=== PATIENT | male | born 1960 | race Caucasian/White ===

== ENCOUNTER 2017-04-26 16:55 | Inpatient (IN) ==
[2017-04-26] MEDS ORDERED: DILAUDID IV ONE ×2 (17:08→17:30)
[2017-04-26] MEDS ORDERED: ZOFRAN IV ONE (17:08)
[2017-04-26] MEDS ORDERED: NS 1,000 ML IV ONE ×2 (17:08→19:26)
[2017-04-26 17:26] LABS: MANUAL DIFF NEEDED? NO
[2017-04-26 17:28] LABS: BASO% 0.5 % (0.0-0.8); EOS# 0.25 X1000 (0.0-0.7); EOS% 2.3 % (0.0-10.0); HEMOGLOBIN 16.3 g/dL (14.0-18.0); IMM GRAN# 0.05 X1000 (0.0-0.04); IMM GRAN% 0.5 % (0.0-0.5); LYMPH# 3.11 X1000 (1.2-3.4); LYMPH% 28.1 % (20.5-51.1); MCH 33.3 PG (27-31); MCV 98.2 FL (81-99); MONO% 13.6 % (1.7-9.3); MPV 10.4 FL (7.4-10.4); PLT 264 X1000 (130-400); RBC 4.89 XMIL (4.7-6.1)
--- NOTE | 2017-04-26 17:49 | EKG Report ---
Test Performed on : 04/26/2017 5:09:26 PM Test Reason : CP ABDOMINAL PAIN Blood Pressure : / mmHG Vent. Rate : 069 BPM Atrial Rate : 069 BPM P-R Int : 124 ms QRS Dur : 100 ms QT Int : 554 ms P-R-T Axes : 024 026 066 degrees QTc Int : 593 ms Normal sinus rhythm. Septal infarct , age undetermined ST \T\ T wave abnormality, consider lateral ischemia Prolonged QT Abnormal ECG No previous ECGs available Unconfirmed Result
--- NOTE | 2017-04-26 17:49 | PROVIDER DOCUMENTATION ---
This chart was entered by Radha Manzanares Scribe, acting as scribe for Di Gorman MD. HPI-Abdominal Pain/GI Problem <Melvin Vazquez - Last Filed: 04/26/17 20:08> - General Source: patient - History of Present Illness-ABD Nature of Presenting Problems: Pt is 56 y/o M presents to the ED with abdominal pain. Pt states pain started [employer]. Pt states N and V. Pt denies D. Pt's states eating prior to pain onset. Abdominal Pain Onset Location: reports: periumbilical Pain Radiation: reports: no radiation Quality of Pain: reports: aching Severity in ED: reports: severe Onset/Duration: reports: 1/2 hour ago Timing: reports: still present Activities at Onset: reports: light activity Exposure to sick contacts?: No Modifying Factors: improves with: nothing Associated Symptoms: reports: diaphoresis, nausea, vomiting. denies: anxiety, arm pain, back/neck pain, chest pain, constipation, cough, diarrhea, dizziness, EENT symptoms, fatigue, fever/chills, genitourinary problems, headaches, heartburn, joint pain, loss of appetite, malaise, muscle aches, sinus congestion /drainage, rash, seizure, shortness of breath, sensory/motor loss, pain with inspiration, swelling/mass in abdomen, syncope, weakness, trouble walking Last BM: unsure Dark Stools Present?: reports: none noticed Rectal Bleeding: reports: none Rectal Pain: reports: none # of Vomiting Episodes: 2 Emesis Description: reports: other Bruising or Bleeding Gums?: No Similar Symptoms Previously?: No Recently seen or treated by another doctor?: No <Di Gorman - Last Filed: 04/27/17 07:38> - General Chief Complaint: Abdominal Pain Stated Complaint: ABD PAIN/N/V Time Seen by Provider: 04/26/17 17:10 Allergies/Adverse Reactions: Patient Allergies Allergy/AdvReac Type Severity Reaction Status Date / Time No Known Allergies Allergy Verified 08/22/15 12:08 Home Medications: Home Medication List Medication Instructions Recorded Confirmed Last Taken Type Topiramate [Topamax] 50 mg PO DAILY 08/22/15 04/26/17 04/25/17 22:00 History 50MG Warfarin Sodium [Coumadin] 6 mg PO DAILY 08/22/15 04/26/17 04/25/17 History Warfarin [Coumadin] 9.5 mg PO DIRECTED 08/22/15 04/26/17 04/23/17 History Amlodipine [Norvasc] 10 mg PO DAILY 04/27/17 04/27/17 04/26/17 History Fenofibrate 160 mg PO DAILY 04/27/17 04/27/17 04/26/17 History Lisinopril/Hydrochlorothiazide 20 mg PO DAILY 04/27/17 04/27/17 04/26/17 History [Lisinopril-Hctz 20-25 mg Tab] Omeprazole 20 mg PO QAM 04/27/17 04/27/17 04/26/17 History PRAVAstatin [Pravachol] 40 mg PO QHS 04/27/17 04/27/17 04/25/17 History Sertraline HCl [Zoloft] 100 mg PO DAILY 04/27/17 04/27/17 04/25/17 History Review of Systems - Adult - REVIEW OF SYSTEMS - ADULT Constitutional: reports: no symptoms reported Eyes: reports: no symptoms reported Ears, Nose, Mouth & Throat: reports: no symptoms reported. denies: ear discharge, ear pain Cardiovascular: reports: no symptoms reported Respiratory: reports: no symptoms reported. denies: chronic cough, cough Gastrointestinal: reports: abdominal pain, nausea, vomiting. denies: diarrhea Genitourinary: reports: no symptoms reported. denies: dysuria, discharge Musculoskeletal: reports: no symptoms reported Integumentary: reports: no symptoms reported Neurological: reports: no symptoms reported Psychiatric: reports: no symptoms reported Endocrine: reports: excessive sweating. denies: change in skin pigment, goiter , increased hunger, increased thirst Hematologic/Lymphatic: reports: no symptoms reported Allergic/Immunologic: reports: no symptoms reported All Other Systems: Reviewed and Negative <Di Gorman - Last Filed: 04/27/17 07:38> Past History - Adult - PAST MEDICAL HISTORY-ADULT Review of Records: reports: Old Records Reviewed, Nursing Assessment Review, Medications Reviewed, Social history reviewed & non-contributory. Major Childhood Illnesses: reports: denies history Cardiovascular: reports: HTN, heart valve problem (mechanical valve), hyperlipidemia Respiratory: reports: sleep apnea Gastrointestinal: reports: GERD Obstetrical/Gynecological: reports: denies history Genitourinary: reports: denies history Musculoskeletal: reports: denies history Neurological: reports: denies history Endocrine/Immune: reports: denies history Other Conditions: reports: denies history - PRIOR SURGERIES/PROCEDURES Surgical/Procedure History: reports: appendectomy, orthopedic (extremity) ( carpal tunnel ) - IMMUNIZATION STATUS Childhood Immunizations: See Nurse Assessment Flu Vaccine: See Nurse Assessment - FAMILY HISTORY Family History: reviewed, not pertinent - SOCIAL HISTORY Smoking: denies Substance Use: alcohol Alcohol Use Frequency: 3-4 times a week Number of drinks per typical drinking period:: 3-4 drinks Living Situation: family <Di Gorman X - Last Filed: 04/27/17 07:38> Physical Exam-General - PHYSICAL EXAM-ADULT Initial Vital Signs Reviewed: Yes - CONSTITUTIONAL General Appearance: alert, severe distress - EYES Eyes: PERRL/EOMI, pink conjunctivae - HEAD, EARS, NOSE, MOUTH & THROAT HENMT: normocephalic/atraumatic, moist mucous membranes, normal ENT inspection - NECK Neck: non-tender, full range of motion, supple, normal inspection - RESPIRATORY Respiratory: chest non-tender, lungs clear, normal breath sounds - CARDIOVASCULAR Cardiovascular: normal peripheral pulses, regular rate, rhythm - GASTROINTESTINAL (ABDOMEN) Abdominal Exam: normal bowel sounds, soft, tenderness (generalized) - LYMPHATIC Lymphatic: no adenopathy - MUSCULOSKELETAL Back Exam: normal inspection, no CVA tenderness, no vertebral tenderness Extremity: normal range of motion, non-tender, normal gait, normal inspection - SKIN Integumentary: normal color, normal turgor, diaphoresis - NEUROLOGIC Neurologic: grossly normal - PSYCHIATRIC Psych/Mental Status: other <Patricia Gormanvaleriano X - Last Filed: 04/27/17 07:38> Progress - PLAN OF CARE/RESULTS Progress/Plan/Lab Results: Vital Signs - 8 hr 04/26/17 16:59 04/26/17 19:08 04/26/17 19:30 Pulse Rate 74 59 L 63 Respiratory Rate 24 16 20 Blood Pressure 139/73 156/71 178/69 O2 Sat by Pulse Oximetry 99 97 96 Laboratory Results - last 24 hr 04/26/17 04/26/17 04/26/17 17:10 17:10 17:10 WBC 11.06 H RBC 4.89 Hgb 16.3 Hct 48.0 MCV 98.2 MCH 33.3 H MCHC 34.0 RDW Std Deviation 13.0 Plt Count 264 MPV 10.4 Immature Gran % (Auto) 0.5 Neut % (Auto) 55.0 Lymph % (Auto) 28.1 [place]isco[place] % (Auto) 13.6 H Eos % (Auto) 2.3 Baso % (Auto) 0.5 Immature Gran # (Auto) 0.05 H Neut # (Auto) 6.10 Lymph # (Auto) 3.11 [place] # (Auto) 1.50 H Eos # (Auto) 0.25 Baso # (Auto) 0.05 PT INR Sodium 141 Potassium 2.3 L* Chloride 97 L Carbon Dioxide 22 L Anion Gap 22 BUN 13 Creatinine 1.0 Estimated GFR/1.73 m2 > 60 BUN/Creatinine Ratio 13 Glucose 158 H Calculated Osmolality 285 Calcium 9.7 Total Bilirubin 0.40 AST 35 H ALT 26 Alkaline Phosphatase 60 Troponin T < 0.010 Total Protein 8.1 Albumin 4.7 Globulin 3.0 Albumin/Globulin Ratio 1.0 Amylase 2482 H Lipase > 3000 H Plasma/Serum Ethyl Alc 04/26/17 04/26/17 17:10 17:10 WBC RBC Hgb Hct MCV MCH MCHC RDW Std Deviation Plt Count MPV Immature Gran % (Auto) Neut % (Auto) Lymph % (Auto) Briscoe % (Auto) Eos % (Auto) Baso % (Auto) Immature Gran # (Auto) Neut # (Auto) Lymph # (Auto) [place] # (Auto) Eos # (Auto) Baso # (Auto) PT 25.7 H INR 2.34 H Sodium Potassium Chloride Carbon Dioxide Anion Gap BUN Creatinine Estimated GFR/1.73 m2 BUN/Creatinine Ratio Glucose Calculated Osmolality Calcium Total Bilirubin AST ALT Alkaline Phosphatase Troponin T Total Protein Albumin Globulin Albumin/Globulin Ratio Amylase Lipase Plasma/Serum Ethyl Alc Orders Category Date Time Status Admit - [facility] Routine AdmDCTranf 04/26/17 19:26 Ordered Activity - Bed Rest with BRP ORDERED Care 04/26/17 19:26 Active Call Admitting on Arrival AT ADMISSION Care 04/26/17 19:27 Active Saline Loc DIRECTED Care 04/26/17 17:10 Active Telemetry Placement ORDERED Care 04/26/17 19:28 Active Vital Signs Order Q 4-HR ASSESS Care 04/26/17 19:26 Active Clear Liquid Diet Diet 04/26/17 19:29 Active NPO Diet 04/26/17 17:[address] ABD/PELVIS W/ IV CONT ONLY [CT] Stat Exams 04/26/17 17:32 Ordered FLAT/UPRIGHT ABD/1 VIEW CHEST [RAD] Stat Exams 04/26/17 17:09 Completed US ABDOMEN-COMPLETE [US] Stat Exams 04/26/17 18:27 Completed AMYLASE [CHEM] Stat Lab 04/26/17 17:10 Completed CBC WITH ELECTRONIC DIFF [HEME] Stat Lab 04/26/17 17:10 Completed COMPREHENSIVE METABOLIC PANEL [CHEM] Stat Lab 04/26/17 17:10 Completed ETOH [ALCOHOL BLOOD] Stat Lab 04/26/17 17:10 Completed LIPASE [CHEM] Stat Lab 04/26/17 17:10 Com[address]IME WITH INR PL [COAG] Stat Lab 04/26/17 17:10 Completed TROPONIN T Stat Lab 04/26/17 17:[address] W/POSS RFLX CULT [URINALYSIS] Stat Lab 04/26/17 17:10 Uncollected 0.9% Sodium Chloride Inj [Ns] 1,000 ml Med 04/26/17 19:26 Active IV 150 mls/hr 0.9% Sodium Chloride Inj [Ns] 1,000 ml Med 04/26/17 17:08 Discontinued IV 999 mls/hr Hydromorphone [Dilaudid] Med 04/26/17 17:08 Discontinued 1 mg IV NOW ONE Hydromorphone [Dilaudid] Med 04/26/17 17:30 Discontinued 1 mg IV NOW ONE Hydromorphone [Dilaudid] Med 04/26/17 18:28 Discontinued 2 mg IM NOW ONE Hydromorphone [Dilaudid] Med 04/26/17 19:26 Active 2 mg IV Q4H PRN PRN LISINOpril [Prinivil] Med 04/26/17 19:33 Discontinued 20 mg PO NOW ONE Metoprolol [Lopressor] Med 04/26/17 19:33 Discontinued 25 mg PO NOW ONE Ondansetron [Zofran] Med 04/26/17 17:08 Discontinued 8 mg IV NOW ONE Potassium Chloride E.r. [Klor-Con] Med 04/26/17 18:07 Discontinued 60 meq PO NOW ONE Oxygen Device Routine Oth 04/26/17 19:28 Active Telemetry [OM.EQ] Routine Oth 04/26/17 19:26 Active EKG [EKG] Stat Ther 04/26/17 17:09 Draft Transfer/Admit Order [TRANSFER] Routine Transfer 04/26/17 19:33 Ordered Result Diagrams: 04/26/17 17:10 04/26/17 17:10 <Melvin Vazquez - Last Filed: 04/26/17 20:08> - PLAN OF CARE/RESULTS Progress/Plan/Lab Results: Vital Signs - 8 hr 04/26/17 16:59 Pulse Rate 74 Respiratory Rate 24 Blood Pressure 139/73 O2 Sat by Pulse Oximetry 99 Orders Category Date Time Status 0.9% Sodium Chloride Inj [Ns] 1,000 ml Med 04/26/17 17:08 Active IV 999 mls/hr Hydromorphone [Dilaudid] Med 04/26/17 17:08 Discontinued 1 mg IV NOW ONE Ondansetron [Zofran] Med 04/26/17 17:08 Discontinued 8 mg IV NOW ONE Result Diagrams: 04/27/17 06:10 04/27/17 06:10 - EKG 1 Time of EKG reading by physician:: 17:09 EKG Read and Signed by:: Di Gorman EKG Interpretation (*Must complete 3 of following elements*): Abnormal (ST & T wave abnormality, consider lateral ischemia; prolonged QT) Rate: 69 Rhythm: normal sinus rhythm Comments: septal infarct, age undetermined; - CHANGE OF SHIFT REPORT (ED Provider) Report Given and Care Transferred to:: Dr. Vazquez Time of Transfer: 17:45 Items Pending: Labs, XRAY Results, CT/MRI Results (CT) <Di Gorman - Last Filed: 04/27/17 07:38> Departure - Departure Date of Disposition Decision: 04/26/17 Time of Disposition Decision: 20:08 Certified Medical Emergency: Emergent - Critical Care Note This patient required my direct & personal management of CC.: No <Melvin Vazquez - Last Filed: 04/26/17 20:08> - Departure Date of Disposition Decision: 04/26/17 Time of Disposition Decision: 20:09 Certified Medical Emergency: Emergent - Critical Care Note This patient required my direct & personal management of CC.: No <Di Gorman - Last Filed: 04/27/17 07:38> - Departure DIAGNOSIS: Acute pancreatitis Qualifiers: Pancreatitis type: unspecified pancreatitis type Acute pancreatitis complication: unspecified Qualified Code(s): K85.90 - Acute pancreatitis without necrosis or infection, unspecified Disposition: ADMITTED INPATIENT 09 Condition: Stable This chart was documented by the indicated scribe, (Radha Manzanares Scribe) and accurately reflects the services I performed and decisions made by , Di Gorman MD, as attested by the provider's signature.
[2017-04-26] MEDS ORDERED: KLOR-CON PO ONE (18:07)
[2017-04-26 18:08] LABS: AGAP 22; ALBUMIN 4.7 g/dL (3.5-5.0); ALKALINE PHOSPHATASE 60 U/L (32-122); BUN 13 mg/dL (8-22); CALCIUM 9.7 mg/dL (8.8-10.2); CHLORIDE 97 mmol/L (98-107); COSMO 285; GOT 35 U/L (10-34); GPT 26 U/L (10-44); POTASSIUM 2.3 mmol/L (3.5-5.1); SODIUM 141 mmol/L (136-145); TCO2 22 mmol/L (25-35); TOTAL PROTEIN 8.1 g/dL (6.3-8.3)
[2017-04-26 18:09] LABS: AMYLASE 2482 U/L (20-200); LIPASE > 3000 U/L (13-60)
--- NOTE | 2017-04-26 18:12 | Diag Imaging Result Doc PS360 ---
EXAM: FLAT/UPRIGHT ABD/1 VIEW CHEST HISTORY: Severe epigastric pain TECHNIQUE: Flat and upright abdomen and AP chest portable COMMENT: there is no evidence of small bowel dilatation or gastric distention. There is stool within the ascending colon. No other definite evidence organomegaly or mass is present. CHEST: There are multiple healing rib fractures on the left. There are sternotomy wires. There are no previous studies. IMPRESSION: Constipation. Otherwise no evidence of acute disease Electronically signed by Ozzie Mittal 04/26/2017 6:10 PM
[2017-04-26] MEDS ORDERED: DILAUDID IM ONE (18:28)
--- NOTE | 2017-04-26 19:27 | Diag Imaging Result Doc PS360 ---
EXAM: US ABDOMEN-COMPLETE HISTORY: PAIN TECHNIQUE: Transabdominal COMMENT: The aorta and inferior vena cava are not well seen. The pancreas is obscured. The liver is hyperechoic suggesting fatty change. There was also fatty change on the previous CT study of 08/22/2015. There are cysts in the liver. The common bile duct is not visible. The gallbladder is clear and nontender. The spleen is not enlarged. The kidneys are without evidence of hydronephrosis or mass. Both are somewhat elongated the right measuring 14.6 cm and the left 13.6 cm. This is probably in proportion to the patient's body habitus however. There is antegrade flow in the portal vein. No abnormal fluid collections are present. IMPRESSION: Hepatic steatosis. Electronically signed by Ozzie Mittal 04/26/2017 7:24 PM
[2017-04-26] MEDS ORDERED: PRINIVIL PO ONE (19:33)
[2017-04-26] MEDS ORDERED: LOPRESSOR PO ONE (19:33)
[2017-04-26 19:38] LABS: INR 2.34 (0.86-1.15); PROTIME 25.7 Seconds (12.1-15.5)
--- NOTE | 2017-04-26 20:07 | ED EKG INTERP ---
This chart was entered by Gisselle Rivera Scribe, acting as scribe for Melvin Vazquez MD. EKG Interpretation - EKG Time of EKG reading by physician:: 18:09 EKG Read and Signed by:: Melvin Vazquez EKG Interpretation (*Must complete 3 of following elements*): Normal Rate: 63 Rhythm: NSR Comments: Abnormal ECG This chart was documented by the indicated scribe, (Gisselle Rivera Scribe) and accurately reflects the services I performed and decisions made by me, Melvin Vazquez MD, as attested by the provider's signature.
[2017-04-26] MEDS ORDERED: SODIUM CHLORIDE 0.9% INJ ONE ×2 (20:16→20:18)
[2017-04-26] MEDS ORDERED: PHENERGAN IV ONE ×2 (20:16→20:18)
--- NOTE | 2017-04-26 20:23 | Diag Imaging Result Doc PS360 ---
EXAM: CT ABD/PELVIS W/ IV CONT ONLY HISTORY: Severe epigastric pain with h/o CABG and HTN TECHNIQUE: CT of the abdomen and pelvis with intravenous contrast COMMENT: There are apparent chronic atelectatic or fibrotic changes in the posterior costophrenic sulci. There is marked hepatic steatosis. There are no gallstones. There is fairly severe phlegmonous change around the pancreas particularly in the left anterior pararenal space. There is fluid in the left subphrenic space. No definite evidence of necrosis or abscess is present. Some phlegmonous changes seen posterior to the body and antrum of the stomach. There is no evidence of biliary dilatation. There are cysts in the liver and kidneys. There is no evidence of hydronephrosis. There is no evidence of bowel obstruction. CT of the pelvis: There is no evidence of free fluid. The urinary bladder is not distended. There is no significant adenopathy. The regional skeleton is stable in appearance. IMPRESSION: 1. Pancreatitis with fairly severe phlegmonous change. 2. Hepatic steatosis. Electronically signed by Ozzie Mittal 04/26/2017 8:21 PM
[2017-04-26] MEDS ORDERED: M.V.I.-12 10 ML, FOLIC ACID 1 MG, MAGNESIUM SULFATE 1 GM, THIAMINE 100 MG in NS 1,000 ML IV ONE (21:30)
[2017-04-26] MEDS ORDERED: M.V.I.-12 ONE (23:36)
[2017-04-26] MEDS: DILAUDID IV PRN (23:36)
[2017-04-26] MEDS ORDERED: MAGNESIUM SULFATE ONE (23:36)
[2017-04-26] MEDS ORDERED: FOLIC ACID ONE (23:36)
[2017-04-26] MEDS ORDERED: THIAMINE ONE (23:36)
[2017-04-26] MEDS ORDERED: NS 1,000 ML ONE (23:37)
[2017-04-27] MEDS: LIBRIUM PO SCH ×4 (03:45→22:20)
[2017-04-27] MEDS: DILAUDID IV PRN ×4 (03:49→17:03)
[2017-04-27 06:38] LABS: HEMATOCRIT 53.6 % (42.0-52.0); HEMOGLOBIN 17.4 g/dL (14.0-18.0); MCH 32.5 PG (27-31); MCHC 32.5 g/dL (33-37); MCV 100.2 FL (81-99); MPV 10.8 FL (7.4-10.4); RBC 5.35 XMIL (4.7-6.1)
[2017-04-27 06:52] LABS: INR 1.99 (0.86-1.15); PROTIME 22.7 Seconds (12.1-15.5)
[2017-04-27] MEDS: ZOSYN 3.375 GM/NS 3.375 GM/50 ML IVPB IV SCH ×3 (07:19→18:41)
[2017-04-27 07:36] LABS: ALBUMIN 4.1 g/dL (3.5-5.0); CALCIUM 8.2 mg/dL (8.8-10.2); POTASSIUM 5.9 mmol/L (3.5-5.1); TOTAL BILIRUBIN 0.6 mg/dL (0.20-1.00); TOTAL PROTEIN 7.7 g/dL (6.3-8.3)
[2017-04-27] MEDS ORDERED: ZOFRAN IV PRN (08:37)
[2017-04-27] MEDS ORDERED: HYDROCHLOROTHIAZIDE PO SCH (09:00)
[2017-04-27] MEDS ORDERED: NON-FORMULARY MED (Lisinopril/Hydrochlorothiazide [Lisinopril-Hctz 20-25 Mg Tab] 20 MG) PO SCH (09:00)
[2017-04-27] MEDS ORDERED: PRINIVIL PO SCH (09:00)
[2017-04-27] MEDS ORDERED: COUMADIN PO SCH (09:00)
[2017-04-27] MEDS ORDERED: ZOLOFT PO SCH (09:00)
[2017-04-27] MEDS ORDERED: NORVASC PO SCH (09:00)
[2017-04-27] MEDS: ATIVAN IV PRN ×2 (09:12→23:30)
--- NOTE | 2017-04-27 10:43 | HISTORY AND PHYSICAL ---
PRIMARY CARE PHYSICIAN: Renee Alexandre MD. CHIEF COMPLAINT: Abdominal pain with nausea, vomiting. HISTORY OF PRESENTING ILLNESS: This is a 56-year-old male, who presented to [facility] ER with complaints of epigastric abdominal pain with nausea, vomiting. Workup in the ER showed a potassium of 2.3, an amylase of 2482 with a lipase greater than 3000. Serum alcohol level showed none detected at this time, but he states that he drinks 7- 15 alcoholic beverages daily. We also obtained an abdomen and pelvic CT that showed an impression of pancreatitis with fairly severe phlegmonous change so he was admitted for further evaluation and treatment. PAST MEDICAL HISTORY: Hypertension, hyperlipidemia, sleep apnea, and GERD. PAST SURGICAL HISTORY: Appendectomy. Carpal tunnel repair and mechanical valve placement. FAMILY HISTORY: Noncontributory. SOCIAL HISTORY: Currently lives with family. Denied any tobacco use. Drinks 7-15 vodka type drinks daily and denied any illicit drug use. ALLERGIES: He has no known drug allergies HOME MEDICATIONS: He takes fenofibrate 160 mg p.o. daily. Omeprazole 20 mg p.o. daily. Pravachol 40 mg p.o. at bedtime, Topamax 50 mg p.o. daily. Topiramate 50 mg p.o. daily. Coumadin 6 mg p.o. daily. Norvasc 10 mg p.o. daily. Lisinopril with hydrochlorothiazide 20/25 p.o. daily, Zoloft 100 mg p.o. daily. LABORATORY DATA: Showed a white blood cell count of 11.06, hemoglobin 16.3, hematocrit 48, platelets 264. PT and INR of 25.7 and 2.34. Sodium of 141, potassium 2.3, chloride 97, CO2 of 22, BUN of 13, creatinine 1, glucose 158. AST of 35 ALT 26, total bilirubin 0.40, alkaline phosphatase 60. Troponin less than 0.010. Amylase 2482. Lipase greater than 3000. Serum alcohol level on arrival showed none detected. An abdomen x-ray showed constipation, otherwise no evidence of acute disease. Abdomen and pelvis CT showed an impression of pancreatitis with fairly severe phlegmonous change and hepatic steatosis. Abdomen ultrasound showed hepatic steatosis. EKG showed normal sinus rhythm at 69. REVIEW OF SYSTEMS: He denied any fever, chills, blurred vision, dizziness, chest pain, coughing, shortness of breath. He was positive for epigastric abdominal pain, nausea, vomiting. Denied any diarrhea or burning or hurting with urination. PHYSICAL EXAMINATION: VITAL SIGNS: On arrival, he had a pulse of 74, respirations 24, blood pressure 139/73, saturating 99% on room air. GENERAL: This is a 56-year-old male, who is lying in the bed, answers questions appropriately. HEENT: Normocephalic and atraumatic. Pupils are equal, round, reactive to light. Extraocular movements are intact. Oropharynx and nares are clear. NECK: Supple. LUNGS: Clear to auscultation bilaterally with equal lung expansion and chest wall movement. HEART: With regular rate and rhythm. No murmurs, rubs, or gallops. ABDOMEN: There is tenderness primarily to the epigastric area, but is generalized. Bowel sounds are present x4 quadrants. EXTREMITIES: No clubbing, cyanosis, or edema. NEUROLOGICAL: The cranial nerves 2-12 are grossly intact. ASSESSMENT: 1. Acute pancreatitis. 2. Epigastric abdominal pain. 3. Hypokalemia. 4. Hypertension. 5. Ethanol abuse. PLAN: He was admitted to the medical unit at [facility]. We initially held him n.p.o., but then we are going to advance him to clear liquids. Recheck labs in a.m. We started him on Librium 50 mg p.o. q.6 hours, Ativan 1-2 mg IV q.3 hours. A banana bag once daily and continue Dilaudid 2 mg IV q.4 hours p.r.n. His potassium was supplemented with 60 mEq p.o. x1 in the emergency room, and will also continue Zofran 4 mg IV q.4 hours p.r.n. Dictated by BENNIE Lieberman for Nicanor Alatorre MD cc: BENNIE Lieberman MD Marlin D. Gill, MD
--- NOTE | 2017-04-27 19:04 | PROGRESS NOTE ---
DATE: 04/27/2017 SUBJECTIVE: Patient notes that he is feeling fine. Denies any chest pain, palpitations. Denies any jitteriness at this point. Denies any chest pain or palpitations. Notes that his abdominal pain is improving. OBJECTIVE: Vital signs: Temperature 97, pulse 103, respiratory 22, BP 171/119, saturation 93% on room air. General: Patient is awake, alert. He is currently in no respiratory distress. Pleasant to talk with. Neck: Supple. CV: Regular rate. Chest: Relatively clear. Abdomen: Soft, nondistended. Extremities: Moves all extremities. Neurologic: No focal changes. Skin: Warm and dry. No rashes. ASSESSMENT: 1. Acute pancreatitis secondary to chronic alcoholism. 2. Chronic alcoholism. 3. Leukocytosis. 4. Hypercoagulopathy, improving as he has stopped his alcohol. 5. Hypokalemia, actually resolved. In fact, his potassium is elevated. 6. Acute renal failure with serum creatinine 1.4. PLAN: Patient's amylase and lipase are actually improving. In fact, it has improved a lot since yesterday. His symptoms have improved. We currently are treating him for alcohol withdrawal, although he has not quite exhibited any symptoms. Discussed with the family the dangers in trying to stay on top. We will start him on Zosyn as his white count went up. Further orders as needed. cc: Nicanor Alatorre MD
[2017-04-27 20:29] LABS: URINE CULTURE PL NEEDED? NO
[2017-04-27 20:51] LABS: BILIRUBIN URINE NEGATIVE (NEGATIVE); BLOOD URINE TRACE (NEGATIVE); CLARITY CLEAR (CLEAR); COLOR YELLOW; GLUCOSE URINE NEGATIVE (NEGATIVE); LEUKOCYTES URINE NEGATIVE (NEGATIVE); NITRITE URINE NEGATIVE (NEGATIVE); PROTEIN URINE 1+(30 mg/dL) mg/dL (NEGATIVE); SP GRAVITY URINE 1.015; UROBILINOGEN URINE NORMAL
[2017-04-27] MEDS: NS 1,000 ML IV SCH (20:57)
[2017-04-27 21:04] LABS: URINE EPITHELIAL CELLS <10 /HPF (<10); URINE RBC <10 /HPF (<10); URINE SOURCE CATH; URINE WBC <10 /HPF (<10)
[2017-04-27] MEDS ORDERED: LABETALOL IV ONE (23:53)
[2017-04-28] MEDS ORDERED: LABETALOL ONE (00:08)
[2017-04-28] MEDS: ATIVAN 20 MG in NS 190 ML IV SCH ×2 (00:27→11:07)
[2017-04-28] MEDS: ZOSYN 3.375 GM/NS 3.375 GM/50 ML IVPB IV SCH ×3 (00:29→12:53)
[2017-04-28] MEDS: NS 1,000 ML IV SCH ×3 (02:01→12:53)
[2017-04-28] MEDS: DILAUDID IV PRN (03:10)
[2017-04-28] MEDS: LIBRIUM PO SCH (05:34)
[2017-04-28 07:51] LABS: INR 1.67 (0.86-1.15); PROTIME 19.9 Seconds (12.1-15.5)
[2017-04-28 07:52] LABS: HEMATOCRIT 49.7 % (42.0-52.0); HEMOGLOBIN 15.4 g/dL (14.0-18.0); MCH 32.9 PG (27-31); MCV 106.2 FL (81-99); MPV 11.8 FL (7.4-10.4); RBC 4.68 XMIL (4.7-6.1)
[2017-04-28 08:42] LABS: ALBUMIN 3.9 g/dL (3.5-5.0); CALCIUM 7.2 mg/dL (8.8-10.2); MAGNESIUM 1.9 mg/dL (1.5-2.7); TOTAL PROTEIN 6.5 g/dL (6.3-8.3)
--- NOTE | 2017-04-28 08:51 | Diag Imaging Result Doc PS360 ---
EXAM: CHEST-PORTABLE HISTORY: dyspnea TECHNIQUE: Erect AP portable at 0830 COMMENT: The inspiration is suboptimal. Considering the degree of inspiration the appearance of the chest has not changed significantly since 04/26/2017. IMPRESSION: Stable chest Electronically signed by Ozzie Mittal 04/28/2017 8:48 AM
[2017-04-28 08:53] LABS: POTASSIUM 6.5 mmol/L (3.5-5.1)
[2017-04-28] MEDS ORDERED: CLINDAMYCIN 900 MG/NS 900 MG/50 ML IVPB IV SCH (09:00)
[2017-04-28] MEDS ORDERED: LOVENOX SUBQ SCH (09:30)
[2017-04-28 09:40] LABS: BILIRUBIN URINE NEGATIVE (NEGATIVE); BLOOD URINE 4+ (NEGATIVE); CLARITY SL. CLOUDY (CLEAR); COLOR YELLOW; GLUCOSE URINE NEGATIVE (NEGATIVE); LEUKOCYTES URINE 1+ (NEGATIVE); NITRITE URINE NEGATIVE (NEGATIVE); PROTEIN URINE 2+(100 mg/dL) mg/dL (NEGATIVE); SP GRAVITY URINE 1.015; UROBILINOGEN URINE NORMAL
[2017-04-28 09:48] LABS: BE -11.6 mmoll (-3.0-3.0); BLOOD TYPE ARTERIAL; METHB 1.6 % (0.0-1.5); O2(CT) 20.5 mL/dL (15.0-23.0); PCO2(98.6) 33 mmHg (35-45); PO2(98.6) 81 mmHg (60-100); SAMPLE BLOOD; SAO2 96.7 % (95.0-100.0); THB 15.6 g/dL (11.5-17.4); pH(98.6) 7.25 (7.35-7.45)
[2017-04-28 09:54] LABS: MODALITY VENTIMASK
[2017-04-28 09:56] LABS: ALLEN TEST YES; DRAW SITE L RADIAL
[2017-04-28 10:08] LABS: URINE EPITHELIAL CELLS >10 /HPF (<10)
[2017-04-28 10:12] LABS: URINE CAST GRANULAR PRESENT /LPF; URINE CRYSTAL NONE SEEN /HPF; URINE SOURCE CATH
[2017-04-28 10:13] LABS: URINE CULTURE PL NEEDED? YES
[2017-04-28] MEDS ORDERED: HUMALOG DOSE (PARKWAY) SUBQ ONE (10:22)
[2017-04-28] MEDS ORDERED: D50W SYRINGE IV ONE ×2 (10:22→16:30)
[2017-04-28] MEDS: ATIVAN IV PRN (12:17)
[2017-04-28 13:26] LABS: ALLEN TEST YES; BLOOD TYPE ARTERIAL; DRAW SITE R RADIAL; SAMPLE BLOOD
[2017-04-28] MEDS ORDERED: NS 1,000 ML IV ONE (13:33)
[2017-04-28 13:34] LABS: PCO2(98.6) 29 mmHg (35-45); PO2(98.6) 76 mmHg (60-100); THB 15.6 g/dL (11.5-17.4)
[2017-04-28 13:35] LABS: MODALITY BI PAP
[2017-04-28 13:41] LABS: I-STAT IONIZED CALCIUM 0.98 mmoll (1.12-1.32); I-STAT K 4.9 mmoll (3.5-4.9); I-STAT SODIUM 147 mmoll (138-146)
[2017-04-28] MEDS ORDERED: TYLENOL PR PRN (13:41)
[2017-04-28 13:42] LABS: I-STAT BE -12 mmoll (-2-3); I-STAT GLUCOSE 167 mg/dL (70-105); I-STAT HCO3 14.4 mmoll (22.0-26.0); I-STAT HEMATOCRIT 46 % (38-51); I-STAT HEMOGLOBIN 15.6 g/dL (11.5-17.5); I-STAT PCO2 29.1 mmHg (35.0-45.0); I-STAT SO2 94 % (95-98); I-STAT TCO2 15 mmoll (23-27)
[2017-04-28 13:43] LABS: I-STAT DEVICE BI PAP; I-STAT SITE R RADIAL
[2017-04-28 13:49] LABS: I-STAT BE -12 mmoll (-2-3); I-STAT GLUCOSE 167 mg/dL (70-105); I-STAT HCO3 14.4 mmoll (22.0-26.0); I-STAT HEMATOCRIT 46 % (38-51); I-STAT HEMOGLOBIN 15.6 g/dL (11.5-17.5); I-STAT IONIZED CALCIUM 0.98 mmoll (1.12-1.32); I-STAT K 4.9 mmoll (3.5-4.9); I-STAT PCO2 29.1 mmHg (35.0-45.0); I-STAT SO2 94 % (95-98); I-STAT SODIUM 147 mmoll (138-146); I-STAT TCO2 15 mmoll (23-27); I-STAT pH 7.304 (7.350-7.450)
[2017-04-28] MEDS: MERREM 500 MG in NS 50 ML IV SCH ×2 (14:00→20:52)
--- NOTE | 2017-04-28 14:03 | EKG Report ---
Test Performed on : 04/28/2017 1:32:09 PM Test Reason : sinus tachycardia Blood Pressure : / mmHG Vent. Rate : 150 BPM Atrial Rate : 150 BPM P-R Int : 096 ms QRS Dur : 088 ms QT Int : 336 ms P-R-T Axes : 000 017 082 degrees QTc Int : 530 ms Sinus tachycardia. with short AL with fusion complexes Septal infarct (cited on or before 26-APR-2017) ST \T\ T wave abnormality, consider lateral ischemia Abnormal ECG When compared with ECG of 26-APR-2017 18:09, (Unconfirmed) fusion complexes are now present AL interval has decreased Vent. rate has increased BY 87 BPM Nonspecific T wave abnormality now evident in Inferior leads Nonspecific T wave abnormality, worse in Lateral leads Confirmed by Pieter MYERS, Rustam Baird ([id number]) on 04/30/2017 12:40:08 PM
[2017-04-28] MEDS ORDERED: ATIVAN IV PRN (14:23)
[2017-04-28] MEDS ORDERED: ZOFRAN IV PRN (14:29)
[2017-04-28] MEDS ORDERED: HEPARIN 25,000 UNITS/D5W 25,000 UNIT/250 ML IV.SOLN IV SCH (14:45)
[2017-04-28 14:57] LABS: UR CREAT RANDOM 195.9 mg/dL (14-26); UR PROT RANDOM 241.9 mg/dL
[2017-04-28] MEDS ORDERED: ATIVAN 20 MG in NS 190 ML IV SCH (15:00)
[2017-04-28] MEDS ORDERED: NS 1,000 ML IV SCH (15:00)
[2017-04-28] MEDS: LR 1,000 ML IV SCH ×3 (15:06→22:08)
--- NOTE | 2017-04-28 15:17 | PROGRESS NOTE ---
DATE: 04/28/2017 SUBJECTIVE: Today Mr. Reddy was transferred from [place] here for higher level of care. I understand he was admitted about 2 days ago because of nausea and vomiting. Initial imaging studies did reveal acute pancreatitis. OBJECTIVE: Vital signs: Blood pressure is 102/53, pulse is 149, respirations 29, temperature is 100.0 degrees. General exam: Mr. Reddy is a 56-year-old male. He is in bed, in mild respiratory distress. HEENT: Mucosa is pink and moist. Anicteric. Acyanotic. Neck: Supple. Chest: Good air entry bilateral. Some diffuse bilateral crepitations. Cardiovascular: Regular rate. There is a metallic click of the A2. Abdomen: Soft, distended. Extremities: No pedal edema. GRIP BOSS: Patient is stuporous, not very responsive, but then he was on Ativan drip. This has just been turned off. LABORATORY DATA: WBC is 26.77, hemoglobin is 15.4, platelet count of 192. Chemistry: Sodium is 144, potassium is 6.5, chloride is 107, bicarbonate is 15. BUN is 50, creatinine is 5.3. AST went up to 2950, ALT is 555. Amylase yesterday was 794 and lipase was 2101. DIAGNOSTIC STUDIES: 1. A CT scan of the abdomen and pelvis on presentation did show pancreatitis with fairly severe phlegmon change. 2. A chest x-ray today shows poor inspiration, but stable chest. 3. INR is 1.67. ASSESSMENT: 1. Severe acute pancreatitis with phlegmon changes. The patient is showing signs of multi organ failure due to severe pancreatitis. Prognosis is extremely poor, and I have discussed this with the family members for now. I will change the fluid to lactate 250 mL/ hour. We will get surgery to put in a central line that can also be used for dialysis purposes if the need be. 2. Acute kidney failure likely due to third-spacing from the severe pancreatitis. 3. Acute hepatitis from alcohol induced. 4. Severe alcohol abuse. 5. Morbid obesity with a body mass index of 38.0. 6. Aortic stenosis status post mechanical valve. The patient was on Coumadin anticoagulation. For this we are going to bridge it with heparin while he is here in the ICU. Will get cardiology also to evaluate the patient. PLAN: In general, I think Mr. Reddy has a severe alcohol-induced pancreatitis with phlegmon He is in multi organ failure with very poor prognosis. I have discussed this with the family. The patient will be seen by GI as well as pulmonary medicine, and will also consult cardiology to see the patient. CRITICAL TIME SPENT: 45 minutes. cc: Dandy Thorpe MD MTDD
--- NOTE | 2017-04-28 15:50 | CONSULTATION ---
DATE OF CONSULTATION: 04/28/2017 REASON FOR CONSULTATION: Patient admitted with acute pancreatitis transferred from [facility]. Cardiology was consulted for patient has mechanical prosthetic aortic valve and is on Coumadin switched to IV heparin. HISTORY OF PRESENT ILLNESS: Mr. Pritesh Reddy is a 56-year-old, gentleman who presented to the hospital with abdominal discomfort, nausea, vomiting . In the ER he was noted to have potassium of 2.3, amylase 2482, lipase 3000. Serum alcohol level nondetected at the time of admission. Patient had a CT scan. It showed pancreatitis with severe phlegmonous change. Patient was transferred to [facility] and admitted. Patient is a chronic alcoholic. History was obtained discussing with the patient's family. He has been drinking at least for the last 10-15 years, drinks about 7 to a 5th of vodka on a daily basis. Denies any tobacco abuse. Has had aortic valve replacement for aortic stenosis, congenital bicuspid aortic valve. This was in [place], is followed by his annual campaign manager Dr. Cedillo in [place] whom he follows up on a yearly basis. Since his surgery which was a mechanical valve no other untoward side effects or ongoing cardiac problems that the family knows of. PAST MEDICAL HISTORY: 1. Mechanical aortic valve replacement for aortic stenosis. 2. Hypertension. 3. Hyperlipidemia. 4. Sleep apnea. 5. Gastroesophageal reflux disease. 6. Appendectomy. 7. Chronic alcohol abuse. HOME MEDICATIONS: Fenofibrate 160, omeprazole 20, Pravachol 40, Topamax 50, Coumadin 6 mg p.o. daily, Norvasc 10, lisinopril/hydrochlorothiazide 20/25 daily, Zoloft 100. REVIEW OF SYSTEMS: Denies chest pain suggestive of angina. There is generalized abdominal discomfort, shortness of breath. Genitourinary. There is no dysuria. There is no focal weakness to suggest CVA, TIA. PHYSICAL EXAM: Vital signs: Blood pressure was 139/73 when he came in, blood pressure is 102/70, heart rate 140, temperature 101.3 degrees. Heart: Jugular venous pressure could not be assessed. First and second heart sounds were heard. Mechanical sounds present . Respiratory: Normal air entry. Abdomen: Tender diffuse. Central nervous system: Patient is sedated and does not respond appropriately but responds to painful stimuli. History was obtained from the chart. ASSESSMENT AND PLAN: Mr. Pritesh Reddy is a 56-year-old gentleman with. 1. History of hypertension, mechanical prosthetic aortic valve replacement in [place]. 2. Hyperlipidemia. 3. Chronic alcohol abuse. Is admitted with acute pancreatitis. From a cardiac standpoint, his Coumadin has been held. He is on IV heparin. He has sinus tachycardia multifactorial from his pancreatitis and elevated temperature which is being treated. Will get an echocardiogram to assess cardiac and valvular function when his heart rate is better. Chest x-ray was unremarkable. His potassium was 2.5 subsequently his laboratory examination revealed acute tubular necrosis and nephrology has been consulted. His sodium 144, potassium 6.5, BUN 50 and creatinine of 5.3. When he was admitted his BUN was 13 and a creatinine of 1.0. He was treated for hyperkalemia. We will get a stat BMP and a set of cardiac enzymes as well. His initial troponin was normal. His AST was abnormal at 2950, ALT 555. Critical care pulmonology has also been consulted. Will follow hospital course. cc: Tai Sweet MD
--- NOTE | 2017-04-28 15:56 | CONSULTATION ---
DATE OF CONSULTATION: 04/28/2017 REASON FOR ADMISSION: Abdominal pain, nausea, vomiting, pancreatitis. REASON FOR CONSULTATION: Acute renal failure, assist with medical management. CONSULTING PHYSICIAN: Dandy Thorpe MD. HISTORY OF PRESENT ILLNESS: This is a 56-year-old gentleman, who originally presented to the [facility] Emergency room with complaints of epigastric pain, nausea and vomiting. There, he was found to have pancreatitis, as noted on his labs, as well as abdomen and pelvic CT with contrast that showed pancreatitis with phlegmonous change. He was admitted for further workup and treatment. Initially, he had some improvement. However, over the last 24 hours , he has declined significantly with his breathing status and mentation. He has required BiPAP now since last night and initially started out on the simple mask, had advanced to a Ventimask and then to BiPAP. This morning, he is still on BiPAP. His labs had worsened significantly overnight with his initial creatinine of 1 on presentation, 1.4 yesterday and 5.3 today. He was also noted to be markedly hyperkalemic with a potassium of 6.5. His AST and ALT mode profoundly. AST from 36 to 2950. ALT 24 to 559. He has a lipase of 2100 and an amylase of 794. He was transferred over to [facility] intensive care for further treatment. Over the last 12-24 hours, his urine output has decreased to the point that he is now essentially anuric. He has remained tachycardic at the rate of 150s. Since he has been here he remains on BiPAP. He had previously been sedated with an Ativan drip secondary to withdrawal protocol. We have been asked to see him for his multiorgan decline and assist with his renal failure and medical management. PAST MEDICAL HISTORY: Hypertension, hyperlipidemia, sleep apnea. Wears a CPAP. GERD. PAST SURGICAL HISTORY: He has had an appendectomy. He has had carpal tunnel repair and mechanical valve placement. ALLERGIES: No known drug allergies. MEDICATIONS: Home medications include fenofibrate, omeprazole, Pravachol, Topamax, Topiramate, Coumadin, Norvasc, lisinopril with hydrochlorothiazide and Zoloft. His current medications include clindamycin, Dilaudid, Ativan, Merrem, Zofran, normal saline and he is to be placed on a heparin drip here shortly. FAMILY HISTORY: Noncontributory. SOCIAL HISTORY: Apparently, he drinks 7-15 drinks of hard liquor daily. No tobacco or illicit drug use noted. He is . He has a and adult child in attendance at the bedside. REVIEW OF SYSTEMS: Unobtainable. PHYSICAL EXAMINATION: Vital Signs: Temperature 100, pulse 150-155, respiratory rate 29-35. Blood pressure 102/71. He is on 50% FiO2 on BiPAP. He is several liters positive on I/O. HEENT: Normocephalic, atraumatic. Pupils are pinpoint, reactive. He has a BiPAP in place. Neck: Thick, supple. Unable to discern JVD. Cardiovascular: He is tachycardic on the monitor with multiple PVCs. Pulmonary : He has significantly decreased breath sounds to the bases. He is tachypneic. He is on a BiPAP. He has equal excursion. Abdomen: Distended. Tight. Hypoactive bowel sounds. : He has a Martinez catheter. There are a few drops of dark urine noted. Extremities: He has 1+ pretibial edema. There is some dependent edema noted to the backs of the thighs. He also has a dependent edema noted to the upper extremities. Integumentary: Skin is pale. He is hot to touch. Neuro: Unobtainable. He is sedated on Ativan. LAB DATA: WBC of 26.7, hemoglobin 15.4, hematocrit 49.7 and platelet count of 192. Sodium 144, potassium 6.5, chloride 107, CO2 of 15, anion gap of 22. BUN 50, creatinine 5.3. Calcium 7.2, magnesium 1.9., total bilirubin of 1, AST 2950, ALT 555, alkaline phosphatase 33 , albumin 3.9. Amylase yesterday 794. Lipase yesterday 2101 and a TSH yesterday of 234. Urinalysis with cloudy urine, 2+ protein, negative ketones, 4+ blood, negative nitrates with granular cast noted. He has a FENA of 0.4. Toxicology screen negative. IMAGING: Chest x-ray this morning with suboptimal inspiration, stable otherwise. He had an abdominal ultrasound on April 26, that indicated hepatic steatosis with large kidneys, measuring right 14 cm, left 13 cm. No fluid collections. He had an abdomen and pelvis CT with contrast that indicated pancreatitis with fairly severe phlegmonous change and hepatic steatosis. ASSESSMENT AND PLAN: 1. Acute kidney injury, multifactorial. The patient has pancreatitis with multiorgan failure. He also underwent a CT with contrast. Creatinine has risen drastically over the last 24 hours. He does not have an absolute indication for dialysis today. However , within the next 24 hours, this may become a necessity. I did discuss with the family the possibility that the patient may require dialysis, both for fluid volume control, as well as for his abnormal lab values. The patient does not have any type of central line at this time. He has 2 small peripheral IVs. We will therefore ask Surgery to place a Vas-Cath with a third port so that we would have central access to obtain a central venous pressure, as well as administer pressor support if this patient requires it, and then have access for dialysis in the anticipation that he will require this over the weekend. We will request that Dr. Cool assist us with the patient. 2. Electrolytes. He is hyperkalemic this morning. I understand he was treated medically for his hyperkalemia. He has not had a follow up lab drawn this afternoon. We will request that a renal panel be added to the labs that were just drawn, after he got here so that we can continue to treat the potassium as needed. 3. Acidosis metabolic. Patient is on a BiPAP. He is tachypneic as well. He has base fluids of normal saline. We can add bicarb to this. 4. Leukocytosis. His white count is elevating on a daily basis. He is on appropriately dosed antibiotics. We will make no changes for that followed by the primary. 5. Pancreatitis. The patient has initial [place] score of 35. He is followed by the primary. It was discussed with the family that the patient is critically ill, that his condition may worsen initially, and that he is at risk to not survive the pancreatitis especially with multiple organ involvement. We did discuss with the family that the patient may require intubation and mechanical ventilation secondary to his rapidly worsening respiratory status. Thank you for allowing us to participate in the care of this gentleman. Dictated by BENNIE Wright for Todd Fernandez MD cc: Todd Fernandez MD [facility]
[2017-04-28 16:18] LABS: ALBUMIN 3.6 g/dL (3.5-5.0); CALCIUM 7.7 mg/dL (8.8-10.2)
[2017-04-28 16:20] LABS: POTASSIUM 6.1 mmol/L (3.5-5.1)
[2017-04-28] MEDS ORDERED: LR 500 ML IV ONE (16:21)
[2017-04-28] MEDS ORDERED: HUMULIN R IV ONE (16:30)
[2017-04-28] MEDS ORDERED: ALBUTEROL 0.5% INH CONC FOR HYPERKALEMIA INH ONE (16:31)
[2017-04-28 16:57] LABS: CK INDEX 0.2 (0.0-2.5); CK-MB 13.78 ng/mL (0.0-5.0)
[2017-04-28] MEDS ORDERED: NS 500 ML ONE (17:48)
--- NOTE | 2017-04-28 17:56 | Diag Imaging Result Doc PS360 ---
EXAM: CHEST/ABD TUBE PLACEMENT HISTORY: ngt placement TECHNIQUE: COMPARISON: None. FINDINGS: A NG tube overlies the esophagus and stomach. Heart remains mildly prominent. There are sternal wires and old left rib fractures. No consolidation. IMPRESSION: NG over the esophagus and stomach. Electronically signed by Chris Mendoza 04/28/2017 5:54 PM
--- NOTE | 2017-04-28 18:18 | PROGRESS NOTE ---
DATE: 04/28/2017 Patient Renee Alexandre. History of abdominal pain, nausea and vomiting. Presented on 04/26/2017 to [facility]. He was complaining of epigastric pain, nausea and vomiting. Workup in the ER showed a potassium 2.3, amylase is 2482, lipase greater than 3000. Serum alcohol level showed none detected at this time. States that he drinks about 7-15 alcoholic beverages a day. Also obtained abdominal and pelvic CT that showed an impression of pancreatitis with fairly severe phlegmonous change. He is admitted for further evaluation. PAST MEDICAL HISTORY: Of hypertension, hyperlipidemia, sleep apnea, and gastroesophageal reflux disease. According to the son he does drink pretty heavy and has done that for a long time. PAST SURGICAL HISTORY: Status post appendectomy. Status post carpal tunnel repair, mechanical valve replacement. Apparently he had aortic stenosis. CT of his abdomen and pelvis on 04/26 showed pancreatitis and fairly severe phlegmonous change, hepatic steatosis. His abdominal ultrasound hepatic steatosis appreciated. 1. He started show sign of multiorgan failure including renal insufficiency, acute kidney injury and hepatic dysfunction as well. So transferred here to the hospital. Dr. Thorpe accepted and he changed him to lactate 250 mL an hour. Plan on getting a Vas-Cath and pursuing dialysis. 2. Acute kidney failure. This is 3rd spacing due to the severe pancreatitis. 3. Acute hepatitis from alcohol induced. 4. Severe alcohol abuse. 5. Morbid obesity with body mass index of 38. 6. Aortic stenosis status post mechanical valve. The patient was on Coumadin anticoagulation. MOST RECENT LAB: White count 95329, hematocrit 49, platelet count 192,000. Potassium 6.1, sodium 149, chloride 108. BUN 56, creatinine 5.2. Phosphorus was 2.1. Calcium 7.7. CPK was 5681. Troponin was 0.222. cc: Aleksandar Cool MD
[2017-04-28] MEDS: CLINDAMYCIN 900 MG/NS 900 MG/50 ML IVPB IV SCH (18:29)
[2017-04-28] MEDS ORDERED: SODIUM BICARBONATE 8.4% IV PUSH ONE (18:56)
--- NOTE | 2017-04-28 19:36 | PROGRESS NOTE ---
DATE: 04/28/2017 SUBJECTIVE: Patient is much less alert this morning. He is struggling more to breathe. He does not wake up, answer or follow commands. He is currently on insulin drip. PHYSICAL EXAMINATION: Vital Signs: Temperature 97 degrees, pulse 130-144, respiratory rate 13- 28, saturating 93% on 2 L with recent change to 93% on a mask. General: Patient is no longer awake or alert. He currently is on an Ativan drip. He is tachycardic. Over the last several hours he has developed respiratory distress which was not present prior. HEENT: Normocephalic, atraumatic. Neck: Supple. Cardiovascular: Tachycardia. No murmurs. Chest: Much more labored, much less air movement, positive rhonchi throughout. Abdomen: Soft, obese. Unable to assess tenderness due to his current sedation. Extremities: Positive edema to lower extremities. DIAGNOSTIC DATA: WBC 26. INR is 1.6. ABG with a pH of 7.30, pCO2 of 29, PO2 of 76. Lactate of 3.3. Sodium 149, potassium 6.1, BUN 56, creatinine 5.2, calcium 7.2, phosphorus 2.1, AST 2950, ALT 555. ASSESSMENT: 1. Acute alcoholic pancreatitis. 2. Leukocytosis. 3. Acute sepsis. 4. Acute renal failure. 5. Acute respiratory failure. 6. Acute liver failure. 7. Chronic alcoholism. 8. Hyperkalemia. 9. Hypernatremia. 10. Hypokalemia. PLAN: At this point we will attempt to transfer Mr. Reddy to [facility] for GI and Pulmonology to evaluate and assist. He will also need renal. He certainly may require dialysis. Unfortunately his is not present at the moment but we will attempt to contact her. Mr. Reddy has had a tremendous sudden change from yesterday's labs and last night's examination. Last night he was awake, alert, oriented. He was in no respiratory distress. I discussed with his that we were going to move him to the ICU for closer observation. Again, I discussed with her the perils of alcohol, alcoholism and alcohol withdrawal although his current medical issue is caused by his acute pancreatitis and end-organ failure. Unfortunately this morning patient made a significant turn for the worse and his overall prognosis has turned to guarded. We will continue him on IV antibiotics. We will transfer to [facility]. TIME SPENT: 45 minutes was spent in total care. cc: Nicanor Alatorre MD
--- NOTE | 2017-04-28 20:05 | OPERATIVE NOTE ---
PROCEDURE DATE: 04/28/2017 PREOPERATIVE DIAGNOSES: 1. Phlebosclerosis. 2. Acute pancreatitis with multiorgan system failure. 3. Acute renal failure. POSTOP DIAGNOSIS: 1. Phlebosclerosis. 2. Acute pancreatitis with multiorgan system failure. 3. Acute renal failure. PROCEDURE: Ultrasound-guided right common femoral Vas-Cath placement. SURGEON: Tutu Machado MD. CASINO CONTROLLER: None. ANESTHESIA: Local administered by the surgeon. BRIEF HISTORY: The patient is a 56-year-old male who initially came from [place]. He had pancreatitis and had multiple organs that were beginning to have failure. He was transferred here for dialysis. The risks, benefits, alternatives for Vas-Cath placement were discussed. All questions answered. DESCRIPTION OF PROCEDURE: After informed consent was obtained, patient brought over to the ICU and remained in his ICU bed. Ultrasound was used to identify the right common femoral vein, was of sufficient size to accommodate Vas-Cath. We prepped and draped the right groin in a sterile fashion. After the formal time-out, I used local anesthetic to anesthetize the skin. With ultrasound guidance was able to cannulate the right common femoral vein, pass a wire easily into the tract, dilated up sequentially in Seldinger technique and placed a Vas-Cath in place. All ports aspirated and flushed easily, secured in place. We placed a sterile dressing. The patient tolerated procedure well and remained in his ICU bed. cc: Tutu Machado MD
[2017-04-28 21:26] LABS: POTASSIUM 4.8 mmol/L (3.5-5.1)
[2017-04-29] MEDS: DILAUDID IV PRN ×2 (00:07→18:30)
[2017-04-29 00:55] LABS: ALLEN TEST YES; BE -7.2 mmoll (-3.0-3.0); BLOOD TYPE ARTERIAL; DRAW SITE R RADIAL; MODALITY BI PAP; O2(CT) 16.9 mL/dL (15.0-23.0); PCO2(98.6) 44 mmHg (35-45); PO2(98.6) 97 mmHg (60-100); SAMPLE BLOOD; SAO2 98.2 % (95.0-100.0); THB 12.4 g/dL (11.5-17.4); pH(98.6) 7.26 (7.35-7.45)
[2017-04-29] MEDS ORDERED: HEPARIN IV ONE (01:28)
[2017-04-29] MEDS: CLINDAMYCIN 900 MG/NS 900 MG/50 ML IVPB IV SCH ×3 (01:33→16:13)
[2017-04-29] MEDS: HEPARIN 25,000 UNITS/D5W 25,000 UNIT/250 ML IV.SOLN IV SCH ×4 (01:49→21:26)
[2017-04-29] MEDS: LR 1,000 ML IV SCH ×3 (01:51→12:35)
[2017-04-29 03:56] LABS: ALLEN TEST YES; BE -8.4 mmoll (-3.0-3.0); BLOOD TYPE ARTERIAL; DRAW SITE R RADIAL; METHB 0.9 % (0.0-1.5); O2(CT) 16.9 mL/dL (15.0-23.0); PCO2(98.6) 47 mmHg (35-45); PO2(98.6) 110 mmHg (60-100); SAMPLE BLOOD; SAO2 99.3 % (95.0-100.0); THB 12.3 g/dL (11.5-17.4); pH(98.6) 7.22 (7.35-7.45)
[2017-04-29 03:57] LABS: MODALITY BI PAP
[2017-04-29 04:25] LABS: HEMATOCRIT 40.2 % (42.0-52.0); HEMOGLOBIN 12.6 g/dL (14.0-18.0); MCH 34.1 PG (27-31); MCHC 31.3 g/dL (33-37); MCV 108.6 FL (81-99); MPV 11.2 FL (7.4-10.4); RBC 3.7 XMIL (4.7-6.1)
[2017-04-29 05:22] LABS: ALBUMIN 2.8 g/dL (3.5-5.0); MAGNESIUM 1.6 mg/dL (1.5-2.7); POTASSIUM 5.1 mmol/L (3.5-5.1); TOTAL BILIRUBIN 0.84 mg/dL (0.20-1.00); TOTAL PROTEIN 5.7 g/dL (6.3-8.3)
[2017-04-29 05:51] LABS: CALCIUM 6.7 mg/dL (8.8-10.2)
[2017-04-29] MEDS ORDERED: CALCIUM GLUCONATE 1 GM in NS 50 ML IV ONE (05:59)
--- NOTE | 2017-04-29 06:09 | Diag Imaging Result Doc PS360 ---
EXAM: CHEST-PORTABLE HISTORY: sob, follow up TECHNIQUE: Portable flat AP COMPARISON: 04/28/2017 FINDINGS: Poor inspiratory effort. Sternal wires are present. A nasogastric tube overlies the esophagus and stomach. Small infiltrate or atelectasis in the left base. Several old rib fractures. IMPRESSION: Stable chest. Electronically signed by Chris Mendoza 04/29/2017 6:07 AM
[2017-04-29] MEDS: MERREM 500 MG in NS 50 ML IV SCH ×3 (06:23→22:12)
--- NOTE | 2017-04-29 08:35 | CONSULTATION ---
DATE OF CONSULTATION: 04/29/2017 REFERRING PHYSICIAN: Dr. Thorpe. CHIEF COMPLAINT: Abdominal pain with vomiting. HISTORY OF PRESENT ILLNESS: This is a 56-year-old, male with past medical history of hypertension, hyperlipidemia, sleep apnea, GERD and alcohol abuse that was admitted to the hospital for evaluation of his abdominal pain, pancreatitis. He denied any fever or chills, dizziness, chest pain, cough or shortness of breath initially. He is currently awake but not answering questions. REVIEW OF SYSTEMS: Unable to obtain PAST MEDICAL HISTORY: As mentioned in HPI, otherwise noncontributory. PAST SURGICAL HISTORY: Appendectomy, carpal tunnel and mechanical valve replacement. FAMILY HISTORY: Noncontributory. SOCIAL HISTORY: The patient lives at home with family. Denies the use of tobacco or illicit drugs, but drinks 7-15 vodka drinks daily. ALLERGIES: No known drug allergies. ACTIVE MEDICATIONS: 1. Clindamycin. 2. Heparin. 3. Dilaudid. 4. Ativan. 5. Merrem. 6. Zofran. PHYSICAL EXAMINATION: Vital Signs: Temperature 97.1, heart rate 105, respiratory rate 15, blood pressure 100/61, oxygen saturation 100%. General: Awake, alert, lying in bed in no acute distress noted. HEENT: Normocephalic and atraumatic. PERRL. Cardiovascular: Regular rate and rhythm. S1, S2 present. Chest: Reduced entry with rhonchi bilaterall. Abdomen: Bowel sounds present in all 4 quadrants. Extremities: 1+ edema. Neurologic: Awake but minimally responsive. LABS AND INVESTIGATIONS: WBC 20, RBCs 3.7, hemoglobin 12.6, hematocrit 40.2, platelet count 159. Sodium 148, potassium 5.1, chloride 110, CO2 18, anion gap 20. BUN 74, creatinine 8.3, glucose 191. Blood gas reveals a pH 7.22, pCO2 of 47, pO2 of 110, HCO3 18.4, base excess -8.4, saturating with oxygen 97. Chest x-ray shows stable chest. ASSESSMENT AND PLAN: This is a 56-year-old, male with a past medical history mentioned in the history of present illness that presented to the hospital with epigastric abdominal pain with vomiting, and was admitted for pancreatitis, hypokalemia, hypertension and alcohol abuse. Respiratory failure is likely is secondary to above and compensating with Bipap. Continue intravenous antibiotics, heparin for deep vein thrombosis prophylaxis, Ativan should help with withdrawal symptoms and Zofran for nausea. Continue BiPAP therapy. Further recommendations pending diagnostic studies. Thank you for the courtesy of this consultation. Dictated by BENNIE Rodríguez for Jory Weinberg MD cc: BENNIE Rodríguez MD [facility]
[2017-04-29 09:34] LABS: INR 1.26; PROTIME 13.4 Seconds (9.2-11.7)
[2017-04-29] MEDS ORDERED: NS 2,000 ML ONE (09:36)
[2017-04-29] MEDS ORDERED: HEPARIN ONE (09:37)
[2017-04-29 10:05] LABS: PTT HEPARIN PROTOCOL 67.2 Seconds
--- NOTE | 2017-04-29 10:47 | PROGRESS NOTE ---
DATE: 04/29/2017 SUBJECTIVE: This patient is still in the ICU. He is on BiPAP and apparently he is breathing better. Family members at the bedside. All their questions were answered. It looks like he is responding a little bit better, mostly to pain stimulation. He is not following commands. I talked to the daughter and apparently this patient has been drinking every single day for the past 14 years. We will keep this patient on Ativan p.r.n. CT revealed severe acute pancreatitis with phlegmon changes and this is likely secondary to alcohol abuse. OBJECTIVE: Vital Signs: Temperature 97.1, pulse 105, respiratory rate on the monitor 19, blood pressure 100/61, oxygen saturation 100% on BiPAP, 60% oxygen flow. HEENT: Head normocephalic. No trauma. PERRLA. Neck: Supple. No JVD. Chest: Clear to auscultation. Bilateral diffuse rales. Cardiovascular: RRR. Tachycardic. There is increased sound of the A2. Abdomen: Soft, distended. Positive decreased bowel sounds. Extremities: No edema. No clubbing. No cyanosis. But at the level of the upper extremities, there is 1 to 2+ edema. Neurological : The patient is lethargic. He is responding just to pain stimulation. LABORATORY: WBC 20, hemoglobin 12.6, hematocrit 40.2, platelets 159. Sodium 148, potassium 5.1, chloride 111, bicarbonate 18, BUN 74, creatinine 8.3, glucose 191, calcium 6.7. AST 1000, ALT 429, alkaline phosphatase 39. Lipase 1032. ASSESSMENT: 1. Severe acute pancreatitis with phlegmon changes, likely secondary to alcohol abuse. This patient is showing signs of multiorgan failure due to severe pancreatitis. I had a conversation with the family and I explained the whole situation and the poor prognosis. We will continue Ringer lactate at a high rate. A Vas-Cath has been placed and this patient is going today for dialysis. 2. Acute kidney injury, likely secondary to decreased blood flow secondary to 3rd spacing and probably contrast induced. 3. Acute hepatitis from alcohol, induced. 4. Severe alcohol abuse. 5. Morbid obesity with body mass index of 38. 6. Aortic stenosis, status post mechanical valve. Cardiology is following this patient. We will continue with the same management. PLAN: Mr. Reddy has a severe alcohol induced pancreatitis with phlegmon, likely secondary to severe alcohol abuse. Currently, he has multiorgan failure, including kidney injury. A Vas-Cath has been placed and he will get dialysis today. I had a conversation with some of the family members, including his sister, daughter and mother, and I explained the whole situation and the poor prognosis. CRITICAL CARE TIME: 40 minutes. cc: Jeremy Edouard MD MTDD
--- NOTE | 2017-04-29 11:15 | PROGRESS NOTE ---
DATE: 04/29/2017 SUBJECTIVE: Patient has been able to maintain his airway status overnight and he remains on BiPAP this morning. He is slightly more alert, becomes agitated with tactile and verbal stimuli, but does not follow commands. OBJECTIVE: Vital Signs: Temperature 99.5 degrees, pulse 113, respiratory rate 19, blood pressure 103/59. Intake 5.4 L. Output 1.8 L. Of this, 1.8 L was NG tube output. He has been anuric. PHYSICAL EXAMINATION: General: This is an acutely ill-appearing middle-aged gentleman resting in bed. He remains on BiPAP. Again, he becomes agitated with verbal and tactile stimuli, but does not follow commands. This is improved from his pretty much complete obtundation yesterday. HEENT: Normocephalic, atraumatic. Has a BiPAP mask in place. FABIANA. Neck: Thick, supple. Unable to discern JVD. Cardiovascular: Tachycardic. He has mechanical bowel sounds noted. Pulmonary: He has significantly decreased breath sounds again to the bases. He remains somewhat tachypneic. Remains on BiPAP. He does have some rhonchi bilaterally. Abdomen : Tight and distended, with hypoactive bowel sounds. Genitourinary: He has a Martinez catheter. There are a few drops of urine noted. He has a Vas-Cath noted to the right femoral area. Extremities: He has 1+ pretibial edema. He has some dependent edema noted to the backs of the thighs. He continues with worsening dependent edema to the upper extremities, but no pitting is noted as of yet. Integumentary: Skin remains warm to hot to touch. He is slightly pale to perhaps slightly jaundiced. Neurologic: Again, as above, agitated with verbal and tactile stimuli. LABORATORY DATA: WBC of 20, hemoglobin 12.6, hematocrit 42.2, and platelet count 159,000. Sodium 148, potassium 5.1, chloride 110, CO2 of 18, BUN 74, creatinine 8.3, calcium 6.7 , phosphorus 4.2, magnesium 1.8. AST 1119, ALT 427, albumin 2.8. Amylase 2574, lipase 1032.. Free T4 of 0.7 and cortisol level 26.1. C. reactive protein is 345. ASSESSMENT AND PLAN: 1. Acute kidney injury, multifactorial. He continues with pancreatitis and multiorgan failure. He continues to have 3rd spacing secondary to his pancreatitis and inflammatory response process. The patient remains on high rate IVF at this time. His central venous pressure was around 16 this morning. The patient does remain quite positive, fluid volume mcqueen. His creatinine has continued to rise dramatically. We had Surgery place a vascular catheter yesterday. We will initiate sustained low efficiency dialysis today with the anticipation that we will not be able to remove fluid volume yet secondary to his blood pressure. We will re-evaluate the patient in the morning to determine further plan of care, whether he will be able to tolerate a 2nd round of dialysis or if we would have to wait until Monday. We appreciate Dr. Jones's assistance with this patient. 2. Electrolytes, acid-base balance. We will adjust dialysate bath accordingly. 3. Leukocytosis. This has continued to elevate. Antibiotic doses are appropriate. 4. Pancreatitis with multiorgan failure, followed by Primary and multiple specialties. Patient's prognosis remains extremely guarded. Dictated by BENNIE Wright for Todd Fernandez MD cc: Todd Fernandez MD [facility]
--- NOTE | 2017-04-29 13:14 | ECHO REPORT ---
ORDER DATE: 04/29/2017 INTERPRETING PHYSICIAN: Dr. Tai Sweet ECHOCARDIOGRAPHIC MEASUREMENTS: Interventricular septum: 1.5 cm. Left ventricular posterior wall: 1.3 cm. Diastolic diameter: 4.3 cm. Left atrium: 4.1 cm. Aortic root: 3.2 cm. SUMMARY OF THE 2-DIMENSIONAL IMAGIN. Technically suboptimal study. Very poor acoustic window. 2. Mechanical valve in the aortic position was stable. There is mitral annular calcification. Mitral valve leaflets were normal. 3. Tricuspid valve is normal. 4. Pulmonic valve not well visualized. 5. Normal left ventricular cavity size. Estimated ejection fraction of 50-55%. Endocardium not well visualized in all views. 6. Mitral annular calcification noted. 7. Peak velocity across the aortic valve was 2.6 m/sec with a mean gradient of 13 mmHg in keeping with mechanical valve in the aortic position. 8. There is trace mitral regurgitation. Mild tricuspid regurgitation. Peak velocity across the tricuspid valve was 2.7 m/sec. 9. There is no pericardial effusion or obvious intracardiac mass or thrombus seen. cc: Tai Sweet MD
[2017-04-29] MEDS ORDERED: NS 500 ML ONE (17:42)
[2017-04-30] MEDS: DILAUDID IV PRN (00:27)
[2017-04-30] MEDS: CLINDAMYCIN 900 MG/NS 900 MG/50 ML IVPB IV SCH ×3 (00:59→17:58)
[2017-04-30 04:37] LABS: ALLEN TEST YES; BE -2.5 mmoll (-3.0-3.0); BLOOD TYPE ARTERIAL; DRAW SITE R RADIAL; O2(CT) 14.9 mL/dL (15.0-23.0); PCO2(98.6) 46 mmHg (35-45); PO2(98.6) 155 mmHg (60-100); SAMPLE BLOOD; SAO2 99.3 % (95.0-100.0); THB 10.7 g/dL (11.5-17.4); pH(98.6) 7.32 (7.35-7.45)
[2017-04-30 04:38] LABS: MODALITY BI PAP
[2017-04-30] MEDS: HEPARIN 25,000 UNITS/D5W 25,000 UNIT/250 ML IV.SOLN IV SCH ×2 (05:01→11:59)
[2017-04-30 05:33] LABS: ALBUMIN 2.8 g/dL (3.5-5.0); MAGNESIUM 1.5 mg/dL (1.5-2.7); POTASSIUM 5.1 mmol/L (3.5-5.1); TOTAL BILIRUBIN 0.59 mg/dL (0.20-1.00); TOTAL PROTEIN 5.7 g/dL (6.3-8.3)
[2017-04-30 05:34] LABS: CALCIUM 6.4 mg/dL (8.8-10.2)
[2017-04-30 06:06] LABS: HEMATOCRIT 33.9 % (42.0-52.0); HEMOGLOBIN 10.5 g/dL (14.0-18.0); MCH 34.1 PG (27-31); MCV 110.1 FL (81-99); MPV 11.2 FL (7.4-10.4); RBC 3.08 XMIL (4.7-6.1)
[2017-04-30] MEDS: MERREM 500 MG in NS 50 ML IV SCH ×2 (06:37→16:10)
--- NOTE | 2017-04-30 07:06 | Diag Imaging Result Doc PS360 ---
EXAM: CHEST-PORTABLE HISTORY: sob, follow up TECHNIQUE: Portable flat COMPARISON: 04/29/2017 FINDINGS: Poor inspiratory effort. Patient is rotated to the right. Sternal wires are present. The heart isn't enlarged. There is basilar atelectasis. No pleural effusions identified. The overall appearance of the chest is similar to the prior exam. IMPRESSION: No significant interval change. Electronically signed by Chris Mendoza 04/30/2017 7:04 AM
[2017-04-30] MEDS ORDERED: CALCIUM GLUCONATE 2 GM in NS 100 ML IV ONE ×2 (07:14→16:29)
--- NOTE | 2017-04-30 08:17 | PROGRESS NOTE ---
DATE: 04/30/2017 SUBJECTIVE: No acute events overnight. This patient looks more alert and he is following commands on and off. He is not answering my questions. There is a coffee-grounds material coming out from the NG tube. Yesterday, this patient had dialysis and he tolerated the dialysis very well. His blood pressure looks more stable today. OBJECTIVE: Vital Signs: Temperature 98.5 degrees, pulse 112, blood pressure 115/60, respiratory rate 11, oxygen saturation 100% on BiPAP. HEENT: Head normocephalic. No trauma. PERRLA. Neck: Supple. No JVD. No masses. Central trachea. Chest: Clear to auscultation. Bilateral diffuse rales, mostly at the bases. Decreased breath sounds at the bases as well. Cardiovascular: RRR. Tachycardic. There is an increase of A2. Abdomen: Soft, distended. Positive but decreased bowel sounds. Extremities: No edema at the level of the lower extremities. There is 2+ edema at the level of the upper extremities. Neurological Examination: The patient is somnolent but arousable. He is responding to pain stimulation and voice stimulation as well. He is following commands on and off. Laboratory: WBC 15.4, hemoglobin 10.5, hematocrit 33.9, platelets 132,000. Sodium 142, potassium 5.1, chloride 105, bicarbonate 23, BUN 48, creatinine 5.9, glucose 176, calcium 6.4. AST 347, ALT 306, alkaline phosphatase 41, albumin 2.8, lipase 188, amylase 420. ASSESSMENT AND PLAN: 1. Severe acute pancreatitis with phlegmon changes, likely secondary to alcohol abuse. This patient is showing signs of multiorgan failure due to severe pancreatitis. No family members at the bedside at this moment. Laboratory work is better. He was admitted with a lipase that was more than 3000 ( today, it is 188) and amylase that was 2482 (today, it is 420). Also, the CRP is trending down slowly. Liver enzymes are trending down as well. 2. Acute kidney injury, likely secondary to blood secondary to 3rd spacing and probably contrast induced. Urinalysis showed granular material so this patient likely has acute atubular necrosis. Nephrology department is following this patient. He had dialysis yesterday. 3. Alcoholic hepatitis. AST and ALT are getting better. We will continue with the same management. 4. Severe alcohol abuse. Aware. We will continue with Ativan as needed in case of withdrawal. 5. Morbid obesity with a body mass index of 38. Aware. 6. Aortic stenosis, status post mechanical valve. Cardiology is following this patient. Continue with the same management. He is on a heparin drip. We will keep an eye on the platelets because they are decreasing since the 1st day. 7. Hypocalcemia. We will replace the calcium. 8. Gastrointestinal bleed. At this point, this patient is too sick to be scoped. Gastroenterology department has been consulted anyway. For the time being, I will place this patient on pantoprazole drip. cc: Jeremy Edouard MD
[2017-04-30] MEDS: PROTONIX 80 MG in NS 80 ML IV SCH ×2 (09:19→18:03)
[2017-04-30 10:32] LABS: INR 1.23; PROTIME 13.1 Seconds (9.2-11.7)
[2017-04-30] MEDS ORDERED: HEPARIN IV ONE ×2 (11:52→19:29)
[2017-04-30] MEDS ORDERED: HEPARIN 25,000 UNITS/D5W 25,000 UNIT/250 ML IV.SOLN IV SCH (11:59)
[2017-04-30] MEDS ORDERED: ATIVAN 20 MG in NS 190 ML IV SCH (13:45)
[2017-04-30] MEDS ORDERED: ATIVAN IV PRN (13:45)
[2017-04-30] MEDS ORDERED: M.V.I.-12 10 ML, MAGNESIUM SULFATE 2 GM, THIAMINE 100 MG, FOLIC ACID 1 MG in D5 NS 1,00... IV ONE (13:45)
[2017-04-30] MEDS ORDERED: ATIVAN IV SCH (13:45)
[2017-04-30] MEDS ORDERED: DIPRIVAN 1% 1,000 MG/100 ML BOTTLE ONE (13:58)
--- NOTE | 2017-04-30 15:12 | Diag Imaging Result Doc PS360 ---
EXAM: CHEST-PORTABLE HISTORY: ET tube placement and Central line placement TECHNIQUE: COMPARISON: Compared to film taken earlier in the day FINDINGS: Interval placement of an endotracheal tube. The tip lies 2 to 3 cm above the paty. A right jugular line has also been placed. No postprocedural pneumothorax. Tip overlies the mid superior vena cava. IMPRESSION: Right jugular line and endotracheal tube in good position Electronically signed by Chris Mendoza 04/30/2017 3:09 PM
[2017-04-30 15:43] LABS: CALCIUM 6.9 mg/dL (8.8-10.2); POTASSIUM 4.3 mmol/L (3.5-5.1)
[2017-04-30] MEDS ORDERED: DIPRIVAN 1% ONE (15:52)
[2017-04-30] MEDS ORDERED: NS 500 ML ONE (16:18)
[2017-04-30] MEDS: DIPRIVAN 1% 1,000 MG/100 ML BOTTLE IV SCH (16:23)
--- NOTE | 2017-04-30 17:39 | OPERATIVE NOTE ---
PROCEDURE DATE: 04/30/2017 PREOPERATIVE DIAGNOSES: 1. Phlebosclerosis. 2. Hypotension. 3. Multiorgan system failure. POSTOPERATIVE DIAGNOSES: 1. Phlebosclerosis. 2. Hypotension. 3. Multiorgan system failure. PROCEDURE PERFORMED: Ultrasound-guided right internal jugular vein central line. SURGEON: Tutu Machado MD RELIEF PHARMACIST: None. ANESTHESIA: Local, administered by the surgeon and sedation on the ventilator. FINDINGS: Ultrasound findings showed a good caliber right internal jugular vein. HISTORY: The patient is a 56-year-old male who came in with pancreatitis. He has had subsequent decline. He needed to be intubated. He had phlebosclerosis and needed to have central access. The risks, benefits, and alternatives were discussed with the family. All questions were answered. DESCRIPTION OF PROCEDURE: After informed consent was obtained, the patient remained in his ICU bed on the ventilator. The right neck was prepped and draped in sterile fashion. We used ultrasound to identify the right internal jugular vein. We used a local anesthetic to anesthetize the skin. I was able to cannulate the right internal jugular vein and pass a wire easily. I sequentially dilated it up on the tip with Seldinger technique to place a central line, which was secured approximately 15 cm at the skin. All ports were aspirated and flushed easily. A chest x- ray, at this time, is pending. The blood was nonpulsatile and dark. cc: Tutu Machado MD
[2017-04-30] MEDS: ATIVAN IV SCH (17:58)
--- NOTE | 2017-04-30 18:36 | PROGRESS NOTE ---
DATE: 04/30/2017 TIME SEEN: 1340 SUBJECTIVE: Mr. Reddy has gone into DTs as witnessed by RN and Dr. Machado. Patient has just recently been intubated. Dr. Machado is at the bedside attempting to put it in a CVA central line. Patient is now sedated with Diprivan and remains ventilator dependent. OBJECTIVE: His most recent vital signs, his last temperature 101.3 degrees, blood pressure 125/83, heart rate 114, respirations are 25. He remains on 100% FiO2. His last recorded saturation is 100%. He has had 2594 in, 155 out. LABS: Sodium 142, potassium 5.1, chloride 105, CO2 23, BUN 48, creatinine 5.9, glucose 176, anion gap is 14, calcium 6.4, phosphorus 3.5, albumin 2.8. He has a cortisol level of 21.6. His ammonia level is 65, magnesium 1.5. White count 15.48, hemoglobin 10.5, hematocrit 33.9, with a platelet count of 132,000. His ABGs pH 7.32, CO2 46, PO2 155, bicarb 23 on 60% BiPAP before being intubated. PHYSICAL EXAMINATION: General: This is a 56-year-old male. He is currently resting in bed. He is now in no acute distress. He remains sedated, ventilator dependent. HEENT: Normocephalic, atraumatic. Neck supple. Trachea midline. He has FABIANA. Sluggish to response. Cardiovascular: Tachycardic with mechanical click noise noted secondary to a mechanical valve. No murmur or gallop appreciated. Lungs: He has decreased breath sounds to the bases otherwise these are clear to auscultation now that he is ventilated, equal excursion, ventilator dependence. Abdomen: Large, round, distended. Positive bowel sounds. NG tube remains to low intermittent suction. These now have dark maroon coffee ground emesis to low intermittent suction. Genitourinary: Patient has a Vas-Cath to the right femoral area. Martinez catheter remains in place. Decreased urine out. Extremities: He has 1+ pretibial edema. He does have dependent edema to the back, thighs and sacral area. Integumentary: The patient is warm to touch. He has slight jaundice as noted. Neurological: Again as mentioned. ASSESSMENT AND PLAN: 1. Acute kidney injury. This is multifactorial. Patient has acute pancreatitis. He has multiorgan failure. He now has respiratory failure. He is 3rd spacing with his acute pancreatitis and inflammatory response. He has received heavy intravenous fluids. He continues to remain in a 7.5 L fluid balance positive. We will plan for dialysis in the a.m. 2. Electrolytes and acid-base balance. These remain stable. 3. Leukocytosis. Patient continues on renal dosed antibiotics. 4. Acute pancreatitis with multiorgan failure. Patient has a guarded prognosis. 5. New onset of coffee ground emesis to the nasogastric tube to low intermittent suction. He is now on IV Protonix. This is being followed by the primary care team. I would like to thank you for allowing us to follow with this patient. Dictated by BENNIE Griffin for Todd Fernandez MD cc: BENNIE Griffin MD
--- NOTE | 2017-04-30 19:58 | PROGRESS NOTE ---
DATE: 04/30/2017 SUBJECTIVE: The patient is quite restless. Appears to be in dylan delirium tremens when I saw him. He is pulling the tube, including pulling out his Martinez catheter. There is a little bit of coffee-ground in the NG tube, but not anything more than what he had yesterday. The patient had dialysis and tolerated dialysis very well. OBJECTIVE: Vital Signs: Temperature 98.5 degrees, pulse 112 to 130, blood pressure 115/60, respiratory rate 16, O2 saturation 100% on Bi-Pap. HEENT: There is conjunctival pallor present. No scleral icterus. He is not cooperative to test anything else. Lungs: Decreased breath sounds on both bases. Heart: Tachycardic. Abdomen: More distended than on admission. Bowel sounds are hyperactive. The patient has edema on both upper and lower extremities secondary to third spacing. LABORATORY DATA: White count 86858, hematocrit dropped to 33.9, platelets also dropped 132,000. Potassium up to 5.1, creatinine 5.9. ALT and AST are up to 300 range. Albumin down to 2.8. Amylase and lipase are trending down. IMPRESSION: 1. Severe acute pancreatitis with phlegmon changes. 2. ETOH abuse. 3. Acute tubular necrosis. Currently on dialysis. 4. Obesity. 5. Hyperlipidemia. 6. Aortic stenosis, status post mechanical valve. Is currently on heparin. 7. Hypocalcemia. 8. Gastrointestinal bleeding, which is not acute and severe. I think drop in the calcium, hematocrit, and third-spacing and worsening renal function are indicative of severe pancreatitis. He did supportive care. The delirium tremens has added an extra facet to the management. I talked to Dr. Weinberg and and the best thing is probably sedate him and intubate him to protect his airways and also protect him from injury and hopefully this would pass. We could attend to the fluid management right now. GI bleeding is not severe enough. The patient is stable enough for endoscopic intervention site. cc: Cassie Costello MD
--- NOTE | 2017-04-30 20:06 | CONSULTATION ---
DATE OF CONSULTATION: 04/30/2017 REASON FOR CONSULTATION: Acute pancreatitis. This is a 56-year-old gentleman presented with upper abdominal pain, nausea, and vomiting. In the emergency room showed potassium of 2.3 and amylase and lipase are high at 2482 and more than 3000. CT scan showed acute pancreatitis with phlegmon. She was admitted for further evaluation. He never had pancreatitis before. He has hyperlipidemia and he does drink heavily 7-15, mostly Vodka. CURRENT PAST MEDICAL HISTORY: 1. Hypertension. 2. Hyperlipidemia. 3. Sleep apnea. 4. Gastroesophageal reflux disease. PAST SURGICAL HISTORY: 1. Appendectomy. 2. Carpal tunnel repair. 3. Mechanical valve replacement. FAMILY HISTORY: Noncontributory. SOCIAL HISTORY: Lives with family. Does not smoke. Drinks 7-15 Vodka's. Denies any illegal drugs. ALLERGIES: None. HOME MEDICATION: 1. Fenofibrate 160 p.o. daily. 2. Omeprazole 20 daily. 3. Pravachol 40 at bedtime. 4. Topamax 50 p.o. daily. 5. Coumadin 6 mg daily. 6. Norvasc 10 mg daily. 7. Lisinopril with hydrochlorothiazide 20/25 daily 8. Zoloft 100 mg daily. REVIEW OF SYSTEMS: Patient was feeling fine. He had no problems before all this happened. It was sudden and acute, but he is having severe abdominal pain with nausea and vomiting. PHYSICAL EXAMINATION: Vital Signs: Patient appears sick. Pulse of 74, respiratory rate 20, blood pressure 139/73, saturation 99% Bi-Pap. General: A 56-year-old gentleman laying in bed, answering questions, but breathing heavily. Slightly restless. HEENT: There is no scleral icterus. Mild conjunctival pallor. Neck: Supple. Trachea midline. Heart: Normal. Lungs: Bibasilar rales. Abdomen: Obese, distended, and slightly tender in the epigastrium. Bowel sounds are present and hyperactive. Extremities: No clubbing, cyanosis, or edema. Neurological Examination: Was intact. No signs of hepatic encephalopathy. No signs of delirium tremens yet. IMPRESSION AND PLAN: 1. Acute pancreatitis, either alcohol-induced or hyperlipidemia, or a combination of both. 2. Upper abdominal pain, nausea, and vomiting. dehydration from that. 3. Hyperkalemia. 4. Hypertension with a history probably not able to take his medicine. 5. Excessive drinking. PLAN: At this point, I recommend complete supportive care. We need to watch for: 1. Withdrawal. 2. Worsening organ failure secondary to severe pancreatitis. The CT scan appears to be aminous with severe phlegmonous changes. 3. We will keep his fluids up; otherwise, he will go into 3rd spacing and renal problems. Potassium needs to be supplemented. Other than this, there is a slight coffee-grounds emesis in the NG tube. I am not concerned as he is on Coumadin. Is not fit for upper GI endoscopy yet. We will follow him with you. cc: Cassie Costello MD
[2017-04-30] MEDS: LEVOPHED 8 MG in D5 1/2 NS 250 ML IV SCH (21:59)
[2017-05-01] MEDS: ATIVAN IV SCH ×7 (01:00→20:57)
[2017-05-01] MEDS: CLINDAMYCIN 900 MG/NS 900 MG/50 ML IVPB IV SCH (02:49)
[2017-05-01 04:44] LABS: ALLEN TEST YES; BE -5.1 mmoll (-3.0-3.0); BLOOD TYPE ARTERIAL; DRAW SITE R RADIAL; METHB 0.9 % (0.0-1.5); O2(CT) 16.1 mL/dL (15.0-23.0); PCO2(98.6) 36 mmHg (35-45); PO2(98.6) 119 mmHg (60-100); SAMPLE BLOOD; SAO2 98.3 % (95.0-100.0); SRATE 12 BPM; THB 11.7 g/dL (11.5-17.4); TVOL 600 mL; pH(98.6) 7.35 (7.35-7.45)
[2017-05-01 04:45] LABS: MODALITY VENTILATOR
[2017-05-01 05:24] LABS: HEMATOCRIT 27.3 % (42.0-52.0); HEMOGLOBIN 8.7 g/dL (14.0-18.0); MCH 34.3 PG (27-31); MCHC 31.9 g/dL (33-37); MCV 107.5 FL (81-99); MPV 11.8 FL (7.4-10.4); RBC 2.54 XMIL (4.7-6.1)
--- NOTE | 2017-05-01 05:34 | EKG Report ---
Test Performed on : 04/30/2017 9:22:50 PM Test Reason : ? RHYTHM Blood Pressure : / mmHG Vent. Rate : 147 BPM Atrial Rate : 315 BPM P-R Int : 000 ms QRS Dur : 096 ms QT Int : 332 ms P-R-T Axes : 046 008 174 degrees QTc Int : 519 ms Atrial flutter. with variable AV block. Septal infarct (cited on or before 26-APR-2017) ST \T\ T wave abnormality, consider inferolateral ischemia Abnormal ECG When compared with ECG of 30-APR-2017 21:22, (Unconfirmed) Serial changes of Septal infarct present Confirmed by Pieter MYERS, Rustam Baird ([id number]) on 05/02/2017 8:34:45 AM
[2017-05-01 05:45] LABS: ALBUMIN 2.4 g/dL (3.5-5.0); MAGNESIUM 1.9 mg/dL (1.5-2.7); POTASSIUM 3.9 mmol/L (3.5-5.1); TOTAL BILIRUBIN 0.43 mg/dL (0.20-1.00); TOTAL PROTEIN 5.2 g/dL (6.3-8.3)
[2017-05-01 05:52] LABS: CALCIUM 6.8 mg/dL (8.8-10.2)
--- NOTE | 2017-05-01 06:03 | EKG Report ---
Test Performed on : 04/28/2017 3:01:16 PM Test Reason : No Order in [place] Blood Pressure : / mmHG Vent. Rate : 152 BPM Atrial Rate : 152 BPM P-R Int : 104 ms QRS Dur : 088 ms QT Int : 326 ms P-R-T Axes : -27 015 119 degrees QTc Int : 518 ms Sinus tachycardia. with short MT Septal infarct (cited on or before 26-APR-2017) ST \T\ T wave abnormality, consider lateral ischemia Abnormal ECG When compared with ECG of 28-APR-2017 13:32, (Unconfirmed) fusion complexes are no longer present Confirmed by Pieter MYERS, Rustam Baird ([id number]) on 05/02/2017 8:25:24 AM
[2017-05-01] MEDS: MERREM 500 MG in NS 50 ML IV SCH ×3 (06:20→17:18)
[2017-05-01] MEDS: PROTONIX 80 MG in NS 80 ML IV SCH ×4 (06:30→16:48)
[2017-05-01] MEDS: HEPARIN 25,000 UNITS/D5W 25,000 UNIT/250 ML IV.SOLN IV SCH ×3 (06:31→16:39)
[2017-05-01] MEDS: CARDIZEM 100 MG/NS 100 MG/100 ML IVPB IV SCH ×2 (06:31→17:19)
--- NOTE | 2017-05-01 07:04 | Diag Imaging Result Doc PS360 ---
EXAM: CHEST-PORTABLE HISTORY: sob, follow up TECHNIQUE: Erect AP portable chest at 0520 COMMENT: There is an endotracheal tube with its tip at thoracic inlet. There is a right internal jugular central venous catheter with its tip in superior vena cava. The inspiration is suboptimal. There is mild bibasilar atelectasis similar in appearance to 04/30/2017. IMPRESSION: Bibasilar atelectasis. Electronically signed by Ozzie Mittal 05/01/2017 7:02 AM
[2017-05-01] MEDS: DIPRIVAN 1% 1,000 MG/100 ML BOTTLE IV SCH ×7 (07:07→23:27)
[2017-05-01] MEDS ORDERED: NS 2,000 ML ONE (08:36)
[2017-05-01] MEDS ORDERED: HEPARIN IV PRN (08:36)
[2017-05-01 08:54] LABS: INR 1.17; PROTIME 12.4 Seconds (9.2-11.7)
[2017-05-01] MEDS ORDERED: THERA M PLUS PO SCH (09:00)
[2017-05-01 09:24] LABS: HEPATITIS PROFILE ACUTE SEE COMMENTS
[2017-05-01] MEDS ORDERED: CALCIUM GLUCONATE 1 GM in NS 50 ML IV ONE (10:00)
--- NOTE | 2017-05-01 10:53 | PROGRESS NOTE ---
DATE: 05/01/2017 SUBJECTIVE: Mr. Reddy is sedated. He is resting quietly on mechanical ventilation. OBJECTIVE: His most recent vital signs temperature 98.4 degrees, blood pressure 114/57, heart rate 74, respirations 15. He remains on 50% FiO2. His recorded saturation is 100%. He has had 2101 in, he has had 460 mL out 200 per NG tube with coffee-ground 260 per Martinez catheter. LABORATORY DATA: This a.m. Sodium 144, potassium 3.9, chloride 105, CO2 21, BUN 75, creatinine 8.3, glucose 221. His anion gap is 18, calcium 6.8, albumin 2.4, phosphorus is 3.4. He has a corrected calcium of 7.76. His ammonia level is 32. White count 17.27. Hemoglobin 8.7, hematocrit 27.3, platelet count 153,000. His ProTime is 12.4, with an INR 1.17 and a PTT of 15.4. Cortisol level this a.m. is 18.2. His lipase is 92 amylase 147. C. reactive protein is elevated at 222.42. His ABGs pH 7.35, CO2 of 36, PO2 119, bicarb 20.9 on 50%. Sputum cultures are negative. PHYSICAL EXAMINATION: General: This is a 56-year-old, male. He is resting in bed. He is in no acute distress. He remains ventilator dependent with sedation. Unable to determine JVD. HEENT: Normocephalic, atraumatic. Conjunctiva is slightly icteric. Mucous membranes are moist. NG tube remains to low intermittent suction with coffee-ground material. Neck: Supple. Trachea midline. Cardiovascular: He appears to be in a regular rate and rhythm. Positive S4 appreciated. Lungs: Clear to auscultation anterior. Continues ventilator dependent. Abdomen: Distended. Positive ascites 2+ to abdominal edema from the mid hip sacral area up into the abdomen this is tight, hypo bowel sounds. Genitourinary: Martinez catheter is in place. Minimal urine out. He has had dialysis assist. Integumentary: There are no rashes or lesions evident. He does appear jaundiced. Neurological: Patient is sedated with ventilator dependence as mentioned above. ASSESSMENT AND PLAN: 1. Acute kidney injury. Again, this is multifactorial. Patient has acute pancreatitis with multi-system organ failure. Patient continues to 3rd space. Have assisted with dialysis for his fluid volume load last week we will plan to paced place him on sled. He will be on a 4 K bath. We will dialyze him for 8 hours. We will attempt to pull 4 L of ultrafiltration as tolerated. 2. Electrolytes. These are stable with modest acidosis. Address with HD. 3. Anemia. This remains low but stable. Patient does have coffee ground emesis. Now to NG tube to low intermittent suction. Gastroenterology is now on board. He does continue on heparin and Protonix IV. The patient's calcium is low at 6.8. He has been given several doses of calcium gluconate in the last 24 hours. 4. Acute pancreatitis with multisystem organ failure. Patient has a guarded prognosis primary care team is following. No indications for any further intervention at this time. I would to thank you for allowing us to follow with this patient. Seen, data reviewed, discussed with Scarlet Figueroa on 05/01/17. I agree with the above assessment and plan of care. rg Dictated by BENNIE Griffin for Todd Fernandez MD cc: BENNIE Griffin MD [facility]
[2017-05-01] MEDS ORDERED: CLINIMIX E 4.25%-5% SOLUTION 1,000 ML IV SCH (10:54)
--- NOTE | 2017-05-01 11:45 | PROGRESS NOTE ---
DATE: 05/01/2017 ATTENDING PHYSICIAN: Dr. Angela. PRIMARY CARE DOCTOR: Dr. Renee Alexandre. SUBJECTIVE: Patient is currently intubated, sedated, and vented on pressors and on dialysis. The patient was admitted on 04/26/2017 with severe alcoholic pancreatitis with phlegmon changes, complicated with multiorgan failure. The patient is a heavy drinker and he was intubated for DTs. The patient has been on Coumadin at home for aortic stenosis and he is on an IV heparin drip for now. The patient is being seen by multiple specialists. I discussed the above scenario with his mother at bedside. All questions were answered and recommendations. OBJECTIVE: Vital signs: Temperature 98.4, pulse rate of 74, respiratory rate of 15, blood pressure 114/57, saturating 100% on mechanical ventilation, 50% FiO2. Body weight of 280 pounds 3.3 ounces, BMI of 40 kg/m2. General Appearance: Moderately built, moderately nourished, lying in bed, intubated, sedated, and vented. HEENT: Positive NG tube draining coffee-ground colored aspirate. Positive ET tube. Pale conjunctivae. No icterus. Neck: Supple. Chest: Chest is decreased. Cardiovascular: Regular rhythm. No murmur. Abdomen: Distended. Hypoactive bowel sounds. No guarding. No rebound. Extremities: No cyanosis, clubbing. Neurologic: He is sedated. LABS: His hemoglobin and hematocrit are 8.7 and 27.3, white count 17.27, platelet count of 153,000, MCV 107.5. INR 1.1, PT of 12.4, PTT of 53.4. He is on heparin drip for management of mechanical aortic valve replacement which is causing him some blood loss. Sodium 140, potassium 3.9, chloride 105, bicarb 21, anion gap of 18, BUN of 75, creatinine of 8.3, glucose of 221, calcium is 6.8, phosphorus 3.4, magnesium 1.9. Total bilirubin is 0.43, AST 116, ALT 166, alkaline phosphatase is 45. Ammonia 32. CRP is 222.42. Total protein 5.2, albumin of 2.4, amylase of 147, lipase of 92. Hepatitis panel is nonreactive. IMPRESSION: 1. Severe acute pancreatitis with phlegmon changes on imaging secondary to alcohol abuse. Will continue with IV fluids, supportive management. 2. Malnutrition, hypoalbuminemia. I think we will call for a nutrition consultation to get him started on TPN today. We will start him on Clinimix. 3. Alcohol abuse. He is on Ativan and IV multivitamins. 4. Delirium tremens. He is intubated and being vented per Dr. Weinberg. 5. Aortic stenosis. Has a mechanical valve. Currently on heparin. The blood counts need to be watched closely. 6. Gastrointestinal bleed. In this regard, we will continue to treat conservatively with Protonix drip. Type and cross and transfuse to keep hematocrit more than 27% . 7. Part of his anemia is secondary to gastrointestinal losses and fluid overload. 8. Kidney failure. He is on hemodialysis per nephrology team. 9. Gastrointestinal prophylaxis with proton pump inhibitors as above. 10. The patient has multiorgan failure, likely secondary to severe acute pancreatitis secondary to alcohol abuse. I discussed the above plan of care with the patient's family at bedside and all questions answered. cc: MD Jory Kingston MD Reginald D. Gladish, MD Leroy F. Harris, MD Matthew L. Figh, MD Marlin D. Gill, MD Ashish K. Basu, MD MTDD
[2017-05-01] MEDS: LEVOPHED 8 MG in D5 1/2 NS 250 ML IV SCH (16:49)
[2017-05-01] MEDS: MYCAMINE 100 MG in NS 100 ML IV SCH (17:18)
--- NOTE | 2017-05-01 17:20 | PROGRESS NOTE ---
DATE: 05/01/2017 SUBJECTIVE: The patient remains sedated on the ventilator. He had an episode of atrial flutter overnight and subsequently converted to normal sinus rhythm. He is currently on Levophed. OBJECTIVE: Vital Signs: Temperature 98.6 degrees, blood pressure 102/60, heart rate 92, respirations 20, O2 saturation is 100% on the mechanical ventilator at 40% FiO2. General: This is a morbidly obese male currently intubated and sedated on the ventilator. Head: Normocephalic, atraumatic. Heart: S1, S2, normal. Tachycardic. Lungs: Equal air entry bilaterally. No crackles. No rales. Abdomen: Hypoactive bowel sounds. Distended and obese. Extremities: There is 3+ edema in both the upper and lower extremities. Neurologic: The patient is currently sedated. LABS: White blood cell count 17, hemoglobin 8.7, hematocrit 27, platelets 153, 000. ABG, pH is 7.35, pCO2 36, PO2 119, bicarb 20. Sodium 144, potassium 3.9, chloride 105, CO2 21, BUN 75, creatinine 8.3, glucose 221, calcium 6.8, magnesium 1.9, phosphorus 3.4, AST 116 , ALT 166, alkaline phosphatase 45, ammonia 32, albumin 2.4. Chest x-ray shows bibasilar atelectasis. ASSESSMENT AND PLAN: 1. Acute hypoxemic respiratory failure. This is multifactorial. We will continue with ventilatory support as directed by the critical care rn. 2. Severe acute pancreatitis with phlegmon formation. This is most likely secondary to the patient's severe alcohol abuse. We will continue with IV fluids and supportive care. GI is following closely. 3. Multiorgan failure. This is secondary to the patient's severe pancreatitis. We will continue with the current management. 4. Acute kidney injury. The patient is currently on SLED. Management as per the sheet metal engineer. 5. Hypotension. Will attempt to wean the patient off of Levophed. Continue with supportive care. 6. Leukocytosis. The patient's white blood cell count has increased today. We will consult Dr. Art for further recommendations. 7. Mechanical aortic valve replacement. Continue on the heparin drip. We will monitor the PTT closely. 8. Gastrointestinal bleed. Continue on Protonix drip. We will monitor the hemoglobin and hematocrit closely. GI is following. 9. Severe protein calorie malnutrition with hypoalbuminemia. The patient has been started on TPN by the tar kettle runner. 10. Severe alcohol abuse. Aware. 11. The patient is a full code. The patient remains critically ill with a high risk of mortality. cc: Shria Angela MD MTDD
[2017-05-01] MEDS ORDERED: TPN ELECTROLYTES IV SCH ×7 (18:00)
[2017-05-01] MEDS ORDERED: MAGNESIUM SULFATE IV SCH ×7 (18:00)
[2017-05-01] MEDS ORDERED: SODIUM PHOSPHATE IV SCH ×7 (18:00)
[2017-05-01] MEDS ORDERED: [UNRECOGNIZED DRUG - OTHER] IV SCH ×7 (18:00)
[2017-05-01 19:54] LABS: BASO% 0.7 % (0.0-0.8); EOS# 0.32 X1000 (0.0-0.7); EOS% 1.7 % (0.0-10.0); HEMATOCRIT 29.3 % (42.0-52.0); HEMOGLOBIN 9.4 g/dL (14.0-18.0); IMM GRAN# 2.74 X1000 (0.0-0.04); IMM GRAN% 14.5 % (0.0-0.5); LYMPH# 1.53 X1000 (1.2-3.4); LYMPH% 8.1 % (20.5-51.1); MANUAL DIFF NEEDED? YES; MCH 33.5 PG (27-31); MCHC 32.1 g/dL (33-37); MCV 104.3 FL (81-99); MONO# 1.69 X1000 (0.11-0.59); MONO% 8.9 % (1.7-9.3); MPV 11.2 FL (7.4-10.4); NEUT% 66.1 % (42.2-75.2); PLT 171 X1000 (130-400); RBC 2.81 XMIL (4.7-6.1)
[2017-05-01 20:20] LABS: BANDS 21 % (0-1); EOS 1 % (1-10); LYMPHS 14 % (21-51); MONO 2 % (1-9)
--- NOTE | 2017-05-01 22:32 | CONSULTATION ---
DATE OF CONSULTATION: 05/01/2017 CONCLUSION: The patient was admitted to the hospital with very severe alcohol-induced pancreatitis. He has developed multiple organ systems failure, including respiratory failure, renal failure and hematologic failure. I have not yet identified a definite infectious source in this patient. His cultures for blood, urine and sputum all were negative. The chest x-ray only showed atelectasis and not pneumonia. The patient's CT of the abdomen showed severe phlegmonous pancreatitis, but no evidence of an abscess or other type of infection. RECOMMENDATIONS: I agree with giving the patient meropenem and I have added micafungin. DISCUSSION: The patient is intubated and sedated. He is unable to give a history. No family member is present. The history I did get was from reviewing the records in the computer. According to the initial history and physical, the patient presented to the hospital with complaints of epigastric abdominal pain, nausea and vomiting. He was found on CAT scan to have severe pancreatitis. He has been placed in the intensive care unit. His CBC shows a white count of 17,270, hemoglobin 8.7, and platelet count 153,000. Blood, urine and sputum cultures are negative. Chest x-ray shows bibasilar atelectasis. Blood gases show a pH of 7.35, a PO2 of 119, a pCO2 of 36. Creatinine is 8.3, GFR is 7. Hepatitis panel is nonreactive. An echocardiogram showed no vegetations, but it was a poor quality exam. The patient's CT scan showed severe phlegmonous pancreatitis. PAST MEDICAL HISTORY: Positive for hypertension, hyperlipidemia, sleep apnea, gastroesophageal reflux disease and alcoholism. PAST SURGICAL HISTORY: Positive for an appendectomy, carpal tunnel repair and a mechanical valve placement. FAMILY HISTORY: Said to be noncontributory. SOCIAL HISTORY: The patient lives with his family. He does not smoke cigarettes or abuse drugs, but he does drink 7-15 vodka-type drinks daily. ALLERGIES: The patient has no known allergies. HOME MEDICATIONS: Fenofibrate, omeprazole, Pravachol, Topamax, topiramate, Coumadin, Norvasc, lisinopril with hydrochlorothiazide, and Zoloft. PHYSICAL EXAMINATION: Vital Signs: Temperature is 101.4 degrees, pulse 120, respirations 21, blood pressure 122/74. General: This is an ill-appearing middle-aged male. He is in no acute distress. Head, Eyes, Ears, Nose, and throat: He has orotracheal and orogastric tubes in place. Neck: No meningismus. Thorax: No increased AP diameter of the chest. Lungs: Clear to auscultation. Cardiovascular: Regular heart rate. Abdomen: Soft. It did not appear to be tender, but the patient was heavily sedated. Neurologic: Patient is obtunded due to sedation and there was no spontaneous movement. The patient did not react at all to verbal stimuli. Integument: No rash was noted. Thank you for the consult. cc: Héctor Art MD
[2017-05-02] MEDS: MERREM 500 MG in NS 50 ML IV SCH ×3 (00:47→16:28)
[2017-05-02] MEDS: ATIVAN IV SCH ×5 (00:48→21:07)
[2017-05-02] MEDS: PROTONIX 80 MG in NS 80 ML IV SCH ×2 (02:31→12:37)
[2017-05-02] MEDS: DIPRIVAN 1% 1,000 MG/100 ML BOTTLE IV SCH ×8 (03:03→21:47)
--- NOTE | 2017-05-02 03:37 | CONSULTATION ---
DATE OF CONSULTATION: 05/01/2017 ADDENDUM: Intravenous catheters: The patient has a dialysis catheter in the right groin. He also has an IV catheter in the right internal jugular vein. Both sites are not swollen or erythematous. cc: Héctor Art MD
[2017-05-02 04:33] LABS: ALLEN TEST YES; BE -2.1 mmoll (-3.0-3.0); BLOOD TYPE ARTERIAL; DRAW SITE R RADIAL; METHB 1.2 % (0.0-1.5); MODALITY VENTILATOR; O2(CT) 10.6 mL/dL (15.0-23.0); PCO2(98.6) 30 mmHg (35-45); PO2(98.6) 93 mmHg (60-100); SAMPLE BLOOD; SAO2 98.1 % (95.0-100.0); SRATE 12 BPM; THB 7.7 g/dL (11.5-17.4); TVOL 600 mL; pH(98.6) 7.46 (7.35-7.45)
[2017-05-02 05:45] LABS: INR 1.11; PROTIME 11.7 Seconds (9.2-11.7)
[2017-05-02 05:50] LABS: PREALBUMIN 7.7 mg/dL (20-40)
[2017-05-02 05:53] LABS: CALCIUM 6.9 mg/dL (8.8-10.2)
[2017-05-02 05:54] LABS: ALBUMIN 2.4 g/dL (3.5-5.0); MAGNESIUM 1.9 mg/dL (1.5-2.7); POTASSIUM 3.9 mmol/L (3.5-5.1); TOTAL BILIRUBIN 0.42 mg/dL (0.20-1.00); TOTAL PROTEIN 4.8 g/dL (6.3-8.3)
[2017-05-02 07:20] LABS: HEMATOCRIT 27.3 % (42.0-52.0); HEMOGLOBIN 8.8 g/dL (14.0-18.0); MCH 33.5 PG (27-31); MCHC 32.2 g/dL (33-37); MCV 103.8 FL (81-99); MPV 11.3 FL (7.4-10.4); RBC 2.63 XMIL (4.7-6.1)
--- NOTE | 2017-05-02 07:21 | Diag Imaging Result Doc PS360 ---
EXAM: CHEST-PORTABLE INDICATION: sob, follow up TECHNIQUE: One view COMPARISON: 05/01/2017 FINDINGS: The ET tube and right central line are in stable positions. Inspiration remains suboptimal. There is suggestion of bibasilar atelectasis that is stable. There are no new consolidations. Cardiac silhouette is stable. IMPRESSION: Stable chest. Electronically signed by Femi Vinson 05/02/2017 7:19 AM
[2017-05-02] MEDS ORDERED: CALCIUM GLUCONATE IV PUSH ONE (08:04)
[2017-05-02] MEDS ORDERED: NS 2,000 ML ONE ×2 (08:16→13:55)
--- NOTE | 2017-05-02 10:01 | PROGRESS NOTE ---
DATE: 05/02/2017 SUBJECTIVE: He is sedated, but responsive. Does try to follow simple commands. OBJECTIVE: Vital Signs: Blood pressure 106/61, heart rate 93, respirations 17, T-max 101.4 degrees, T-current 99.9. General: On physical exam, a middle-aged man sedated as above. No distress. Skin: Warm and dry. Eyes: Conjunctivae are pink. Neck: Neck veins are not appreciated. Heart: Regular. Mildly tachycardic. No gallops. Lungs: Have equal breath sounds. No crackles or wheezes. Abdomen: Distended and mildly tender. Diminished bowel sounds. Extremities: Have 1+ to 2+ edema. No clubbing or cyanosis. LABORATORY DATA: Sodium 137, potassium 3.9, chloride 100, bicarbonate 19, BUN 46, creatinine 5.5, calcium 6.9, albumin 2.4. IMPRESSION: 1. Acute kidney injury. No recovery. Continue slow, low efficiency dialysis today. 2. Electrolytes. Will use 3 calcium bath, otherwise standard. 3. Acid base colon, modest metabolic acidosis that will be addressed with dialysis. cc: Todd Fernandez MD
--- NOTE | 2017-05-02 10:11 | PROGRESS NOTE ---
DATE: 05/02/2017 SUBJECTIVE: This patient remains sedated on the ventilator. Yesterday, this patient started having apparently an upper GI Bleed and heparin drip has been stopped. We will continue with the Protonix drip. OBJECTIVE: Vital Signs: Temperature 99.9 degrees, pulse 93, respiratory rate 17, blood pressure 106/61, oxygen saturation 100% on mechanical ventilation 40% oxygen flow. HEENT: Head normocephalic. No trauma. PERRLA. Neck supple. No JVD. No masses. Central trachea. Chest: Clear to auscultation. Mild rales at the bases. Abdomen is soft but distended and obese, had decreased bowel sounds. Extremities: 1+ lower extremity edema and upper extremity edema as well. Neurologic: The patient is sedated and intubated. LABORATORY: WBC 14.6, hemoglobin 8.8, hematocrit 27.3, platelets 161,000. Sodium 137, potassium 3.9, chloride 100, bicarbonate 19. BUN 46, creatinine 5.5. Glucose 228. Calcium 6.9. AST 51. ALT is 110. Alkaline phosphatase 45. Ammonia 68. ASSESSMENT AND PLAN: 1. Acute hypoxemic respiratory failure. This is multifactorial. We will continue with mechanical ventilation. I will continue following the recommendations of the Pulmonary Department. 2. Severe acute pancreatitis with phlegmon formation. This is more likely secondary to patient's severe alcohol abuse. For now, we will continue with the same supportive care. Gastroenterology department is following this patient closely. 3. Multiorgan failure also secondary to severe pancreatitis. This patient remains on dialysis. 4. Acute kidney injury. Yesterday, this patient was dialyzed and Nephrology Department removed 4.4 L from this patient. Today, the goal is to remove 3 L. 5. Leukocytosis. This patient's white blood cells count is decreasing. Infectious Disease Department is following this patient. We will continue with the same antibiotics. 6. Mechanical aortic valve replacement. This patient was placed on heparin drip but yesterday has been stopped. PTT was elevated as this patient was having a gastrointestinal bleed. 7. Gastrointestinal bleed. Continue with proton pump inhibitor drip. We will continue to monitor the hemoglobin and hematocrit closely. Gastroenterology is following. 8. Nutritional status: This patient is receiving total parenteral nutrition by the operations examiner. 9. Severe alcohol abuse, aware. 10. This patient is FULL CODE. I talked to the family members including the , and I told them that this patient is critically ill and has poor prognosis. CRITICAL CARE TIME: 35 minutes. cc: Jeremy Edouard MD
[2017-05-02] MEDS: CARDIZEM 100 MG/NS 100 MG/100 ML IVPB IV SCH (14:16)
[2017-05-02] MEDS ORDERED: NS 500 ML ONE (16:59)
[2017-05-02] MEDS ORDERED: SODIUM PHOSPHATE IV SCH ×7 (18:00)
[2017-05-02] MEDS ORDERED: [UNRECOGNIZED DRUG - OTHER] IV SCH ×7 (18:00)
[2017-05-02] MEDS ORDERED: TPN ELECTROLYTES IV SCH ×7 (18:00)
[2017-05-02] MEDS ORDERED: MAGNESIUM SULFATE IV SCH ×7 (18:00)
--- NOTE | 2017-05-02 18:16 | PROGRESS NOTE ---
DATE: 05/02/2017 PRESENT ILLNESS: The patient is being treated for severe pancreatitis with phlegmon formation. MEDICATIONS: The patient is on a combination of meropenem and micafungin. This is day 1 of treatment with both of those agents. PHYSICAL EXAMINATION: Vital Signs: Temperature is 100.3 degrees, pulse 126, respirations 22, blood pressure 99/67. General: This is an ill-appearing, middle-aged male. He is intubated and sedated. Lungs: There were bilateral rhonchi. Cardiovascular: Heart rate was rapid. Sometimes it seemed regular and at other times it seemed irregular. Abdomen: Soft. It is protuberant but it did not seem to be tender. Integument: No rash noted. LAB AND X-RAY: There is no new x-ray today. The CBC shows a white count of 14,650, hemoglobin 8.8, and platelet count 161,000. The patient's blood cultures are pending. Sputum grew normal don. Blood gases show a pH of 7.46, a PO2 of 93, and a pCO2 of 30. The patient's creatinine is 5.5 with a GFR of 11. The patient's hepatitis panel was nonreactive. ASSESSMENT AND PLAN: Patient has severe pancreatitis. I plan on continuing meropenem and micafungin. COMORBIDITIES: The patient's biggest comorbidity is that he is an alcoholic. The patient also has sleep apnea and gastroesophageal reflux disease. cc: Héctor Art MD
[2017-05-02] MEDS: MYCAMINE 100 MG in NS 100 ML IV SCH (18:45)
[2017-05-03] MEDS: MERREM 500 MG in NS 50 ML IV SCH ×3 (00:11→17:48)
[2017-05-03] MEDS: PROTONIX 80 MG in NS 80 ML IV SCH (00:11)
[2017-05-03] MEDS: DIPRIVAN 1% 1,000 MG/100 ML BOTTLE IV SCH ×9 (00:11→23:05)
[2017-05-03] MEDS: ATIVAN IV SCH ×4 (02:52→19:45)
--- NOTE | 2017-05-03 03:42 | PROGRESS NOTE ---
DATE: 05/02/2017 ADDENDUM: PHYSICAL EXAM: In the patient's neck, there is an internal jugular catheter on the right side. The site is not swollen or red. Likewise in the right groin there is a dialysis catheter present. The site does not appear swollen and it is not draining. cc: Héctor Art MD
[2017-05-03 04:25] LABS: ALLEN TEST YES; BLOOD TYPE ARTERIAL; DRAW SITE R RADIAL; METHB 1.2 % (0.0-1.5); O2(CT) 8.1 mL/dL (15.0-23.0); PCO2(98.6) 36 mmHg (35-45); PO2(98.6) 87 mmHg (60-100); SAMPLE BLOOD; SAO2 98.1 % (95.0-100.0); SRATE 12 BPM; THB 5.9 g/dL (11.5-17.4); TVOL 600 mL; pH(98.6) 7.42 (7.35-7.45)
[2017-05-03 04:27] LABS: MODALITY VENTILATOR
[2017-05-03 04:32] LABS: BASO% 1.4 % (0.0-0.8); EOS# 0.28 X1000 (0.0-0.7); EOS% 1.6 % (0.0-10.0); HEMATOCRIT 29.7 % (42.0-52.0); IMM GRAN# 2.72 X1000 (0.0-0.04); IMM GRAN% 15.9 % (0.0-0.5); LYMPH% 5.8 % (20.5-51.1); MANUAL DIFF NEEDED? YES; MCH 33.4 PG (27-31); MCHC 33.7 g/dL (33-37); MCV 99.3 FL (81-99); MONO# 1.56 X1000 (0.11-0.59); MONO% 9.1 % (1.7-9.3); MPV 11.1 FL (7.4-10.4); NEUT% 66.2 % (42.2-75.2); PLT 137 X1000 (130-400); RBC 2.99 XMIL (4.7-6.1)
[2017-05-03 04:46] LABS: ALBUMIN 2.2 g/dL (3.5-5.0); ALBUMIN 2.3 g/dL (3.5-5.0); CALCIUM 7.9 mg/dL (8.8-10.2); POTASSIUM 4.2 mmol/L (3.5-5.1); TOTAL BILIRUBIN 0.51 mg/dL (0.20-1.00); TOTAL PROTEIN 5.7 g/dL (6.3-8.3)
[2017-05-03 07:26] LABS: BANDS 4 % (0-1); LYMPHS 7 % (21-51); MONO 11 % (1-9)
--- NOTE | 2017-05-03 07:26 | Diag Imaging Result Doc PS360 ---
EXAM: CHEST-PORTABLE INDICATION: sob, follow up TECHNIQUE: One view COMPARISON: 05/02/2017 FINDINGS: Right central line and ET tube are in stable position. An NG tube passes below the diaphragm and out of the [id number]. The patient is rotated toward the right. Inspiration is suboptimal. This is similar to the previous study. There is suggestion of subsegmental bibasilar atelectasis similar to the previous study. There are no new consolidations identified. Cardiac silhouette is stable. IMPRESSION: Essentially stable chest. Electronically signed by Femi Vinson 05/03/2017 7:24 AM
[2017-05-03] MEDS ORDERED: SODIUM CHLORIDE 0.9% 10 ML ONE ×2 (07:46→17:45)
[2017-05-03] MEDS: PROTONIX IV SCH ×2 (07:55→18:29)
[2017-05-03] MEDS: CARDIZEM 100 MG/NS 100 MG/100 ML IVPB IV SCH (09:56)
--- NOTE | 2017-05-03 09:57 | PROGRESS NOTE ---
DATE: 05/03/2017 TIME SEEN: 0750. SUBJECTIVE: Mr. Reddy is resting in bed. He remains sedated. He is ventilator dependent. OBJECTIVE: His most recent vital signs: Temperature 99.9 degrees, blood pressure is 128/63, heart rate 76, respirations are 20. He remains on 40% FiO2. His last recorded saturation is 98%. He has had 3224 In. He has had 3230 Out with 3.25 L on dialysis. LABORATORY DATA: Sodium 130, potassium 4.2, chloride 94, CO2 of 19. BUN 43, creatinine 4.4, glucose 388. Anion gap 16, calcium 7.9, phosphorus 3.6, albumin 2.3, magnesium 2. Ammonia level 57. WBCs 17.11, hemoglobin 10, hematocrit 29.7 with a platelet count of 137, 000. PTT 26.3. ABGs: pH 7.42, CO2 of 36, PO2 of 87, bicarb 24.2 on 40%. He has a lactate of 1.5. Cortisol level is 18.9. Sputum and blood cultures are negative in the last 48 hours. PHYSICAL EXAMINATION: General: This is a 56-year-old male who is currently resting in bed. He is in no acute distress. He remains sedated and intubated. Skin is warm and dry. Hot to touch. HEENT: Normocephalic, atraumatic. Conjunctivae pink. He has FABIANA. These remain sluggish. Mucous membranes are dry. Neck is supple. Trachea in midline. There is no appreciable JVD. Cardiovascular: He remains tachycardic. Sinus rhythm on the monitor. He continues without murmur or gallop. Lungs: Diminished breath sounds. He has no wheezes or crackles. He continues with coarse breath sounds, clears with suctioning. Abdomen is distended, mildly tender. Continues with NG to low intermittent suction. This is a coffee-ground black material. Diminished bowel sounds noted. Genitourinary: Martinez catheter is in place. Minimal urine out. Extremities: He continues with 1 to 2+ edema. This continues to go up into his mid sacral abdominal cavity area. No clubbing or cyanosis present. Neurologic: As mentioned above. ASSESSMENT AND PLAN: 1. Acute kidney injury. Patient continues to require dialysis assist. We will place him on sustained low-efficiency dialysis today. He is to dialyze for [address] him on a 4 K bath. He is to have a 2.5 calcium bath. We will plan to pull 2-3 L of ultrafiltration as tolerated. 2. Electrolytes. Patient has hyponatremia again with correction on dialysis. 3. Acid-base balance. This has been slowly correcting. CO2 of 19. Gap is closing down to 16. Lactate remains stable. Again, with correction on dialysis. 4. Anemia. This is holding stable. Hemoglobin of 10. 5. Acute pancreatitis. This continues to be addressed by the primary care team. I would to thank you for allowing us to follow with this patient. Seen, data reviewed, discussed with Scarlet Figueroa on 05/03/17. I agree with the above assessment and plan of care. rg Dictated by BENNIE Griffin for Todd Fernandez MD cc: BENNIE Griffin MD [facility]
--- NOTE | 2017-05-03 10:49 | PROGRESS NOTE ---
DATE: 05/03/2017 SUBJECTIVE: This patient remains sedated and on mechanical ventilation. No acute events overnight. Two days ago, this patient started having upper gastrointestinal bleed and the heparin drip has been stopped. We will continue with the Protonix drip. He has been on dialysis and he will get dialysis today again. OBJECTIVE: Vital Signs: Temperature 99.2 degrees, pulse 83, respiratory rate 20, blood pressure 126/64, oxygen saturation 100% on mechanical ventilation 40% of FiO2. HEENT: Head normocephalic. No trauma. PERRLA. Neck: Supple. No JVD. No masses. Central trachea. Chest: Decreased breath sounds at the bases. Abdomen: Soft. Mildly distended. Obese. Decreased bowel sounds. Extremities: There is 1+ upper extremity edema. Lower extremities with out edema. Neurological Examination: The patient is sedated and intubated. Laboratory: WBC 17.1, hemoglobin 10, hematocrit 29.7, platelets 137,000. Sodium 130, potassium 4.2, chloride 94, bicarbonate 19, BUN 43, creatinine 4.4, glucose 388, calcium 7.9. Albumin 2.2, lipase 173. ASSESSMENT AND PLAN: 1. Acute hypoxemic respiratory failure. This is multifactorial. We will continue with mechanical ventilation and following the recommendation of pulmonary department. 2. Severe acute pancreatitis with phlegmon formation. This is likely secondary to patient's severe alcohol abuse. For now, we will continue with the same supportive care. Gastroenterology department is following this patient closely. 3. Multiorgan failure, also secondary to severe pancreatitis. This patient is on mechanical ventilation and dialysis at this moment. Liver function tests are getting better. 4. Acute kidney injury. Continue with dialysis as scheduled. 5. Leukocytosis. Infectious disease department is following this patient. This is likely related to his severe pancreatitis. 6. Mechanical aortic valve replacement. This patient was placed on a heparin drip but 2 days ago, we stopped it because the PTT was elevated and the patient was having a gastrointestinal bleed. 7. Gastrointestinal bleed. Continue with proton pump inhibitor drip. 8. Nutritional status. This patient is receiving total parenteral nutrition as per gastroenterology. 9. Severe alcohol abuse. Aware. 10. This patient is full code. CRITICAL CARE TIME: 35 minutes. cc: Jeremy Edouard MD
[2017-05-03] MEDS ORDERED: STERILE WATER INJ. INJ ONE ×2 (11:14→11:20)
[2017-05-03] MEDS ORDERED: CATHFLO IV ONE ×2 (11:14→11:20)
[2017-05-03] MEDS: HUMULIN R SUBQ SCH ×4 (12:21→20:33)
--- NOTE | 2017-05-03 17:15 | PROGRESS NOTE ---
DATE: 05/03/2017 SUBJECTIVE: Patient resting. He is intubated, sedated and vented. His GI bleeding has stopped. His NG tube has put out a very small amount of drainage of about 100 mL which is dark in color. He had some liquid dark tarry stools. He had received 2 units blood transfusion yesterday. His heparin has been off since yesterday and Dr. Sweet is restarting heparin tomorrow. The patient is off pressors he did not get dialyzed today because of problems with his hemodialysis catheter. He has been documented to have a low grade fever of 100.6 today. OBJECTIVE: Vital signs: Temperature 98.9, pulse rate of 79, respiratory rate 18, blood pressure 118/58. Saturating 98% on mechanical ventilator, 40% FiO2. General appearance: Moderately built, moderately nourished, lying in bed, sedated, intubated and vented. HEENT: Positive ET tube. Positive NG tube. Neck: Supple. Abdomen: Obese, soft, nondistended. Bowel sounds are present. Extremities: No cyanosis, clubbing. Neurologic: He is sedated. LABORATORY: His hemoglobin and hematocrit are 10 and 29.7, white count 17.1, platelet count of 137,000, MCV of 99.3, INR 1.1, PT of 11.7, PTT of 26.3, sodium 130 potassium 4.2, chloride 94, bicarb of 19, anion gap of 17, BUN of 43, creatinine 4.4, glucose of 388, calcium 7.9, phosphorus 3.6, albumin is 2.2. Total protein 5.7. AST 34, ALT 67, alkaline phosphatase 51, total bilirubin is 0.5, magnesium 2. His amylase is 173. Triglycerides yesterday of 386. Hepatitis panel is nonreactive. IMAGING: Chest x-ray this morning showed essentially stable chest. ET tube in stable position. NG tube passes below the diaphragm out of the field of view. Subsegmental bibasilar atelectasis seen. No new consolidations seen. IMPRESSION AND PLAN: 1. Severe acute pancreatitis with phlegmon formation secondary to severe alcohol abuse, now complicated with multiorgan failure. I will continue supportive treatment. I will continue to watch amylase and lipase levels. 2. Renal failure. He is on dialysis, but there have been some problems with his hemodialysis catheter. This is being managed by the Nephrology Team and Surgical Team. 3. Acute hypoxic respiratory failure being managed by Dr. Weinberg. They are starting the weaning trials tomorrow. 4. Malnutrition, hypoalbuminemia. He will continue on total parenteral nutrition. 5. Diabetes. Per the primary care team. We will request the Nutrition Team to assist with adding insulin to the total parenteral nutrition bag. 6. Leukocytosis and low-grade fever. Currently on IV antibiotics, being managed by the Primary Care Team. Blood culture has been negative x2. Sputum culture showing 2+ white cells, no bacteria seen. 7. Status post mechanical aortic valve per Dr. Sweet, starting on heparin tomorrow which has been withheld since yesterday because of ongoing gastrointestinal bleed requiring blood transfusion. 8. Gastrointestinal bleed has not stopped. Hematocrit stabilized, is improving, so will keep on Protonix drip for now. In fact, have him switched to Protonix b.i.d. We will watch the serial hemoglobin and hematocrit every morning and type and cross, transfuse to keep hematocrit more than 27%. We will start on Carafate 1 g/6 hours through the nasogastric tube also. 9. Further recommendations to follow pending further findings on the above. The above findings were discussed with the patient's nurse and all questions answered. cc: MD Jeremy Kingston MD Ashish K. Basu, MD Matthew L. Figh, MD Leroy F. Harris, MD Reginald D. Gladish, MD Mamoun I. Najjar, MD
[2017-05-03] MEDS ORDERED: NS 250 ML ONE (17:19)
[2017-05-03] MEDS: CARAFATE LIQUID NG SCH (17:48)
[2017-05-03] MEDS: MYCAMINE 100 MG in NS 100 ML IV SCH (17:48)
[2017-05-03] MEDS ORDERED: SODIUM PHOSPHATE IV SCH ×8 (18:00)
[2017-05-03] MEDS ORDERED: MAGNESIUM SULFATE IV SCH ×8 (18:00)
[2017-05-03] MEDS ORDERED: TPN ELECTROLYTES IV SCH ×8 (18:00)
[2017-05-03] MEDS ORDERED: [UNRECOGNIZED DRUG - OTHER] IV SCH ×8 (18:00)
--- NOTE | 2017-05-03 18:06 | OPERATIVE NOTE ---
PROCEDURE DATE: 05/03/2017 PREOPERATIVE DIAGNOSIS: Malfunctioning right femoral Vas-Cath. POSTOPERATIVE DIAGNOSIS: Malfunctioning right femoral Vas-Cath. PROCEDURES: Exchange of central line catheter over a wire. SURGEON: Tutu Machado MD. HEADING SAW OPERATOR: None. ANESTHESIA: Local administered by the surgeon. BRIEF HISTORY: The patient is a 56-year-old male who I put a right Vas-Cath in his femoral vein several days ago. They are having difficulty with it. I was unable to aspirate blood from either port, so I elected to replace it over a wire. This was discussed with the family. Consent was obtained. DESCRIPTION OF PROCEDURE: After informed consent was obtained, patient remained in his ICU bed. The previous central line was prepped and draped sterile fashion. After the formal time-out, we removed the capsule and the central line. I passed a wire down the central port, exchanged it over wire. There was a significant amount of bleeding. I passed the new Vas-Cath into this femoral vein. Initially all ports aspirated and flushed easily. I secured it in place. I then noticed that it was a little sluggish on the venous port when aspirated. I applied pressure in the area. I was able to aspirate and flush both ports easily. I suspect that there would need to be pressure applied to the area to get it to aspirate and flush easily given the depth of the central line. The patient tolerated the procedure well. Had a sterile dressing applied. I discussed this development with dialysis. All questions were answered. cc: Tutu Machado MD
[2017-05-03 19:38] LABS: INR 1.04; PTT 26.8 Seconds (22.0-36.0)
[2017-05-03] MEDS ORDERED: NS 500 ML ONE (19:43)
--- NOTE | 2017-05-03 20:02 | PROGRESS NOTE ---
DATE: 05/03/2017 PRESENT ILLNESS: The patient is being treated for severe pancreatitis with phlegmon formation. MEDICATIONS: This is the 2nd day of treatment with a combination of meropenem and micafungin. PHYSICAL EXAMINATION: Vital Signs: Temperature is 99.1, pulse 83, respirations 22, blood pressure 122/61. Generally: This is a somewhat ill-appearing, middle-aged male. He is intubated and sedated. Lungs: Clear to auscultation. Cardiovascular: Regular heart rate. Abdomen: Soft and not tender. Extremities: There is edema in both legs. LAB AND X-RAY: Chest x-ray shows small atelectatic changes. The CBC showed a white count of 17,110, hemoglobin is 10, platelet count is 137,000. Blood gases show a pH of 7.42, a pO2 of 87, a pCO2 of 36. Creatinine is 4.4. The GFR is 14. ASSESSMENT AND PLAN: Patient has severe pancreatitis. I plan to continue with the meropenem and micafungin. COMORBIDITY: The patient is an alcoholic. He also has sleep apnea and gastroesophageal reflux disease. cc: Héctor Art MD
[2017-05-04] MEDS ORDERED: HUMULIN R IV ONE (00:02)
[2017-05-04] MEDS: CARAFATE LIQUID NG SCH ×5 (00:29→21:44)
[2017-05-04] MEDS: MERREM 500 MG in NS 50 ML IV SCH ×4 (00:35→16:08)
[2017-05-04] MEDS: HUMULIN R SUBQ SCH ×6 (01:16→20:02)
[2017-05-04] MEDS: ATIVAN IV SCH ×4 (01:20→19:47)
[2017-05-04] MEDS: CARDIZEM 100 MG/NS 100 MG/100 ML IVPB IV SCH (01:27)
[2017-05-04] MEDS: DIPRIVAN 1% 1,000 MG/100 ML BOTTLE IV SCH ×8 (01:27→21:49)
[2017-05-04 03:53] LABS: BASO% 0.9 % (0.0-0.8); EOS# 0.32 X1000 (0.0-0.7); EOS% 1.6 % (0.0-10.0); HEMATOCRIT 28.5 % (42.0-52.0); HEMOGLOBIN 9.5 g/dL (14.0-18.0); IMM GRAN# 2.05 X1000 (0.0-0.04); IMM GRAN% 10.4 % (0.0-0.5); LYMPH# 0.76 X1000 (1.2-3.4); LYMPH% 3.9 % (20.5-51.1); MANUAL DIFF NEEDED? YES; MCH 32.8 PG (27-31); MCHC 33.3 g/dL (33-37); MCV 98.3 FL (81-99); MONO# 1.56 X1000 (0.11-0.59); MONO% 7.9 % (1.7-9.3); MPV 11.1 FL (7.4-10.4); NEUT% 75.3 % (42.2-75.2); PLT 149 X1000 (130-400)
[2017-05-04 04:10] LABS: ALLEN TEST YES; BE -5.5 mmoll (-3.0-3.0); BLOOD TYPE ARTERIAL; DRAW SITE R RADIAL; METHB 0.7 % (0.0-1.5); O2(CT) 12.4 mL/dL (15.0-23.0); PCO2(98.6) 33 mmHg (35-45); PO2(98.6) 114 mmHg (60-100); SAMPLE BLOOD; SAO2 100.2 % (95.0-100.0); SRATE 12 BPM; THB 8.9 g/dL (11.5-17.4); TVOL 600 mL; pH(98.6) 7.37 (7.35-7.45)
[2017-05-04 04:11] LABS: MODALITY VENTILATOR
[2017-05-04 04:16] LABS: ALBUMIN 2.3 g/dL (3.5-5.0); CALCIUM 7.7 mg/dL (8.8-10.2); MAGNESIUM 2.3 mg/dL (1.5-2.7); POTASSIUM 3.8 mmol/L (3.5-5.1); TOTAL BILIRUBIN 0.36 mg/dL (0.20-1.00); TOTAL PROTEIN 5.7 g/dL (6.3-8.3)
[2017-05-04 04:25] LABS: BANDS 16 % (0-1); EOS 2 % (1-10); LYMPHS 10 % (21-51); MONO 8 % (1-9)
[2017-05-04] MEDS ORDERED: HEPARIN 25,000 UNITS/D5W 25,000 UNIT/250 ML IV.SOLN IV SCH ×3 (06:00→21:35)
[2017-05-04] MEDS ORDERED: NS 2,000 ML ONE (07:07)
[2017-05-04] MEDS ORDERED: HEPARIN ONE (07:07)
--- NOTE | 2017-05-04 07:27 | Diag Imaging Result Doc PS360 ---
EXAM: CHEST-PORTABLE HISTORY: sob, follow up TECHNIQUE: AP portable at 0500 COMMENT: There is an endotracheal tube with its tip slightly below the thoracic inlet. There is an NG tube which passes below the diaphragm. There is a right internal jugular central venous catheter with its tip in the superior vena cava. The inspiration is generally suboptimal. There is apparent atelectasis in the left lower lobe. IMPRESSION: Left lower lobe atelectasis. Electronically signed by Ozzie Mittal 05/04/2017 7:24 AM
[2017-05-04] MEDS ORDERED: SODIUM CHLORIDE 0.9% 10 ML ONE (08:32)
[2017-05-04] MEDS: PROTONIX IV SCH ×2 (08:35→19:46)
[2017-05-04] MEDS ORDERED: LANTUS SUBQ SCH (09:00)
--- NOTE | 2017-05-04 09:07 | PROGRESS NOTE ---
DATE: 05/04/2017 TIME SEEN: 0710 hours. SUBJECTIVE: Mr. Reddy is resting quietly in bed. He remains sedated, ventilator dependent. OBJECTIVE: His most recent vital signs: His last temperature recorded is 100.2 , blood pressure 109/67, heart rate 85 and respirations 22. His CVP was 10 this a.m. He remains on 40% FiO2, 99% saturations. He has had 2317 in and 680 out. LABS: Sodium 132, potassium 3.8, chloride 90, CO2 18, BUN 75, creatinine 6.5, glucose 317. Patient's anion gap is 24, calcium 7.7, phosphorus 6.8, magnesium 2.3, albumin is 2.3. Patient has a cortisol of 20.1 and ammonia level of 40. White count 19.64, hemoglobin 9.5, hematocrit 28.5, platelet count 149. His PTT is 26.6. ABGs 7.37 pH, CO2 33, PO2 114, bicarbonate 20.7. He has a lactate of 1.7. IMAGING: Chest x-ray this a.m. shows left lower lobe atelectasis. PHYSICAL EXAMINATION: General: This is a 56-year-old male. He is currently resting in bed. He remains sedated on the ventilator. He is in no acute distress. Skin: Warm and dry. HEENT: Normocephalic, atraumatic. Conjunctiva is pink. He has FABIANA, though these are sluggish. Mucous membranes dry. Neck: Supple. Trachea midline. Unable to determine JVD. Cardiovascular: He is regular rate and rhythm. He is without murmur or gallop. Lungs: Diminished breath sounds. No wheezes or crackles noted. Continues with coarse breath sounds. Equal excursion per vent. Abdomen: Distended. No tenderness noted this a.m. NG tube to low intermittent suction, now has a light color bile green to the tubing. Martinez catheter to genitourinary remains in place. Minimal urine out, dark in appearance. Extremities: Continues with 1+ to 2+ edema. Integumentary: No rashes or lesions evident. Neurological: Patient is having a jerking motion to his upper chest wall into the shoulder area. These are nonrhythmic. No indications that they are triggered by stimuli or not. He remains on propofol drip. Airway is protected. ASSESSMENT AND PLAN: 1. Acute kidney injury. Patient required dialysis yesterday. Unfortunately his dialysis catheter was nonfunctional and it has been evaluated by Dr. Machado. We will attempt to place patient on slow, low efficiency dialysis today. He is to be on a 4 K bath. We will dialyze him for 8 hours. We will attempt to pull 2-3 liters of ultrafiltration as tolerated. 2. Electrolytes and acid-base balance. These remain stable with correction on dialysis. 3. Anemia. Hemoglobin is holding stable. 4. Acute pancreatitis. Primary care team is following. 5. Acute respiratory failure. This continues to be followed by primary care. I would like to thank you for allowing us to follow with this patient. Seen, data reviewed, discussed with Scarlet Figueroa on 05/04/17. I agree with the above assessment and plan of care. rg Dictated by BENNIE Griffin for Todd Fernandez MD cc: BENNIE Griffin MD [facility]
[2017-05-04] MEDS ORDERED: INSULIN PEN NEEDLES ONE (09:52)
[2017-05-04] MEDS: LOPRESSOR IV SCH ×2 (12:07→21:48)
--- NOTE | 2017-05-04 12:53 | PROGRESS NOTE ---
DATE: 05/04/2017 SUBJECTIVE: The patient is currently lying in bed, sedated, intubated, and ventilated. NG tube is putting out greenish aspirate and the entire can is full, amounting to 1 L. His last bowel movement was listed for today. The last time was listed as a liquid dark and black tarry stool. The patient is spiking temperatures. Is being followed by Dr. Héctor Art. T- max of 100.2. Starting the patient on IV heparin drip sometime today. The patient continues on TPN. His blood glucose is improving, as they have added 20 units of insulin to the TPN. OBJECTIVE: Vital Signs: Temperature 99.8 degrees, pulse rate of 83, blood pressure 190/60, saturating 99% on 40% FiO2. General appearance: Moderately nourished, lying in bed, currently intubated, ventilated, and sedated. HEENT: Positive NG tube, positive ET tube. Pale conjunctivae. Neck: Supple. Abdomen: Obese, soft, nontender, nondistended. Bowel sounds present. Extremities: No cyanosis or clubbing. Neurologic: He is sedated and ventilated. LABORATORIES: His hemoglobin and hematocrit are 9.5 and 28.5, white count of 19.6, which has gone up from 17.1 yesterday, and platelet count 149,000. PT of 26.9. Sodium 132, potassium 3.8, chloride 90, bicarbonate of 18, anion gap of 24, BUN of 75, creatinine 6.5, glucose of 296, calcium 7.7, phosphorus 6.8, magnesium 2.38, total bilirubin is 0.36, AST 31, ALT 43, alkaline phosphatase 72, total protein 5.7, albumin 2.3, ammonia 40, and lipase of 247, which has gone up. IMAGING: Ultrasound of the abdomen on admission showed liver is hyperechoic, suggesting fatty change. The gallbladder is clear and nontender. CT scan on 04/26/2017 showed pancreatitis with fairly severe phlegmonous change and hepatic steatosis. No gallstones are noted. IMPRESSION AND PLAN: 1. Acute alcoholic pancreatitis. Currently continuing on supportive treatment. Continue on IV fluids and IV antibiotics. 2. Renal failure. He is currently on hemodialysis per the Nephrology team. 3. Leukocytosis is getting worse, being managed by Dr. Héctor Art and the primary care team. 4. Hypoalbuminemia and malnutrition. He is currently on TPN. 5. Diabetes. Primary care team is working to get his glucose under better control. 6. Gastrointestinal bleed and history of coffee-grounds emesis, which has now resolved since coming off heparin. He will continue on Protonix b.i.d. and Carafate for now. 7. Mechanical aortic valve replacement, being watched by Dr. Sweet, who is planning to start the patient on heparin today if his hematocrit is stable. 8. Gastrointestinal prophylaxis. PPIs. 9. Respiratory failure. The patient is being watched by Dr. Weinberg, who is planning to do a weaning trial today. 10. Further recommendations to follow pending further findings. cc: MD Jeremy Kingston MD Marlin D. Gill, MD Mamoun I. Najjar, MD Reginald D. Gladish, MD Ashish K. Basu, MD Leroy F. Harris, MD Matthew L. Figh, MD MTDD
[2017-05-04] MEDS ORDERED: [UNRECOGNIZED DRUG - OTHER] IV SCH ×8 (13:31)
[2017-05-04] MEDS ORDERED: TPN ELECTROLYTES IV SCH ×8 (13:31)
[2017-05-04] MEDS ORDERED: SODIUM PHOSPHATE IV SCH ×8 (13:31)
[2017-05-04] MEDS ORDERED: MAGNESIUM SULFATE IV SCH ×8 (13:31)
[2017-05-04] MEDS ORDERED: HEPARIN IV PRN (15:07)
--- NOTE | 2017-05-04 15:07 | PROGRESS NOTE ---
DATE: 05/04/2017 SUBJECTIVE: This patient is still on mechanical ventilation and sedated. No acute events overnight. Three days ago this patient started having an upper gastrointestinal bleed and the heparin drip was stopped, but today we restarted the heparin drip. We will continue also with Protonix drip. He has been on hemodialysis and he is getting dialysis today again. For some reason yesterday he did not get dialysis. Apparently the catheter was not functioning properly. OBJECTIVE: Vital Signs: Temperature 100 degrees, pulse 98, respiratory rate 25, blood pressure 122/60, oxygen saturation 100% on mechanical ventilation 40% of FiO2. HEENT: Head normocephalic. No trauma. PERRLA. Neck: Supple. JVD no masses. Central trachea. Chest: Decreased breath sounds at the bases. Abdomen: Soft. Mildly distended. Obese. Decreased bowel sounds. Extremities: 1+ upper extremity edema. Lower extremities without edema. Neurological Examination: The patient is sedated and intubated. LABORATORY: WBC 19.6, hemoglobin 9.5, hematocrit 28.5, platelet 149,000. Bands 16, sodium 132, potassium 3.8, chloride 90, bicarbonate 18. BUN 75, creatinine 6.5, glucose 317. Calcium 7.7, phosphorus 6.8, magnesium 2.3, albumin 2.3. ASSESSMENT AND PLAN: 1. Acute hypoxemic respiratory failure. This is multifactorial. Will continue with mechanical ventilation and following the recommendation of Pulmonary Department. 2. Severe acute pancreatitis with phlegmon formation, likely secondary to this patient's severe alcohol abuse. We will continue with the same supportive care. Gastroenterology department is following this patient closely as well. 3. Multiorgan failure, also secondary to severe pancreatitis. Continue with mechanical ventilation and dialysis at this moment. Acute kidney injury. Continue with dialysis as scheduled. 4. Leukocytosis, also related with severe pancreatitis. Infectious Disease Department is following this patient. 5. Mechanical aortic valve replacement three days ago. This patient was on heparin drip was stopped because of gastrointestinal bleed. Today we restarted the and we will continue with Protonix. 6. Gastrointestinal bleed. Continue with proton pump inhibitor drip. 7. Nutritional status: This patient is receiving parenteral nutrition as per Gastroenterology. 8. Severe alcohol abuse aware. 9. Full code. 10. Hyperglycemia, likely secondary to diabetes. I put this patient on Lantus today 25 units in the morning. I will monitor the blood sugar. CRITICAL CARE TIME: Thirty-five minutes. cc: Jeremy Edouard MD
[2017-05-04] MEDS ORDERED: HEPARIN IV ONE (15:15)
[2017-05-04] MEDS: MYCAMINE 100 MG in NS 100 ML IV SCH (17:18)
[2017-05-04 18:39] LABS: ALLEN TEST YES; BE -3.5 mmoll (-3.0-3.0); BLOOD TYPE ARTERIAL; DRAW SITE R RADIAL; METHB 0.6 % (0.0-1.5); O2(CT) 16.6 mL/dL (15.0-23.0); PCO2(98.6) 32 mmHg (35-45); PO2(98.6) 128 mmHg (60-100); SAMPLE BLOOD; SAO2 99.1 % (95.0-100.0); pH(98.6) 7.41 (7.35-7.45)
[2017-05-04 18:41] LABS: MODALITY VENTILATOR
[2017-05-04] MEDS ORDERED: VANCOMYCIN IV PER PHARMACY MISC SCH (18:45)
--- NOTE | 2017-05-04 18:58 | PROGRESS NOTE ---
DATE: 05/04/2017 PRESENT ILLNESS: The patient is being treated for severe pancreatitis with phlegmon formation. The patient is running a high fever and he also has leukocytosis. MEDICATIONS: This is day 3 of treatment with meropenem and micafungin. PHYSICAL EXAMINATION: Vital Signs: Temperature is 101.4 degrees, pulse 113, respirations 26, blood pressure 113/60. General: This is an ill-appearing, middle-age male. He is intubated and sedated. Cardiovascular: Heart rate is regular. Lungs: Clear to auscultation. Abdomen: Soft and nontender. Neck: No meningismus. LAB AND X-RAY: [place] [address], hemoglobin 9.5, and platelet count 149,000. Creatinine is 6.5, GFR is 9. Blood gases show a pH of 7.37, a PO2 of 114, a pCO2 of 33. Lipase is 247. Blood cultures are negative. Sputum grew normal don. Chest x-ray shows left lower lobe atelectasis. ASSESSMENT AND PLAN: Patient has severe pancreatitis. He is febrile and has leukocytosis. My plan is to continue his current medications and add vancomycin. COMORBIDITIES: In this patient he is an alcoholic. He has sleep apnea and gastroesophageal reflux disease. cc: Héctor Art MD
[2017-05-04] MEDS ORDERED: VANCOMYCIN 1 GM/NS 1 GM/250 ML IVPB IV ONE (19:00)
[2017-05-04] MEDS: HEPARIN IV PRN (21:43)
[2017-05-05] MEDS: HUMULIN R SUBQ SCH ×6 (00:01→20:52)
[2017-05-05] MEDS: MERREM 500 MG in NS 50 ML IV SCH ×3 (00:02→16:21)
[2017-05-05] MEDS: DIPRIVAN 1% 1,000 MG/100 ML BOTTLE IV SCH ×8 (01:22→23:24)
[2017-05-05] MEDS: ATIVAN IV SCH ×4 (01:22→19:46)
[2017-05-05] MEDS: HEPARIN 25,000 UNITS/D5W 25,000 UNIT/250 ML IV.SOLN IV SCH ×4 (03:00→16:59)
[2017-05-05] MEDS: HEPARIN IV PRN ×3 (03:15→20:48)
[2017-05-05] MEDS: CARAFATE LIQUID NG SCH ×4 (04:19→23:24)
[2017-05-05 04:26] LABS: INR 1.03; PROTIME 10.8 Seconds (9.2-11.7)
[2017-05-05 04:39] LABS: ALLEN TEST YES; BE -4.8 mmoll (-3.0-3.0); BLOOD TYPE ARTERIAL; DRAW SITE R RADIAL; METHB 1.3 % (0.0-1.5); MODALITY VENTILATOR; O2(CT) 16.9 mL/dL (15.0-23.0); PCO2(98.6) 34 mmHg (35-45); PO2(98.6) 117 mmHg (60-100); SAMPLE BLOOD; SAO2 98.6 % (95.0-100.0); SRATE 12 BPM; THB 12.4 g/dL (11.5-17.4); TVOL 600 mL; pH(98.6) 7.37 (7.35-7.45)
[2017-05-05 05:19] LABS: ALBUMIN 2.4 g/dL (3.5-5.0); CALCIUM 8.1 mg/dL (8.8-10.2); MAGNESIUM 2.4 mg/dL (1.5-2.7); POTASSIUM 3.8 mmol/L (3.5-5.1); TOTAL BILIRUBIN 0.42 mg/dL (0.20-1.00); TOTAL PROTEIN 6.1 g/dL (6.3-8.3)
[2017-05-05 06:04] LABS: BASO% 0.5 % (0.0-0.8); EOS# 0.34 X1000 (0.0-0.7); EOS% 1.4 % (0.0-10.0); HEMATOCRIT 29.2 % (42.0-52.0); HEMOGLOBIN 9.7 g/dL (14.0-18.0); IMM GRAN# 2.36 X1000 (0.0-0.04); IMM GRAN% 9.9 % (0.0-0.5); LYMPH# 1.26 X1000 (1.2-3.4); LYMPH% 5.3 % (20.5-51.1); MANUAL DIFF NEEDED? YES; MCH 32.7 PG (27-31); MCHC 33.2 g/dL (33-37); MCV 98.3 FL (81-99); MONO# 2.03 X1000 (0.11-0.59); MONO% 8.5 % (1.7-9.3); MPV 11.7 FL (7.4-10.4); NEUT% 74.4 % (42.2-75.2); PLT 199 X1000 (130-400); RBC 2.97 XMIL (4.7-6.1)
[2017-05-05] MEDS: PROTONIX IV SCH ×2 (06:32→19:46)
--- NOTE | 2017-05-05 07:10 | Diag Imaging Result Doc PS360 ---
EXAM: CHEST-PORTABLE HISTORY: sob, follow up TECHNIQUE: AP portable at 0500 COMMENT: There is bibasal or atelectasis which was also present on 05/04/2017. The endotracheal tube and NG tube remain in place. IMPRESSION: Bibasal or atelectasis. Electronically signed by Ozzie Mittal 05/05/2017 7:08 AM
[2017-05-05 07:57] LABS: BANDS 7 % (0-1); LYMPHS 5 % (21-51); MONO 3 % (1-9)
[2017-05-05] MEDS ORDERED: HEPARIN ONE (08:13)
[2017-05-05] MEDS ORDERED: NS 2,000 ML ONE (08:13)
[2017-05-05] MEDS: LANTUS SUBQ SCH (08:56)
[2017-05-05] MEDS: LOPRESSOR IV SCH ×2 (08:57→21:11)
--- NOTE | 2017-05-05 10:06 | PROGRESS NOTE ---
DATE: 05/05/2017 SUBJECTIVE: He remains sedated on the ventilator. OBJECTIVE: Vital Signs: Blood pressure 124/54, heart rate 96, respirations 28, temperature 99.5 degrees. Intake 3.4 L. Output 5.8 L. General: No acute distress. Skin: Warm and dry. Conjunctivae are pink. Neck: Neck veins are not appreciated. Trachea is midline. Heart: Regular without gallops or murmurs. Lungs: Have equal breath sounds with a few scattered crackles. Abdomen: Distended and soft. Minimal bowel sounds. Nontender. Extremities: Have 1+ edema. No clubbing or cyanosis. LABORATORY DATA: Sodium 131, potassium 3.8, chloride 91, bicarbonate 20, BUN 61, creatinine 6.1, hemoglobin 9.7. pH 7.37, pCO2 34, PO2 117. IMPRESSION: 1. Acute kidney injury. No recovery. He will have sustained low-efficiency dialysis again today with a goal of 4 L ultrafiltration using a 4 potassium bath, 27 bicarbonate. 2. Acid base and electrolytes are acceptable. He does have modest hyponatremia that we will be managed with his dialysis treatments. cc: Todd Fernandez MD
[2017-05-05] MEDS ORDERED: NS 500 ML ONE (11:17)
--- NOTE | 2017-05-05 13:54 | PROGRESS NOTE ---
DATE: 05/05/2017 SUBJECTIVE: This patient is still on mechanical ventilation and sedated. No acute events overnight. Yesterday, we restarted this patient on heparin drip. Also, we will continue with Protonix drip. This patient has been on hemodialysis since admission, and the kidney function is still about the same, no recovery. OBJECTIVE: Vital Signs: Temperature 99.5 degrees, pulse 96, respiratory rate 28, blood pressure 124/54, oxygen saturation 99% on mechanical ventilation of 40% FiO2. HEENT: Head normocephalic. No trauma. PERRLA. Neck supple. No JVD. No masses. Central trachea. Chest: Decreased breath sounds at the bases. Abdomen is soft, obese, positive bowel sounds. Extremities: 1+ upper extremity edema. Lower extremities without edema. Neurologic: The patient is sedated and intubated. LABORATORY: WBC 23.7, hemoglobin 9.7, hematocrit 29.2, platelets 199,000. Sodium 131, potassium 3.8, chloride 91, bicarbonate 20. BUN 61, creatinine 6.1, glucose 331. Calcium 8.1. Phosphorus 7.2, magnesium 2.4. Albumin 2.4. ASSESSMENT AND PLAN: 1. Acute hypoxemic respiratory failure; this is multifactorial. Continue with mechanical ventilation and follow the recommendation of Pulmonary Department. 2. Severe acute pancreatitis with phlegmon formation. This is likely secondary to this patient's severe alcohol abuse. We will continue with supportive care. Gastroenterology department is following this patient as well. 3. Multiorgan failure also secondary to severe pancreatitis. Continue with mechanical ventilation. On dialysis at this moment. 4. Acute kidney injury. Continue with dialysis as scheduled. 5. Leukocytosis. This is also related to pancreatitis. Infectious Disease Department is following this patient. We will continue with antibiotics. Yesterday, we added vancomycin to his medications. 6. Mechanical aortic valve replacement. Four days ago, this patient was on heparin drip and was stopped because of gastrointestinal bleed but, yesterday, we restarted the heparin, and we will continue with Protonix drip as well. 7. Gastrointestinal bleed. Continue with proton pump inhibitors. 8. Nutritional status. This patient is receiving parenteral nutrition as per the Gastroenterology Department. 9. Severe alcohol abuse, aware. 10. FULL CODE. 11. Hyperglycemia. Probably this is related to diabetes. I do not have any records that demonstrates that this patient has diabetes. Today, his Lantus has been increased from 25-50. CRITICAL CARE TIME: 35 minutes. cc: Jeremy Edouard MD
--- NOTE | 2017-05-05 17:46 | PROGRESS NOTE ---
DATE: 05/05/2017 PRESENT ILLNESS: The patient has pancreatitis with phlegmon formation. He continues to have fever and leukocytosis. I am concerned that he may be developing in an abscess. MEDICATION: Patient is receiving a combination of meropenem, micafungin and vancomycin. This is day 7 of treatment with the antibiotics. PHYSICAL EXAMINATION: Vital Signs: Temperature is 101.9 degrees, pulse 115, respirations 26, blood pressure 120/53. General: This is an ill-appearing, middle-aged male who is intubated and sedated. Lungs: Clear to auscultation. Cardiovascular: Regular and rapid heart rate. Abdomen: Distended but soft and apparently not tender. Integument: No rash noted. LABORATORY AND X-RAY: The blood gases show a pH of 7.37, PO2 of 117, pCO2 of 34. Creatinine 6.1. GFR is 10. Chest x-ray shows bibasilar atelectasis. ASSESSMENT AND PLAN: The patient has severe pancreatitis and fever and leukocytosis. I plan to continue his current antibiotics. Also, I have ordered a CT scan of the abdomen to be done tomorrow. The patient's comorbidity is alcoholism. cc: Héctor Art MD
[2017-05-05] MEDS: MYCAMINE 100 MG in NS 100 ML IV SCH (18:17)
[2017-05-05] MEDS: [UNRECOGNIZED DRUG - NUTRITION] IV SCH ×6 (18:17)
[2017-05-06] MEDS: HEPARIN 25,000 UNITS/D5W 25,000 UNIT/250 ML IV.SOLN IV SCH ×6 (00:53→21:56)
[2017-05-06] MEDS: MERREM 500 MG in NS 50 ML IV SCH ×3 (00:53→16:27)
[2017-05-06] MEDS: HUMULIN R SUBQ SCH ×6 (00:56→20:21)
[2017-05-06] MEDS: ATIVAN IV SCH ×4 (02:11→20:18)
[2017-05-06] MEDS: DIPRIVAN 1% 1,000 MG/100 ML BOTTLE IV SCH ×8 (02:12→21:56)
[2017-05-06] MEDS: CARAFATE LIQUID NG SCH ×4 (04:45→21:55)
[2017-05-06] MEDS: HEPARIN IV PRN ×2 (05:11→15:06)
[2017-05-06 05:21] LABS: ALLEN TEST YES; BE -6.3 mmoll (-3.0-3.0); BLOOD TYPE ARTERIAL; DRAW SITE R RADIAL; METHB 0.2 % (0.0-1.5); O2(CT) 12.3 mL/dL (15.0-23.0); PCO2(98.6) 36 mmHg (35-45); PO2(98.6) 121 mmHg (60-100); SAMPLE BLOOD; SAO2 99.2 % (95.0-100.0); SRATE 12 BPM; THB 8.8 g/dL (11.5-17.4); TVOL 600 mL; pH(98.6) 7.33 (7.35-7.45)
[2017-05-06 05:22] LABS: MODALITY VENTILATOR
[2017-05-06 05:34] LABS: MAGNESIUM 2.3 mg/dL (1.5-2.7)
[2017-05-06 05:53] LABS: BASO% 0.7 % (0.0-0.8); EOS# 0.35 X1000 (0.0-0.7); EOS% 1.5 % (0.0-10.0); HEMATOCRIT 29.4 % (42.0-52.0); HEMOGLOBIN 9.7 g/dL (14.0-18.0); IMM GRAN% 9.2 % (0.0-0.5); LYMPH# 1.21 X1000 (1.2-3.4); LYMPH% 5.1 % (20.5-51.1); MANUAL DIFF NEEDED? YES; MCH 32.1 PG (27-31); MCV 97.4 FL (81-99); MONO# 1.96 X1000 (0.11-0.59); MONO% 8.2 % (1.7-9.3); MPV 11.6 FL (7.4-10.4); NEUT% 75.3 % (42.2-75.2); PLT 245 X1000 (130-400); RBC 3.02 XMIL (4.7-6.1)
[2017-05-06 06:01] LABS: ALBUMIN 2.5 g/dL (3.5-5.0); CALCIUM 8.2 mg/dL (8.8-10.2); POTASSIUM 4.2 mmol/L (3.5-5.1); TOTAL BILIRUBIN 0.4 mg/dL (0.20-1.00); TOTAL PROTEIN 6.5 g/dL (6.3-8.3)
[2017-05-06 06:09] LABS: BANDS 20 % (0-1); LYMPHS 10 % (21-51); MONO 6 % (1-9)
[2017-05-06] MEDS: PROTONIX IV SCH ×2 (07:28→20:18)
[2017-05-06] MEDS: DILAUDID IV PRN ×3 (07:28→15:25)
--- NOTE | 2017-05-06 08:03 | Diag Imaging Result Doc PS360 ---
EXAM: CHEST-PORTABLE INDICATION: sob, follow up TECHNIQUE: One view COMPARISON: 05/05/2017 FINDINGS: The ET tube and right central line are in stable positions. The NG tube projects below the diaphragm and out of the [id number]. The patient is rotated toward the right. Bibasilar atelectasis has probably improved slightly. There are no new consolidations. Cardiac silhouette is stable. IMPRESSION: Suggestion of slight improvement of bibasilar atelectasis. Stable chest, otherwise. Electronically signed by Femi Vinson 05/06/2017 8:01 AM
[2017-05-06] MEDS ORDERED: NS 2,000 ML ONE ×2 (08:46→11:56)
[2017-05-06] MEDS: LANTUS SUBQ SCH (09:15)
[2017-05-06] MEDS: LOPRESSOR IV SCH ×2 (09:15→20:17)
[2017-05-06 10:03] LABS: INR 1.08; PROTIME 11.4 Seconds (9.2-11.7)
[2017-05-06] MEDS ORDERED: NS 1,000 ML ONE (11:48)
--- NOTE | 2017-05-06 12:41 | PROGRESS NOTE ---
DATE: 05/06/2017 SUBJECTIVE: When I evaluated this patient he was off propofol. He was able to open his eyes, but he was not following commands. Minimal grimacing with pain stimulation. He is breathing fine with a mechanical ventilation machine on CPAP mode, but this patient is encephalopathic. Today, we did a CT scan of the abdomen to reevaluate his pancreas and all the structures around, pending report. OBJECTIVE: Vital signs: Temperature 98, pulse 91, respiratory rate 23, blood pressure 87/41, oxygen saturation 100% on mechanical ventilation, CPAP mode. HEENT: Head normocephalic, no trauma. JARRELL. Neck: No JVD, no masses. Central trachea. Chest: Decreased breath sounds at the bases with mild rales. Abdomen: Soft, obese, positive bowel sounds. Extremities: 1+ upper extremity edema. No edema at the level of the lower extremities. Neurological: The patient is not on sedation, he is not following commands. He is able to open his eyes, minimal response to pain stimulation. LABORATORY: WBC 23.9, hemoglobin 9.7, hematocrit 29.4, platelets 245. Sodium 132, potassium 4.2, chloride 92, bicarbonate 18, BUN 55, creatinine 5.1, glucose 339, calcium 8.2. ASSESSMENT AND PLAN: 1. Acute hypoxemic respiratory failure. This is multifactorial. Continue with mechanical ventilation. Follow with recommendation of pulmonary department. 2. Severe acute pancreatitis with phlegmon formation. This is likely secondary to this patient's severe alcohol abuse. Will continue with supportive care, pending CT scan of the abdomen report. Infectious disease department following this patient. 3. Encephalopathy, likely metabolic. Will continue to monitor. 4. Multiorgan failure also secondary to severe pancreatitis. Continue with mechanical ventilation. This patient is on dialysis at this moment. 5. Acute kidney injury. Continue with dialysis as scheduled. 6. Leukocytosis. This is also related with pancreatitis. Infectious disease department is following this patient, pending CT scan of the abdomen report. 7. Mechanical aortic valve replacement 5 days ago. This patient was on heparin drip and it was stopped because of GI bleed, but 2 days ago we restarted the heparin drip. Continue with Protonix drip, as well. 8. GI bleed. Continue with PPIs. 9. Nutritional status: This patient is receiving parenteral nutrition. 10.Severe alcohol abuse, aware. 11.Hyperglycemia. Probably this is related with diabetes. He is on Lantus 50, but also he is on dialysis so the insulin is basically flushed out from the body. Will continue also with sliding scale. 12.This patient is a full code. Critical care time 40 minutes. cc: Jeremy Edouard MD
--- NOTE | 2017-05-06 13:28 | PROGRESS NOTE ---
DATE: 05/06/2017 SUBJECTIVE: He is currently on CPAP. He has been also on a sedation vacation. Eyes are open, but he does not really interact. OBJECTIVE: Vital Signs: Blood pressure 87/41, heart rate 91, respirations 23. Afebrile. Intake 3.5 L. Output 5.3 L. PHYSICAL EXAMINATION: HEENT: Eyes are open, deviated to the right. He did not respond to verbal or tactile stimuli. Skin is warm and dry. Conjunctivae are pink. Pupils are equal. Neck veins are not visible. Trachea is midline. Heart is regular and not tachycardic. Lungs have equal breath sounds, coarse. Few crackles. Abdomen is soft, nontender, distended. Bowel sounds are minimal. Extremities have trace edema. No clubbing or cyanosis. LABORATORY DATA: Sodium 132, potassium 4.2, chloride 92, bicarbonate 18. BUN 55, creatinine 5.1, hemoglobin 9.7. IMPRESSION: 1. Acute kidney injury. No recovery. His volume status looks acceptable and may even be intravascularly depleted. We will minimize his UF for today but continue his treatment otherwise as ordered. He does have a moderate metabolic acidosis that will be well managed with dialysis. No other electrolyte abnormalities need to be addressed. 2. Anemia is stable. cc: Todd Fernandez MD
--- NOTE | 2017-05-06 13:52 | Diag Imaging Result Doc PS360 ---
EXAM: ABDOMEN W/O IV AND WITH ORAL CONTRAST INDICATION: pancreatic abscess COMPARISON: 08/22/2015 FINDINGS: There is subsegmental atelectasis at both lung bases. There are several healed rib fractures of the left lung base. There is extensive peripancreatic inflammatory stranding consistent with acute pancreatitis. There is nonloculated fluid tracking from the pancreas into the paracolic gutters. There is no well-defined loculated fluid collection to indicate abscess. However, the sensitivity for detecting small abscesses is limited due to lack of IV contrast. The gallbladder is grossly unremarkable. There is no evidence of biliary dilatation. There is diffuse hepatic steatosis. There is a small cyst at the anterior periphery of the right hepatic lobe. There is a small left renal cyst. There is a mildly hyperdense 8.6 mm nodule arising from the lower pole of the right kidney. This probably represents a cyst containing blood products or proteinaceous debris. Consider ultrasound follow-up. The kidneys are grossly unremarkable, otherwise. The spleen, adrenal glands, and visualized abdominal segments of the GI tract are grossly unremarkable. IMPRESSION: 1.Acute pancreatitis as described with no definite abscess given the limitations of an unenhanced study. 2.Diffuse hepatic steatosis. 3.Other incidental/nonacute findings detailed above. Electronically signed by Femi Vinson 05/06/2017 1:50 PM
[2017-05-06] MEDS: VANCOMYCIN 1 GM/NS 1 GM/250 ML IVPB IV SCH (17:33)
[2017-05-06] MEDS: [UNRECOGNIZED DRUG - NUTRITION] IV SCH ×6 (17:34)
[2017-05-06] MEDS: MYCAMINE 100 MG in NS 100 ML IV SCH (17:39)
[2017-05-06] MEDS ORDERED: SODIUM CHLORIDE 0.9% 10 ML ONE (20:16)
[2017-05-07] MEDS: MERREM 500 MG in NS 50 ML IV SCH ×3 (00:30→17:34)
[2017-05-07] MEDS: HUMULIN R SUBQ SCH ×6 (00:30→20:09)
[2017-05-07] MEDS: ATIVAN IV SCH ×4 (01:09→19:32)
[2017-05-07] MEDS: DIPRIVAN 1% 1,000 MG/100 ML BOTTLE IV SCH ×10 (01:10→22:30)
[2017-05-07] MEDS: HEPARIN 25,000 UNITS/D5W 25,000 UNIT/250 ML IV.SOLN IV SCH ×5 (03:54→20:49)
[2017-05-07 04:50] LABS: ALLEN TEST YES; BE -5.7 mmoll (-3.0-3.0); BLOOD TYPE ARTERIAL; DRAW SITE R RADIAL; METHB 0.6 % (0.0-1.5); O2(CT) 13.2 mL/dL (15.0-23.0); PCO2(98.6) 35 mmHg (35-45); PO2(98.6) 117 mmHg (60-100); SAMPLE BLOOD; SAO2 98.7 % (95.0-100.0); SRATE 12 BPM; THB 9.5 g/dL (11.5-17.4); TVOL 600 mL; pH(98.6) 7.35 (7.35-7.45)
[2017-05-07 04:51] LABS: MODALITY VENTILATOR
[2017-05-07] MEDS: CARAFATE LIQUID NG SCH ×4 (04:57→22:30)
[2017-05-07 05:06] LABS: BASO% 0.5 % (0.0-0.8); EOS# 0.36 X1000 (0.0-0.7); EOS% 1.8 % (0.0-10.0); HEMATOCRIT 26.2 % (42.0-52.0); HEMOGLOBIN 8.6 g/dL (14.0-18.0); IMM GRAN% 8.1 % (0.0-0.5); LYMPH# 1.32 X1000 (1.2-3.4); LYMPH% 6.7 % (20.5-51.1); MANUAL DIFF NEEDED? YES; MCH 32.3 PG (27-31); MCHC 32.8 g/dL (33-37); MCV 98.5 FL (81-99); MONO# 1.58 X1000 (0.11-0.59); MPV 11.5 FL (7.4-10.4); NEUT% 74.9 % (42.2-75.2); PLT 244 X1000 (130-400); RBC 2.66 XMIL (4.7-6.1)
[2017-05-07 05:52] LABS: ALBUMIN 2.3 g/dL (3.5-5.0); CALCIUM 8.1 mg/dL (8.8-10.2); MAGNESIUM 1.9 mg/dL (1.5-2.7); POTASSIUM 4.2 mmol/L (3.5-5.1); PREALBUMIN 9.1 mg/dL (20-40); TOTAL BILIRUBIN 0.4 mg/dL (0.20-1.00); TOTAL PROTEIN 6.2 g/dL (6.3-8.3)
[2017-05-07] MEDS ORDERED: HEPARIN IV ONE (06:09)
[2017-05-07 07:08] LABS: BANDS 2 % (0-1); LYMPHS 6 % (21-51); MONO 4 % (1-9)
[2017-05-07] MEDS ORDERED: SODIUM CHLORIDE 0.9% 10 ML ONE (07:23)
[2017-05-07] MEDS: PROTONIX IV SCH ×2 (07:25→18:47)
--- NOTE | 2017-05-07 07:57 | Diag Imaging Result Doc PS360 ---
EXAM: CHEST-PORTABLE INDICATION: sob, follow up TECHNIQUE: One view COMPARISON: 05/06/2017 FINDINGS: ET tube and right central line are in stable positions. An NG tube projects below the diaphragm and out of the [id number]. Inspiration is suboptimal. Mild bibasilar atelectasis is approximately stable. There are no definite new consolidations cardiac silhouette is stable. IMPRESSION: Stable chest. Electronically signed by Femi Vinson 05/07/2017 7:55 AM
[2017-05-07] MEDS: LANTUS SUBQ SCH (09:11)
[2017-05-07] MEDS: LOPRESSOR IV SCH ×2 (09:12→21:17)
[2017-05-07] MEDS ORDERED: NS 250 ML ONE (09:24)
--- NOTE | 2017-05-07 09:44 | PROGRESS NOTE ---
DATE: 05/07/2017 SUBJECTIVE: This patient is still on mechanical ventilation. Family members at the bedside. All their questions were answered. He is not going to receive dialysis today. He is not making urine. His blood pressure has been stable without pressors. We will continue with the gastroprotection and the heparin drip. OBJECTIVE: Vital Signs: Temperature 99.3 degrees, pulse 95, respiratory rate 18, blood pressure 110/50, oxygen saturation 98 on mechanical ventilation, 40% FiO2. HEENT: Head normocephalic. No trauma. PERRLA. Neck: Supple. No JVD. No masses. Central trachea. Chest: Decreased breath sounds at the bases. Abdomen: Soft, obese. Positive bowel sounds. Mildly to moderately distended. Extremities: There is 1+ upper extremity edema. No edema at the lower extremities. Neurological Examination: The patient is sedated and intubated. Laboratory: WBC 19.7, hemoglobin 8.6, hematocrit 26.2, platelets 244,000. Sodium 132, potassium 4.2, chloride 94, bicarbonate 19, BUN 52, creatinine 4.6, glucose 211, calcium 8.1, phosphorus 6.7, magnesium 1.9, albumin 2.3. ASSESSMENT AND PLAN: 1. Acute hypoxemic respiratory failure. This is multifactorial. Continue with mechanical ventilation. Pulmonary department is following this patient. 2. Severe acute pancreatitis with phlegmon formation. We did a CT scan yesterday that did not show any abscess but the CT scan was done without contrast so we cannot rule it out completely. Continue with the same management for now. 3. Encephalopathy, likely metabolic. We will continue to monitor. Yesterday, we stopped the propofol. He was able to open his eyes but he was not able to follow commands and not even eye contact. 4. Acute kidney injury. Continue with dialysis as per nephrology. 5. Leukocytosis. This is also related with pancreatitis. Infectious disease department is following with this patient. 6. Mechanical aortic valve replacement. This patient is still on a heparin drip. Continue to monitor. 7. Gastrointestinal bleed. Continue with proton pump inhibitors. 8. Nutritional status. This patient is receiving total parenteral nutrition. 9. Severe alcohol abuse. Aware. 10. Hyperglycemia. His glucose is around 200. We will continue with the same management for now and sliding scale insulin. 11. This patient is full code. CRITICAL CARE TIME: 40 minutes. cc: Jeremy Edouard MD
[2017-05-07] MEDS: DILAUDID IV PRN ×2 (14:10→23:58)
[2017-05-07] MEDS: MYCAMINE 100 MG in NS 100 ML IV SCH (17:35)
[2017-05-07] MEDS: [UNRECOGNIZED DRUG - NUTRITION] IV SCH ×6 (18:23)
[2017-05-08] MEDS: ATIVAN IV SCH ×3 (01:58→14:08)
[2017-05-08] MEDS: HUMULIN R SUBQ SCH ×6 (01:59→20:26)
[2017-05-08] MEDS: DIPRIVAN 1% 1,000 MG/100 ML BOTTLE IV SCH ×5 (02:00→13:05)
[2017-05-08] MEDS: HEPARIN 25,000 UNITS/D5W 25,000 UNIT/250 ML IV.SOLN IV SCH ×4 (02:02→18:45)
[2017-05-08] MEDS: MERREM 500 MG in NS 50 ML IV SCH ×3 (02:02→20:25)
[2017-05-08] MEDS: CARAFATE LIQUID NG SCH ×3 (03:53→17:36)
[2017-05-08 04:40] LABS: ALLEN TEST YES; BE -11.4 mmoll (-3.0-3.0); BLOOD TYPE ARTERIAL; DRAW SITE R RADIAL; METHB 0.9 % (0.0-1.5); PCO2(98.6) 38 mmHg (35-45); PO2(98.6) 125 mmHg (60-100); SAMPLE BLOOD; SAO2 98.6 % (95.0-100.0); SRATE 8 BPM; THB 16.1 g/dL (11.5-17.4); TVOL 600 mL; pH(98.6) 7.22 (7.35-7.45)
[2017-05-08 04:41] LABS: MODALITY VENTILATOR
[2017-05-08 05:06] LABS: BASO% 0.7 % (0.0-0.8); EOS# 0.42 X1000 (0.0-0.7); EOS% 1.7 % (0.0-10.0); HEMATOCRIT 27.1 % (42.0-52.0); HEMOGLOBIN 8.9 g/dL (14.0-18.0); IMM GRAN# 1.57 X1000 (0.0-0.04); IMM GRAN% 6.4 % (0.0-0.5); LYMPH# 1.47 X1000 (1.2-3.4); MANUAL DIFF NEEDED? YES; MCH 31.4 PG (27-31); MCHC 32.8 g/dL (33-37); MCV 95.8 FL (81-99); MONO% 8.5 % (1.7-9.3); MPV 11.2 FL (7.4-10.4); NEUT% 76.7 % (42.2-75.2); PLT 295 X1000 (130-400); RBC 2.83 XMIL (4.7-6.1)
[2017-05-08 05:48] LABS: ALBUMIN 2.2 g/dL (3.5-5.0); CALCIUM 8.1 mg/dL (8.8-10.2); POTASSIUM 4.7 mmol/L (3.5-5.1); TOTAL BILIRUBIN 0.41 mg/dL (0.20-1.00); TOTAL PROTEIN 5.4 g/dL (6.3-8.3)
--- NOTE | 2017-05-08 07:15 | Diag Imaging Result Doc PS360 ---
CHEST-PORTABLE - 05/08/2017 INDICATION: sob, follow up TECHNIQUE: COMPARISON: 05/07/2017 FINDINGS: Support lines and tubes are stable. Stable cardiomegaly. Stable patchy bibasilar infiltrates left greater than right. No definitely new infiltrates. IMPRESSION: No change from prior. Electronically signed by Porter Gonzalez 05/08/2017 7:13 AM
[2017-05-08] MEDS ORDERED: HEPARIN IV PRN (07:20)
[2017-05-08] MEDS ORDERED: TIGHT: 0.2 ML/HR MISC PRN (07:20)
[2017-05-08] MEDS ORDERED: NS 2,000 ML MISC PRN (07:20)
[2017-05-08] MEDS: PROTONIX IV SCH ×2 (07:50→20:25)
[2017-05-08] MEDS: SODIUM CHLORIDE 0.9% 10 ML ONE (07:50)
[2017-05-08 07:54] LABS: BANDS 16 % (0-1); LYMPHS 2 % (21-51)
[2017-05-08] MEDS ORDERED: HEPARIN ONE (08:14)
[2017-05-08] MEDS ORDERED: NS 2,000 ML ONE (08:14)
[2017-05-08] MEDS: LANTUS SUBQ SCH (09:54)
[2017-05-08] MEDS: LOPRESSOR IV SCH ×2 (10:36→17:36)
--- NOTE | 2017-05-08 10:39 | PROGRESS NOTE ---
DATE: 05/08/2017 SUBJECTIVE: This patient is still on mechanical ventilation and sedated. No acute events overnight. Apparently, he has been having mild blood coming from the NG tube. OBJECTIVE: Vital Signs: Temperature 99.1 degrees, pulse on the monitor 80, respiratory rate 13, blood pressure on the monitor 99/50, oxygen saturation 97% on mechanical ventilation, 35% FiO2. HEENT: Head normocephalic. No trauma. PERRLA. Neck: Supple. No JVD. No masses. Central trachea. Chest: Decreased breath sounds at the bases with rales. Cardiovascular: RRR. Abdomen: Soft. Mildly distended. Positive bowel sounds. Extremities: There is 1 to 2+ lower extremity edema, 1+ upper extremity edema. No clubbing. No cyanosis. Neurological Examination: The patient is sedated and intubated. Laboratory: WBC 24.5, hemoglobin 8.9, hematocrit 27.1, platelets 295,000. Sodium 126, potassium 4.7, chloride 86, bicarbonate 14, BUN 80, creatinine 6.7, glucose 200, calcium 8.1, phosphorus 11.1. AST 39, ALT 16, alkaline phosphatase 84, albumin 2.2, lipase 288, amylase 233. ASSESSMENT AND PLAN: 1. Acute hypoxemic respiratory failure. This is multifactorial. Continue with mechanical ventilation. Pulmonary department is following this patient. 2. Severe acute pancreatitis with phlegmon formation. We did a CT scan 2 days ago that did not show any abscess but the CT scan was done without contrast so we cannot rule it out completely. Continue with antibiotics and medical support. 3. Encephalopathy, likely metabolic. Continue to monitor. 4. Acute kidney injury. Continue with dialysis. 5. Hyponatremia. Sodium today is 126. He is getting dialysis at this moment. Dialysis team has been notified about his sodium. 6. Leukocytosis. This is also related to pancreatitis. Infectious disease department is following this patient. We will monitor. 7. Mechanical aortic valve replacement. This patient is still on heparin drip. Apparently, he has been having a little bit of blood coming from the NG tube. We will monitor the hemoglobin and hematocrit. 8. Gastrointestinal bleed. Continue with proton pump inhibitors. 9. Nutritional status. This patient is receiving total parenteral nutrition. 10. Severe alcohol abuse. Aware. 11. Hyperglycemia, stable. Continue with the same management for now. 12. This patient is a full code. CRITICAL CARE TIME: 45 minutes. cc: Jeremy Edouard MD
--- NOTE | 2017-05-08 10:48 | PROGRESS NOTE ---
DATE: 05/08/2017 SUBJECTIVE: Patient remains ventilated. He is to undergo weaning trials again today. OBJECTIVE: Vital Signs: Temperature 99.1 degrees, pulse 107, respiratory rate 13, blood pressure 87/46. Intake 4.6 L, output 165 mL. Of note, he is approximately 7 L positive over the last 48 hours. General: Middle-aged gentleman, resting in bed. He is being prepared for sedation vacation and weaning trial. HEENT: Normocephalic atraumatic. Remains orally intubated. Neck: Supple. Trachea midline. Cardiovascular: Tachycardic. Regular rhythm. Pulmonary: He has equal excursion. He has some rhonchi bilaterally but no wheeze noted. Abdomen : Round, soft. Hypoactive bowel sounds. : Martinez catheter with a small amount of urine. Extremities: Trace pretibial edema. No clubbing or cyanosis. Integumentary: Skin is warm and dry without other rashes or lesions. LAB DATA: WBC of 24.5, hemoglobin 8.9, hematocrit 27.1, and platelet count of 295,000. Sodium 126, potassium 4.7, chloride 86, CO2 14, BUN 80, creatinine 6.7, phosphorus 11.1. ASSESSMENT AND PLAN: 1. Acute kidney injury without recovery. His urine output is scant and again he is about 7 L positive over the last 2 days. We will attempt SLED for his dialysis today. Goal of 2-4 L as tolerated. We have been hampered by his blood pressure to remove more than this. We will make further decisions in the morning if he needs additional treatment. We are having issues with his vas cath. This was replaced last week. If we are unable to maintain adequate blood flow, we will ask surgery to replace. 2. Metabolic acidosis. Again, we will dialyze today. 3. Hemoglobin, stable. 4. Pancreatitis. Followed by primary and GI. Seen, data reviewed, discussed with Karina Kimbrough on 05/08/17. I agree with the above assessment and plan of care. rg Dictated by BENNIE Wright for Todd Fernandez MD cc: Todd Fernandez MD [facility]
[2017-05-08] MEDS: DILAUDID IV PRN (11:00)
--- NOTE | 2017-05-08 11:43 | PROGRESS NOTE ---
DATE: 05/08/2017 SUBJECTIVE: The patient is currently resting in bed. Intubated, vented, and sedated. His mother and are at the bedside. He continues to have bilious drainage through the NG tube. No blood noted in there. He had 1 liquid stool today reported. He had a temperature spike yesterday at 102.5. OBJECTIVE: Vital signs: Temperature of 99.1 degrees, pulse rate of 107, respiratory rate 13, blood pressure of 87/46, saturating 96% on 35% FiO2. Body weight of 269 pounds 8 ounces. General: Moderately built, nourished, lying in bed, intubated, vented, and sedated. HEENT: NG tube noted. EG tube noted. Pale conjunctivae. No icterus. Neck: Supple. Abdomen: Distended. Positive bowel sounds. Extremities: No cyanosis, clubbing. Neurologic: He is sedated. LABS: His hemoglobin and hematocrit are 8.9 and 27.1, white count of 24.5, platelet count of 295,000. He is on 35% FiO2. Sodium 126, potassium 4.7, chloride of 86, bicarb of 14, , BUN 80, creatinine of 6.7, glucose of 200, calcium is 8.1, phosphorus 11.1, magnesium 2, total bilirubin is 0.41, AST 39, ALT 16, alkaline phosphatase 84, total protein 5.4, albumin of 2.2, ammonia of 62, amylase of 233, lipase of 288. IMPRESSIONS AND PLAN: 1. Severe acute pancreatitis with phlegmon formation. We will continue to follow amylase and lipase. He is in multiorgan failure. Continue on supportive treatment for now. 2. Gastrointestinal bleed. It is now resolved. He continues on heparin drip for mechanical aortic valve. We will continue to watch his hemoglobin and hematocrit, type and cross, transfuse to keep hematocrit more than 27%. 3. Acute hypoxic respiratory failure. Being managed by the pulmonary team. 4. Leukocytosis, unclear. May be related to sepsis. Being monitored by Dr. Héctor Art. 5. Acute kidney injury. He continues dialysis with Dr. Fernandez. 6. Gastrointestinal prophylaxis with PPIs as above. 7. Nutrition status currently on TPN. 8. Once we can found out the source of his elevated white count and treat it then we can transition him from TPN to NG tube feeds. 9. Severe alcohol abuse. We will continue on vitamin supplementation. 10. Diabetes. Being managed by the primary team. 11. Above plan discussed with the patient's family and all questions answered. cc: MD Dr. Bettie Kingston MD Mamoun I. Najjar, MD Reginald D. Gladish, MD Ashish K. Basu, MD Matthew L. Figh, MD Leroy F. Harris, MD
[2017-05-08] MEDS: CALMOSEPTINE OINTMENT TOP PRN ×2 (12:09→17:36)
[2017-05-08] MEDS: ELDERTONIC PO SCH (12:15)
[2017-05-08] MEDS ORDERED: NS 500 ML ONE (13:34)
[2017-05-08] MEDS: NS 500 ML IV SCH (14:00)
--- NOTE | 2017-05-08 14:01 | OPERATIVE NOTE ---
PROCEDURE DATE: 05/08/2017 PREOPERATIVE DIAGNOSES: 1. Malfunctioning right femoral line Vas-Cath. 2. Acute renal failure requiring hemodialysis. POSTOPERATIVE DIAGNOSES: 1. Malfunctioning right femoral line Vas-Cath. 2. Acute renal failure requiring hemodialysis. PROCEDURE: Ultrasound-guided placement of left common femoral vein Vas-Cath. SURGEON: Tutu Machado MD LAMP DECORATOR: None. ANESTHESIA: Local administered by the surgeon. INTRAOPERATIVE FINDINGS: Ultrasound showed a common femoral vein of sufficient size to accommodate a Vas-Cath. BRIEF HISTORY: The patient is a 56-year-old male who I placed several Vas-Cath in the past and his right arm was not working and they needed it for continued dialysis. I elected to place it on the other side. The risks, benefits, and alternatives were discussed. All questions were answered. DESCRIPTION OF PROCEDURE: After informed consent was obtained, patient remained in his ICU bed on the ventilator. The left groin was prepped and draped in sterile fashion. After a formal time- out, we examine the left groin, used ultrasound to identify the left common femoral vein. After local anesthetic was injected, I cannulated the left femoral vein with a needle , I was able pass a wire easily, dilate up the tract in typical Seldinger technique. After passing the wire, we were able to pass the Vas-Cath in the place. All ports aspirated and flushed easily. We secured it in place. We placed a sterile dressing. The patient tolerated procedure well and remained in his ICU bed. cc: Tutu Machado MD [facility]
[2017-05-08 15:08] LABS: ALLEN TEST YES; BE -9.3 mmoll (-3.0-3.0); BLOOD TYPE ARTERIAL; DRAW SITE R RADIAL; O2(CT) 12.9 mL/dL (15.0-23.0); PCO2(98.6) 33 mmHg (35-45); PO2(98.6) 94 mmHg (60-100); SAMPLE BLOOD; SAO2 98.8 % (95.0-100.0); THB 9.3 g/dL (11.5-17.4)
[2017-05-08 15:09] LABS: MODALITY VENTILATOR
[2017-05-08] MEDS ORDERED: SODIUM BICARBONATE 8.4% IV PUSH ONE (15:39)
[2017-05-08] MEDS: MYCAMINE 100 MG in NS 100 ML IV SCH (17:33)
[2017-05-08] MEDS ORDERED: M V I IV SCH ×7 (18:00)
[2017-05-08] MEDS ORDERED: [UNRECOGNIZED DRUG - OTHER] IV SCH ×7 (18:00)
[2017-05-08] MEDS ORDERED: TPN ELECTROLYTES IV SCH ×7 (18:00)
[2017-05-08] MEDS ORDERED: SODIUM CHLORIDE IV SCH ×7 (18:00)
[2017-05-08] MEDS ORDERED: HUMULIN R IV SCH ×7 (18:00)
[2017-05-08 18:02] LABS: BASO% 0.6 % (0.0-0.8); EOS# 0.27 X1000 (0.0-0.7); HEMATOCRIT 29.2 % (42.0-52.0); HEMOGLOBIN 9.8 g/dL (14.0-18.0); IMM GRAN# 1.51 X1000 (0.0-0.04); IMM GRAN% 5.8 % (0.0-0.5); LYMPH# 0.98 X1000 (1.2-3.4); LYMPH% 3.8 % (20.5-51.1); MANUAL DIFF NEEDED? YES; MCH 31.7 PG (27-31); MCHC 33.6 g/dL (33-37); MCV 94.5 FL (81-99); MONO# 2.19 X1000 (0.11-0.59); MONO% 8.5 % (1.7-9.3); MPV 10.8 FL (7.4-10.4); NEUT% 80.3 % (42.2-75.2); PLT 339 X1000 (130-400); RBC 3.09 XMIL (4.7-6.1)
[2017-05-08 18:18] LABS: BANDS 12 % (0-1); LYMPHS 3 % (21-51); MONO 8 % (1-9)
[2017-05-08] MEDS ORDERED: SODIUM CHLORIDE 0.9% 10 ML ONE (20:18)
[2017-05-09] MEDS: CARAFATE LIQUID NG SCH ×5 (00:16→23:40)
[2017-05-09] MEDS: ATIVAN IV PRN ×2 (00:16→11:00)
[2017-05-09] MEDS: HEPARIN 25,000 UNITS/D5W 25,000 UNIT/250 ML IV.SOLN IV SCH ×5 (00:30→23:40)
--- NOTE | 2017-05-09 03:46 | PROGRESS NOTE ---
DATE: 05/08/2017 PRESENT ILLNESS: The patient has been extubated. He continues to have fever and leukocytosis. Also, his lipase remains elevated. MEDICATIONS: Patient is getting the following medications: Meropenem day 10 of use, micafungin day 7 of use, and vancomycin day 3 of use. PHYSICAL EXAMINATION: Vital Signs: Temperature was 101.1 degrees, pulse 121, respirations 24, blood pressure 125/76. Generally: This is an ill-appearing, middle-aged male. He is in no acute distress. He has just been extubated. Lungs: Scattered rhonchi bilaterally. Cardiovascular: Heart rate was regular. Abdomen: Soft and nontender. Skin: The patient has bilateral groin catheters. Both sites are not erythematous or swollen. He patient also has an in- catheter in the right internal jugular vein. That site too is not swollen or erythematous. DIAGNOSTIC DATA: Chest x-ray shows bibasilar infiltrates. Patient's CBC shows a white count of 25,910, hemoglobin 9.8, and platelet count 339,000. Creatinine is 6.7, GFR is 9. Liver function studies are normal. The patient's blood gases show a pH of 7.3, a PO2 of 94, a pCO2 of 33. ASSESSMENT AND PLAN: The patient has pancreatitis, fever, and leukocytosis. The exact cause of the fever and leukocytosis is uncertain to me. His pancreatitis is certainly severe and was associated with phlegmon formation but no definite abscess. My plan is to draw one blood culture from the patient's right internal jugular catheter, one blood culture from the patient's left groin Vas-Cath, and I have asked Dr. Machado if tomorrow, he would removed the right groin Vas-Cath and culture the tip. COMORBIDITY: He is an alcoholic. cc: Héctor Art MD
[2017-05-09 04:41] LABS: ALLEN TEST YES; BE -8.4 mmoll (-3.0-3.0); BLOOD TYPE ARTERIAL; DRAW SITE R RADIAL; PCO2(98.6) 31 mmHg (35-45); PO2(98.6) 108 mmHg (60-100); SAMPLE BLOOD; THB < 3.0 g/dL (11.5-17.4); pH(98.6) 7.33 (7.35-7.45)
[2017-05-09 04:42] LABS: MODALITY COOL AEROSOL
[2017-05-09] MEDS ORDERED: SODIUM CHLORIDE 0.9% 10 ML ONE (05:13)
[2017-05-09] MEDS: HUMULIN R SUBQ SCH ×6 (05:23→21:13)
[2017-05-09] MEDS: MERREM 500 MG in NS 50 ML IV SCH ×3 (05:24→23:39)
[2017-05-09] MEDS: LOPRESSOR IV SCH ×2 (05:25→18:05)
[2017-05-09 05:37] LABS: ALBUMIN 2.2 g/dL (3.5-5.0); POTASSIUM 3.6 mmol/L (3.5-5.1); TOTAL BILIRUBIN 0.57 mg/dL (0.20-1.00); TOTAL PROTEIN 6.2 g/dL (6.3-8.3)
[2017-05-09] MEDS: SODIUM CHLORIDE 0.9% 10 ML ONE (07:05)
[2017-05-09] MEDS: PROTONIX IV SCH ×2 (07:05→21:13)
--- NOTE | 2017-05-09 07:25 | Diag Imaging Result Doc PS360 ---
EXAM: CHEST-PORTABLE INDICATION: sob, follow up TECHNIQUE: One view COMPARISON: 05/08/2017 FINDINGS: There has been interval extubation. Right central line is in stable position. An NG tube projects below the diaphragm and out of the [id number]. Inspiration is slightly better than the previous study. Given differences in inspiration, the mild bibasilar infiltrates are approximately stable. There are no new consolidations. Cardiac silhouette is stable. IMPRESSION: Interval extubation and slightly better inspiration. Stable chest, otherwise. Electronically signed by Femi Vinson 05/09/2017 7:23 AM
[2017-05-09] MEDS ORDERED: NS 2,000 ML ONE (07:33)
[2017-05-09] MEDS ORDERED: HEPARIN ONE (07:33)
[2017-05-09] MEDS: CALMOSEPTINE OINTMENT TOP PRN ×2 (08:20→15:46)
[2017-05-09] MEDS: LANTUS SUBQ SCH (09:39)
[2017-05-09] MEDS: ELDERTONIC PO SCH (09:39)
--- NOTE | 2017-05-09 13:25 | PROGRESS NOTE ---
DATE: 05/09/2017 SUBJECTIVE: Patient was extubated yesterday. He is awake and agitated. OBJECTIVE: Vital Signs: Temperature 98.3 degrees, pulse 105, respiratory rate 21, blood pressure 158/70. Intake 3.4 L, output 1.8 L. He is now about 9 L positive. PHYSICAL EXAMINATION: General: This is a middle-aged gentleman resting in bed. He is awake, agitated, is not following commands. HEENT: Normocephalic, atraumatic. He has an oxygen face mask in place. Neck: Supple. Thick. Trachea midline. Cardiovascular: Tachycardic, regular rhythm. Pulmonary: He continues with rhonchi bilaterally. He has equal excursion. He is now transitioned to a face mask oxygen. Abdomen: Obese, round, soft. Positive bowel sounds. Softer. : Not inspected. He has a Martinez catheter. Extremities: Trace pretibial edema. No clubbing, cyanosis. Integumentary: Skin is warm and dry without other rash or lesion. LAB DATA: Sodium 125, potassium 3.6, CO2 15, BUN 98, creatinine 7.7. ASSESSMENT AND PLAN: 1. Acute kidney injury without recovery. We were really unable to dialyze him yesterday secondary to the issues with his catheter flow. His catheter was replaced late yesterday by the surgeon. We will plan SLED for dialysis today on a 4 K bath with a 6 L goal UF. Will evaluate and treatment in the morning. 2. Metabolic acidosis, hyponatremia. Will address on dialysis today. 3. Pancreatitis followed by primary and GI. Seen, data reviewed, discussed with Karina Kimbrough on 05/09/17. I agree with the above assessment and plan of care. rg Dictated by BENNIE Wright for Todd Fernandez MD cc: Todd Fernandez MD [facility]
[2017-05-09] MEDS: NS 500 ML IV SCH (15:28)
[2017-05-09] MEDS: VANCOMYCIN 1 GM/NS 1 GM/250 ML IVPB IV SCH (17:29)
--- NOTE | 2017-05-09 17:46 | PROGRESS NOTE ---
DATE: 05/09/2017 SUBJECTIVE: This patient has been extubated yesterday. Today he looks alert. He is following commands. He is not talking to me but he is whispering. I cannot understand what he is saying. Family members at the bedside. All their questions were answered. OBJECTIVE: Vital Signs: Temperature 97.8 degrees, pulse 107, respiratory rate 21, blood pressure 104/75, O2 saturation 99 on a mask, 40% FiO2. HEENT: Head normocephalic. No trauma. PERRLA. Neck: Supple. No JVD. No masses. Central trachea. Chest: Decreased breath sounds at the bases with rales. Cardiovascular: RRR. Tachycardic. Abdomen: Soft, mild, distended. Positive bowel sounds. Extremities: 1+ lower extremity edema and 1+ upper extremity edema. No clubbing. No cyanosis. Neurological: The patient is alert. He is following commands. He is able to move all 4 extremities. He has generalized weakness. LABORATORY: Sodium 125, potassium 3.6, chloride 82, bicarbonate 15, BUN 98, creatinine 7.7, glucose 125, calcium 8, albumin 2.2. ASSESSMENT AND PLAN: 1. Acute hypoxemic respiratory failure, resolved. This patient was on mechanical ventilation but now is on a mask. We will continue with the respiratory treatment, and pulmonary toilet. 2. Severe acute pancreatitis with phlegmon formation. We did a CT scan 3 days ago that did not show any abscess but the CT scan was done without contrast so we cannot rule it out completely. Continue with antibiotics and medical support. 3. Encephalopathy. This is getting better. He is more awake and following commands. 4. Acute kidney injury. Continue with dialysis. 5. Hyponatremia. Sodium today is 125. He is getting dialysis today. Dialysis team is taking care of this. 6. Leukocytosis. This is also related with pancreatitis. Infectious Disease Department is following this patient. Will monitor. 7. Mechanical aortic valve replacement. This patient is still on heparin drip. Will monitor. 8. GI bleed. Continue with PPI and monitoring his hemoglobin and hematocrit. 9. Nutritional status. This patient is receiving total parenteral nutrition for now. 10. Severe alcohol abuse. Aware. No signs of DTs or withdrawal. 11. Hyperglycemia. Stable. Continue with the same management for now. 12. Full code. CRITICAL CARE TIME: 45 minutes. cc: Jeremy Edouard MD
[2017-05-09] MEDS ORDERED: TPN ELECTROLYTES IV SCH ×9 (18:00)
[2017-05-09] MEDS ORDERED: HUMULIN R IV SCH ×9 (18:00)
[2017-05-09] MEDS ORDERED: M V I IV SCH ×9 (18:00)
[2017-05-09] MEDS ORDERED: SODIUM CHLORIDE IV SCH ×9 (18:00)
[2017-05-09] MEDS ORDERED: [UNRECOGNIZED DRUG - OTHER] IV SCH ×9 (18:00)
[2017-05-09] MEDS: MYCAMINE 100 MG in NS 100 ML IV SCH (18:34)
[2017-05-10] MEDS: HUMULIN R SUBQ SCH ×6 (00:07→21:03)
[2017-05-10] MEDS: LOPRESSOR IV SCH ×2 (05:03→18:35)
[2017-05-10] MEDS: CARAFATE LIQUID NG SCH ×4 (05:03→23:42)
[2017-05-10] MEDS: HEPARIN 25,000 UNITS/D5W 25,000 UNIT/250 ML IV.SOLN IV SCH ×4 (05:04→22:40)
[2017-05-10 06:10] LABS: BASO% 0.7 % (0.0-0.8); EOS# 0.15 X1000 (0.0-0.7); EOS% 0.9 % (0.0-10.0); HEMATOCRIT 26.4 % (42.0-52.0); HEMOGLOBIN 8.9 g/dL (14.0-18.0); IMM GRAN# 1.08 X1000 (0.0-0.04); IMM GRAN% 6.6 % (0.0-0.5); LYMPH% 7.3 % (20.5-51.1); MANUAL DIFF NEEDED? YES; MCH 32.1 PG (27-31); MCHC 33.7 g/dL (33-37); MCV 95.3 FL (81-99); MONO# 1.99 X1000 (0.11-0.59); MONO% 12.1 % (1.7-9.3); MPV 10.6 FL (7.4-10.4); NEUT% 72.4 % (42.2-75.2); PLT 380 X1000 (130-400); RBC 2.77 XMIL (4.7-6.1)
[2017-05-10 06:34] LABS: ALBUMIN 2.2 g/dL (3.5-5.0); CALCIUM 8.5 mg/dL (8.8-10.2); MAGNESIUM 2.3 mg/dL (1.5-2.7); POTASSIUM 3.4 mmol/L (3.5-5.1); TOTAL BILIRUBIN 0.42 mg/dL (0.20-1.00); TOTAL PROTEIN 6.4 g/dL (6.3-8.3)
--- NOTE | 2017-05-10 07:18 | Diag Imaging Result Doc PS360 ---
EXAM: CHEST-PORTABLE INDICATION: sob, follow up TECHNIQUE: One view COMPARISON: 05/09/2017 FINDINGS: Support tubes and lines are in stable position. Inspiration is suboptimal like the previous study. Mild bibasilar infiltrates are unchanged. There are no new consolidations. Cardiac silhouette is stable. IMPRESSION: Stable chest. Electronically signed by Femi Vinson 05/10/2017 7:16 AM
[2017-05-10 07:20] LABS: BANDS 2 % (0-1); LYMPHS 8 % (21-51); MONO 14 % (1-9)
[2017-05-10] MEDS ORDERED: NS 2,000 ML ONE (08:34)
[2017-05-10] MEDS: ELDERTONIC PO SCH (08:37)
[2017-05-10] MEDS: LANTUS SUBQ SCH (08:37)
[2017-05-10] MEDS: PROTONIX IV SCH ×2 (08:37→18:34)
[2017-05-10] MEDS: MERREM 500 MG in NS 50 ML IV SCH ×3 (08:37→23:42)
--- NOTE | 2017-05-10 10:30 | PROGRESS NOTE ---
DATE: 05/10/2017 SUBJECTIVE: He is awake and alert off the ventilator and able to speak. He recognizes me from work he has done at the office. OBJECTIVE: Vital Signs: Blood pressure 147/69, heart rate 100, respirations 15, T-max 100.8 degrees. Intake 2.9 L and output 5.1 L. General: No acute distress. Skin: Warm and dry. Conjunctivae are pink. Pupils are equal. Neck: Neck veins are not distended. Heart: Irregular. Lungs: Equal breath sounds. No crackles. Abdomen: Soft and nontender. Bowel sounds are minimal. Extremities: 1 to 2+ edema. No clubbing or cyanosis. LABORATORY DATA: Sodium 135, potassium 3.4, chloride 97, bicarbonate 19, BUN 64 and creatinine 5.3. IMPRESSION: 1. Acute kidney injury. No recovery as of yet. SLED today. Goal of 5-6 L. A 4 potassium bath. 2. Electrolytes acceptable. Acid base. Acceptable. cc: Todd Fernandez MD
--- NOTE | 2017-05-10 12:24 | PROGRESS NOTE ---
DATE: 05/10/2017 SUBJECTIVE: The patient is extubated, alert, following commands. He has some hoarseness from the tube, so he is whispering. OBJECTIVE: Vital signs: Temperature 97.8 degrees, pulse 100, respiratory rate 20, blood pressure 104/75, O2 saturation 99% on 40% Ventimask. HEENT: No scleral icterus. Conjunctival pallor present. Neck: Supple. Trachea midline. Heart: Normal first and second heart sounds. Lungs: Bibasilar rales. Abdomen: Distended, tender in the epigastrium. Bowel sounds present, however. Extremities: 1+ edema in both upper and lower extremities. Neurological: No signs of hepatic encephalopathy. LABORATORY DATA: Sodium, potassium, and chloride all low. Creatinine at 7.7, albumin 2.2. ASSESSMENT AND PLAN: 1. Acute pancreatitis with phlegmon, is slowly improving. 2. Acute hypoxic respiratory failure, resolved. 3. Acute tubular necrosis, has no improvement. We will go to dialysis until renal function improves. 4. Encephalopathy, resolved. 5. Hyponatremia. Dr. Fernandez is following. 6. Mechanical aortic valve, on Heparin. 7. Gastrointestinal bleed. Not active. I think patient is slowly improving. We need to help with kidneys and a phlegmon. Eventually, whether it becomes pseudocyst or not, we will rescan him in 6-8 weeks, unless he has further complications. cc: Cassie Costello MD
[2017-05-10] MEDS: NS 500 ML IV SCH (14:13)
--- NOTE | 2017-05-10 15:09 | PROGRESS NOTE ---
DATE: 05/10/2017 SUBJECTIVE: This patient has been extubated a couple days ago. Today he is more alert and he is oriented. He is following commands. He is not talking too much because he has hoarseness, but he is whispering. No family members at the bedside at this moment. OBJECTIVE: Vital Signs: Temperature 99.4 degrees, pulse 129, respiratory rate 20, blood pressure 113/78, oxygen saturation 97% on 2 L of nasal cannula. HEENT: Head normocephalic. No trauma. PERRLA. Neck: Supple. No JVD. No masses. Central trachea. Chest: Decreased breath sounds at the bases. Cardiovascular: RRR. Tachycardic. Abdomen: Soft. Mildly distended. Positive bowel sounds. Extremities: There is 1+ extremity edema. No clubbing. No cyanosis. Neurological examination: The patient is alert and oriented x3. No focal deficits. LABORATORY: WBC 16.4, hemoglobin 8.9, hematocrit 26.4, platelets 380. Sodium 135, potassium 3.4, chloride 97, bicarbonate 19. BUN 64, creatinine 5.3, glucose 166, calcium 8.5, phosphorus 6.9, albumin 2.2. ASSESSMENT AND PLAN: 1. Acute hypoxemic respiratory failure, resolved. 2. Severe acute pancreatitis with phlegmon formation. We did a CT scan 4 days ago that did not show any abscess, but the CT scan was done without contrast, so we cannot rule it out. This patient feels better. 3. Encephalopathy. This is getting much better. He is more alert and more awake. 4. Acute kidney injury. Continue with dialysis. 5. Hyponatremia, resolved. 6. Hypokalemia. This patient will get dialysis today again. Hopefully this will resolve the hypokalemia. 7. Leukocytosis. This is getting better. Continue with the same medications. Infectious Disease Department is following this patient. 8. Mechanical aortic valve replacement. This patient is still on heparin drip. Will monitor. 9. Gastrointestinal bleed. Continue with proton pump inhibitors, monitoring the hemoglobin and hematocrit. 10. Nutritional status: This patient is on total parenteral nutrition for now. We will continue with the same management. 11. Severe alcohol abuse. Aware. Today for the first time, this patient has been highly advised against alcohol abuse. I will continue with daily cessation education. 12. Hyperglycemia, stable. Continue with the same management for now. 13. Full code. CRITICAL CARE TIME: 35 minutes. cc: Jeremy Edouard MD
--- NOTE | 2017-05-10 17:28 | PROGRESS NOTE ---
DATE: 05/10/2017 SUBJECTIVE: The patient is comfortably resting in bed. He is now extubated and he is more awake and alert. He is tolerating dialysis well. He denies any nausea, vomiting, fever, rigors, chills. He is having green bowel movements. OBJECTIVE: Vital signs: Temperature of 100.8 degrees, pulse of 122, respiratory rate 16, blood pressure 129/67, saturating 96% on 2 L nasal cannula. Body weight of 258 pounds 4 ounces. General: He is obese, lying in bed, in no acute distress. HEENT: Pale conjunctivae. No icterus. Neck: Supple. Abdomen: Obese, soft, nontender, nondistended. Bowel sounds are present. Extremities: No cyanosis or clubbing. Neurologic: He has awake and alert. Answers questions. LABS: His hemoglobin and hematocrit is 8.9 and 26.4, white count of 16.47, platelet count of 380,000, MCV of 95.3, PTT of 77.3. He is on heparin drip for mechanical aortic valve. Sodium 138, potassium 3.4, chloride 97, bicarb 19, anion gap of 19, BUN of 64, creatinine of 5.3, glucose of 106, calcium is 8.5, phosphorus 6.9, total bilirubin is 0.42, magnesium 2.3. AST 45, ALT 16, alkaline phosphatase 72. Total protein is 6.4, albumin of 2.2, ammonia of 36. Triglycerides of 211, amylase of 187, lipase of 166. IMPRESSION AND PLAN: 1. Severe acute pancreatitis with phlegmon formation. We will continue to avoid any pancreatitis or toxic drugs. He will continue to abstain from alcohol. 2. Hypoalbuminemia. We will continue on total parenteral nutrition, but once he is able to tolerate orally which we are starting today we may be able to wean down TPN in the next 24 hours. 3. Acute hypoxic respiratory failure which is now resolved. 4. Low-grade fever with leukocytosis, being followed by Dr. Art. 5. Gastrointestinal bleeding. We will continue on proton pump inhibitors twice daily. Monitor hemoglobin and hematocrit. He has a high risk of GI bleeding as the patient has history of alcoholism and he is on heparin drip. 6. Mechanical aortic valve. He is on heparin drip and being monitored by cardiology team. 7. Severe alcohol abuse. We will continue on multivitamin once daily. 8. Further recommendation pending hospital coarse. cc: MD Jeremy Kingston MD Leroy F. Harris, MD Reginald D. Gladish, MD MTDD
[2017-05-10] MEDS ORDERED: LIPOSYN 20% 250 ML IV SCH (18:00)
[2017-05-10] MEDS: [UNRECOGNIZED DRUG - NUTRITION] IV SCH ×6 (18:19)
[2017-05-10] MEDS: VANCOMYCIN 1 GM/NS 1 GM/250 ML IVPB IV SCH (18:34)
[2017-05-10] MEDS: MYCAMINE 100 MG in NS 100 ML IV SCH (18:34)
--- NOTE | 2017-05-10 18:38 | PROGRESS NOTE ---
DATE: 05/10/2017 PRESENT ILLNESS: The patient says "I feel much better." His temperature is coming down. He still does have leukocytosis, however. He is awake and talking. OBJECTIVE: Lungs: Clear to auscultation. Cardiovascular: Regular heart rate. Abdomen: Soft and nontender. MEDICATIONS: The patient is on meropenem, day 12; micafungin day 9; and vancomycin, day 5. LAB AND X-RAY: CBC shows a white count of 16,470, hemoglobin 8.9, and platelet count 380,000. Creatinine is 5.3. GFR is 11, amylase is 187, lipase is 166. Blood cultures thus far are negative. The catheter tip culture is pending. The chest x-ray shows bibasilar infiltrates. ASSESSMENT AND PLAN: The patient has pancreatitis with a low-grade fever and leukocytosis. I do think he is getting better. Therefore, I plan to continue with his current antimicrobial therapy. COMORBIDITY: The patient's comorbidity is alcoholism. cc: Héctor Art MD
[2017-05-10] MEDS: ATIVAN IV PRN (21:04)
[2017-05-11] MEDS: HUMULIN R SUBQ SCH ×6 (02:18→21:33)
[2017-05-11] MEDS: HEPARIN 25,000 UNITS/D5W 25,000 UNIT/250 ML IV.SOLN IV SCH ×4 (05:37→21:44)
[2017-05-11] MEDS: LOPRESSOR IV SCH ×2 (05:37→17:56)
[2017-05-11] MEDS: CARAFATE LIQUID NG SCH ×4 (05:37→23:27)
--- NOTE | 2017-05-11 06:12 | Diag Imaging Result Doc PS360 ---
EXAM: CHEST-PORTABLE HISTORY: sob, follow up TECHNIQUE: COMPARISON: 05/10/2017 FINDINGS: No change in the right jugular line. Sternal wires are present. Heart is mildly prominent. No consolidation. No pleural effusions identified. Mild central vascular distention. IMPRESSION: Stable chest. Electronically signed by Chris Mendoza 05/11/2017 6:10 AM
[2017-05-11 06:27] LABS: BASO% 0.9 % (0.0-0.8); EOS# 0.19 X1000 (0.0-0.7); EOS% 1.3 % (0.0-10.0); HEMATOCRIT 31.1 % (42.0-52.0); HEMOGLOBIN 10.2 g/dL (14.0-18.0); IMM GRAN# 0.87 X1000 (0.0-0.04); IMM GRAN% 6.1 % (0.0-0.5); LYMPH# 1.51 X1000 (1.2-3.4); LYMPH% 10.6 % (20.5-51.1); MANUAL DIFF NEEDED? YES; MCH 30.9 PG (27-31); MCHC 32.8 g/dL (33-37); MCV 94.2 FL (81-99); MONO# 1.85 X1000 (0.11-0.59); MPV 10.6 FL (7.4-10.4); NEUT% 68.1 % (42.2-75.2); PLT 388 X1000 (130-400)
[2017-05-11 07:04] LABS: ALBUMIN 2.5 g/dL (3.5-5.0); CALCIUM 8.5 mg/dL (8.8-10.2); POTASSIUM 3.5 mmol/L (3.5-5.1); TOTAL BILIRUBIN 0.45 mg/dL (0.20-1.00)
[2017-05-11 07:17] LABS: BANDS 2 % (0-1); LYMPHS 15 % (21-51); MONO 3 % (1-9); POLYCHROM OCCASIONAL
[2017-05-11] MEDS ORDERED: NS 2,000 ML MISC PRN (08:00)
[2017-05-11] MEDS ORDERED: NS 2,000 ML ONE (08:06)
[2017-05-11] MEDS: MERREM 500 MG in NS 50 ML IV SCH ×2 (08:38→16:34)
[2017-05-11] MEDS: PROTONIX IV SCH ×2 (08:38→23:33)
[2017-05-11] MEDS ORDERED: INSULIN PEN NEEDLES ONE (10:04)
[2017-05-11] MEDS: ELDERTONIC PO SCH (10:08)
[2017-05-11] MEDS: LANTUS SUBQ SCH (10:09)
--- NOTE | 2017-05-11 10:13 | PROGRESS NOTE ---
DATE: 05/11/2017 SUBJECTIVE: This patient was extubated 3 days ago. He is doing much better. He is completely alert and oriented x3. He is answering all my questions. He is moving all 4 extremities. He is tolerating p.o. The diet has been advanced today from clear liquid diet to full liquid diet. Let's see how he does. I have ordered physical therapy as well, and I already talked to a geriatric social worker about placement for this patient. He should go to a rehab center. OBJECTIVE: Vital Signs: Temperature 99.6 degrees, pulse 101, respiratory rate 21, blood pressure 145/82. Oxygen saturation 97% on 2 L of nasal cannula. HEENT: Head normocephalic. No trauma. PERRLA. Neck supple. No JVD. No masses. Central trachea. Chest: Decreased breath sounds at the bases. Cardiovascular: RRR. Tachycardic. Abdomen is soft, obese, positive bowel sounds. Mild tenderness to palpation at the level of the periumbilical area. Extremities: Trace edema. No clubbing. No cyanosis. Neurologic: The patient is alert and oriented x3. He moves all 4 extremities. He has generalized weakness. LABORATORY: WBC 14.2, hemoglobin 10.2, hematocrit 31.1, platelets 388,000. Sodium 136, potassium 3.5, chloride 99, bicarbonate 22. BUN 49, creatinine 3.9, glucose 160. Calcium 8.5, phosphorus 5.2, albumin 2.5. ASSESSMENT AND PLAN: 1. Acute hypoxemic respiratory failure, resolved. 2. Severe acute pancreatitis with phlegmon formation. We did a CT scan a few days ago that did not show any abscess but a CT scan was done without contrast. He looks much better. I do not think this patient has an abscess. 3. Encephalopathy, resolved. 4. Acute kidney injury. Continue with dialysis. 5. Hyponatremia, resolved. 6. Hypokalemia, resolved. 7. Leukocytosis. This is getting better. Continue with the same management. Infectious Disease Department is following this patient. 8. Mechanical aortic valve replacement. This patient is still on heparin drip. He used to be on warfarin at home. For now, I will continue with the drip. 9. Gastrointestinal bleed. Hemoglobin and hematocrit have been stable. 10. Nutritional status. This patient is on total parenteral nutrition and now he is tolerating fluids. We will monitor closely. 11. Severe alcohol abuse. Aware. This patient has been highly advised against alcohol abuse. I will continue with daily cessation education. 12. Hyperglycemia, stable. Continue with the same management for now. 13. FULL CODE. CRITICAL CARE TIME: 35 minutes. cc: Jeremy Edouard MD
--- NOTE | 2017-05-11 12:47 | PROGRESS NOTE ---
DATE: 05/11/2017 SUBJECTIVE: The patient is currently resting in bed. He underwent dialysis, I saw him in the dialysis suite. Denies any fevers, rigors, chills, or and any chest pain. Denies any nausea, vomiting. He is moving his bowels. He is tolerating liquid diet well. He wants to eat real food. So we will advance him to diabetic soft diet. OBJECTIVE: Vital signs: Temperature 99.6 degrees, pulse of 101, respiratory 21, blood pressure 145/82, saturating 92% 2 L nasal cannula. Body weight of 258 pounds 13 ounces. General Appearance: Obese, lying in bed in no acute distress. HEENT: Pale conjunctivae, no icterus. Neck: Supple. Abdomen: Obese, soft, nontender, nondistended. Bowel sounds noted. Extremities: No cyanosis, clubbing. Neurologic: He is alert, awake, oriented. LABORATORY: Hemoglobin and hematocrit is 10.2, 31.1, white count of 14.2, platelet count of 388,000, MCV of 94.2. PTT of 95.1. His sodium of 137, potassium 3.5, chloride 99, bicarb 22, anion gap of 15, BUN of 49, creatinine 3.9, glucose of 160, calcium is 8.5, phosphorus 5.2, magnesium 2. Total bilirubin is 0.45. AST 58, ALT 25, alkaline phosphatase is 68. Total protein 7, albumin of 2.5. Ammonia of 38, amylase of 184, lipase of 162. IMPRESSION AND PLAN: 1. Severe acute pancreatitis, with phlegmon formation. We will continue to avoid hepatotoxic drugs. Continue to abstain from alcohol. We will continue to follow his amylase and lipase. 2. We will advance his diet to gastrointestinal soft diet. The patient is tolerating his diet well. 3. End-stage renal disease, renal failure on hemodialysis. He is still not making much urine. This is being followed y Dr. Fernandez. 4. Gastrointestinal bleeding. He will continue on proton pump inhibitor twice daily. He will be switched to Coumadin today per the Cardiology Team. We will discontinue heparin today. 5. Low-grade fever. Leukocytosis is being managed by Dr. Art. 6. Respiratory failure has not improved. 7. Mechanical aortic valve. Being monitored by Dr. Sweet. 8. Alcohol abuse. We will give him multivitamin once daily. 9. The patient follow up with us in the clinic 3 months after discharge. At that time, we will plan to do imaging and CT scan to evaluate the pancreas. The above plans were discussed with the patient and all questions answered. cc: MD Jeremy Kingston MD Reginald D. Gladish, MD Leroy F. Harris, MD Ashish K. Basu, MD
[2017-05-11] MEDS: VANCOMYCIN 1 GM/NS 1 GM/250 ML IVPB IV SCH (13:47)
[2017-05-11] MEDS: NS 500 ML IV SCH (14:23)
--- NOTE | 2017-05-11 15:32 | PROGRESS NOTE ---
DATE: 05/11/2017 SUBJECTIVE: Patient currently resting in bed. He is awake. He is attempting to communicate appropriately. OBJECTIVE: Vital Signs: Temperature 99.6 degrees, pulse 101, respiratory rate 21, blood pressure 145/82. Intake 4.2 L. Output 6.5 L. General: Middle-aged gentleman resting in bed. He is awake and alert, in no acute distress. HEENT: Normocephalic, atraumatic. Oral mucosa moist. Neck: Supple. Thick. No JVD noted. Cardiovascular: Regular rhythm. No murmur. Pulmonary: Equal excursion. He has no wheeze or rhonchi noted. Abdomen: Soft, with positive bowel sounds. Genitourinary: Not inspected. He has a Martinez catheter with minimal void. Extremities: He has 1+ pretibial edema. No clubbing or cyanosis. He is moving his extremities. Integumentary: Skin is warm and dry otherwise. LABORATORY DATA: WBC of 14.2, hemoglobin 10.2. Sodium 136, potassium 3.5, CO2 of 24, creatinine 3.9. ASSESSMENT AND PLAN: 1. Acute kidney injury without recovery. We have continued the patient on SLED over the last several days secondary to his high fluid intake. We did not run him today. We will plan to run him again tomorrow. 2. Electrolytes, acid-base balance, anemia. These have all been stable. Continue to address on dialysis. 3. Pancreatitis, improved. The patient was transitioned over to a soft GI diet by the primary. Patient tolerated, according to report by the nurse. 4. Disposition: The patient will likely go to rehab after discharge. To that end, we will go ahead and initiate information over to the dialysis clinic in the [facility], where he is from. Seen, data reviewed, discussed with Karina Kimbrough on 05/11/17. I agree with the above assessment and plan of care. rg Dictated by BENNIE Wright for Todd Fernandez MD cc: Todd Fernandez MD [facility]
--- NOTE | 2017-05-11 16:40 | PROGRESS NOTE ---
DATE: 05/11/2017 PRESENT ILLNESS: The patient has pancreatitis. He is more alert today and talking. MEDICATIONS: This is the 13th day of treatment with meropenem and the 10th day treated with micafungin. PHYSICAL EXAMINATION: Vital Signs: Temperature is 99.6 degrees, pulse 101, respirations 21, blood pressure 145/85. Earlier today the patient's temperature was 101.2 degrees. Lungs: Clear to auscultation. Cardiovascular: Regular heart rate. Abdomen: Soft and nontender. Neurologic: Patient is awake. He is talking. He can move his extremities. LAB AND X-RAY: The patient's CBC has a white count of 14,280, hemoglobin 10.2, and platelet count 388,000. Creatinine is 3.9. GFR is 16. Chest x-ray shows no consolidation. Amylase is 184. Lipase is 162. ASSESSMENT AND PLAN: Patient has pancreatitis along with fever and leukocytosis. I am going to discontinue meropenem today. The patient's comorbidity is alcoholism causing severe pancreatitis. cc: Héctor Art MD
--- NOTE | 2017-05-11 16:45 | PROGRESS NOTE ---
DATE: 05/11/2017 ADDENDUM: LABORATORY AND X-RAYS: Chest x-ray shows no consolidation. CBC shows a white count of 14,280, hemoglobin 10.2, and platelet count 388,000. Creatinine is 3.9. The GFR is 16. The amylase is 184. The lipase is 162. cc: Héctor Art MD
[2017-05-11] MEDS: ATIVAN IV PRN (16:59)
[2017-05-11] MEDS: MYCAMINE 100 MG in NS 100 ML IV SCH (17:46)
[2017-05-11] MEDS: [UNRECOGNIZED DRUG - NUTRITION] IV SCH ×6 (17:47)
[2017-05-11 20:40] LABS: ALLEN TEST YES; BE -2.7 mmoll (-3.0-3.0); BLOOD TYPE ARTERIAL; DRAW SITE R RADIAL; METHB 0.6 % (0.0-1.5); O2(CT) 18.1 mL/dL (15.0-23.0); PCO2(98.6) 30 mmHg (35-45); PO2(98.6) 73 mmHg (60-100); SAMPLE BLOOD; SAO2 96.8 % (95.0-100.0); THB 13.6 g/dL (11.5-17.4); pH(98.6) 7.44 (7.35-7.45)
[2017-05-11 20:41] LABS: MODALITY CANNULA
[2017-05-11] MEDS: COUMADIN PO SCH (21:45)
[2017-05-12] MEDS: HUMULIN R SUBQ SCH ×6 (04:58→20:07)
[2017-05-12] MEDS: CARAFATE LIQUID NG SCH ×3 (05:22→17:55)
[2017-05-12] MEDS: LOPRESSOR IV SCH ×2 (05:22→17:55)
[2017-05-12] MEDS: HEPARIN 25,000 UNITS/D5W 25,000 UNIT/250 ML IV.SOLN IV SCH ×4 (05:22→17:55)
--- NOTE | 2017-05-12 06:06 | Diag Imaging Result Doc PS360 ---
EXAM: CHEST-PORTABLE HISTORY: sob, follow up TECHNIQUE: Portable AP COMPARISON: 05/11/2017 FINDINGS: No change in the position of the right jugular line. No pneumothorax. Sternal wires are present. The heart is mildly prominent. Several old left rib fractures. No consolidation. No pleural effusions identified. The lungs are slightly better expanded on the current exam. IMPRESSION: Mild interval improvement. Electronically signed by Chris Mendoza 05/12/2017 6:04 AM
[2017-05-12 06:48] LABS: EOS# 0.34 X1000 (0.0-0.7); EOS% 1.8 % (0.0-10.0); HEMATOCRIT 33.4 % (42.0-52.0); HEMOGLOBIN 11.1 g/dL (14.0-18.0); IMM GRAN# 1.11 X1000 (0.0-0.04); LYMPH# 2.34 X1000 (1.2-3.4); LYMPH% 12.7 % (20.5-51.1); MANUAL DIFF NEEDED? YES; MCH 31.4 PG (27-31); MCHC 33.2 g/dL (33-37); MCV 94.6 FL (81-99); MONO# 2.26 X1000 (0.11-0.59); MONO% 12.2 % (1.7-9.3); MPV 10.3 FL (7.4-10.4); NEUT% 65.3 % (42.2-75.2); PLT 377 X1000 (130-400); RBC 3.53 XMIL (4.7-6.1)
[2017-05-12 07:03] LABS: ALBUMIN 2.6 g/dL (3.5-5.0); CALCIUM 8.8 mg/dL (8.8-10.2); MAGNESIUM 2.1 mg/dL (1.5-2.7); POTASSIUM 3.8 mmol/L (3.5-5.1); TOTAL BILIRUBIN 0.6 mg/dL (0.20-1.00); TOTAL PROTEIN 7.3 g/dL (6.3-8.3)
[2017-05-12 07:22] LABS: BANDS 4 % (0-1); LYMPHS 8 % (21-51); MONO 4 % (1-9)
[2017-05-12] MEDS ORDERED: AFRIN NASAL SPRAY NAS PRN (07:49)
[2017-05-12 08:10] LABS: INR 1.24; PROTIME 13.2 Seconds (9.2-11.7)
--- NOTE | 2017-05-12 08:14 | PROGRESS NOTE ---
DATE: 05/12/2017 SUBJECTIVE: He is getting progressively better today. He is asking for food. He is complaining of sinus pressure specially around the right eye. OBJECTIVE: Vital Signs: Blood pressure 156/72, heart rate 100, respirations 20, temperature 99.1 degrees. Intake 3.6 L. Output 5.6 L General: No acute distress. Skin: Warm and dry. Conjunctivae are pink. Neck: Neck veins are not distended. Heart: Irregular and rate controlled. Lungs: Have equal breath sounds. No crackles or wheezes. Abdomen: Soft and distended and nontender. Bowel sounds are present. Extremities: Have no edema, clubbing, or cyanosis. LABORATORY DATA: Sodium 133, potassium 3.8, chloride 91, bicarbonate 17, BUN 82, creatinine 5.8, hemoglobin 11.1. IMPRESSION: 1. Acute kidney injury. No improvement thus far. No dialysis today. 2. Electrolytes are acceptable. He does have significant hyperphosphatemia. 3. Acid-base: Moderate metabolic acidosis with increased anion related to his renal dysfunction. No changes. 4. Anemia is in target. 5. Pancreatitis, improving. 6. Sinus pressure. I will provide as needed Afrin. cc: Todd Fernandez MD
[2017-05-12] MEDS: ELDERTONIC PO SCH (08:43)
[2017-05-12] MEDS: LANTUS SUBQ SCH ×2 (08:47→09:49)
[2017-05-12] MEDS: PROTONIX IV SCH (11:17)
--- NOTE | 2017-05-12 14:33 | PROGRESS NOTE ---
DATE: 05/12/2017 SUBJECTIVE: Patient looks much better today, he was extubated 4 days ago. He is completely alert and oriented x3. He is tolerating food. No abdominal pain. Family members at the bedside. Physical therapy is on board. I will transfer this patient to the medical floor. Has been on heparin drip because of his mechanical aortic valve, we started this patient on warfarin. Will monitor his INR. OBJECTIVE: Vital Signs: Temperature 98.7 degrees, pulse 101, respiratory rate 22, blood pressure 122/77, oxygen saturation 98 on room air. HEENT: Head normocephalic. No trauma. PERRLA. Neck: Supple. No JVD. No masses. Central trachea. Chest: Clear to auscultation. No wheezing. No rales. Cardiovascular: RRR. Abdomen: Soft, obese, positive bowel sounds. Nontender. Extremities: No edema. No clubbing. No cyanosis. Neurological: The patient is alert and oriented x3. He moves all 4 extremities. He has generalized weakness. LABORATORY: WBC 18.4, hemoglobin 11.1, hematocrit 33.4, platelets 377,000. Sodium 133, potassium 3.8, chloride 91, bicarbonate 17, BUN 82, creatinine 5.8, glucose 112, calcium 8.8, phosphorus 9.7, AST 79, ALT 47. ASSESSMENT AND PLAN: 1. Acute hypoxemic respiratory failure resolved. 2. Severe pancreatitis with phlegmon formation. This is getting better. CT scan of the abdomen that we did a few days ago did not show any abscess or mass. He is tolerating p.o. We will continue with the same management for now. 3. Encephalopathy resolved. 4. Acute kidney injury. Continue with dialysis. 5. Hyponatremia resolved. 6. Hypokalemia resolved. 7. Leukocytosis. Will continue to monitor. No fever, no chills for now. 8. Mechanical aortic valve replacement. This patient is still on heparin drip. We started this patient on warfarin, will monitor the INR. 9. Gastrointestinal bleed. Hemoglobin and hematocrit has been stable. 10. Nutritional status. This patient is tolerating p.o. Continue with the same management. 11. Severe alcohol abuse. Aware. This patient has been highly advised against alcohol abuse. I will continue with daily cessation education. 12. Hyperglycemia stable. Continue with the same management for now, since we stopped the TPN I decreased the dose of Lantus and I will continue with sliding scale insulin and pattern of blood sugar. 13. Full code. CRITICAL CARE TIME: 30 minutes. cc: Jeremy Edouard MD
[2017-05-12] MEDS: NS 500 ML IV SCH (15:27)
--- NOTE | 2017-05-12 16:20 | PROGRESS NOTE ---
DATE: 05/12/2017 PRESENT ILLNESS: The patient has pancreatitis. He has gotten well enough that he has been able to be transferred from intensive care unit. He is talkative and can move his extremities and overall looks a lot better than he has in the past. MEDICATIONS: The patient is receiving micafungin and vancomycin. This is day 12 for micafungin and day 8 for vancomycin. PHYSICAL EXAMINATION: Vital Signs: Temperature is 99.2 degrees, pulse 85, respirations 17, blood pressure 112/60. General: This is an ill-appearing middle-aged male. He as mentioned above does look much better than he did last week. Lungs: Clear to auscultation. Cardiovascular: Regular heart rate. Abdomen: Soft and nontender. There was no guarding. Neurologic: Patient is awake and talking as mentioned above. He is coherent. He can move his extremities. There is no tremor. Skin: No rash. LAB AND X-RAY: The [place] [address], hemoglobin 11.1, and platelet count 377,000. Creatinine is 5.8. GFR is 10. Lipase is 180, amylase is 241. ASSESSMENT AND PLAN: I think the patient continues to have active pancreatitis and this most likely is the cause of the patient's leukocytosis. My plan now will be to restart meropenem because his white count went up when it was stopped and discontinue micafungin and vancomycin. If the patient continues to have a high white count, especially if he runs fever, I will plan to get another CAT scan of the abdomen to make sure the patient has not developed an additional complication such as an abscess. The patient's comorbidity is alcoholism which is responsible for the patient's severe pancreatitis. cc: Héctor Art MD
[2017-05-12] MEDS: MERREM 500 MG in NS 50 ML IV SCH (16:30)
[2017-05-12] MEDS: COUMADIN PO SCH (20:07)
[2017-05-13] MEDS ORDERED: SODIUM CHLORIDE 0.9% 10 ML ONE ×2 (00:03→10:25)
[2017-05-13] MEDS: PROTONIX IV SCH ×2 (00:09→11:45)
[2017-05-13] MEDS: MERREM 500 MG in NS 50 ML IV SCH ×3 (00:09→16:09)
[2017-05-13] MEDS: CARAFATE LIQUID NG SCH ×4 (00:10→17:16)
[2017-05-13] MEDS: HEPARIN 25,000 UNITS/D5W 25,000 UNIT/250 ML IV.SOLN IV SCH ×2 (00:27→08:20)
[2017-05-13] MEDS: CALMOSEPTINE OINTMENT TOP PRN (00:44)
[2017-05-13] MEDS: HUMULIN R SUBQ SCH ×6 (00:45→22:03)
[2017-05-13] MEDS: LOPRESSOR IV SCH ×2 (05:46→17:16)
[2017-05-13 06:53] LABS: INR 1.26; PROTIME 13.4 Seconds (9.2-11.7)
[2017-05-13 06:59] LABS: BASO% 0.7 % (0.0-0.8); EOS# 0.33 X1000 (0.0-0.7); HEMATOCRIT 30.6 % (42.0-52.0); HEMOGLOBIN 10.3 g/dL (14.0-18.0); IMM GRAN# 0.65 X1000 (0.0-0.04); LYMPH# 1.84 X1000 (1.2-3.4); LYMPH% 11.3 % (20.5-51.1); MANUAL DIFF NEEDED? YES; MCHC 33.7 g/dL (33-37); MCV 92.2 FL (81-99); MONO# 1.48 X1000 (0.11-0.59); MONO% 9.1 % (1.7-9.3); MPV 10.4 FL (7.4-10.4); NEUT% 72.9 % (42.2-75.2); PLT 358 X1000 (130-400); RBC 3.32 XMIL (4.7-6.1)
[2017-05-13 07:08] LABS: ALBUMIN 2.6 g/dL (3.5-5.0); CALCIUM 8.6 mg/dL (8.8-10.2); POTASSIUM 4.2 mmol/L (3.5-5.1); TOTAL BILIRUBIN 0.44 mg/dL (0.20-1.00); TOTAL PROTEIN 7.1 g/dL (6.3-8.3)
[2017-05-13 07:45] LABS: BANDS 2 % (0-1); LYMPHS 6 % (21-51); MONO 12 % (1-9)
[2017-05-13] MEDS ORDERED: NS 2,000 ML ONE (08:01)
[2017-05-13] MEDS ORDERED: HEPARIN ONE (08:01)
[2017-05-13] MEDS: ELDERTONIC PO SCH (08:21)
[2017-05-13] MEDS: LANTUS SUBQ SCH (08:22)
[2017-05-13] MEDS ORDERED: HEPARIN 25,000 UNITS/D5W 25,000 UNIT/250 ML IV.SOLN IV SCH ×3 (08:41→21:44)
--- NOTE | 2017-05-13 08:44 | Diag Imaging Result Doc PS360 ---
CHEST-PORTABLE - 05/13/2017 INDICATION: sob, follow up TECHNIQUE: COMPARISON: 05/12/2017 FINDINGS: Stable right central line. Stable sternotomy changes. Stable mild cardiomegaly. Pulmonary vascularity is grossly normal. No focal infiltrates, pneumothorax, or pleural effusion. IMPRESSION: No change from prior. Electronically signed by Porter Gonzalez 05/13/2017 8:41 AM
[2017-05-13] MEDS ORDERED: HEPARIN IV PRN (08:59)
[2017-05-13] MEDS ORDERED: NS 2,000 ML MISC PRN (08:59)
[2017-05-13] MEDS ORDERED: TIGHT: 0.2 ML/HR MISC PRN (08:59)
[2017-05-13] MEDS: ICAR-C PO SCH ×3 (11:39→22:02)
--- NOTE | 2017-05-13 12:55 | PROGRESS NOTE ---
DATE: 05/13/2017 SUBJECTIVE: He states he is improving daily. He has been able to eat. No shortness of breath. No abdominal pain. OBJECTIVE: Vital Signs: Blood pressure 126/73, heart rate 92, respirations 20, afebrile. Intake 1.2 L. Output 600 mL. General: No acute distress. Skin: Warm and dry. HEENT: Conjunctivae are pink. Neck: Neck veins are not distended. Heart: Regular with systolic murmur present. Lungs: Have equal breath sounds. No crackles. Abdomen: Soft and nontender. Bowel sounds are diminished but present. Extremities: Have no edema, clubbing, or cyanosis. LABORATORY DATA: Sodium 129, potassium 4.2, chloride 86, bicarbonate 13, BUN 123, creatinine 7.4, calcium 8.6, phosphorus 13.4, hemoglobin 10.3. IMPRESSION: 1. Acute kidney injury. No recovery. However, he is making more urine. 2. Metabolic acidosis. Presumably related to his renal disease. His lactate was last checked on the at 1.1. We will add an acetone from this morning's lab data. 3. Electrolytes: Marked hyperphosphatemia persists. He is in no longer on TPN however. Observe his response to dialysis. 4. Anemia stable. 5. Hypotension resolved. cc: Todd Fernandez MD
--- NOTE | 2017-05-13 13:26 | PROGRESS NOTE ---
DATE: 05/13/2017 SUBJECTIVE: This patient is looking better. He is getting dialysis at this moment. His urine output increased to around 600. He is completely alert and oriented x3. He is tolerating food anywhere from 25%-100%. He has no complaint of chest pain, shortness of breath. No belly pain. OBJECTIVE: Vital Signs: Temperature 98.2 degrees, pulse 92, respiratory rate 20, blood pressure 126/73, oxygen saturation 97% on room air. HEENT: Head normocephalic. No trauma. PERRLA. Neck supple. No JVD. No masses. Central trachea. Chest clear to auscultation. No wheezing. No rales. Cardiovascular: RRR. Abdomen soft, obese, positive bowel sounds. Mild tenderness to palpation at the level of the periumbilical area. Extremities: No edema. No clubbing. No cyanosis. Neurologic: The patient is alert and oriented x3. He moves all 4 extremities. He has generalized weakness. LABORATORY: WBC 16.3, hemoglobin 10.3, hematocrit 30.6, platelets 358,000. Sodium 129, potassium 4.2, chloride 86, bicarbonate 13. BUN 123, creatinine 7.4, glucose 126. Calcium 8.6, phosphorus 13.4. ASSESSMENT AND PLAN: 1. Acute hypoxemic respiratory failure, resolved. 2. Severe pancreatitis with phlegmon formation. This is getting better. CT of the abdomen done a few days ago did not show any abscess or mass. He is tolerating p.o. He is not complaining of belly pain. 3. Encephalopathy, resolved. 4. Acute kidney injury. Continue with dialysis. He is making a little bit more of urine, around 600. 5. Hyponatremia. Nephrology Department is on board. He is getting dialysis right now. 6. Leukocytosis. This is getting better; today it is 16.3. 7. Gastrointestinal bleed. Hemoglobin and hematocrit have been stable. We will continue to monitor. 8. Nutritional status. This patient is tolerating p.o. We will continue with the same management. 9. Severe alcohol abuse, aware. This patient has been highly advised every day against alcohol abuse, and I will continue daily cessation education. 10. Hyperglycemia. His blood sugar today is 126. He is on 10 units of Lantus. I will check his hemoglobin A1c. We will continue with the same management for now. He is stable. 11. This patient is FULL CODE. cc: Jeremy Edouard MD
[2017-05-13] MEDS: NS 500 ML IV SCH (14:12)
--- NOTE | 2017-05-13 14:18 | PROGRESS NOTE ---
DATE: 05/13/2017 CHIEF COMPLAINT: Abdominal pain and acute renal failure. History of mechanical mitral valve with atrial fibrillation. SUBJECTIVE: Mr. Reddy is feeling generally better. His abdomen is minimally swollen at this time. He says that he has improved a great deal. He denies having any dyspnea. No extremity pain. No cough. No wheezing. Overall, he feels that he is improving a great deal and his also agrees with that. OBJECTIVE: Vital Signs: Blood pressure is 126/73, temperature 98.2, pulse 92, and respirations 20. General: He is awake, alert, oriented, and in no distress. HEENT: Unremarkable. Chest: Fairly clear to auscultation and percussion. Cardiac: Heart sounds are slightly irregular. He seems to have PACs. His rhythm is somewhat irregular. Telemetry indicates that he is in sinus rhythm with PACs or PVCs. Heart sounds are normal in intensity and he does have a normal diastolic closure click of a mechanical aortic valve. Abdomen: The abdomen is distended and tympanitic. Bowel sounds are normal. Slightly tender to palpation. Extremities: The extremities show no edema. Neurological: He moves all extremities and follows commands. LABORATORY DATA: White count is 16,310, hemoglobin 10.3, hematocrit 30.6, and platelet count 358,000. He is still on IV heparin. INR is 1.26. PTT is 98.6. Sodium is 129, potassium 4.2, BUN 123, and creatinine 7.4. He has just finished dialysis this afternoon. IMPRESSION AND PLAN: 1. Patient who presented with acute pancreatitis who in the course of this hospitalization has developed advanced renal failure and he has required dialysis. 2. Status post aortic valve replacement with a [employer] mechanical valve. RECOMMENDATION: At this point in time, we will continue heparin and he has been already started on a low dose of warfarin and we will monitor his INR until it gets into the therapeutic range and at that point in time we will discontinue heparin. Clinically the patient is improving. He has been in the hospital since 04/26/2017. This will be almost his 16th or 17th day since admission. Further advice will be forthcoming. cc: Prince Lorenzo MD
--- NOTE | 2017-05-13 16:50 | PROGRESS NOTE ---
DATE: 05/12/2017 SUBJECTIVE: Patient is currently resting in bed. He denies any fevers, rigors , chills, chest pain. He denies any nausea, vomiting or diarrhea. He is keeping food down. He is moving his bowels. He had a soft brown bowel movement today. OBJECTIVE: Vital signs: Temperature 98.2, pulse rate of 92, respiratory rate 20, blood pressure 126/73, saturating 97% room air. Body weight of 259 pounds 11 ounces. General appearance: Obese, lying in bed, in no acute distress. HEENT: Pale conjunctivae. No icterus. Neck: Supple. Abdomen: Obese, soft, nontender, nondistended. Mild bloating noted. No rebound or guarding. Extremities: No cyanosis or clubbing. Neurologic: Alert, awake, oriented. LABS: Hemoglobin and hematocrit is 10.3 and 30.6. White count of 16.3, platelet count of 358,000. MCV of 92.2, INR 1.26, PT 13.4, PTT 98.6. Sodium 129, potassium 4.2, chloride 83, bicarbonate 30, anion gap 13, BUN 123, calcium creatinine 7.4, glucose is 126, calcium is 8.6, phosphorus 13.4. Bilirubin is 0.4, AST 63, ALT 49, alkaline phosphatase is 73, ammonia 63, total protein 7, albumin 2.6, amylase 278, lipase 247, acetone was negative. IMPRESSION AND PLAN: 1. Severe acute alcoholic pancreatitis with phlegmon formation. 2. End-stage renal disease and renal failure secondary to pancreatitis, and currently hemodialysis. 3. Hyperphosphatemia. 4. GI bleed which has now stopped. 5. Anemia. 6. Leukocytosis being monitored by Dr. Art. 7. Mechanical aortic valve being monitored Dr. Sweet and Dr. Lorenzo. They stopped the heparin drip and started patient on Coumadin. We will need to keep a close eye on the patient's hemoglobin and hematocrit. The patient is already anemic and had GI bleeding. 8. Alcohol abuse. IMPRESSION: 1. We will continue with supportive treatment. Will continue on PPIs twice daily. We will keep an eye on blood counts. Since patient has renal failure and hyperphosphatemia, we will leave it to the discretion of the Nephrology team. 2. The patient will stay on a low-fat diet for the next 6 weeks. Continue GI prophylaxis. Watch for signs of GI bleed as the patient is on coumadin. 3. We will continue to follow labs. cc: MD Jeremy Kingston MD Reginald D. Gladish, MD Leroy F. Harris, MD Ashish K. Basu, MD MTDD
[2017-05-13] MEDS: COUMADIN PO SCH ×2 (19:51→22:01)
[2017-05-13] MEDS: ATIVAN IV PRN (19:51)
[2017-05-13] MEDS ORDERED: RESTORIL PO ONE (22:01)
[2017-05-14] MEDS: MERREM 500 MG in NS 50 ML IV SCH ×3 (01:17→15:36)
[2017-05-14] MEDS: CARAFATE LIQUID NG SCH ×4 (01:17→17:51)
[2017-05-14] MEDS: HUMULIN R SUBQ SCH ×6 (01:18→22:23)
[2017-05-14] MEDS: PROTONIX IV SCH ×2 (01:18→11:43)
[2017-05-14 04:03] LABS: BASO% 0.7 % (0.0-0.8); EOS# 0.12 X1000 (0.0-0.7); HEMATOCRIT 27.5 % (42.0-52.0); HEMOGLOBIN 9.4 g/dL (14.0-18.0); IMM GRAN# 0.33 X1000 (0.0-0.04); IMM GRAN% 2.9 % (0.0-0.5); LYMPH# 1.26 X1000 (1.2-3.4); LYMPH% 10.9 % (20.5-51.1); MANUAL DIFF NEEDED? YES; MCH 31.3 PG (27-31); MCHC 34.2 g/dL (33-37); MCV 91.7 FL (81-99); MONO# 1.21 X1000 (0.11-0.59); MONO% 10.5 % (1.7-9.3); MPV 10.2 FL (7.4-10.4); PLT 297 X1000 (130-400)
[2017-05-14 04:10] LABS: INR 1.31
[2017-05-14 04:23] LABS: HEMOGLOBIN A1C 6.1 % (4.8-6.0)
[2017-05-14 04:42] LABS: ALBUMIN 2.6 g/dL (3.5-5.0); CALCIUM 8.2 mg/dL (8.8-10.2); MAGNESIUM 1.8 mg/dL (1.5-2.7); TOTAL BILIRUBIN 0.41 mg/dL (0.20-1.00); TOTAL PROTEIN 7.1 g/dL (6.3-8.3)
[2017-05-14 04:53] LABS: BANDS 2 % (0-1); LYMPHS 14 % (21-51); MONO 10 % (1-9)
[2017-05-14] MEDS: HEPARIN 25,000 UNITS/D5W 25,000 UNIT/250 ML IV.SOLN IV SCH ×5 (05:15→18:03)
[2017-05-14] MEDS: LOPRESSOR IV SCH ×2 (05:58→17:51)
--- NOTE | 2017-05-14 08:48 | Diag Imaging Result Doc PS360 ---
CHEST-PORTABLE - 05/14/2017 INDICATION: sob, follow up TECHNIQUE: COMPARISON: 05/13/2017 FINDINGS: Stable sternotomy wires. Stable right central line. The lungs are clear and the heart size is normal. IMPRESSION: No acute disease or change from prior. Electronically signed by Porter Gonzalez 05/14/2017 8:46 AM
[2017-05-14] MEDS: ELDERTONIC PO SCH (08:53)
[2017-05-14] MEDS: LANTUS SUBQ SCH (08:53)
[2017-05-14] MEDS: ICAR-C PO SCH ×2 (08:53→22:23)
[2017-05-14] MEDS: SODIUM CHLORIDE 0.9% 10 ML ONE (11:15)
--- NOTE | 2017-05-14 11:52 | PROGRESS NOTE ---
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 SUBJECTIVE: Mr. Reddy is not having any chest pain or any dyspnea today. He is just uncomfortable lying in bed. He complains of some discomfort in both feet. He has undergone dialysis yesterday. OBJECTIVE: Blood pressure is 128/61, temperature 99 degrees, pulse 93, respirations 20. Telemetry shows that he is in sinus rhythm for the most part. He has premature beats. Sometimes he has an atrial bigeminy type of pattern. He is awake, alert, lying in bed, follows commands. HEENT is unremarkable. Chest shows diminished breath sounds at both bases. Heart sounds are regular and rhythmic, occasional extrasystole. I do not hear any murmur. He does have normal closing click of prosthetic aortic valve. Abdomen is distended. Slightly diffusely tender. No hepatomegaly noted. Extremities showed excellent dorsalis pedis pulses. He appears to have some sort of a scar on the right heel. Neurologic: Follows commands, moves all extremities. DIAGNOSTIC DATA: Blood work today showed sodium 128, potassium 4.0, BUN is 91, creatinine 5.5. His amylase is 261, lipase is 274. His phosphorus is 9.4, calcium 8.2, it was 13.4 before. IMPRESSION: 1. The patient has developed acute renal failure with advanced renal disease complicating a case of severe pancreatitis. 2. Status post aortic valve replacement. 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 RECOMMENDATIONS: Continue present approach. His INR today is 1.31. He is getting Warfarin 5 mg at night. He will continue IV heparin. We will continue to monitor him. Thank you for the opportunity to participate in his evaluation. cc: Prince Lorenzo MD
[2017-05-14] MEDS: NS 500 ML IV SCH (13:34)
--- NOTE | 2017-05-14 14:36 | PROGRESS NOTE ---
DATE: 05/14/2017 SUBJECTIVE: This patient states that he is feeling better, his urine output increased from 600 mL yesterday to 1.3 L, it looks like he is getting better. He is tolerating food. Family members at the bedside. He is not complaining of chest pain, shortness of breath or belly pain. OBJECTIVE: Vital Signs: Temperature 99 degrees, pulse 93, respiratory rate 20 , blood pressure 128/61, oxygen saturation 97 on room air. HEENT: Head normocephalic. No trauma. PERRLA. Neck: Supple. No JVD. No masses. Central trachea. Chest: Clear to auscultation. No wheezing. No rales. Abdomen: Soft, nontender, nondistended. Obese. Extremities: Trace edema. No clubbing. No cyanosis. Neurological: The patient is alert and oriented x3. He moves all 4 extremities. He has generalized weakness. LABORATORY: WBC 11.5, hemoglobin 9.4, hematocrit 27.5, platelets 297,000. Sodium 128, potassium 4, chloride 89, bicarbonate 17, BUN 91, creatinine 5.5, glucose 155, calcium 8.2 , hemoglobin A1c is 6.1. ASSESSMENT AND PLAN: 1. Acute hypoxemic respiratory failure. Resolved. 2. Severe pancreatitis with phlegmon formation. This is getting better. CT of the abdomen done a few days ago did not show any abscess or mass. He is tolerating p.o. He is not complaining of abdominal pain. 3. Encephalopathy resolved. 4. Acute kidney injury. He is on dialysis but he started making more urine today. I checked the records and is around 1.3 L. 5. Hyponatremia. Nephrology department is on board. He has no symptoms. He has been getting dialysis. Continue with the same management. 6. Leukocytosis. This is getting much better. Today is 11.5. Continue to monitor. 7. Gastrointestinal bleed. Hemoglobin and hematocrit has been stable. Continue to monitor. He is INR is around 1.3, continue with warfarin. 8. Nutritional status. This patient is tolerating p.o. Continue with the same management. 9. Severe alcohol abuse. Aware. This patient has been highly advised against tobacco abuse. I will continue with daily cessation education. 10. Hyperglycemia. Hemoglobin A1c is 6.1. Probably this patient has prediabetes. Once he goes home he needs to take care of his diet and do more physical activity. 11. Mechanical aortic valve replacement for aortic stenosis. Continue with warfarin. cc: Jeremy Edouard MD MTDD
--- NOTE | 2017-05-14 17:24 | PROGRESS NOTE ---
DATE: 05/14/2017 SUBJECTIVE: The patient is resting in bed. He is actually being moved to the floor. The daughter is at bedside. The patient has no nausea or vomiting. Tolerating her abdominal pain. Had normal bowel movements. No evidence of any bleeding. OBJECTIVE: Vital Signs: Temp 98 degrees, pulse 92, respirations 20, blood pressure 120/70, saturation 97% on room air. HEENT: Conjunctival pallor present. No scleral icterus. Neck: Supple. Trachea midline. Heart: Normal first and second heart sounds. Lungs: Clear. Abdomen: Soft, obese. Minimally tender on deep palpation. Bowel sounds present and normal. Extremities: No cyanosis or clubbing. Neurological: Alert and oriented. LABS: Hemoglobin and hematocrit 10.3 and 30, white count is still 16.3. Sodium 129. Glucose 126. LFTs normal. Ammonia 63. Albumin low at 2.6. Amylase and lipase are trending down. IMPRESSION: 1. Severe acute alcoholic pancreatitis with phlegmon. Getting better. 2. End-stage renal disease or renal failure secondary to pancreatitis, on hemodialysis. 3. Gastrointestinal bleed which is not active. 4. Anemia from #3. 5. Leukocytosis. 6. Mechanical aortic valve. Patient is started and Coumadin. He is still subtherapeutic. 7. Alcohol abuse. PLAN: Will continue their current regimen. I have nothing to add. I will watch carefully for any signs of GI bleed. Will continue GI prophylaxis. cc: Cassie Costello MD
--- NOTE | 2017-05-14 21:59 | PROGRESS NOTE ---
DATE: 05/14/2017 SUBJECTIVE: Patient is currently resting in bed. His present bedside, he denies any fevers, rigors, chills, nausea, vomiting, diarrhea, vomiting blood or passing blood in the stools. His hematocrit is dropping. He is on heparin drip and Coumadin. OBJECTIVE: Vital signs: Temperature 99.0, pulse of 93, respiratory 20, blood pressure 128/61, saturating 98% room air, body weight 158 pounds. General: Is moderately nourished lying in bed in no acute distress. HEENT: Pale conjunctivae, no icterus. Neck: Is supple. Abdomen: Obese, soft, nontender, nondistended, bowel sounds and no guarding. Extremities: No cyanosis, clubbing. Neuro: Alert, awake, oriented. LABS: Hemoglobin and hematocrit is 9.4, 27.5 which is dropped from 10.3 and 30.6 yesterday, white count 11.54, platelet count of 297,000. INR 1.31, sodium 120, potassium 4, chloride of 89, bicarb 79, gap 22.9, BUN of 91, creatinine 5.5, glucose of 155, calcium 8.2, phosphorus 9.4, magnesium 1.8, total bilirubin 0.41, AST 68, ALT 44, alkaline phosphatase 63, total protein 7.1, albumin of 2.6 and cortisol is 22.2, lipase 274, amylase 261. IMPRESSION AND PLAN: 1. Anemia which is getting worse. I believe he has ongoing gastrointestinal losses in the setting of intravenous heparin drip and Coumadin. Will continue on PPIs b.i.d., will type and cross, transfuse keep hematocrit more than 27%. Cardiology team will decide about lowering the dose of heparin so that the PT stays in the range of 50-70, so far the PT is going above 100, this needs to be adjusted per the cardiology team and the primary care team. 2. Severe pancreatitis with phlegmon formation. Will continue follow the amylase and lipase, liver enzymes which are trending down so far, we will keep on low-fat diet for next 6 weeks. The patient continue to abstain from alcohol and avoid any pancreatic, hepatotoxic drugs. 3. Acute kidney injury and dependent on hemodialysis for now with no improvement being followed Dr. Fernandez. 4. Hyponatremia per nephrology team. 5. Leukocytosis improving. 6. Malnutrition, is tolerating diet well. 7. The patient continue multivitamin once daily, GI prophylaxis with PPIs. 8. Mechanical aortic well for aortic stenosis. He continues on heparin drip and warfarin. The above findings with the patient and family and also Dr. Chopra, Dr. Lorenzo, Dr. Héctor Art, Dr. Weinberg. cc: Elliott Grace MD
[2017-05-14] MEDS: COUMADIN PO SCH (22:23)
[2017-05-15] MEDS: PROTONIX IV SCH ×2 (00:32→13:24)
[2017-05-15] MEDS: ATIVAN IV PRN ×2 (00:32→22:44)
[2017-05-15] MEDS: MERREM 500 MG in NS 50 ML IV SCH ×3 (00:32→16:00)
[2017-05-15] MEDS: CARAFATE LIQUID NG SCH ×4 (00:32→18:29)
[2017-05-15] MEDS: HEPARIN 25,000 UNITS/D5W 25,000 UNIT/250 ML IV.SOLN IV SCH ×2 (00:42→09:32)
[2017-05-15] MEDS: HUMULIN R SUBQ SCH ×5 (04:41→18:30)
[2017-05-15] MEDS: LOPRESSOR IV SCH ×2 (06:08→18:29)
--- NOTE | 2017-05-15 07:18 | Diag Imaging Result Doc PS360 ---
EXAM: CHEST-PORTABLE HISTORY: sob, follow up TECHNIQUE: Erect AP portable at 0545 COMMENT: The inspiration is slightly better than on 05/14/2017, otherwise has been no significant change in the appearance of the chest. IMPRESSION: Stable chest. Electronically signed by Ozzie Mittal 05/15/2017 7:16 AM
[2017-05-15 07:44] LABS: ALBUMIN 2.8 g/dL (3.5-5.0); CALCIUM 8.3 mg/dL (8.8-10.2); MAGNESIUM 1.8 mg/dL (1.5-2.7); TOTAL BILIRUBIN 0.41 mg/dL (0.20-1.00); TOTAL PROTEIN 7.3 g/dL (6.3-8.3)
[2017-05-15 08:51] LABS: MANUAL DIFF NEEDED? NO
[2017-05-15 08:55] LABS: BASO% 0.6 % (0.0-0.8); HEMATOCRIT 29.5 % (42.0-52.0); HEMOGLOBIN 9.9 g/dL (14.0-18.0); IMM GRAN# 0.33 X1000 (0.0-0.04); IMM GRAN% 3.3 % (0.0-0.5); LYMPH# 1.21 X1000 (1.2-3.4); MCH 30.9 PG (27-31); MCHC 33.6 g/dL (33-37); MCV 92.2 FL (81-99); MONO% 13.9 % (1.7-9.3); MPV 10.8 FL (7.4-10.4); NEUT% 69.2 % (42.2-75.2); PLT 285 X1000 (130-400)
[2017-05-15] MEDS: ELDERTONIC PO SCH (09:33)
[2017-05-15] MEDS: ICAR-C PO SCH ×2 (09:33→20:57)
--- NOTE | 2017-05-15 10:46 | PROGRESS NOTE ---
DATE: 05/15/2017 TIME SEEN: 0700. SUBJECTIVE: Mr. Reddy is resting quietly on the side of the bed. He states that he has no complaints. No increased work of breathing. No chest pain. OBJECTIVE: Vital signs: His most recent vital signs, temperature 98.5 degrees , blood pressure 136/99, heart rate is 96, respirations are 12. He is on room air. Last recorded saturation is 95%. He has a Martinez catheter in at this time. He is making adequate urine. He has had 777 in, 1480 out. LABS: Sodium 131, potassium 4, chloride 91, CO2 15, BUN 107, creatinine 5.4, glucose 105. His anion gap is 25, calcium 8.3, phosphorus 12.3, albumin is 2.8. White count 10.06, hemoglobin 9.9, hematocrit 29.5, platelet count 285,000. He has a PTT at midnight of 84.4. PHYSICAL EXAMINATION: General: This is a 56-year-old male who is currently resting on the side of the bed. He is in no acute distress. Skin: Warm and dry. HEENT: Normocephalic, atraumatic. Conjunctivae pale. He has FABIANA. Mucous membranes are moist. Neck: Supple. Trachea midline. No JVD. Cardiovascular: He is regular rate and rhythm. He has a soft systolic murmur. No gallop appreciated. Lungs: Clear to auscultation anteriorly. Equal excursion. He is on room air. Abdomen: Round, soft, obese nontender. Positive bowel sounds. Extremities: Have no edema. No clubbing or cyanosis. Genitourinary: Martinez catheter remains in place. Adequate urine out. Neurological: Alert and oriented x3. ASSESSMENT AND PLAN: 1. Acute kidney injury. Patient has not had any recovery at this time. He continues to make adequate urine. Will remove his Martinez catheter. Continue to monitor his I' s and O's. We will continue to monitor and follow with assist. 2. Electrolytes. Patient has hyperphosphatemia. Patient is now eating. He is off of his TPN. We will continue to monitor while on dialysis. 3. Metabolic acidosis. His acetone was negative, previously checked. Will continue to monitor with correction on dialysis. 4. Anemia. This is stable. 5. Hypotension. This has resolved. 6. Pancreatitis. Improved. Followed by PCP. I would like to thank you for allowing us to follow with this patient. Seen, data reviewed, discussed with Scarlet Figueroa on 05/15/17. I agree with the above assessment and plan of care. rg Dictated by BENNIE Griffin for Todd Fernandez MD cc: BENNIE Griffin MD [facility]
[2017-05-15] MEDS ORDERED: HEPARIN 25,000 UNITS/D5W 25,000 UNIT/250 ML IV.SOLN IV SCH ×3 (11:05→20:40)
--- NOTE | 2017-05-15 12:02 | PROGRESS NOTE ---
DATE: 05/15/2017 SUBJECTIVE: Patient resting in bed. His mother was present at bedside. He is doing well. He is drinking his Glucerna. He denies any fevers, rigors, or chills. He denies any nausea, vomiting, or vomiting blood. He had a bowel movement, soft, yesterday. He denied noticing any blood in the stools. He has been on a heparin drip and Coumadin for mechanical aortic valve. PHYSICAL EXAMINATION: Vital Signs: Temperature 98.5 degrees, pulse rate of 96 , respiratory rate of 16, blood pressure of 136/99, saturating 95% room air. Body weight of 257 pounds. General Appearance: Obese, lying in bed, in no acute distress. HEENT: Pale conjunctivae. No icterus. Neck: Supple. Abdomen: Protuberant, obese, soft, nontender, nondistended. Bowel sounds present. No guarding. No rebound. Extremities: No cyanosis, clubbing. Neurologic: He is alert, awake, oriented x3. LABS: Hemoglobin and hematocrit are 9.9 and 29.1, white count of 10.06, platelet count of 285,000, MCV of 92.2. INR 1.3, PT of 14, PTT of 134. Sodium 139, potassium 4, chloride 91, bicarb 15, anion gap of 25, BUN of 107, creatinine 5.4, glucose of 105, calcium is 8.3, phosphorus 12.3. Magnesium 1.8. Total bilirubin is 0.4, AST 79, ALT 52, alkaline phosphatase 63, total protein 7.3, albumin of 2.8, amylase of 248, lipase of 219, cortisol 22.3. Hepatitis panel is nonreactive. IMPRESSION AND PLAN: 1. Anemia. We will continue to keep a close eye on anemia. He will continue on Iron C b.i.d. He has a high chance of GI bleeding as the patient is on IV heparin and Coumadin. We will continue to watch closely. We will continue on PPIs b.i.d. 2. Severe pancreatitis with phlegmon formation causing renal failure with minimal improvement. We will continue on a low-fat diet. Take small frequent meals. Continue to watch his liver enzymes and amylase and lipase. May need interval CT in 3-6 months. He was counseled to quit drinking completely. 3. Renal failure secondary to pancreatitis, on hemodialysis. 4. Hyperphosphatemia. We will leave to the discretion of nephrology team. 5. Hypernatremia, per the nephrology team. 6. Malnutrition. Glucerna 3 times daily. 7. GI prophylaxis with PPIs and bowel regimen to continue. 8. 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 Continue on heparin drip and warfarin. Keep a close eye for bleeding. 9. Above plan of care was discussed with the patient and family at bedside. All questions were answered. cc: MD Prince Kingston MD Leroy F. Harris, MD Omar J. Sosa-Chirinos, MD Dr. Najjar MTDD
[2017-05-15] MEDS ORDERED: NITROGLYCERIN SL PRN (12:20)
[2017-05-15] MEDS: LANTUS SUBQ SCH (12:27)
--- NOTE | 2017-05-15 13:12 | EKG Report ---
Test Performed on : 05/15/2017 11:51:43 AM Test Reason : chest pain Blood Pressure : / mmHG Vent. Rate : 118 BPM Atrial Rate : 118 BPM P-R Int : 142 ms QRS Dur : 090 ms QT Int : 352 ms P-R-T Axes : 036 000 065 degrees QTc Int : 493 ms Sinus tachycardia. with premature atrial complexes. Otherwise normal ECG When compared with ECG of 30-APR-2017 21:22, Sinus rhythm. has replaced Atrial flutter. Criteria for Septal infarct are no longer present T wave inversion no longer evident in Inferior leads T wave inversion less evident in Lateral leads Confirmed by Pieter MYERS, Rustam Baird ([id number]) on 05/16/2017 2:16:32 PM
[2017-05-15] MEDS: SODIUM CHLORIDE 0.9% 10 ML ONE (13:23)
--- NOTE | 2017-05-15 13:32 | PROGRESS NOTE ---
DATE: 05/15/2017 SUBJECTIVE: The is the patient is resting comfortably in bed. No acute events noted overnight. He denies having any pain, nausea or vomiting. The patient is having bowel movements. OBJECTIVE: Vital Signs: Temperature 98.5 degrees, blood pressure 136/99, heart rate 96, respirations 18, O2 saturations 98% on room air. General: This is a morbidly obese male, lying in bed, in no acute distress. Head: Normocephalic, atraumatic. Heart: S1, S2. Normal. Regular rate and rhythm. Lungs: Clear to auscultation bilaterally. No wheezes , no rales. No rhonchi. Abdomen: Positive bowel sounds. Soft, obese, nontender, nondistended. Extremities: No edema. No cyanosis. No calf tenderness. Neurologic: The patient is alert and oriented x3. LABORATORY: White blood cell count 10, hemoglobin 9.9, hematocrit 29, platelets 285,000. Sodium 131, potassium 4, chloride 91, CO2 16, BUN 107, creatinine 5.4, calcium 8.3, phosphorus 12, total bilirubin 0.4, AST 79, ALT 52, albumin 2.8. Lipase 219, amylase 248. ASSESSMENT AND PLAN: 1. Acute hypoxemic respiratory failure. Resolved. 2. Severe pancreatitis with phlegmon formation. The patient is currently tolerating a solid diet and having bowel movements. GI is following closely. 3. Acute kidney injury. The patient continues to make adequate urine. However , the patient's BUN and creatinine remain elevated. Management as per the inspector filters. 4. Mechanical aortic valve. We will continue on a heparin drip plus Coumadin. We will monitor the INR daily. 5. Morbid obesity. Aware. 6. Hyperphosphatemia. Management as per the inspector filters. 7. Metabolic acidosis. Management as per the inspector filters. 8. Hyponatremia. Slightly improved today. 9. Alcohol abuse. The patient has been counseled about alcohol cessation. 10. Continue with physical therapy. cc: Shira Angela MD MTDD
--- NOTE | 2017-05-15 16:25 | PROGRESS NOTE ---
DATE: 05/15/2017 HISTORY OF PRESENT ILLNESS: The patient is recovering from severe pancreatitis. He has been moved from ICU to the floor. He is taking food by my mouth. He is awake. He has been sitting in a chair and standing but not walking. MEDICATIONS: The patient is on meropenem. This is day 3 of treatment with the antibiotic. PHYSICAL EXAMINATION: Vital Signs: Temperature is 98.5 degrees, pulse 96, respirations 14, blood pressure 136/99. General: This is a somewhat lethargic, obese, middle-aged male. He is sleeping now, and he is in no acute distress. I have just aroused him to start my physical exam. Lungs: Clear to auscultation. Cardiovascular: Regular heart rate. Abdomen: It seems somewhat distended, but it is soft and nontender. Neurologic: The patient is arousable. He can move his extremities. There is no tremor. He is able to carry on a conversation. LABORATORY AND X-RAY: There is no new x-ray for today. Lab values in this patient include the following: CBC shows a white count of 10,060, hemoglobin 9.9, and platelet count 285,000. Creatinine is 5.4. GFR is 11. AST is 79. Stool for Clostridium difficile toxin and antigen are negative. Patient's amylase today was 248. The patient's lipase was 219. ASSESSMENT AND PLAN: The patient has pancreatitis. Since his white count came down while on meropenem, I plan to continue it for a few more days. The patient's comorbidities, the main one is he is an alcoholic, and I think that is what set off his pancreatitis. If the patient does not continue to do well especially if he has fever and high white count, I plan to repeat the CT scan of the abdomen. Patient's comorbidity is due to alcoholism. cc: Héctor Art MD
[2017-05-15] MEDS: COUMADIN PO SCH (20:57)
[2017-05-16] MEDS: MERREM 500 MG in NS 50 ML IV SCH ×2 (01:00→08:53)
[2017-05-16] MEDS: PROTONIX IV SCH ×3 (01:00→23:37)
[2017-05-16] MEDS: CARAFATE LIQUID NG SCH ×5 (01:00→23:37)
[2017-05-16] MEDS ORDERED: SODIUM CHLORIDE 0.9% 10 ML ONE ×2 (01:21→10:53)
[2017-05-16] MEDS: HUMULIN R SUBQ SCH ×5 (02:13→21:42)
[2017-05-16] MEDS: HEPARIN 25,000 UNITS/D5W 25,000 UNIT/250 ML IV.SOLN IV SCH ×5 (02:26→18:37)
[2017-05-16] MEDS: LOPRESSOR IV SCH ×2 (06:30→17:26)
[2017-05-16] MEDS ORDERED: TIGHT: 0.2 ML/HR MISC PRN (06:56)
[2017-05-16] MEDS ORDERED: HEPARIN IV PRN (06:56)
[2017-05-16] MEDS ORDERED: NS 2,000 ML MISC PRN (06:56)
[2017-05-16 07:50] LABS: MANUAL DIFF NEEDED? NO
[2017-05-16 07:56] LABS: BASO% 0.6 % (0.0-0.8); EOS# 0.06 X1000 (0.0-0.7); EOS% 0.7 % (0.0-10.0); HEMATOCRIT 28.9 % (42.0-52.0); HEMOGLOBIN 9.9 g/dL (14.0-18.0); IMM GRAN# 0.18 X1000 (0.0-0.04); IMM GRAN% 2.1 % (0.0-0.5); LYMPH# 1.14 X1000 (1.2-3.4); LYMPH% 13.1 % (20.5-51.1); MCH 31.4 PG (27-31); MCHC 34.3 g/dL (33-37); MCV 91.7 FL (81-99); MONO# 1.08 X1000 (0.11-0.59); MONO% 12.5 % (1.7-9.3); PLT 273 X1000 (130-400); RBC 3.15 XMIL (4.7-6.1)
[2017-05-16 08:09] LABS: INR 1.47; PROTIME 15.8 Seconds (9.2-11.7)
[2017-05-16 08:15] LABS: ALBUMIN 2.7 g/dL (3.5-5.0); CALCIUM 8.4 mg/dL (8.8-10.2); MAGNESIUM 1.6 mg/dL (1.5-2.7); TOTAL BILIRUBIN 0.35 mg/dL (0.20-1.00); TOTAL PROTEIN 7.1 g/dL (6.3-8.3)
[2017-05-16] MEDS: ICAR-C PO SCH ×2 (08:53→20:57)
[2017-05-16] MEDS: ELDERTONIC PO SCH (08:54)
[2017-05-16] MEDS: LANTUS SUBQ SCH (08:54)
[2017-05-16] MEDS ORDERED: HEPARIN ONE (09:01)
[2017-05-16] MEDS ORDERED: NS 2,000 ML ONE (09:01)
--- NOTE | 2017-05-16 11:13 | PROGRESS NOTE ---
DATE: 05/16/2017 PRESENT ILLNESS: The patient is recovering from severe pancreatitis, which has been complicated by renal failure requiring the patient to be on dialysis. MEDICATIONS: This is day 4 of treatment with meropenem. PHYSICAL EXAMINATION: Vital Signs: Temperature is 98.4 degrees, pulse 89, respirations 20, blood pressure 104/76. General: This is an obese, somewhat lethargic, middle-aged male. He is in no acute distress. Lungs: Clear to auscultation. Cardiovascular: Irregular heart rate. Abdomen: Soft and nontender. Neurologic: The patient is slightly lethargic. He can move his extremities. There is no tremor. LAB AND X-RAY: There is no new x-ray. The lab for today shows a CBC with a white count of 8670, hemoglobin 9.9, and platelet count 273,000. Creatinine is 4.7, GFR is 13, lipase is 278. ASSESSMENT AND PLAN: The patient has pancreatitis. His leukocytosis has resolved while being on meropenem. COMORBIDITIES: The patient's comorbidities include alcoholism and now pancreatitis with renal failure. For right now, I am not going to do any radiographic studies, such as CT scan, because the patient is doing so well. cc: Héctor Art MD
--- NOTE | 2017-05-16 11:26 | PROGRESS NOTE ---
DATE: 05/16/2017 SUBJECTIVE: Mr. Reddy is resting quietly in bed. He has had some chronic diarrhea, though this is slightly improved in the last several days. VITAL SIGNS: His most recent vital signs are temperature 98.3 degrees, blood pressure 130/45, heart rate 59, respirations 12. He is on room air. Last recorded saturation 98 %. He has had 240 in. He has had 1370 out per Martinez catheter. LABORATORIES: Sodium 131, potassium 4, chloride 91, CO2 14, BUN 117, creatinine 4.7, glucose 120, anion gap is 26. Calcium is 8.4, phosphorus is 12.4, magnesium is 1.6. Albumin is 2.7. White count 8.67. Hemoglobin 9.9, hematocrit 28.9, platelet count 273,000. PHYSICAL EXAMINATION: General: This is a 56-year-old male who is currently resting in bed. He is in no acute distress. Skin: Warm and dry. HEENT: Normocephalic, atraumatic. Conjunctiva is pink. He has FABIANA. Mucous membranes moist. Neck: Supple. Trachea midline. No JVD. Cardiovascular: Regular rate and rhythm. He has a soft systolic murmur. No gallop appreciated. Lungs: Clear to auscultation anteriorly. Equal excursion on room air. Abdomen : Round, soft, nontender. Positive bowel sounds. Extremities: No edema. No clubbing or cyanosis. Genitourinary: Martinez catheter remains in place with adequate urine out. Neurological: Alert and oriented x3. ASSESSMENT AND PLAN: 1. Acute kidney injury. Patient's urine output has improved over the last 48 hours. His creatinine is slightly improved without dialysis. We will plan for dialysis today for assistance. We will place him on a 2 K bath. He is to dialyze for 3.5 hours. We will attempt to challenge his last dry weight on dialysis last week. 2. Electrolytes and acid-base balance. Patient continues with hyperphosphatemia. He is now eating. He is off his TPN. We will hope that this will start to improve. 3. Metabolic acidosis. This continues with plan for correction on dialysis. 4. Anemia. This remains stable. 5. Pancreatitis. This is followed by the primary care team. 6. Hypotension. This remains stable off support. I would like to thank you for allowing us to follow with this patient. Seen, data reviewed, discussed with Scarlet Figueroa on 05/16/17. I agree with the above assessment and plan of care. rg Dictated by BENNIE Griffin for Todd Fernandez MD cc: BENNIE Griffin MD [facility]
--- NOTE | 2017-05-16 11:28 | PROGRESS NOTE ---
DATE: 05/16/2017 PRESENT ILLNESS: The patient has severe pancreatitis which she is recovering from. Today, it was noted that the patient has diarrhea. MEDICATIONS: The patient is on day 4 of treatment with meropenem. PHYSICAL EXAMINATION: Vital Signs: Temperature is 98.4 degrees, pulse 89, respirations 20, blood pressure 104/76. General: The patient is somewhat lethargic. He is an obese, middle-aged male. He is in no acute distress. Lungs: Clear to auscultation. Cardiovascular: Heart rate was irregular. Abdomen: Soft, slightly distended but not tender. Skin: The patient has an internal jugular catheter present on the right side and had a left groin dialysis catheter. Both catheter sites are not erythematous or swollen. LAB AND X-RAY: There is no new x-ray today. The patient's CBC shows a white count of 8670, hemoglobin 9.9, and platelet count 273,000. Creatinine is 4.7, GFR is 13. The lipase today was 278. ASSESSMENT AND PLAN: The plan now is to stop his meropenem. Also, I have ordered that a stool specimen be sent for Clostridium difficile toxin testing. For right now, I am going to not going to start the patient on antibiotics. Patient's comorbidity is that he is an alcoholic. Now he has severe pancreatitis. It appears that the pancreatitis though is not as severe as it was earlier and I doubt he has developed complications such as an abscess. The patient's comorbidities, his main one is that he is a heavy drinker. Now he has renal failure and is on dialysis. cc: Héctor Art MD
--- NOTE | 2017-05-16 14:49 | PROGRESS NOTE ---
DATE: 05/16/2017 SUBJECTIVE: The patient was seen on dialysis. While on dialysis patient was noted to be in atrial fibrillation with RVR. The patient does complain of diarrhea and insomnia. OBJECTIVE: Vital Signs: Temperature 98.4 degrees, blood pressure 104/76, heart rate 110, respirations 18, O2 saturation 98% on room air. General: This is a morbidly obese male, lying in bed in no acute distress. Head: Normocephalic, atraumatic. Heart: S1, S2. Normal. Irregularly irregular rhythm. Lungs: Clear to auscultation bilaterally. No wheezes, no rales. No rhonchi. Abdomen: Positive bowel sounds. Soft, nontender, nondistended. Extremities: No edema. No cyanosis. No calf tenderness. Neurologic: The patient is alert and oriented x3. LABS: White blood cell count 8.6, hemoglobin 9.9, hematocrit 28, platelets 273, 000. INR 1.4. Sodium 131, potassium 4, chloride 91, CO2 14, BUN 26, creatinine 4.7, BUN 117, sodium 120, phosphorus 12.4, calcium 8.4, AST 79, ALT 59, alkaline phosphatase 68. ASSESSMENT AND PLAN: 1. Atrial fibrillation with rapid ventricular response. The patient has been seen by Dr. Sweet and will be transferred to CICU on a Cardizem drip. Further management as per the ticketing clerk. 2. Diarrhea. Stool for C. difficile has been ordered. We will wait for the results of this study. If negative will start Imodium. 3. Severe pancreatitis with phlegmon formation. Improved. GI is following. 4. Acute kidney injury. The patient is undergoing dialysis. Further management as per the cafe attendant. 5. Mechanical aortic valve. Continue on a heparin drip plus Coumadin. Will continue to monitor the INR daily. 6. Morbid obesity. Aware. 7. Hyperphosphatemia. Management as per the cafe attendant. 8. Metabolic acidosis. Management as per the cafe attendant. 9. Alcohol abuse. The patient has been counseled about alcohol cessation. 10. Insomnia. Will start the patient on Xanax at bedtime. 11. Continue with physical therapy. cc: MD MERI Jacques
[2017-05-16] MEDS: CARDIZEM 100 MG/NS 100 MG/100 ML IVPB IV SCH (15:06)
[2017-05-16] MEDS: CREON PO SCH (17:26)
[2017-05-16] MEDS: ATIVAN IV PRN (20:58)
[2017-05-16] MEDS: CULTURELLE PO SCH (20:58)
[2017-05-16] MEDS: COUMADIN PO SCH (20:58)
[2017-05-16] MEDS ORDERED: XANAX PO SCH (21:00)
[2017-05-17] MEDS: HUMULIN R SUBQ SCH ×6 (00:52→22:44)
[2017-05-17] MEDS: LOPRESSOR IV SCH (05:14)
[2017-05-17] MEDS: CARAFATE LIQUID NG SCH ×3 (05:14→17:27)
[2017-05-17] MEDS: HEPARIN 25,000 UNITS/D5W 25,000 UNIT/250 ML IV.SOLN IV SCH ×2 (05:15→17:29)
[2017-05-17 05:39] LABS: MANUAL DIFF NEEDED? NO
[2017-05-17 05:50] LABS: BASO% 0.6 % (0.0-0.8); EOS# 0.04 X1000 (0.0-0.7); EOS% 0.4 % (0.0-10.0); HEMATOCRIT 31.7 % (42.0-52.0); HEMOGLOBIN 10.6 g/dL (14.0-18.0); IMM GRAN# 0.16 X1000 (0.0-0.04); IMM GRAN% 1.6 % (0.0-0.5); LYMPH# 1.56 X1000 (1.2-3.4); LYMPH% 15.4 % (20.5-51.1); MCHC 33.4 g/dL (33-37); MCV 92.7 FL (81-99); MONO# 1.41 X1000 (0.11-0.59); MONO% 13.9 % (1.7-9.3); MPV 10.8 FL (7.4-10.4); NEUT% 68.1 % (42.2-75.2); PLT 286 X1000 (130-400); RBC 3.42 XMIL (4.7-6.1)
[2017-05-17 06:24] LABS: INR 1.58; PROTIME 17.1 Seconds (9.2-11.7)
[2017-05-17] MEDS: CARDIZEM 100 MG/NS 100 MG/100 ML IVPB IV SCH ×2 (06:35→12:56)
--- NOTE | 2017-05-17 06:44 | PROGRESS NOTE ---
DATE: 05/17/2017 PRESENT ILLNESS: The patient has been treated for severe pancreatitis. The patient has made a very good recovery from this. The patient yesterday went into atrial fibrillation. The patient yesterday also had diarrhea. MEDICATIONS: Antibiotics were discontinued yesterday. PHYSICAL EXAMINATION: Vital Signs: Temperature is 98.8 degrees, pulse 118, respirations 16, blood pressure 124/78. General: This is an obese middle-aged male. He is in no acute distress. He was sleeping, but he woke up and was fully alert. Lungs: Clear to auscultation. Cardiovascular: Heart rate is regular. Abdomen: Soft and nontender. Neck: The patient has a right internal jugular catheter in place. The site is not erythematous or swollen. Groin: In the left groin, the patient has his dialysis catheter placed. That site also is not red or draining. LABORATORY AND X-RAY: The patient's CBC shows a white count of 10,150, hemoglobin 10.6, platelet count 286,000. Stool for Clostridium difficile toxin was negative. ASSESSMENT AND PLAN: The patient's pancreatitis is resolving. His diarrhea has stopped, and his stool for the Clostridium difficile toxin was negative as well. The patient was moved to the CIC unit because of atrial fibrillation. He appears to be in sinus rhythm now. The patient no longer has a leukocytosis. His white count was 10,150. As far as infectious disease goes, I do not think the patient needs any further antimicrobial therapy. COMORBIDITIES: The patient's comorbidities include that he is an alcoholic, which was the event that most likely caused him to have pancreatitis. I am signing off for the patient's case now. I am available to see him on a p.r.n. basis. cc: Héctor Art MD
--- NOTE | 2017-05-17 06:52 | EKG Report ---
Test Performed on : 05/17/2017 06:24:46 AM Test Reason : AFib vs SR Blood Pressure : / mmHG Vent. Rate : 105 BPM Atrial Rate : 105 BPM P-R Int : 150 ms QRS Dur : 090 ms QT Int : 374 ms P-R-T Axes : 038 016 067 degrees QTc Int : 494 ms Sinus tachycardia. with premature atrial complexes. Nonspecific T wave abnormality Abnormal ECG When compared with ECG of 16-MAY-2017 12:09, (Unconfirmed) premature ventricular complexes. are no longer present Confirmed by Pieter MYERS, Rustam Baird ([id number]) on 05/18/2017 2:59:13 PM
[2017-05-17 07:19] LABS: CALCIUM 8.3 mg/dL (8.8-10.2); MAGNESIUM 1.7 mg/dL (1.5-2.7); POTASSIUM 4.4 mmol/L (3.5-5.1); TOTAL BILIRUBIN 0.4 mg/dL (0.20-1.00); TOTAL PROTEIN 7.7 g/dL (6.3-8.3)
[2017-05-17] MEDS ORDERED: INSULIN PEN NEEDLES ONE (09:51)
[2017-05-17] MEDS: CULTURELLE PO SCH ×2 (09:56→20:52)
[2017-05-17] MEDS: CREON PO SCH ×3 (09:56→17:27)
[2017-05-17] MEDS: CARDIZEM CD PO SCH (09:56)
[2017-05-17] MEDS: ELDERTONIC PO SCH (09:56)
[2017-05-17] MEDS: ICAR-C PO SCH ×2 (09:56→20:52)
[2017-05-17] MEDS: LANTUS SUBQ SCH (09:57)
[2017-05-17] MEDS: PROTONIX IV SCH (11:49)
[2017-05-17] MEDS ORDERED: IMODIUM PO ONE (12:08)
[2017-05-17] MEDS: QUESTRAN LIGHT PO SCH ×2 (12:53→20:52)
--- NOTE | 2017-05-17 14:07 | PROGRESS NOTE ---
DATE: 05/17/2017 SUBJECTIVE: Mr. Reddy is resting quietly in bed. He states that he is feeling well. He did have some chest pain yesterday after dialysis at which time he was evaluated. It was thought that he had atrial fibrillation with RVR, was placed on a monitor and brought upstairs for evaluation on step-down CIC. Patient denies chest pain or increased work of breathing at this time. His most recent vital signs are temperature 98.8 degrees blood pressure 124/78, heart rate 118, respirations 18. He is on room air. Last recorded saturation 98%. He has had 1282 in. He has had 5420 out with 4.5 L of that on dialysis and the rest is void. MOST RECENT LABS: Sodium 134, potassium 4.4, chloride 92, CO2 19, BUN 82, creatinine 3.9, glucose 110. His anion gap is 23, calcium 8.3, phosphorus 9.7, magnesium 1.7. Albumin of 3. His previous hemoglobin is 10.6 with hematocrit 31.7. White count 10.15 with a platelet count of 286,000. His pro time is 17.1, INR 1.58, PTT 82.5. Blood cultures are negative. PHYSICAL EXAMINATION: General: This is a 56-year-old white male. He is currently resting in bed. He is in no acute distress. Skin: Warm and dry. HEENT: Normocephalic, atraumatic. Conjunctivae pink. He has FABIANA. Mucous membranes moist. Neck: Supple. Trachea midline. No JVD. Cardiovascular: Regular rate and rhythm. Soft systolic murmur. No gallop. Lungs: Clear to auscultation anteriorly. Equal excursion on room air. Abdomen: Large, round, soft, nontender. Positive bowel sounds. Extremities: No edema. No clubbing or cyanosis. Genitourinary: Martinez catheter remains in place with adequate urine out. Neurological: Alert and oriented x3. ASSESSMENT AND PLAN: 1. Acute kidney injury. Patient continues to have required hemodialysis. He has a tunnel catheter that is in place. We will hold dialysis today. We will recheck labs in the a.m. He continues to have increased urine output. We will evaluate continued need for further dialysis after morning labs. 2. Electrolytes and acid-base balance. These remain stable. 3. Anemia. This remains stable. 4. Pancreatitis. This is followed by the primary care team. 5. New onset chest pain with questionable atrial fibrillation with RVR. This is now being followed by Cardiology. Patient is on CIC. I would to thank you for allowing us to follow with this patient. Seen, data reviewed, discussed with Scarlet Figueroa on 05/17/17. I agree with the above assessment and plan of care. rg Dictated by BENNIE Griffin for Todd Fernandez MD cc: BENNIE Griffin MD [facility]
[2017-05-17] MEDS ORDERED: IMODIUM PO PRN (14:09)
--- NOTE | 2017-05-17 14:28 | PROGRESS NOTE ---
DATE: 05/17/2017 SUBJECTIVE: The patient states that he did have a good night. He continues to have diarrhea and did not sleep well. He states that he slept for about 4 hours and then woke up. OBJECTIVE: Vital Signs: Temperature 98 degrees, blood pressure 105/62, heart rate 103, respirations 16, O2 saturations 96% on room air. General: This is a morbidly obese male, lying in bed, in no acute distress. Head: Normocephalic, atraumatic. Heart: S1, S2. Normal. Tachycardic. Lungs: Clear to auscultation bilaterally. No wheezes, no rales. No rhonchi. Abdomen: Positive bowel sounds. Soft, nontender, nondistended. Extremities: No edema. No cyanosis. No calf tenderness. Neurologic: The patient is alert and oriented x3. LABS: White blood cell count 10, hemoglobin 10, hematocrit 31, platelets 286,000. Sodium 134. INR 1.5. Potassium 4.4, chloride 92, CO2 19, BUN 82, creatinine 3.9, glucose 110, phosphorus 9.7, AST 104, ALT 77, alkaline phosphatase 57. ASSESSMENT AND PLAN: 1. Diarrhea. The stool for C. difficile was noted to be negative. We will start the patient on p.r.n. Imodium and add Questran. 2. Paroxysmal atrial fibrillation. The patient is now in normal sinus rhythm and on oral Cardizem. Management as per the maintenance machinist. 3. Severe pancreatitis with phlegmon formation. Stable. 4. Acute kidney injury. Management as per the commercial accountant. 5. Mechanical aortic valve replacement. Continue on the heparin drip plus Coumadin. The patient's INR today is 1.5. 6. Morbid obesity. Aware. 7. Hyperphosphatemia. Improved. Management as per the commercial accountant. 8. Alcohol abuse. The patient has been counseled about alcohol cessation. 9. Insomnia. Will increase the dosage of Xanax at bedtime. 10. Continue with physical therapy. cc: Shira Angela MD
--- NOTE | 2017-05-17 16:44 | PROGRESS NOTE ---
DATE: 05/17/2017 REFERRING PHYSICIAN: Shira Angela MD PRIMARY CARE DOCTOR: Dr. Renee Alexandre. SUBJECTIVE: Patient currently resting in bed. His is at bedside. He continues to have diarrhea. We had just started him on pancreatic enzyme supplements. He denies any fevers, rigors, chills, nausea, vomiting. Denies any vomiting blood or passing blood in the stools. OBJECTIVE: Vital signs: Temperature of 98.2 degrees, pulse of 103, respiratory rate 16, blood pressure 105/62, saturating 92% on room air. General Appearance: Obese, lying in bed, in no acute distress. HEENT: Mild pallor. No icterus. Neck: Supple. Abdomen: Obese, soft, mild discomfort epigastrium. No rebound, no guarding. Bowel sounds present. Extremities: No cyanosis, clubbing. Neurologic: Alert, awake, and oriented x3. LABORATORY: Hemoglobin and hematocrit is 10.6, hematocrit 31.7, white count of 10.1, platelet count of 286,000. INR 1.58. PT of 17.1. PTT of 82.5, sodium 134, potassium 4.4, chloride 92, bicarb 19, anion gap, BUN of 82, creatinine 3.9, glucose 110, calcium is 8.3, phosphorus 9.7, total bilirubin is 0.4, AST 104, ALT 77, alkaline phos 57, total protein 7.7, albumin of 3, lipase of 286. IMPRESSION/PLAN: 1. Diarrhea. So far her stool studies have been negative. We will continue him on pancreatic enzyme supplements and monitor response. He also has been placed on Imodium and Questran per the primary team. 2. Paroxysmal atrial fibrillation, being monitored by Dr. Lorenzo. He is on IV heparin drip and oral Coumadin. We need to keep a close eye on his blood counts and INR as he has a high risk of GI bleeding. 3. Severe pancreatitis with phlegmon formation. We will continue on low-fat diet. I will repeat imaging in 3 months on discharge. 4. Acute kidney injury on hemodialysis. No improvement. Being followed by Dr. Fernandez. 5. Mechanical aortic valve. Aortic valve replacement, being monitored by Dr. Lorenzo. 6. Morbid obesity. Counseled to lose weight. 7. Alcohol abuse likely causing acute liver injury, but he could already have liver cirrhosis as well. We will review that as an outpatient in next three months when we obtain a repeat ultrasound and lab tests. 8. Gastrointestinal prophylaxis to continue. The above plan was discussed with the patient and family. cc: MD Prince Kingston MD Katherine Takundwa, MD Marlin D. Gill, MD MTDD
[2017-05-17] MEDS: COUMADIN PO SCH (20:52)
[2017-05-17] MEDS: XANAX PO SCH (20:52)
[2017-05-17] MEDS: DESYREL PO SCH (20:52)
[2017-05-18] MEDS: HUMULIN R SUBQ SCH ×6 (01:10→21:00)
[2017-05-18] MEDS: CARAFATE LIQUID NG SCH ×4 (01:10→17:51)
[2017-05-18] MEDS: PROTONIX IV SCH ×2 (01:10→12:33)
[2017-05-18] MEDS: HEPARIN 25,000 UNITS/D5W 25,000 UNIT/250 ML IV.SOLN IV SCH (04:39)
[2017-05-18 05:15] LABS: MANUAL DIFF NEEDED? NO
[2017-05-18 05:26] LABS: BASO% 0.3 % (0.0-0.8); EOS# 0.05 X1000 (0.0-0.7); EOS% 0.4 % (0.0-10.0); HEMATOCRIT 29.4 % (42.0-52.0); HEMOGLOBIN 9.9 g/dL (14.0-18.0); IMM GRAN% 0.8 % (0.0-0.5); LYMPH# 1.38 X1000 (1.2-3.4); LYMPH% 11.7 % (20.5-51.1); MCH 30.9 PG (27-31); MCHC 33.7 g/dL (33-37); MCV 91.9 FL (81-99); MONO# 1.18 X1000 (0.11-0.59); MPV 11.1 FL (7.4-10.4); NEUT% 76.8 % (42.2-75.2); PLT 281 X1000 (130-400)
[2017-05-18 05:51] LABS: ALBUMIN 3.1 g/dL (3.5-5.0); CALCIUM 8.2 mg/dL (8.8-10.2); MAGNESIUM 1.5 mg/dL (1.5-2.7); POTASSIUM 4.3 mmol/L (3.5-5.1); TOTAL BILIRUBIN 0.46 mg/dL (0.20-1.00); TOTAL PROTEIN 7.7 g/dL (6.3-8.3)
[2017-05-18 05:55] LABS: INR 1.81; PROTIME 19.7 Seconds (9.2-11.7)
[2017-05-18] MEDS ORDERED: HEPARIN IV PRN (06:45)
[2017-05-18] MEDS ORDERED: NS 2,000 ML MISC PRN (06:45)
[2017-05-18] MEDS ORDERED: TIGHT: 0.2 ML/HR MISC PRN (06:45)
[2017-05-18] MEDS: ICAR-C PO SCH ×2 (08:52→19:44)
[2017-05-18] MEDS: CULTURELLE PO SCH ×2 (08:52→19:44)
[2017-05-18] MEDS: CREON PO SCH ×3 (08:52→17:51)
[2017-05-18] MEDS: QUESTRAN LIGHT PO SCH ×2 (08:52→19:43)
[2017-05-18] MEDS: CARDIZEM CD PO SCH (08:52)
[2017-05-18] MEDS: LANTUS SUBQ SCH (08:53)
[2017-05-18] MEDS ORDERED: NS 2,000 ML ONE (08:59)
[2017-05-18] MEDS ORDERED: HEPARIN ONE (08:59)
--- NOTE | 2017-05-18 10:33 | PROGRESS NOTE ---
DATE: 05/18/2017 TIME SEEN: 0715. SUBJECTIVE: Mr. Reddy is resting quietly in bed. He states that he is having some lower back pain. No chest pain or increased work of breathing today. OBJECTIVE: Vital signs: His most recent vital signs, temperature 98.6 degrees , blood pressure 122/66, heart rate 114, respirations 26. He is on room air. Last recorded saturation 96%. He has had 1879 in, 1125 out per void. Labs: Sodium 128, potassium 4.3, chloride is 89, CO2 18, BUN 98, creatinine 3.6, glucose 125, anion gap 21, calcium 8.2, phosphorus 9.3, albumin 3.1, magnesium 1.5. White count 11.78, hemoglobin 9.9, hematocrit 29.4, with a platelet count of 281,000. His lipase is 681 today. PT 19.7, INR 1.81, PTT 116.7. PHYSICAL EXAMINATION: General: This is a 56-year-old male who is currently resting in bed. He is in no acute distress. Skin: Warm and dry. HEENT: Normocephalic, atraumatic. Conjunctivae pale. He has FABIANA. Mucous membranes moist. Neck: Supple. Trachea midline. No JVD. Cardiovascular: Regular rate and rhythm. Soft systolic murmur. No gallop. Lungs: Clear to auscultation anteriorly. Equal excursion. On room air. Abdomen: Large, round , soft, nontender. Positive bowel sounds. Extremities: Have no edema. No clubbing or cyanosis. Genitourinary: Martinez catheter has been removed. He has had adequate urine out per void. Neurological: Alert and oriented x3. ASSESSMENT AND PLAN: 1. Acute kidney injury. Patient appears to have improved urine output. Creatinine continues to improve without dialysis. Secondary to the levels today, we will plan for dialysis at this time. We will place him on a 2 K bath. He is to dialyze for 3.5 hours. We will attempt to pull him to his last inpatient dry weight. We will re- evaluate labs in 2 days, on Monday morning to determine if patient has had renal recovery. 2. Electrolytes. The patient has hyponatremia. Otherwise this has remained stable with correction on dialysis. 3. Acid-base balance. This remains low but stable. 4. Anemia. This remains low but stable. 5. Acute pancreatitis. This is been followed by the primary care team. 6. New onset chest pain. This has resolved. Patient has been pain free for the last 48 hours. I would like to thank you for allowing us to follow with this patient. Seen, data reviewed, discussed with Scarlet Figueroa on 05/18/17. I agree with the above assessment and plan of care. rg Dictated by BENNIE Griffin for Todd Fernandez MD cc: BENNIE Griffin MD [facility]
[2017-05-18] MEDS: ELDERTONIC PO SCH (12:33)
--- NOTE | 2017-05-18 12:48 | PROGRESS NOTE ---
DATE: 05/18/2017 ATTENDING PHYSICIAN: Dr. Angela. PRIMARY CARE DOCTOR: Dr. Renee Diggs. SUBJECTIVE: Patient currently in dialysis. He had some nausea last night after he drank lemonade. He had some dry heaving. This morning his nausea is better. He is undergoing dialysis. He denies any fevers, rigors, chills. Denies any abdominal pain this moment. He had 1 bowel movement today. He has only eaten some bites this morning. His lipase has gone up to 600. OBJECTIVE: Vital signs: Temperature 98.5, pulse rate of 109, respiratory rate of 20, blood pressure 122/70, saturating 90% on room air. Body weight of 250 pounds. General Appearance: Obese, lying in bed, in no acute distress. HEENT: Pale conjunctivae. No icterus. Neck: Supple. Abdomen: Obese, soft, nontender. Bowel sounds are present. Extremities: No cyanosis, clubbing. Neurologic: He is alert, awake, oriented. LABS: Hemoglobin and hematocrit are 9.9 and 29.4, white count 11.78, platelet count of 281,000, INR 1.8, PT 19.7, PTT 116.7. Sodium 128, potassium 4.3, chloride 99, bicarbonate of 18, anion gap of 21, BUN of 90, creatinine 3.6, glucose of 185, calcium is 8.2, phosphorus 9.3, magnesium 1.5 total bilirubin is 0.46, AST 85, ALT 72, alkaline phosphatase 55, total protein 7.7, albumin 3.1. Lipase of 681, which has gone up from yesterday , which was 286. Last imaging in the form of abdominal CT scan was done on 05/06 which showed acute pancreatitis with no definite abscess or diffuse hepatic steatosis. Likely secondary to alcohol and fatty liver. Gallbladder at that time was unremarkable. Ultrasound was initially on 04/26/2017. At that time it showed hepatic steatosis and the gallbladder was clear and nontender. IMPRESSION AND PLAN: 1. Elevated lipase. We need to evaluate for gallbladder sludge as the patient has been on limited p.o. intake which can cause some gallbladder sludge and he could have an attack of biliary pancreatitis. He has been off alcohol for the last 3 weeks. We will keep him on liquid diet for now. Will follow the lipase tomorrow. We will keep him on pancreas enzyme supplementation. We will keep him on GI prophylaxis with PPIs. 2. Gastrointestinal bleed which is stable at the moment. The patient denies any blood in the stools but he is at high risk of GI bleeding because of the Coumadin and heparin drip. He will continue on Protonix and Carafate for now. 3. Alcoholism. Patient was again counseled to quit alcohol completely. 4. Anemia. Continue Iron C b.i.d. 5. End-stage renal disease, secondary to acute renal injury secondary to pancreatitis. Will continue dialysis. He has been making urine which is gradually getting better and there is a chance that he may not need dialysis on Monday. Will follow up on nephrology's recommendations. 6. If patient appears to have a second attack of pancreatitis we may have to consider nasojejunal tube for feeding versus staying strictly on low-fat, liquid diet plus Glucerna. Will have to see how his lipase behaves and if lipase continues to climb we may have to do repeat imaging to evaluate his pancreas in the form of CT scan. cc: MD Todd Kingston MD Marlin D. Gill, MD Katherine Takundwa, MD Ashish K. Basu, MD Mamoun I. Najjar, MD Dr. Harris MTDD
--- NOTE | 2017-05-18 14:28 | PROGRESS NOTE ---
DATE: 05/18/2017 SUBJECTIVE: The patient is resting comfortably in bed. He states that he has not been sleeping very well despite getting trazodone and Xanax last night. He states that his diarrhea has slowed down. OBJECTIVE: Vital Signs: Temperature 98.5 degrees, blood pressure 122/70, heart rate 109, respirations 20. O2 saturations 99% on room air. General: This is a morbidly obese male, lying in bed, in no acute distress. Head: Normocephalic, atraumatic. Heart: S1, S2 normal. Regular rate and rhythm. Lungs: Equal air entry bilaterally. No crackles. No rales. Abdomen positive bowel sounds. Soft, obese, nontender, nondistended. Extremities: No edema. No cyanosis. No calf tenderness. Neurologic: The patient is alert and oriented x3. LABORATORY DATA: White blood cell count 11, hemoglobin 9.9, hematocrit 29, platelets 281,000. INR 1.8. Sodium 128, potassium 4.3, chloride 89, CO2 of 18. BUN 98, creatinine 3.6, glucose 125. AST 85, ALT 72. Alkaline phosphatase 55. Lipase 681. ASSESSMENT AND PLAN: 1. Acute pancreatitis with phlegmon formation. The patient's lipase is elevated today at 681. GI is following. 2. Diarrhea, improved. 3. Paroxysmal atrial fibrillation. The patient is in normal sinus rhythm. Continue on Cardizem. 4. Mechanical aortic valve replacement. Continue on the heparin drip plus Coumadin. The patient's INR is 1.8. 5. Morbid obesity, aware. 6. Alcohol abuse. The patient has been counseled about alcohol cessation. 7. Acute kidney injury. Management as per the collar folder operator. 8. Insomnia. Continue on Xanax and trazodone. 9. Continue with physical therapy. cc: Shira Angela MD
[2017-05-18] MEDS ORDERED: HEPARIN 25,000 UNITS/D5W 25,000 UNIT/250 ML IV.SOLN IV SCH ×2 (16:34→23:05)
[2017-05-18] MEDS ORDERED: MOTRIN PO ONE (16:56)
[2017-05-18] MEDS: COUMADIN PO SCH (19:43)
[2017-05-18] MEDS: XANAX PO SCH (19:44)
[2017-05-18] MEDS: DESYREL PO SCH (19:44)
--- NOTE | 2017-05-18 20:11 | Diag Imaging Result Doc PS360 ---
EXAM: CHEST-PORTABLE HISTORY: dyspnea TECHNIQUE: COMPARISON: 05/15/2017 FINDINGS: No change in the right jugular line. No pneumothorax. Sternal wires are present. Heart remains enlarged. The vessels are not distended. There are multiple old left rib fractures. No pleural effusions identified. IMPRESSION: Stable chest. Electronically signed by Chris Mendoza 05/18/2017 8:09 PM
[2017-05-18 23:02] LABS: URINE SOURCE CLEAN CATCH
[2017-05-18 23:10] LABS: BILIRUBIN URINE NEGATIVE (NEGATIVE); BLOOD URINE NEGATIVE (NEGATIVE); COLOR YELLOW; GLUCOSE URINE NEGATIVE (NEGATIVE); LEUKOCYTES URINE NEGATIVE (NEGATIVE); NITRITE URINE NEGATIVE (NEGATIVE); PROTEIN URINE TRACE mg/dL (NEGATIVE); TURBIDITY URINE HAZY (CLEAR); UROBILINOGEN URINE NORMAL (NORMAL)
[2017-05-18 23:12] LABS: URINE MICRO REVIEW NEEDED? YES
[2017-05-18 23:31] LABS: UR EPITHELIAL CELLS <10 /HPF (<10); URINE BACTERIA NEGATIVE /HPF; URINE RBC 20-40 /HPF (<10)
[2017-05-19] MEDS: PROTONIX IV SCH ×2 (00:30→13:49)
[2017-05-19] MEDS: CULTURELLE PO SCH ×2 (01:23→09:11)
[2017-05-19] MEDS: COUMADIN PO SCH (01:23)
[2017-05-19] MEDS: CARAFATE LIQUID NG SCH ×3 (01:24→12:05)
[2017-05-19] MEDS: ICAR-C PO SCH ×2 (01:25→09:10)
[2017-05-19] MEDS: QUESTRAN LIGHT PO SCH ×2 (01:26→09:10)
[2017-05-19] MEDS: XANAX PO SCH (01:26)
[2017-05-19] MEDS: DESYREL PO SCH (01:27)
[2017-05-19] MEDS: HUMULIN R SUBQ SCH ×6 (06:00→20:19)
[2017-05-19 06:21] LABS: BASO% 0.2 % (0.0-0.8); HEMATOCRIT 28.9 % (42.0-52.0); HEMOGLOBIN 9.6 g/dL (14.0-18.0); IMM GRAN# 0.22 X1000 (0.0-0.04); IMM GRAN% 0.9 % (0.0-0.5); INR 2.54; LYMPH# 1.03 X1000 (1.2-3.4); MANUAL DIFF NEEDED? YES; MCH 31.2 PG (27-31); MCHC 33.2 g/dL (33-37); MCV 93.8 FL (81-99); MONO# 1.39 X1000 (0.11-0.59); MONO% 5.4 % (1.7-9.3); MPV 10.9 FL (7.4-10.4); NEUT% 89.5 % (42.2-75.2); PLT 342 X1000 (130-400); PROTIME 28.3 Seconds (9.2-11.7); RBC 3.08 XMIL (4.7-6.1)
[2017-05-19 07:14] LABS: ALBUMIN 2.9 g/dL (3.5-5.0); CALCIUM 8.2 mg/dL (8.8-10.2); MAGNESIUM 1.3 mg/dL (1.5-2.7); POTASSIUM 4.4 mmol/L (3.5-5.1); TOTAL BILIRUBIN 0.64 mg/dL (0.20-1.00); TOTAL PROTEIN 7.3 g/dL (6.3-8.3)
[2017-05-19 07:24] LABS: BANDS 12 % (0-1); LYMPHS 4 % (21-51); MONO 2 % (1-9)
[2017-05-19] MEDS ORDERED: NS 500 ML IV ONE (08:55)
[2017-05-19] MEDS: CARDIZEM CD PO SCH (09:09)
[2017-05-19] MEDS: ELDERTONIC PO SCH (09:10)
[2017-05-19] MEDS: CREON PO SCH ×2 (09:11→12:05)
[2017-05-19] MEDS: LANTUS SUBQ SCH (09:14)
[2017-05-19] MEDS ORDERED: MAGNESIUM SULFATE 2 GM/S.W.I. 2 GM/50 ML IVPB IV ONE (09:14)
[2017-05-19] MEDS: NS 1,000 ML IV SCH ×2 (09:24→16:08)
[2017-05-19] MEDS: DILAUDID IV PRN ×3 (09:30→16:04)
--- NOTE | 2017-05-19 09:47 | EKG Report ---
Test Performed on : 05/19/2017 09:09:36 AM Test Reason : tachycardia Blood Pressure : / mmHG Vent. Rate : 138 BPM Atrial Rate : 138 BPM P-R Int : 138 ms QRS Dur : 088 ms QT Int : 294 ms P-R-T Axes : 014 011 084 degrees QTc Int : 445 ms Sinus tachycardia. Septal infarct , age undetermined Abnormal ECG When compared with ECG of 17-MAY-2017 06:24, premature atrial complexes. are no longer present Septal infarct is now present Confirmed by Pieter MYERS, Rustam Baird ([id number]) on 05/19/2017 11:18:13 AM
[2017-05-19] MEDS ORDERED: MERREM 1 GM in NS 50 ML IV SCH (10:00)
[2017-05-19] MEDS ORDERED: CUBICIN (FOR INPATIENT USE) 750 MG in NS 100 ML IV SCH (11:00)
--- NOTE | 2017-05-19 11:04 | PROGRESS NOTE ---
DATE: 05/19/2017 SUBJECTIVE: He does not feel well today at all. He is having severe abdominal pain, nausea, and no further vomiting. No shortness of breath. OBJECTIVE: Vital Signs: Blood pressure 140/93, heart rate 131, respirations 30, temperature 99.2 degrees. Intake 600 mL. Output 1.5 L. General: Obvious pain. Increased work of breathing. Skin: Dry and warm. HEENT: Pupils are equal. Oropharynx is dry. Neck: Neck veins are low. No hepatojugular reflux. Heart: Regular and tachycardic. No gallops. Metallic heart tones are present. Lungs: Have equal breath sounds. No crackles. Abdomen: Distended and markedly tender with even light palpation. Minimal bowel sounds. Extremities: Have no edema, clubbing, or cyanosis. LABORATORY DATA: Sodium 128, potassium 4.4, chloride 88, bicarbonate 20, BUN 62, creatinine 3.2. Hemoglobin 9.6. IMPRESSION: Acute kidney injury in the context of pancreatitis. His urine output was a little less in the last 24 hours and certainly, he looks dry on exam. I did pull his Vas-Cath yesterday. He does not have any indications for dialysis today. We will add IV fluids and give a 500 mL IV fluid bolus and monitor his status over the next 24 hours. If more dialysis is needed will need another catheter placed. Clinically, he is worse today with regard to his abdomen. I discussed the case directly with Dr. Angela and with Dr. Grace. I ordered a CT scan of the abdomen and pelvis based on those discussions. Dr. Angela is moving him to the ICU to improve monitoring. cc: Todd Fernandez MD
[2017-05-19 11:13] LABS: ALLEN TEST YES; BE -3.3 mmoll (-3.0-3.0); BLOOD TYPE ARTERIAL; DRAW SITE R RADIAL; METHB 1.1 % (0.0-1.5); MODALITY ROOM AIR; O2(CT) 17.1 mL/dL (15.0-23.0); PCO2(98.6) 25 mmHg (35-45); PO2(98.6) 66 mmHg (60-100); SAMPLE BLOOD; SAO2 95.1 % (95.0-100.0); THB 13.1 g/dL (11.5-17.4); pH(98.6) 7.48 (7.35-7.45)
--- NOTE | 2017-05-19 11:14 | PROGRESS NOTE ---
DATE: 05/19/2017 PRESENT ILLNESS: The patient has been treated for a severe pancreatitis with possible superimposed infection. He seemed to make a very good recovery from this, however, in the past 2 days, his white count has increased and today it was 25,820. Along with this, he is complaining of severe abdominal pain. MEDICATIONS: Currently he is on no antibiotics. PHYSICAL EXAMINATION: Vital Signs: Temperature is 99.2 degrees, pulse 131 respirations 30, blood pressure 140/93. Generally: Patient looks very ill. He is having a lot of abdominal pain. Neck: The patient has a right internal jugular catheter in place. The site is not red or swelling. Lungs: Clear to auscultation. Cardiovascular: Regular heart rate. Abdomen: Soft, but tender. I did not hear bowel sounds. Neurologic: Patient is slightly lethargic. He has had medication for sedation. Lungs: Clear to auscultation. Cardiovascular: Regular heart rate. Abdomen: Soft, but tender. Integument: No rash noted. Neurologic: He can move his extremities. There is no tremor. LAB AND X-RAY: CBC for today shows a white count of 25,820, hemoglobin 9.6, and platelet count 342,000, creatinine is 3.2. GFR is 20. Stool for Clostridium difficile toxin is negative. Blood and urine cultures are pending. Chest x-ray shows no pneumonia. ASSESSMENT AND PLAN: I have started the patient on a combination of daptomycin and meropenem. The doses have been modified because of the patient's renal failure. Also, a CT scan of the abdomen has already been ordered. For now, I am going to continue with the patient's antibiotics pending the culture result. COMORBIDITIES: Include alcoholism and pancreatitis secondary to the alcohol intake. cc: Héctor Art MD
--- NOTE | 2017-05-19 11:30 | Diag Imaging Result Doc PS360 ---
EXAM: ABDOMEN/PELVIS W/O CONTRAST HISTORY: recent acute pancreatitis with worsened pain, wbc TECHNIQUE: CT urogram without contrast COMMENT: The current study is compared with that of 05/06/2017. There is less consolidation however there is more interstitial opacity present in the lung bases than on the previous study of 05/06/2017. This may be due in part to pulmonary edema. There is a very small amount of pleural fluid on the left. There is fluid in the right subphrenic space which was not present at the time the previous study. The pancreas is much larger than it was with areas of apparent hemorrhage and peripancreatic fluid collection. This displaces the stomach anteriorly at the level of the distal body and antrum. On image 66 the pancreas measures 9.9 x 20.9 cm. On a comparable image at the time the previous study the pancreas measured 16.2 x 4.5 cm. There is no evidence of hydronephrosis or stones in the kidneys. There is some stool in the right colon. There is a small amount of free fluid in the pelvis anteriorly particularly down the left paracolic gutter. Some of the small bowel loops in the vicinity of the pancreas are distended which is probably due to a local ileus. This is principally in the proximal jejunum. The regional skeleton is intact. IMPRESSION: Apparent hemorrhagic pancreatitis. Pulmonary edema. Possibility of necrosis cannot be excluded though in the absence of IV contrast, however given the other findings this is very likely. Electronically signed by Ozzie Mittal 05/19/2017 11:28 AM
[2017-05-19] MEDS ORDERED: SODIUM CHLORIDE 0.9% 10 ML ONE (13:49)
[2017-05-19] MEDS ORDERED: PROTONIX 80 MG in NS 80 ML IV SCH (14:16)
[2017-05-19 14:22] LABS: BASO% 0.1 % (0.0-0.8); EOS# 0.01 X1000 (0.0-0.7); HEMOGLOBIN 8.7 g/dL (14.0-18.0); IMM GRAN# 0.39 X1000 (0.0-0.04); IMM GRAN% 1.1 % (0.0-0.5); LYMPH# 1.14 X1000 (1.2-3.4); LYMPH% 3.3 % (20.5-51.1); MANUAL DIFF NEEDED? YES; MCH 31.4 PG (27-31); MCHC 33.5 g/dL (33-37); MCV 93.9 FL (81-99); MONO# 1.78 X1000 (0.11-0.59); MONO% 5.1 % (1.7-9.3); MPV 10.9 FL (7.4-10.4); NEUT% 90.4 % (42.2-75.2); PLT 356 X1000 (130-400); RBC 2.77 XMIL (4.7-6.1)
[2017-05-19 14:33] LABS: ALBUMIN 2.7 g/dL (3.5-5.0); CALCIUM 8.1 mg/dL (8.8-10.2); POTASSIUM 5.6 mmol/L (3.5-5.1)
[2017-05-19] MEDS ORDERED: SODIUM BICARBONATE 8.4% IV PUSH ONE (14:43)
[2017-05-19] MEDS ORDERED: D50W SYRINGE IV ONE (14:45)
[2017-05-19] MEDS ORDERED: HUMULIN R IV ONE (14:45)
--- NOTE | 2017-05-19 14:46 | Diag Imaging Result Doc PS360 ---
EXAM: ABDOMEN FLAT/UPRIGHT HISTORY: abdominal pain TECHNIQUE: Flat and upright abdomen three views COMMENT: There is a moderately large amount of gas and stool in the right colon. Small bowel is not particularly distended. The stomach is not distended. There is no definite organomegaly or mass. IMPRESSION: Nonspecific abdomen. Possibility of mild ileus cannot be excluded. Electronically signed by Ozzie Mittal 05/19/2017 2:43 PM
[2017-05-19 15:31] LABS: BANDS 10 % (0-1)
[2017-05-19 15:37] LABS: URINE CULTURE NEEDED? NO; URINE SOURCE CATH
[2017-05-19 15:41] LABS: BILIRUBIN URINE NEGATIVE (NEGATIVE); BLOOD URINE NEGATIVE (NEGATIVE); COLOR YELLOW; GLUCOSE URINE NEGATIVE (NEGATIVE); LEUKOCYTES URINE NEGATIVE (NEGATIVE); NITRITE URINE NEGATIVE (NEGATIVE); PROTEIN URINE 30 mg/dL (NEGATIVE); SP GRAVITY URINE 1.013; TURBIDITY URINE HAZY (CLEAR); UROBILINOGEN URINE NORMAL (NORMAL)
[2017-05-19 15:42] LABS: URINE MICRO REVIEW NEEDED? YES
[2017-05-19 15:54] LABS: UR EPITHELIAL CELLS <10 /HPF (<10); URINE BACTERIA NEGATIVE /HPF; URINE WBC <10 /HPF (<10)
[2017-05-19 16:33] LABS: URINE CASTS NONE SEEN; URINE CRYSTALS NONE SEEN; URINE SMALL ROUND CELLS NONE SEEN
[2017-05-19 18:08] LABS: HEMATOCRIT 25.4 % (42.0-52.0); HEMOGLOBIN 8.3 g/dL (14.0-18.0)
[2017-05-19] MEDS ORDERED: QUELICIN IV ONE ×2 (20:56→21:30)
[2017-05-19] MEDS ORDERED: DIPRIVAN 1% IV ONE ×2 (21:16→21:41)
[2017-05-19] MEDS ORDERED: DIPRIVAN 1% 1,000 MG/100 ML BOTTLE IV SCH (21:18)
[2017-05-19] MEDS ORDERED: NEO-SYNEPHRINE 50 MG in NS 250 ML IV SCH (21:45)
[2017-05-19 22:57] VITALS: BP 81/53
--- NOTE | 2017-05-20 07:27 | Diag Imaging Result Doc PS360 ---
EXAM: CHEST-PORTABLE HISTORY: tube placement TECHNIQUE: AP portable at 2210 COMMENT: There is an endotracheal tube with its tip slightly below the thoracic inlet. The inspiration is suboptimal but slightly better than on 05/18/2017. The right internal jugular central venous catheter remains with tip in superior vena cava. There are old rib fractures on the left. IMPRESSION: Stable chest. Electronically signed by Ozzie Mittal 05/20/2017 7:25 AM
--- NOTE | 2017-05-20 15:50 | DISCHARGE SUMMARY ---
ADMISSION DATE: 04/26/2017 DISCHARGE DATE: 05/19/2017 FINAL DISCHARGE DIAGNOSES: 1. Acute hypoxemic respiratory failure. 2. Severe pancreatitis with hemorrhagic conversion. 3. Acute kidney injury requiring hemodialysis. 4. Hyperkalemia. 5. Anemia of chronic disease. 6. Alcohol abuse. 7. Severe protein calorie malnutrition. 8. Morbid obesity. 9. Sepsis. 10. Hyperphosphatemia. 11. Hyponatremia. 12. Mechanical aortic valve replacement CONSULTATIONS REQUESTED DURING THIS HOSPITAL STAY: 1. Pulmonary consultation with Dr. Weinberg. 2. Cardiology consultation with Dr. Sweet. 3. Nephrology consultation with Dr. Fernandez. 4. General Surgery consultation with Dr. Machado. 5. GI consultation with Dr. Grace. 6. General Surgery consultation with Dr. Thomas. IMAGING PERFORMED DURING THIS HOSPITAL STAY: 1. CT of the abdomen and pelvis performed on 04/26/2017 that revealed pancreatitis with severe phlegmonous change. Hepatic steatosis. 2. Abdominal ultrasound performed on 04/26/2017 that revealed hepatic steatosis. 3. Two dimensional echocardiogram performed on 04/29/2017 that revealed an ejection fraction of 50-55%. Mild mitral regurgitation. Mild tricuspid regurgitation. 4. CT of the abdomen performed on 05/06/2017 that revealed acute pancreatitis with no evidence of abscess. Diffuse hepatic steatosis. 5. CT of the abdomen and pelvis performed on May 19 that revealed hemorrhagic pancreatitis. Pulmonary edema. Possibility of necrosis cannot be excluded. PROCEDURES PERFORMED DURING THIS HOSPITAL STAY: 1. Ultrasound-guided right common femoral Vas-Cath placement performed on 2016. 2. Ultrasound-guided right internal jugular vein central line placement performed on 04/30/2017. 3. Exchange of a central line catheter over wire performed on 05/03/2017. 4. Ultrasound-guided placement of left common femoral vein Vas-Cath performed on 05/08/2017. HOSPITAL COURSE: Mr. Reddy is a 56-year-old male with a history of heavy alcohol abuse, hypertension, dyslipidemia, obstructive sleep apnea, morbid obesity who presented to the ER with abdominal pain, nausea and vomiting. On admission, a CT of the abdomen and pelvis was done that revealed severe pancreatitis with phlegmon formation as well as hepatic steatosis. The patient was noted to have a lipase of greater than 3000. The patient was initially admitted at [facility] and subsequently transferred to [facility] when the patient's condition deteriorated. While hospitalized, the patient developed renal failure and so Nephrology was consulted. The patient does have a history of a mechanical aortic valve for which he requires chronic anticoagulation. The patient was placed on a heparin drip and placed on a heparin protocol. The patient's renal function did not improve and was ultimately placed on hemodialysis. The patient was also started on broad-spectrum antibiotics and I.D. was consulted for further assistance with antibiotic choice. The patient had a prolonged hospitalization and required dialysis essentially throughout the hospitalization. Slowly over the course of the hospitalization, the patient's abdominal pain improved and his lipase improved to 286. The patient improved enough to be moved out of the ICU to the medical floor. The patient did develop atrial fibrillation with RVR and was placed briefly on a Cardizem drip which was later transitioned to Cardizem. On 05/18/2017 the patient started to complain of abdominal pain. His lipase was noted to be elevated at 681, up from 286. The patient was also noted to be febrile at that time with a temperature of 101.9. Blood cultures, a urinalysis and urine culture were ordered as well as a chest x-ray. Today the patient was noted to be lethargic and complaining of severe abdominal pain and he was also tachycardic and tachypneic. A CT of the abdomen and pelvis without contrast was done that revealed a hemorrhagic conversion of the pancreatitis along with an ileus. The patient was moved to the CICU. IV fluids were reinstituted and broad-spectrum antibiotics were restarted. The case was discussed with the case operator Dr. Grace as well as the curriculum assistant principal Dr. Fernandez. I made several calls to the tertiary centers surrounding [place] to include [facility], [place] and [place]. All of those tertiary centers were full and unable to accept the patient. I called [facility] and the patient was ultimately accepted for transfer to their surgical ICU. The patient was also assessed by Dr. Hemal Thomas prior to transfer and it was decided that the patient did not need emergent surgical intervention at this time. The patient's immediate family were updated throughout the day and are aware of the transfer to [facility] in [place], [place]. DISCHARGE MEDICATIONS: 1. Daptomycin 750 mg IV every 48 hours. 2. Dilaudid 1 mg IV q.3 hours. 3. Meropenem 1 g IV every 12 hours. 4. Normal saline at 125 mL/h. 5. Protonix drip. DISCHARGE PLAN: The patient will be transferred via air to [facility] in [place], [place]. cc: Shira Angela MD [facility]
[2017-05-22] MEDS ORDERED: PROTONIX IV SCH (14:16)
--- NOTE | 2017-06-17 22:09 | PROGRESS NOTE ---
DATE: 05/19/2017 SUBJECTIVE: Patient had some complaints of pain. OBJECTIVE: Vital signs: Blood pressure 132/73, heart rate 136, respiratory rate 22, temperature 98.9 degrees, 95% on 3 L. Cardiovascular: Regular rate and rhythm. Pulmonary: Bilateral breath sounds. Clear to auscultation. GI: Soft, nontender, nondistended. Bowel sounds are positive. He did have diffuse tenderness. LABORATORY DATA: White count 34, hemoglobin and hematocrit 8 and 25, platelets 356,000, INR 2.5. Sodium 128, BUN, creatinine 68 and 3.8. PROBLEM LIST: 1. Acute pancreatitis with phlegmon. GI is following. He still has persistent elevation in his lipase. Continue supportive care. 2. Leukocytosis. He is increasing leukocytosis. Dr. Art is following with the patient. He is on daptomycin and meropenem for which he was still getting that despite his leukocytosis. Repeat CT scan showed hemorrhagic pancreatitis with necrosis. 3. Mechanical AV replacement. INR is therapeutic although we want to be in consideration of him being on a heparin drip. The plan is to transfer to tertiary level of care that had already been in the process and was completed day of discharge. cc: Eris Hoffman MD
== END 2017-05-19 23:20 | disposition short-term general hospital (02) ==
LOC: P.ED 16:55 → SUATTDRO 16:56 → P.MEDSURG 20:06 → P.ICU 04-27 20:02 → ICU 04-28 12:45 → UNDODISIN 04-28 18:20 → 3N 05-12 15:14 → 3S 05-16 14:54 → 4N 05-18 13:04 → 3S 05-19 11:32 → EDIPHOLD 05-19 20:58
PROVIDERS: ATTEND Internal Medicine

== ENCOUNTER 2017-08-10 17:15 | Inpatient (IN) ==
[2017-08-10] MEDS ORDERED: DILAUDID IV ONE ×2 (17:52→22:43)
[2017-08-10] MEDS ORDERED: ZOFRAN IV ONE (17:52)
[2017-08-10 17:59] LABS: MANUAL DIFF NEEDED? NO
[2017-08-10 18:02] LABS: BASO% 0.4 % (0.0-0.8); EOS# 0.22 X1000 (0.0-0.7); EOS% 1.6 % (0.0-10.0); HEMATOCRIT 31.5 % (42.0-52.0); HEMOGLOBIN 9.8 g/dL (14.0-18.0); IMM GRAN% 0.7 % (0.0-0.5); LYMPH# 1.43 X1000 (1.2-3.4); LYMPH% 10.7 % (20.5-51.1); MCH 31.2 PG (27-31); MCHC 31.1 g/dL (33-37); MCV 100.3 FL (81-99); MONO# 1.05 X1000 (0.11-0.59); MONO% 7.8 % (1.7-9.3); MPV 9.7 FL (7.4-10.4); NEUT% 78.8 % (42.2-75.2); PLT 318 X1000 (130-400); RBC 3.14 XMIL (4.7-6.1)
[2017-08-10 18:25] LABS: AGAP 10; ALBUMIN 2.9 g/dL (3.5-5.0); ALKALINE PHOSPHATASE 70 U/L (32-122); BUN 9 mg/dL (8-22); CALCIUM 8.6 mg/dL (8.8-10.2); CHLORIDE 98 mmol/L (98-107); COSMO 260; GOT 21 U/L (10-34); GPT 18 U/L (10-44); POTASSIUM 4.3 mmol/L (3.5-5.1); SODIUM 130 mmol/L (136-145); TCO2 22 mmol/L (25-35); TOTAL PROTEIN 6.9 g/dL (6.3-8.3)
[2017-08-10 18:31] LABS: INR 1.32 (0.86-1.15); PROTIME 17.4 Seconds (12.1-15.5)
[2017-08-10 19:00] LABS: URINE CULTURE PL NEEDED? NO
[2017-08-10 19:16] LABS: BILIRUBIN URINE NEGATIVE (NEGATIVE); BLOOD URINE NEGATIVE (NEGATIVE); CLARITY SL. CLOUDY (CLEAR); COLOR YELLOW; GLUCOSE URINE NEGATIVE (NEGATIVE); LEUKOCYTES URINE NEGATIVE (NEGATIVE); NITRITE URINE NEGATIVE (NEGATIVE); PROTEIN URINE TRACE mg/dL (NEGATIVE); UROBILINOGEN URINE NORMAL
[2017-08-10 19:37] LABS: URINE WBC <10 /HPF (<10)
[2017-08-10 19:38] LABS: URINE CAST NONE SEEN /LPF; URINE CRYSTAL NONE SEEN /HPF; URINE EPITHELIAL CELLS <10 /HPF (<10); URINE SOURCE CLEAN CATCH
--- NOTE | 2017-08-10 20:17 | Diag Imaging Result Doc PS360 ---
EXAM: CT HEAD W/O CONTRAST INDICATION: FALL TECHNIQUE: Dose reduction protocol was used. COMPARISON: 10/02/2016 FINDINGS: There is stable right cerebellar hemisphere encephalomalacia. There are a few tiny chronic lacunar infarcts involving the subcortical white matter of the left parietal lobe, stable. There is no definite acute infarct given the limited sensitivity of CT versus MRI. There is no discrete intracranial mass, mass effect, or intracranial hemorrhage. The surrounding soft tissues and bony structures are essentially unremarkable. IMPRESSION: Stable chronic changes but no evidence of acute intracranial pathology. Electronically signed by Femi Vinson 08/10/2017 8:15 PM
--- NOTE | 2017-08-10 20:39 | Diag Imaging Result Doc PS360 ---
EXAM: CT ABD/PELVIS W/ IV CONT ONLY INDICATION: TRAUMA TECHNIQUE: Dose reduction protocol was used. COMPARISON: 05/19/2017 FINDINGS: There is a trace effusion at the left lung base. There is bibasilar subsegmental atelectasis. There are several old rib fractures on the left. There has been a cholecystectomy during the interval. There is nonspecific heterogeneous low attenuation involving the right hepatic lobe adjacent to the gallbladder fossa. This has occurred during the interval. It is unclear if it is surgery related. There are a few small hepatic cysts. On the previous study there was severe hemorrhagic pancreatitis. There is still inflammatory stranding around the pancreas compatible with pancreatitis. There is also a loculated complex fluid collection at the left side of the abdomen. The collection appears to emanate from the pancreas and extends inferiorly along the paracolic gutter on the left and then anteriorly toward the umbilicus. This is worrisome for residual abscess. There is a portion of the fluid collection in the left lower quadrant exhibiting an enhancing periphery. This portion measures approximately 4.6 x 4.4 cm axially. There is inflammatory mesenteric stranding around this complex fluid collection. These changes do not appear to be posttraumatic. The spleen is unremarkable. The adrenal glands are unremarkable. There are several small renal cysts bilaterally. The urinary bladder is partially distended and is grossly unremarkable, otherwise. The bony structures of the abdomen and pelvis appear to be grossly intact. IMPRESSION: 1.Inflammatory changes around the pancreas with a complex loculated fluid collection as described worrisome for residual abscess related to a history of pancreatitis. 2.Interval cholecystectomy with nonspecific heterogeneous attenuation involving the adjacent right hepatic lobe. 3.Trace left pleural effusion. 4.Other incidental/nonacute findings detailed above. Electronically signed by Femi Vinson 08/10/2017 8:36 PM
[2017-08-10] MEDS ORDERED: TYLENOL PO ONE (20:58)
[2017-08-10] MEDS ORDERED: NS 1,000 ML IV ONE (21:05)
--- NOTE | 2017-08-10 21:07 | Diag Imaging Result Doc PS360 ---
EXAM: CHEST-1 VIEW INDICATION: FALL TECHNIQUE: One view COMPARISON: 05/19/2017 FINDINGS: The lungs are grossly clear. There is no discrete pleural fluid collection or pneumothorax. There are median sternotomy wires, stable. Cardiac silhouette and central vasculature are grossly unremarkable for AP technique. There are several old rib fractures on the left. IMPRESSION: No definite acute pathology. Electronically signed by Femi Vinson 08/10/2017 9:04 PM
[2017-08-10] MEDS ORDERED: ZOSYN 3.375 GM in NS 50 ML IV ONE (21:39)
--- NOTE | 2017-08-10 21:45 | PROVIDER DOCUMENTATION ---
This chart was entered by Brayden Chan Scribe, acting as scribe for Mir Platt MD. HPI-Head Injury - General Chief Complaint: Fall Stated Complaint: FALL Time Seen by Provider: 08/10/17 17:29 Source: patient Allergies/Adverse Reactions: Patient Allergies Allergy/AdvReac Type Severity Reaction Status Date / Time No Known Allergies Allergy Verified 08/22/15 12:08 Home Medications: Home Medication List Medication Instructions Recorded Confirmed Last Taken Type Warfarin Sodium [Coumadin] 7.5 mg PO QHS 08/22/15 08/10/17 08/09/17 History Escitalopram Oxalate [Lexapro] 10 mg PO DAILY 08/10/17 08/10/17 Unknown History Lipase/Protease/Amylase [Creon] 24,000 units PO TID 08/10/17 08/10/17 08/10/17 History Metoprolol [Lopressor] 25 mg PO TID 08/10/17 08/10/17 Unknown History Oxycodone HCl/Acetaminophen 1 tab PO Q4-6H PRN PRN 08/10/17 08/10/17 08/10/17 History [Oxycodon-Acetaminophen 7.5-325] Trazodone [Desyrel] 100 mg PO HS PRN PRN 08/10/17 08/10/17 08/09/17 History - History of Present Illness-Head Injury Nature of Presenting Problem: Patient is a 56 y/o M that presents to the ER after falling this am onto concrete. Denies loc. reports abdominal pain and abrasion to forehead. he is on Coumadin. He had recent surgery 6 six on his abdomen for pancreatitis. Patient reports a fever today as well. Denies neck or back pain Head Injury Location: reports: frontal Other injuries associated with incident:: reports: abdomen Quality of Pain: reports: dull, sharp Severity: reports: moderate Onset/Duration: reports: abrupt, this morning Timing: reports: still present, constant Method of Injury: reports: fell Any recent trauma/injury?: reports: none Loss of Consciousness: no loss of consciousness Modifying Factors: improves with: nothing Injury Associated Symptoms: reports: headaches, other (fever). denies: back/ neck pain, joint pain, nausea, shortness of breath, vomiting Locality of Occurance: Home Similar Symptoms Previously?: No Recently seen or treated by another doctor?: Yes Review of Systems - Adult - REVIEW OF SYSTEMS - ADULT Constitutional: reports: no symptoms reported Eyes: denies: decreased vision, blurred vision, double vision Ears, Nose, Mouth & Throat: denies: ear discharge, epistaxis, mouth/dental pain , mouth swelling Cardiovascular: denies: chest pain, palpitations, syncope Respiratory: denies: cough, shortness of breath, wheezing Gastrointestinal: reports: abdominal pain. denies: diarrhea, nausea, vomiting Genitourinary: reports: no symptoms reported Musculoskeletal: denies: back pain, joint pain, neck pain Integumentary: reports: no symptoms reported Neurological: reports: headache/migraines. denies: dizziness/vertigo, syncope Psychiatric: reports: no symptoms reported Endocrine: reports: no symptoms reported Hematologic/Lymphatic: reports: no symptoms reported Allergic/Immunologic: reports: no symptoms reported All Other Systems: Reviewed and Negative Past History - Adult - PAST MEDICAL HISTORY-ADULT Review of Records: reports: Old Records Reviewed, Nursing Assessment Review, Medications Reviewed Cardiovascular: reports: HTN, heart valve problem (mechanical valve), hyperlipidemia Respiratory: reports: sleep apnea Gastrointestinal: reports: GERD, pancreatitis - PRIOR SURGERIES/PROCEDURES Surgical/Procedure History: reports: recent surgery (laproscopic), appendectomy , CABG, orthopedic (extremity) (carpal tunnel ) - IMMUNIZATION STATUS Childhood Immunizations: See Nurse Assessment Flu Vaccine: See Nurse Assessment - FAMILY HISTORY Family History: reviewed, not pertinent - SOCIAL HISTORY Smoking: quit greater than 1 year, cigarettes Alcohol Use Frequency: every day Living Situation: family Physical Exam- Neurological - Physical Exam-Neuro Initial Vital Signs Reviewed: Yes General Appearance: alert, no apparent distress Eye Exam: bilateral eye: normal inspection, PERRL HENMT: moist mucous membranes, normal ENT inspection, TMs normal, pharynx normal Head Injury: other (superficial abrasion to forehead). negative: Manzo's Sign , flap Neck: non-tender, full range of motion, normal inspection. 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 Exam: normal hearing, normal speech, PERRL Motor/Sensory: no motor deficit, no sensory deficit Neurologic: project surveyor II-XII nml as tested, no motor/sensory deficits Integumentary: warm/dry, abrasion(s) Psych/Mental Status: normal mood/affect, normal thought content, normal thought process, oriented x 3 - Glascow Coma Scale Best Eye Response: (4) open spontaneously Best Verbal Response: (5) oriented Best Motor Response: (6) obeys commands Total Glascow Score: 15 Progress - PLAN OF CARE/RESULTS Progress/Plan/Lab Results: Vital Signs - 8 hr 08/10/17 17:18 08/10/17 20:20 08/10/17 21:33 Temperature 100.1 F H Pulse Rate 112 H 104 H 120 H Respiratory Rate 18 20 22 Blood Pressure 133/72 108/77 108/77 O2 Sat by Pulse Oximetry 98 96 96 Laboratory Results - last 24 hr 08/10/17 08/10/17 08/10/17 17:45 17:45 17:45 WBC 13.41 H RBC 3.14 L Hgb 9.8 L Hct 31.5 L MCV 100.3 H MCH 31.2 H MCHC 31.1 L RDW Std Deviation 17.1 H Plt Count 318 MPV 9.7 Immature Gran % (Auto) 0.7 H Neut % (Auto) 78.8 H Lymph % (Auto) 10.7 L Louisa % (Auto) 7.8 Eos % (Auto) 1.6 Baso % (Auto) 0.4 Immature Gran # (Auto) 0.10 H Neut # (Auto) 10.56 H Lymph # (Auto) 1.43 Louisa # (Auto) 1.05 H Eos # (Auto) 0.22 Baso # (Auto) 0.05 PT 17.4 H INR 1.32 H Sodium 130 L Potassium 4.3 Chloride 98 Carbon Dioxide 22 L Anion Gap 10 BUN 9 Creatinine 0.8 Estimated GFR/1.73 m2 > 60 BUN/Creatinine Ratio 11 Glucose 109 H Calculated Osmolality 260 Calcium 8.6 L Total Bilirubin 0.20 AST 21 ALT 18 Alkaline Phosphatase 70 Total Protein 6.9 Albumin 2.9 L Globulin 4.0 Albumin/Globulin Ratio 1.0 Plasma Lactate Urine Source Urine Color Urine Clarity Urine pH Ur Specific [place] Urine Protein Urine Ketones Urine Blood Urine Nitrite Urine Bilirubin Urine Urobilinogen Urine Microscopic RBC Urine WBC Urine Microscopic WBC Ur Epithelial Cells Urine Crystals Urine Bacteria Urine Casts Urine Yeast Urine Glucose 08/10/17 08/10/17 18:07 18:48 WBC RBC Hgb Hct MCV MCH MCHC RDW Std Deviation Plt Count MPV Immature Gran % (Auto) Neut % (Auto) Lymph % (Auto) Louisa % (Auto) Eos % (Auto) Baso % (Auto) Immature Gran # (Auto) Neut # (Auto) Lymph # (Auto) Louisa # (Auto) Eos # (Auto) Baso # (Auto) PT INR Sodium Potassium Chloride Carbon Dioxide Anion Gap BUN Creatinine Estimated GFR/1.73 m2 BUN/Creatinine Ratio Glucose Calculated Osmolality Calcium Total Bilirubin AST ALT Alkaline Phosphatase Total Protein Albumin Globulin Albumin/Globulin Ratio Plasma Lactate 1.3 Urine Source CLEAN CATCH Urine Color YELLOW Urine Clarity SL. CLOUDY A Urine pH 5.0 Ur Specific [place] 1.010 Urine Protein TRACE A Urine Ketones NEGATIVE Urine Blood NEGATIVE Urine Nitrite NEGATIVE Urine Bilirubin NEGATIVE Urine Urobilinogen NORMAL Urine Microscopic RBC Not Reportable Urine WBC NEGATIVE Urine Microscopic WBC <10 Ur Epithelial Cells <10 Urine Crystals NONE SEEN Urine Bacteria 1+ Urine Casts NONE SEEN Urine Yeast NONE SEEN Urine Glucose NEGATIVE Orders Category Date Time Status Saline Loc NOW Care 08/10/17 17:49 Active CHEST-1 VIEW [RAD] Stat Exams 08/10/17 17:[address] ABD/PELVIS W/ IV CONT ONLY [CT] Stat Exams 08/10/17 17:[address] HEAD W/O CONTRAST [CT] Stat Exams 08/10/17 17:50 Completed BLOOD CULTURE [BLDCUL] Stat Lab 08/10/17 18:14 Ordered CBC WITH ELECTRONIC DIFF [HEME] Stat Lab 08/10/17 17:45 Completed COMPREHENSIVE METABOLIC PANEL [CHEM] Stat Lab 08/10/17 17:45 Completed LACTATE, PLASMA [CHEM] Stat Lab 08/10/17 18:07 Completed PR[address]IME WITH INR PL [COAG] Stat Lab 08/10/17 17:45 Completed TYPE & SCREEN [BBK] Stat Lab 08/10/17 17:[address] W/POSS RFLX CULT [URINALYSIS] Stat Lab 08/10/17 18:48 Completed 0.9% Sodium Chloride Inj [Ns] 1,000 ml Med 08/10/17 21:05 Active IV 250 mls/hr Acetaminophen [Tylenol] Med 08/10/17 20:58 Discontinued 650 mg PO NOW ONE Hydromorphone [Dilaudid] Med 08/10/17 17:52 Discontinued 0.5 mg IV NOW ONE Ondansetron [Zofran] Med 08/10/17 17:52 Discontinued 4 mg IV NOW ONE Zosyn 3.375 gm/Ns IV Now Med 08/10/17 21:39 Ordered Piperacillin/Tazobactam [Zosyn] 3.375 gm 0.9% Sodium Chloride Inj [Ns] 50 ml IV NOW Result Diagrams: 08/10/17 17:45 08/10/17 17:45 - REASSESSMENT Reassessment #1 Time Reassessed: 21:39 (DISCUSSED WITH DR CRUMP CLOTHES SHAKER SURGEON.) Reassessment Comment: PT'S LAST BP 30 MTS AGO: 108/77. TEMP 101. DISCUSSED WITH DR SHULTZ AT [facility] Departure - Departure Date of Disposition Decision: 08/10/17 Time of Disposition Decision: 21:43 DIAGNOSIS: Fever, Pancreatic abscess Disposition: ADMITTED INPATIENT 09 Certified Medical Emergency: Emergent Condition: Fair Referrals and Follow-Ups: Renee Alexandre MD [Primary Care Provider] - - Critical Care Note This patient required my direct & personal management of CC.: No Attestation - Physician/ SHARI Attestation Patient care was provided by Advanced Practice Provider:: No The physician spent face to face time with patient:: Yes Advanced Practice Provider documentation review:: Supervising physician onsite and consulted in the evaluation and care of this patient. The physician did have a face to face encounter with the patient. This chart was documented by the indicated scribe, (Brayden Chan, [place]) and accurately reflects the services I performed and decisions made by me, Mir Platt MD, as attested by the provider's signature.
[2017-08-10] MEDS ORDERED: DILAUDID ONE (22:47)
[2017-08-11] MEDS ORDERED: TYLENOL PO PRN (01:24)
[2017-08-11] MEDS ORDERED: ZOFRAN IV PRN (01:24)
[2017-08-11] MEDS ORDERED: DESYREL PO PRN (01:32)
[2017-08-11] MEDS: NORCO-7.5 PO PRN ×4 (04:38→23:51)
[2017-08-11] MEDS ORDERED: ZOSYN ONE (04:42)
[2017-08-11] MEDS: ZOSYN 3.375 GM in NS 50 ML IV SCH ×4 (04:45→21:25)
[2017-08-11] MEDS ORDERED: PRILOSEC PO SCH (07:00)
[2017-08-11] MEDS: LOPRESSOR PO SCH ×3 (08:11→17:19)
[2017-08-11] MEDS: CREON PO SCH ×4 (08:14→17:16)
[2017-08-11] MEDS: LEXAPRO PO SCH ×3 (09:00→13:40)
--- NOTE | 2017-08-11 10:30 | HISTORY AND PHYSICAL ---
CHIEF COMPLAINT: Fall and abdominal pain. HISTORY OF PRESENT ILLNESS: This is a 56-year-old male, who first presented to the [facility] ER after a fall this morning around 10. He described this fall having at home outside the door, and he tripped and fell forward. So hit the right side of his forehead and also on his stomach. He denies loss of consciousness. There were some mild laceration on the forehead, and bleeding was stopped after local pressure; and he was able to get up by himself and went back home, and went to check on his wound. Besides the headache, he also has some abdominal pain. 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 He states his abdominal pain is gradually getting worse during the day. His home health nurse came today, checking on his abdominal wound and noticed there is a small amount of clear drainage from that wound. But told him to come to the ER for further evaluation because of the abdominal pain and there seems like to be a little distended abdomen. He also found is to have a fever of over 101.5 at home and after the fall, when he arrived in the ER, his temp was 100.1. He did take some Tylenol at home before he came to the ER. In the ER, basic work up showing he has elevated white blood cells of 13.4, and there is no acute intracranial bleeding, and his INR is subtherapeutic, believed the number is 1.32. The CT of the abdomen is indicating questionable for pancreatic abscess. So the patient was transferred to the [facility] for further evaluation, the [facility] [address] ER physician has already contacted with General Surgery, and they will consult the patient in the morning, and Zosyn was suggested for administration in the ER. For further inquiry on the patient, he could not describe more details about his stay in their [facility] surgical ICU, and he was told that he had his gallbladder taken out and also had 3 days of severe sepsis, and they have to keep his abdominal incision open for 3 days. After the hospitalization, he was sent to [facility] for rehab, and he stayed there for a week, and he had been released to home for the last 3 weeks. PAST MEDICAL HISTORY: Hypertension, hyperlipidemia, sleep apnea, GERD, and pancreatitis. PAST SURGICAL HISTORY: Appendectomy, carpal tunnel repair, cholecystectomy, and mechanical valve replacement. FAMILY HISTORY: Noncontributory. SOCIAL HISTORY: Remote tobacco use and stopped drinking after the recent pancreatitis. Denies any street drug use. ALLERGIES: No known drug allergies. HOME MEDICATIONS: Lexapro 10 mg daily, Lbwxjz-Ribdgnea-Emmhexy 24,000 units p.o. t.i.d., metoprolol 25 mg t.i.d., Percocet 7.5 one tab q.4-6 hours p.r.n., trazodone 100 mg p.o. h.s. p.r.n., Coumadin 7.5 mg p.o. every night. REVIEW OF SYSTEM: A 10-point of review of systems obtained and pertinent, and for pertinent positive and negative, please see the HPI. PHYSICAL EXAMINATION: VITAL SIGNS: Temperature 100.1 degrees, pulse rate 112, respiratory rate 18, blood pressure 133/72, pulse ox 98 on room air. GENERAL: Obese, male no acute distress. Lying on the bed. A long surgical scar in the front of the abdomen. HEENT: Normocephalic, atraumatic. Pupils equal. PERRLA. EOMI. NECK: Supple. CARDIOVASCULAR: Regular rate and regular rhythm. Normal S1, S2. PULMONARY: Clear to auscultation bilaterally. No wheezing. No rales. ABDOMEN: Soft. There is general tenderness all over. There is no rebound noted. It seems slight, seems a little distended, and left upper quadrant. Positive for bowel sounds in 4 quadrants. EXTREMITIES: No edema. Pulses present. SKIN: There is a mild laceration on the right forehead. No acute bleeding and is pretty shallow. I did not see any bruise or lacerations on the abdominal wall. NEURO: He is alert, awake, and oriented. No focal deficit noted. LABS: White count 13.4, hemoglobin and hematocrit 9.8 and 31.5, platelets 318,000. PT 17.4, INR 1.32. Chemistry: Sodium is 130, potassium 4.3, chloride 98, bicarb 22. BUN 9, creatinine 0.8, glucose 109, lactate 1.3. UA is clear. Chest x-ray: No definite acute finding. Head CT: Stable chronic changes, but no evidence of acute intracranial pathology. CT abdomen and pelvis: Inflammatory changes around the pancreas with a complex loculated fluid collection and worrisome for residual abscess related to a history of pancreatitis, interval cystectomy with nonspecific heterogeneous adhesion involving the adjacent right hepatic lobe. ASSESSMENT AND PLAN: 1. Fever. 2. Pancreatic abscess. 3. Fall. 4. Subtherapeutic INR level. PLAN: He will be admitted to the medical unit at [facility]. Will continue with some IV hydration, and continue on the Zosyn and q.6 hours. We are waiting for the blood cultures result and in the mean time, we will consult general surgery, and help manage his possible abscess. We repeat the labs in the morning and resume his home medicine for hypertension and depression, and further plan will depend on the hospital course and lab findings. cc: Lesly Galvez MD
[2017-08-11 12:39] LABS: INR 1.31
--- NOTE | 2017-08-11 13:17 | EKG Report ---
Test Performed on : 08/11/2017 11:31:21 AM Test Reason : tachycardia Blood Pressure : / mmHG Vent. Rate : 115 BPM Atrial Rate : 115 BPM P-R Int : 140 ms QRS Dur : 090 ms QT Int : 348 ms P-R-T Axes : 039 009 077 degrees QTc Int : 481 ms Sinus tachycardia. with premature supraventricular complexes. Septal infarct (cited on or before 19-MAY-2017) Abnormal ECG When compared with ECG of 19-MAY-2017 09:09, premature supraventricular complexes. are now present Confirmed by Carlos Judd MD ([id number]) on 08/13/2017 1:23:06 PM
[2017-08-11] MEDS ORDERED: HEPARIN 25,000 UNITS/D5W 25,000 UNIT/250 ML IV.SOLN IV SCH ×2 (14:30→21:45)
--- NOTE | 2017-08-11 14:43 | CONSULTATION ---
DATE OF CONSULTATION: 08/11/2017 INDICATION: History of aortic valve replacement with mechanical aortic valve. HISTORY OF PRESENT ILLNESS: This 56-year-old white male with a history of recent bout of pancreatitis taken care of [place], he had some sort of abdominal operation taken care of at [facility] in [place]. Subsequently he was at home yesterday. He apparently had a fall, hit his head and obtained some sort of laceration on the forehead that had some bleeding associated with that. He was able to get back home. His home health nurse later on evaluated him and noted some drainage from the wound and secondary to the increasing abdominal pain, mild drainage and fever she told him to go to the ER. In the ER he was evaluated. He had a temperature 101 degrees. He has reported just mild abdominal soreness somewhat diffusely. Otherwise no complaints of nausea, vomiting, or chest pain. PAST MEDICAL HISTORY: 1. Hypertension. 2. Hyperlipidemia. 3. Sleep apnea. 4. Reflux disease. 5. Recent bout of pancreatitis. 6. History of aortic valve replacement. SOCIAL HISTORY: Remote tobacco abuse. No current alcohol. He apparently quit after the recent bout of pancreatitis. FAMILY HISTORY: Significant for hypertension. REVIEW OF SYSTEMS: A 10 system review of systems is negative except for those mentioned in HPI. PHYSICAL EXAMINATION: Vital signs: During this hospitalization patient's fever has been as high as the low 100s. His most recent heart rate is 122 with a blood pressure 125/79. General: He is in no acute distress. HEENT: Oropharynx is moist. He has poor dentition. His eye examination shows pink conjunctivae. White sclerae. Neck: Examination shows no obvious thyromegaly or thyroid tenderness. Cardiovascular: He is in a mildly tachycardic but regular rhythm. He has mechanical S2. No lower extremity edema. Chest: Exam is clear bilaterally. He has no increased work of breathing. Abdomen: Soft. Minimal diffuse tenderness. No rebound. No guarding. No obvious masses. Bowel sounds were heard. Skin Exam: Warm and dry throughout without any rashes. Neurological: Moving all extremities well. Cranial nerves 2 through 12 are intact without any sensation deficits. Psychiatric: He is alert, oriented, pleasant. Normal mood and affect. PERTINENT DATA: CT the abdomen, pelvis was reviewed. Inflammatory changes were noted around the pancreas with a complex loculated fluid collection concerning for possible abscess, trace left pleural effusion. He had an echocardiogram last hospitalization in early April showing a mean gradient across the aortic valve of 13 with a normal ejection fraction. He had a CT of the head without contrast here showing no evidence of acute findings, acute intracranial findings. His chest x-ray shows no evidence of acute chest pathology. His EKG here shows sinus tachycardia. ASSESSMENT: 1. Patient with a history of recent bout of pancreatitis status post some sort of intraabdominal surgery at [facility] now presenting with what appears to be a pancreatic abscess. 2. History of aortic valve replacement with a mechanical valve. PLAN: His INR is subtherapeutic at 1.3. I will initiate heparin drip as if the patient needs surgery, this can be quickly titrated off and on. He is currently on warfarin. I will defer management of the warfarin to the hospitalist service. In addition, I would recommend discontinuation of the heparin when the INR gets 2.5. I have no further recommendations on this patient. I would not recommend a echocardiogram at this time. cc: Yeyo Szymanski MD
--- NOTE | 2017-08-11 19:30 | CONSULTATION ---
DATE OF CONSULTATION: 08/11/2017 HISTORY OF PRESENT ILLNESS: Mr. Pritesh Reddy is a 56-year-old white male who was admitted overnight with fever and an elevated white blood cell count. He has a significant past medical history of acute necrotizing pancreatitis that became infected. He was transferred to [place] and underwent surgical debridement of his pancreas. He has a history of alcohol abuse and in the beginning of April he was initially admitted at [facility] then transferred to [facility] with severe acute pancreatitis that was necrotizing. He was septic and had acute renal failure, and then a decision was made to transfer him to [place] for surgical treatment. He stayed at [place] for proximally 6 weeks after surgery to debride his pancreas. He was discharged to [facility] in [place] around July 06 and got home from rehabilitation on July 20. He still walks with a walker outside and he fell yesterday and then presented to the emergency department because of this fall. It was noted that he had a fever and a CT scan of his abdomen and pelvis was performed which showed some fluid around his pancreas and some ongoing inflammation, and he was admitted to the hospitalist for further treatment, and we were asked to consult. He still has home health seeing him at home. His primary care physician is Dr. Renee Alexandre. PAST MEDICAL HISTORY: He had an aortic heart valve placed when he was 26 years of age in 1989 at [facility] for a defect. He has been on chronic Coumadin since. He has diffuse arthritis. He had appendicitis at 10 years of age and his appendix has been removed. He had surgery on both his great toes. He has a history of significant alcohol abuse. He used to drink vodka daily. MEDICATIONS: Percocet 7.5, pantoprazole 40 mg daily, iron tablet, antidepressant escitalopram, magnesium oxide, Coumadin 5 mg at bedtime, metoprolol 25 mg p.o. q.8 hours, vitamin D3, and Creon or pancreatic enzymes. ALLERGIES: No known drug allergies. SOCIAL HISTORY: He stopped drinking. He does not smoke. 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 He is not working now. His was at the bedside as was his mother. He is going to apply for disability. REVIEW OF SYSTEMS: He lost about 60 pounds during this illness, he has been able to eat since his surgery and he has no abdominal pain. FAMILY HISTORY: Noncontributory. PHYSICAL EXAMINATION: General: Mr. Reddy is an overweight, middle-aged, white male, in no acute distress. He appears to be weak. He is awake, cooperative. He does not appear to have any pain. HEENT Examination: No jaundice. No oral lesions. No cervical or supraclavicular lymphadenopathy. Heart: Regular rate. He does have a prosthetic heart valve. Lungs: Clear. Abdomen: Soft. He had a midline incision which seems to be well-healed. There is no evidence of infection. There is no significant tenderness of his abdomen. There is no palpable mass. No costovertebral tenderness. Rectal Examination: Not performed. He does have palpable peripheral pulses. No peripheral edema. Neurological: He is alert and oriented x3 without focal deficit. DIAGNOSTIC DATA: I reviewed his CT scan with our radiologist, Dr. Mendoza. He does have some small fluid collections in the pancreatic bed, even some air in the pancreatic bed. There is also some inflammation to the left side of the abdomen. He has a small left pleural effusion. He had his gallbladder removed. He has a fatty infiltrated, slightly enlarged liver. His white blood cell count is 13. IMPRESSION: Status post long hospitalization for acute necrotizing pancreatitis which became infected. He was transferred to [place] for debridement of his pancreas. He was discharged home approximately a month ago to [facility] and now he is home. He had a fall. It was noted that he had a temperature and he was sent to the emergency department where it was noted that he had a white blood cell count of 13. A CT scan of his abdomen and pelvis has been performed with the findings above. PLAN: IV antibiotics. We will allow him to eat. I think as his fever and white blood cell count resolve he can be sent home. He does have a followup in [place] for his surgery on the 04 of September. cc: Ewa Dutta MD
[2017-08-11] MEDS ORDERED: COUMADIN PO SCH (21:00)
[2017-08-11 21:34] VITALS: BP 105/69
[2017-08-11] MEDS ORDERED: HEPARIN IV ONE (21:43)
--- NOTE | 2017-08-12 06:57 | CONSULTATION ---
DATE OF CONSULTATION: 08/11/2017 CONCLUSION: The patient is admitted the hospital with pancreatitis and a probable pancreatic abscess. RECOMMENDATIONS: I agree with the decision to place the patient on Zosyn. Dr. Dutta has seen the patient to see if surgery is indicated. DISCUSSION: The patient, earlier this year, had severe pancreatitis. He eventually was sent to another hospital and he was operated on. The patient had done well, until approximately 1 to 2 days ago. He fell and hit his head, and he developed a high fever, up to 101.5. He also had abdominal pain. His lab studies, thus far, show a CBC with a white count of 13,410, hemoglobin 9.8, platelet count 318,000. Creatinine 0.8. GFR is greater than 60. Liver function studies are normal. Lipase is 69. Urinalysis shows 1+ bacteria. A CT of the head showed no acute disease. CT scan of the abdomen and pelvis showed evidence of pancreatitis and possible pancreatic abscess. PAST MEDICAL HISTORY/REVIEW OF SYSTEMS: Eyes and ears: He denies having any difficulty seeing or hearing. Neck: No stiffness. Respiratory: No cough or shortness of breath. Cardiac: No chest pain or palpitations. Gastrointestinal: No nausea or vomiting. The patient does have some abdominal pain and fever. No diarrhea or constipation. Genitourinary: No dysuria or flank pain. Bones, joints, muscles: No swollen joints or muscle aches. Endocrine: No diabetes or thyroid disease. neurologic: No seizures or motor sensory loss. PREVIOUS HOSPITALIZATIONS AND OPERATIONS: He was in [facility] for pancreatitis and sent to another hospital, where surgery was performed. The patient at that surgery also had a cholecystectomy. Prior to that, he had an appendectomy and an aortic valve replacement. He once was hospitalized with dehydration. MEDICAL DISEASES: Positive for pancreatitis, hypertension, and an aortic valve disease requiring surgery. INFECTIOUS DISEASE HISTORY: Negative for pneumonia and UTI. FAMILY HISTORY: Positive for hypertension, myocardial infarction and cancer. SOCIAL HISTORY: [place] He stopped smoking cigarettes and drinking alcoholic beverages in April of this year. He is . He has a dog as a pet. He is a peacock. PHYSICAL EXAMINATION: Vital signs: Temperature maximum was 100.2 degrees, it is 98.9 degrees now, pulse 119, respirations 16, blood pressure 122/74. General: This is a somewhat ill- appearing, middle-aged male who is in no acute distress at this time. Neck: No meningismus. Lungs: Clear to auscultation. Cardiovascular: Regular heart rate. Abdomen: Soft and not tender. The patient's incision was thoroughly healed. Neurologic: The patient is alert. He can move his extremities. There is no tremor. His sensation was intact to touch. Integument: No rash noted. Thank you for the consult. cc: Héctor Art MD
--- NOTE | 2017-08-12 07:05 | PROGRESS NOTE ---
DATE: 08/11/2017 SUBJECTIVE: The patient is resting comfortably in bed with his family present at the bedside. The patient reports that last night he tripped and fell, and hit his abdomen. He also reports that for the last 24-48 hours, he has been having a fever. He was discharged from [facility] on 07/07/2017 after undergoing 4 abdominal surgeries related to hemorrhagic and necrotizing pancreatitis as well as abdominal compartment syndrome. The patient was discharged from [facility] 3 weeks ago and he has been at home ever since. OBJECTIVE: Vital Signs: Temperature 100 degrees, blood pressure 125/79, heart rate 122, respirations 22, O2 saturations 96% on room air. General: This is a morbidly obese male, lying in bed, in no acute distress. Heart: S1 and S2 are normal. Tachycardic. Lungs: Equal air entry bilaterally. No crackles. No rales. Abdomen: Positive bowel sounds. Positive for diffuse tenderness. There is a healing midline scar from the patient's recent abdominal surgeries. No rebound tenderness. Extremities: No edema. No cyanosis. No calf tenderness. Neurologic: The patient is alert and oriented x4. No focal neurologic deficits noted. Laboratory Data: CRP 52, lipase 69. Sedimentation rate 45. White count 13.4, hemoglobin 9.8, hematocrit 31, platelet count 318,000. BUN 9, creatinine 0.8. ASSESSMENT AND PLAN: 1. Loculated pancreatic abscess. General surgery and infectious disease have been consulted. I have also placed a call to [facility] to discuss the case with the surgeon. In the meantime, we will continue on intravenous antibiotic therapy and we will monitor the lipase closely. 2. Mechanical aortic valve replacement. The patient has been started on a heparin drip by the child and family therapist. We will monitor the PTT and INR closely. 3. Bilateral lower extremity deep venous thromboses. The patient is on a heparin drip and Coumadin. 4. Leukocytosis. This is likely secondary to the pancreatic abscess. Continue with antibiotic therapy. 5. History of hemorrhagic and necrotizing pancreatitis. We will monitor the patient closely. We will monitor his hemoglobin and hematocrit closely as well. 6. History of abdominal compartment syndrome requiring decompressive laparotomy. Aware. 7. Anemia. We will continue to monitor the hemoglobin and hematocrit closely. 8. The plan of care was discussed with the patient and his family at the bedside. cc: Shira Angela MD
--- NOTE | 2017-08-13 04:14 | DISCHARGE SUMMARY ---
ADMISSION DATE: 08/10/2017 DISCHARGE DATE: 08/11/2017 FINAL DISCHARGE DIAGNOSES: 1. Pancreatic abscess. 2. Acute pancreatitis. 3. Subtherapeutic INR. 4. Mechanical aortic valve replacement on coumadin 5. Fever. 6. Anemia. 7. Bilateral lower extremity deep venous thromboses. 8. History of alcohol abuse. 9. Recent history of hemorrhagic and necrotizing pancreatitis. 10. Status post abdominal compartment syndrome with decompressive laparotomy. 11. Abdominal washout x3. 12. Morbid obesity. CONSULTATIONS REQUESTED DURING THIS HOSPITAL STAY: 1. Cardiology consultation with Dr. Szymanski. 2. ID consultation with Dr. Art. 3. General surgery consultation with Dr. Dutta. IMAGING PERFORMED DURING THIS HOSPITAL STAY: 1. Portable chest x-ray performed on 08/10/2017 that revealed no acute pathology. 2. CT of the abdomen and pelvis that revealed a complex loculated fluid collection at the left side of the abdomen that appears to emanate from the pancreas and extends along the paracolic gutter. This measures 4.6 x 4.4 cm axially. 3. Head CT: No acute pathology. HOSPITAL COURSE: Mr. Reddy is a 56-year-old male who has a history of hemorrhagic and necrotizing pancreatitis, as well as a history of abdominal compartment syndrome requiring a decompressive laparotomy as well as 3 abdominal washouts at [facility], who presented to the ER with a chief complaint of fever. The patient reports that he fell down and hit his abdomen prior to admission. He also reported that he had been having fever for the last 24-48 hours. Upon arrival to [place], a CT of the abdomen and pelvis was done, as well as a head CT. The abdominal CT revealed a 4.6 x 4.4 cm peripancreatic abscess. In light of this finding, the patient was transferred to [facility] for a surgical and ID consultation. The patient was also seen by the die welder due to the fact that he has a mechanical aortic valve and requires chronic anticoagulation. The patient was noted to be febrile with a temperature of 100 degrees. He has a leukocytosis of 13,000. His INR is subtherapeutic at 1.32. The case was discussed with the on-call hospitalist at [facility] and he has agreed to accept the patient in transfer for further treatment and evaluation. DISCHARGE MEDICATIONS: 1. Zosyn 3.375 g IV every 6 hours. 2. Lopressor 25 mg p.o. 3 times a day. 3. Heparin drip. 4. Lexapro 10 mg p.o. daily. 5. Coumadin 7.5 mg p.o. at bedtime. 6. Prilosec 40 mg p.o. daily. 7. Trazodone 100 mg p.o. at bedtime p.r.n. DISCHARGE PLAN: The patient will be transferred to [facility] in [place], [place] today. cc: Shira Angela MD [facility]
== END 2017-08-11 23:55 | disposition short-term general hospital (02) ==
LOC: P.ED 17:15 → 4N 17:16 → SUATTDRO 17:16 → 4N 08-11 00:09
PROVIDERS: ATTEND Internal Medicine

== ENCOUNTER 2019-02-18 09:47 | Inpatient (IN) ==
[2019-02-18] MEDS ORDERED: DILAUDID IV ONE ×2 (10:06→13:24)
[2019-02-18] MEDS ORDERED: ZOFRAN IV ONE (10:06)
[2019-02-18] MEDS ORDERED: NS 1,000 ML IV ONE ×4 (10:06→15:21)
--- NOTE | 2019-02-18 10:18 | EKG Report ---
Test Performed on : 02/18/2019 10:14:33 AM Test Reason : epigastric pain Blood Pressure : / mmHG Vent. Rate : 050 BPM Atrial Rate : 050 BPM P-R Int : 146 ms QRS Dur : 110 ms QT Int : 498 ms P-R-T Axes : 017 -02 021 degrees QTc Int : 454 ms Sinus bradycardia. Septal infarct (cited on or before 19-MAY-2017) Abnormal ECG When compared with ECG of 11-AUG-2017 11:31, premature supraventricular complexes. are no longer present Vent. rate has decreased BY 65 BPM Questionable change in initial forces of Septal leads ST now depressed in Inferior leads Nonspecific T wave abnormality now evident in Inferior leads Nonspecific T wave abnormality no longer evident in Lateral leads Unconfirmed Result
[2019-02-18 10:29] LABS: BASO# 0.05 X1000 (0.0-0.2); BASO% 0.4 % (0.0-0.8); EOS# 0.27 X1000 (0.0-0.7); EOS% 2.3 % (0.0-10.0); HEMATOCRIT 45.8 % (42.0-52.0); HEMOGLOBIN 14.7 g/dL (14.0-18.0); LYMPH# 2.41 X1000 (1.2-3.4); LYMPH% 20.3 % (20.5-51.1); MCH 31.5 PG (27-31); MCHC 32.1 g/dL (33-37); MCV 98.1 FL (81-99); MONO# 1.13 X1000 (0.11-0.59); MONO% 9.5 % (1.7-9.3); MPV 10.3 FL (7.4-10.4); NEUT# 8.03 X1000 (1.4-6.5); NEUT% 67.5 % (42.2-75.2); PLT 239 X1000 (130-400); RBC 4.67 XMIL (4.7-6.1); RDW 13.5 % (11.5-14.5); WBC 11.89 X1000 (4.8-10.8)
[2019-02-18 11:02] LABS: AGAP 11; ALB/GLOB RATIO 1.4; ALBUMIN 4.6 g/dL (3.5-5.0); ALKALINE PHOSPHATASE 76 U/L (32-122); AMYLASE 1962 U/L (20-200); BUN 15 mg/dL (8-22); CALCIUM 10.1 mg/dL (8.8-10.2); CHLORIDE 98 mmol/L (98-107); COSMO 281; CREATININE 0.9 mg/dL (0.7-1.2); ESTIMATED GFR > 60; GLUCOSE 184 mg/dL (70-104); GOT 22 U/L (10-34); GPT 30 U/L (10-44); LIPASE 2116 U/L (13-60); POTASSIUM 4.5 mmol/L (3.5-5.1); SODIUM 138 mmol/L (136-145); TCO2 29 mmol/L (25-35); TOTAL BILIRUBIN 0.43 mg/dL (0.20-1.00); TOTAL PROTEIN 7.8 g/dL (6.3-8.3)
[2019-02-18 11:45] LABS: URINE SOURCE CLEAN CATCH
[2019-02-18 12:01] LABS: BILIRUBIN URINE NEGATIVE (NEGATIVE); BLOOD URINE NEGATIVE (NEGATIVE); COLOR YELLOW; GLUCOSE URINE NEGATIVE (NEGATIVE); KETONE URINE NEGATIVE (NEGATIVE); LEUKOCYTES URINE NEGATIVE (NEGATIVE); NITRITE URINE NEGATIVE (NEGATIVE); PH URINE 5.5; PROTEIN URINE 30 mg/dL (NEGATIVE); SP GRAVITY URINE 1.023; TURBIDITY URINE CLEAR (CLEAR); UROBILINOGEN URINE NORMAL (NORMAL)
[2019-02-18 12:03] LABS: UR EPITHELIAL CELLS <10 /HPF (<10); URINE BACTERIA NEGATIVE /HPF; URINE RBC <10 /HPF (<10); URINE WBC <10 /HPF (<10)
[2019-02-18] MEDS ORDERED: ZOSYN 3.375 GM in NS 50 ML IV ONE (12:08)
--- NOTE | 2019-02-18 13:09 | Diag Imaging Result Doc PS360 ---
EXAM: CT ABD/PELVIS W/IV CONT ONLY INDICATION: epigastric pain, elevated lactate TECHNIQUE: This exam was performed using automated exposure control, adjustment of mA or kV according to patient size, and/or use of iterative reconstruction technique. COMPARISON: 04/22/2018 FINDINGS: There is subsegmental atelectasis at the lung bases. There has been a prior cholecystectomy. There is no evidence of significant biliary dilatation. There are several scattered low dense foci within the liver parenchyma that are stable and probably represent small cysts. There is suggestion of mild hepatic steatosis. The spleen is unremarkable. There is extensive inflammatory stranding and nonloculated free fluid involving the mesentery. It probably emanates from the neck/proximal tail of the pancreas indicating acute pancreatitis. But fluid extends from the region of the pancreas is around the antrum of the stomach as well as between loops of small bowel superiorly. Note that the pattern of inflammation is very similar to the previous study. The adrenal glands are unremarkable. There are several renal cysts that are stable. The urinary bladder is unremarkable. There are several mildly distended loops of small bowel that are similar to the previous study and are probably due to ileus. The GI tract is essentially unremarkable, otherwise. IMPRESSION: 1.Extensive inflammatory stranding and nonloculated fluid that appears to emanate from the pancreas suggesting acute pancreatitis. Please see above discussion. 2.Several moderately distended loops of small bowel that probably represents ileus. Electronically signed by Femi Vinson 02/18/2019 1:07 PM
--- NOTE | 2019-02-18 13:30 | PROVIDER DOCUMENTATION ---
This chart was entered by Libia Johnson Scribe, acting as scribe for Pablo Polo CRNP. HPI-Abdominal Pain/GI Problem - General Chief Complaint: Abdominal Pain Stated Complaint: STOMACH PAIN/VOMITING Time Seen by Provider: 02/18/19 09:54 Source: patient, family (spouse) Allergies/Adverse Reactions: Patient Allergies Allergy/AdvReac Type Severity Reaction Status Date / Time No Known Allergies Allergy Verified 04/22/18 08:20 Home Medications: Home Medication List Medication Instructions Recorded Confirmed Last Taken Type Warfarin Sodium [Coumadin] 7.5 mg PO QHS 08/22/15 04/22/18 08/09/17 History Escitalopram Oxalate [Lexapro] 10 mg PO DAILY 08/10/17 04/22/18 Unknown History Lipase/Protease/Amylase [Creon] 24,000 units PO TID 08/10/17 04/22/18 08/10/17 History Metoprolol [Lopressor] 25 mg PO TID 08/10/17 04/22/18 Unknown History Allopurinol 100 mg PO DAILY 04/22/18 04/22/18 Unknown History Pantoprazole [Protonix] 40 mg PO DAILY@0700 04/22/18 04/22/18 Unknown History Pramipexole [Mirapex] 1 tab PO DAILY 04/22/18 04/22/18 Unknown History Simvastatin 2 mg PO QHS 04/22/18 04/22/18 Unknown History Hydrocodone/APAP 10 mg/325 mg 1 each PO Q6H PRN PRN #30 tablet 04/26/18 Unknown Rx [Decorah-10] Ondansetron HCl [Zofran] 4 mg PO Q8H PRN PRN #30 tablet 04/26/18 Unknown Rx - History of Present Illness-ABD Nature of Presenting Problems: 58 yo M presents to ED with epigastric abdominal pain since yesterday with vomiting that started this morning. Pt has hx of pancreatitis, previously had aortic heart valve replacement, an hx of Hypertension. He denies any other symptoms. Hx of alcoholism but does not drink anymore. Abdominal Pain Onset Location: reports: epigastric Pain Radiation: reports: no radiation Quality of Pain: reports: aching Severity in ED: reports: moderate Onset/Duration: reports: 24 hours ago Timing: reports: still present Activities at Onset: reports: none Exposure to sick contacts?: No Modifying Factors: improves with: nothing Associated Symptoms: reports: vomiting (today) Last BM: unsure Dark Stools Present?: reports: none noticed Rectal Bleeding: reports: none # of Diarrhea Episodes: 0 Rectal Pain: reports: none Bruising or Bleeding Gums?: No Similar Symptoms Previously?: Yes (previous pancreatitis ) Recently seen or treated by another doctor?: No Review of Systems - Adult - REVIEW OF SYSTEMS - ADULT Constitutional: denies: chills, fever, fatique Eyes: reports: no symptoms reported Ears, Nose, Mouth & Throat: reports: no symptoms reported Cardiovascular: denies: chest pain, irregular heart rate, orthopnea, palpitations Respiratory: denies: pleurisy, shortness of breath Gastrointestinal: reports: abdominal pain, nausea, vomiting. denies: hematemesis, constipation, diarrhea, difficulty swallowing, frequent heartburn, poor appetite, rectal bleeding Genitourinary: reports: no symptoms reported Musculoskeletal: reports: no symptoms reported Integumentary: reports: no symptoms reported Neurological: reports: no symptoms reported Psychiatric: reports: no symptoms reported Endocrine: reports: no symptoms reported Hematologic/Lymphatic: reports: no symptoms reported Allergic/Immunologic: reports: no symptoms reported All Other Systems: Reviewed and Negative Past History - Adult - PAST MEDICAL HISTORY-ADULT Review of Records: reports: Nursing Assessment Review, Medications Reviewed Major Childhood Illnesses: reports: denies history Cardiovascular: reports: HTN, heart valve problem (mechanical valve), hyperlipidemia Respiratory: reports: sleep apnea Gastrointestinal: reports: GERD, pancreatitis Obstetrical/Gynecological: reports: denies history Genitourinary: reports: denies history Musculoskeletal: reports: denies history Neurological: reports: denies history Endocrine/Immune: reports: denies history Other Conditions: reports: denies history - PRIOR SURGERIES/PROCEDURES Surgical/Procedure History: reports: recent surgery (laproscopic), appendectomy, CABG, cholecystectomy, hernia repair, orthopedic (extremity) (carpal tunnel; foot), other (valve replacement) - IMMUNIZATION STATUS Childhood Immunizations: See Nurse Assessment Flu Vaccine: See Nurse Assessment - FAMILY HISTORY Family History: reviewed, not pertinent - SOCIAL HISTORY Smoking: other (former) Substance Use: other (former alcohol) Physical Exam-General - PHYSICAL EXAM-ADULT Initial Vital Signs Reviewed: Yes - CONSTITUTIONAL General Appearance: alert, moderate distress. negative: lethargic, slow to respond - EYES Eyes: PERRL/EOMI, pink conjunctivae - HEAD, EARS, NOSE, MOUTH & THROAT HENMT: normocephalic/atraumatic, moist mucous membranes, normal ENT inspection, pharynx normal - NECK Neck: non-tender, full range of motion, supple, normal inspection - RESPIRATORY Respiratory: chest non-tender, lungs clear, normal breath sounds, no pleuratic chest pain, no respiratory distress, no accessory muscle use - CARDIOVASCULAR Cardiovascular: normal peripheral pulses, regular rate, rhythm, no edema, no gallop, no JVD, no murmur, other (healed midline scar) - GASTROINTESTINAL (ABDOMEN) Abdominal Exam: normal bowel sounds, rigid, tenderness (mod epi), other (healed midline scar). negative: distended, guarding, hernia, mass - LYMPHATIC Lymphatic: no adenopathy - MUSCULOSKELETAL Back Exam: normal inspection, no CVA tenderness Extremity: normal range of motion, non-tender, normal gait, normal inspection - SKIN Integumentary: normal color, normal turgor, warm/dry. negative: cyanosis, diaphoresis, jaundice, mottled, pallor - NEUROLOGIC Neurologic: grossly normal, no motor/sensory deficits - PSYCHIATRIC Psych/Mental Status: normal mood/affect, normal thought content, normal thought process, oriented x 3 Progress - PLAN OF CARE/RESULTS Progress/Plan/Lab Results: Vital Signs - 8 hr 02/18/19 09:49 Temperature 97.0 F L Pulse Rate 57 L Respiratory Rate 20 Blood Pressure 136/86 O2 Sat by Pulse Oximetry 97 Orders Category Date Time Status AMYLASE [CHEM] Stat Lab 02/18/19 10:06 Uncollected CBC WITH DIFF [HEME] Stat Lab 02/18/19 10:06 Uncollected COMPREHENSIVE METABOLIC PANEL [CHEM] Stat Lab 02/18/19 10:06 Uncollected LACTATE, PLASMA [CHEM] Stat Lab 02/18/19 10:06 Uncollected LIPASE [CHEM] Stat Lab 02/18/19 10:06 Uncollected UA NIMS W/REFLEX CULT [URINALYSIS] Stat Lab 02/18/19 10:07 Uncollected Hydromorphone [Dilaudid] Med 02/18/19 10:06 Once 1 mg IV NOW ONE Ns 1000 ml IV Bolus X1 Med 02/18/19 10:06 Ordered 0.9% Sodium Chloride Inj [Ns] 1,000 ml IV 999 mls/hr Ondansetron [Zofran] Med 02/18/19 10:06 Once 4 mg IV NOW ONE 1325- Admitting HPS paged. Pt in agreement with admission plan and requests more pain medicine. Result Diagrams: 02/18/19 10:05 02/18/19 10:05 - EKG 1 Time of EKG reading by physician:: 10:14 EKG Read and Signed by:: Cas Esposito EKG Interpretation (*Must complete 3 of following elements*): Abnormal (septal infarct, age undetermined) Rate: 50 Rhythm: sinus michel [place]: normal QRS: normal ND Interval: normal - CT/MRI 1 CT Study: Abdomen, Pelvis (IMPRESSION: 1.Extensive inflammatory stranding and nonloculated fluid that appears to emanate from the pancreas suggesting acute pancreatitis. Please see above discussion. 2.Several moderately distended loops of small bowel that probably represents ileus. Electronically signed by Femi Vinson 02/18/2019 1:07 PM) - CONSULTS/PCP/HOSPITALIST Notification #1 *Consult/PCP/Hospitalist*: GILA Noel RETAIL BUSINESS MANAGER Consult Disposition: Will see in ED, Admit (States to hold NG tube since pt not actively vomiting.) Departure - Departure Date of Disposition Decision: 02/18/19 Time of Disposition Decision: 13:28 DIAGNOSIS: Ileus Acute pancreatitis Qualifiers: Pancreatitis type: other Acute pancreatitis complication: unspecified Qualified Code(s): K85.80 - Other acute pancreatitis without necrosis or infection Disposition: ADMITTED INPATIENT 09 Certified Medical Emergency: Emergent Condition: Stable Referrals and Follow-Ups: Renee Alexandre MD [Primary Care Provider] - - Critical Care Note This patient required my direct & personal management of CC.: No Attestation - Physician/ SHARI Attestation Patient care was provided by Advanced Practice Provider:: Yes Advanced Practice Provider:: Pablo Polo Advanced Practice Provider documentation review:: The Mid-level provider documentation, treatment plan and medical decision making was reviewed by the physician who agrees with all treatment and medical decision making by the MLP. The physician spent face to face time with patient:: No Advanced Practice Provider documentation review:: Supervising physician onsite and consulted in the evaluation and care of this patient. The physician did not have a face to face encounter with the patient. This chart was documented by the indicated scribe, (Libia Johnson Scribe) and accurately reflects the services I performed and decisions made by me, Pablo Polo CRNP, as attested by the provider's signature.
[2019-02-18 13:46] LABS: PROTIME 24.1 Seconds (11.0-16.0)
[2019-02-18 13:47] LABS: PTT 33.7 Seconds (22.3-41.8)
[2019-02-18] MEDS ORDERED: NS 1,000 ML IV SCH (14:28)
[2019-02-18] MEDS ORDERED: PROTONIX IV SCH (14:28)
[2019-02-18] MEDS ORDERED: SODIUM CHLORIDE 0.9% INJ SCH (14:45)
--- NOTE | 2019-02-18 15:57 | HISTORY AND PHYSICAL ---
PRIMARY CARE PROVIDER: Dr. Renee Alexandre. CHIEF COMPLAINT: Abdominal pain. HISTORY OF PRESENT ILLNESS: Mr. Reddy is a 58-year-old male who has a history of recurrent pancreatitis, pancreatic abscess status post debridement in [place], [place], aortic valve replacement with mechanical valve, on Coumadin therapy, who reported to the ED with abdominal pain, one episode of vomiting, more like dry heaves, positive nausea, periumbilical pain. He did have a BM yesterday that was soft and creamy. He reported last week he started having abdominal pain. He stopped eating and drinking for the day and it went away and yesterday his pain returned. He once again stopped eating and drinking. However, the pain continued to worsen. He came to the ER this morning after his episode of vomiting with dry heaves and continued abdominal pain. Given his history of abscess, I went ahead and did an abdomen and pelvis CT that showed extensive inflammatory stranding and non-loculated fluid that appears to emanate from the pancreas, suggesting acute pancreatitis. Severely moderately distended loops of small bowel that probably represent an ileus. Had a white count of 11, plasma lactate of 3.1, amylase of 1962 and a lipase of 2116. He was given 3 L boluses in the ED. We will continue with high rate IV fluids given his elevated white count and elevated lactate. He was also started on IV antibiotics. He denies any chest pain, fever or chills, palpitation, dizziness, shortness of breath. We will admit him for further evaluation and treatment. PAST MEDICAL HISTORY: 1. Recurrent pancreatitis with recent abscess with incision and drainage at [place], [place]. 2. History of acute renal failure requiring hemodialysis. 3. Aortic valve replacement with mechanical valve, on Coumadin. 4. GERD. PAST SURGICAL HISTORY: 1. Pancreatic cyst I D. 2. Multiple lines, both central and dialysis. 3. Appendectomy. 4. Carpal tunnel repair. 5. Cholecystectomy. 6. Mechanical valve replacement of aorta. SOCIAL HISTORY: The patient no longer uses alcohol. He quit in April 2017. He does not use any illicit drugs. He is . FAMILY HISTORY: Noncontributory. REVIEW OF SYSTEMS: A 14 point review of systems is completely negative except for those mentioned in HPI. ALLERGIES: No known drug allergies. HOME MEDICATIONS: Have not been reconciled. PHYSICAL EXAMINATION: VITAL SIGNS: Temperature 97, heart rate 51, respirations 14, blood pressure 149/86, O2 is 96% on room air. GENERAL: Mr. Reddy is a pleasant 58-year-old male who is sitting up in the stretcher, talking on a cell phone. HEENT: Atraumatic, normocephalic. PERRL. NECK: Supple. Trachea midline. CARDIOVASCULAR: S1, S2 appreciated. No rubs. Patient does have a mechanical valve. PULMONARY: Bilateral breath sounds clear diminished in bases. GASTROINTESTINAL: Slightly distended. Overall tender to palpation. Bowel sounds are present in all 4 quadrants. EXTREMITIES: Negative for edema, clubbing, cyanosis. NEUROLOGIC: No focal deficits noted. DIAGNOSTIC DATA: EKG sinus bradycardia at 50 beats per minute. Abdomen and pelvis CT. Extensive inflammatory stranding, non-loculated fluid that appears to emanate from the pancreas suggesting acute pancreatitis. Several moderately distended loops of bowel that probably represent ileus. LABORATORY DATA: White count 11, hemoglobin and hematocrit 14 and 45, platelet count 239,000. PTT 24.1, INR 2. Sodium 138, potassium 4.5, BUN 15, creatinine 0.9, blood glucose is 184. Amylase 1962, lipase 2116, plasma lactate 3.1. Urinalysis was negative. ASSESSMENT AND PLAN: 1. Acute pancreatitis. We will give one more liter fluid bolus and continue high rate IV fluids. Continue with pain medications and antiemetics. We will continue with n.p.o. status, as well as IV antibiotics given his elevated white count and elevated serum lactate. We will continue to trend his lactate. The patient is not hypotensive. He is not tachycardic. He is afebrile. No need for NGT at this point. Will await General Surgery's recommendations. 2. Questionable ileus is seen on CT. We will do followup KUB in the a.m. Continue n.p.o. status. Consult Gastroenterology. 3. History of acute renal failure requiring hemodialysis. The patient has not had to have dialysis since July 2017. 4. Aortic valve replacement with mechanical valve. We will continue with Coumadin when appropriate. Consider Lovenox if patient not able to take in PO tomorrow. Continue daily PT and INRs. 5. Gastroesophageal reflux disease. We will continue with IV PPI. 6. Further recommendations to follow physician evaluation, laboratory and diagnostic data. Dictated by BENNIE Dee for Ander Schmitt MD Addendum: Patient seen and examined by myself. Agree with BENNIE note. It reflects my assessment and plan. Patient is being admitted for acute pancreatitis. Will start aggressive fluid resuscitation and pain meds as well. Will consult GI and monitor this patient closely. cc: MD Elliott Calhoun MD Matthew L. Figh, MD Marlin D. Gill, MD MTDD
--- NOTE | 2019-02-18 17:18 | GENERAL SURGERY CONSULTATION ---
DATE: 02/18/2019 REQUESTING PHYSICIAN: Hospitalist service. REASON FOR CONSULTATION: Pancreatitis. HISTORY OF PRESENT ILLNESS: A 58-year-old gentleman with a significant past surgical history of pancreatitis and pancreatic drainage, which was done earlier in [place]. He apparently has had multiple episodes of recurrent pancreatitis. He is coming in now with abdominal pain. He apparently has tried to treat himself at home by being NPO and had some improvement, but this episode has given him more stress. He was admitted, had a CT scan that showed extensive inflammatory changes around his pancreas. He has been admitted for pain control. PAST MEDICAL HISTORY: 1. Recurrent pancreatitis. 2. History of acute renal failure. 3. Aortic valve replacement. 4. Gastroesophageal reflux disease. PAST SURGICAL HISTORY: 1. Pancreatic drainage. 2. Multiple central lines. 3. Appendectomy. 4. Carpal tunnel surgery. 5. Cholecystectomy. 6. Mechanical valve. SOCIAL HISTORY: Former alcohol. FAMILY HISTORY: Reviewed with the patient and noncontributory. HOME MEDICATIONS: Reviewed. ALLERGIES: None. REVIEW OF SYSTEMS: A full 10-point review of systems obtained. Negative except as specified in HPI. PHYSICAL EXAMINATION: Vital Signs: The patient is currently afebrile. His vital signs are stable. General: No acute distress, 58-year-old, but appears uncomfortable. HEENT: Normocephalic, atraumatic. Pupils equal, round, reactive to light. Mucous membranes moist. Oropharynx benign. Neck: Supple. Trachea midline. Cardiovascular: Regular rate and rhythm. Lungs: Grossly clear. Abdomen: Distended. Previous midline incision is well healed. He has some tenderness to palpation diffusely but no peritoneal signs. Extremities: Moves all extremities. Neurologic: Grossly intact. Skin: No signs of jaundice. Vascular: All extremities perfused. LABORATORY DATA: Reviewed. White blood cell count is 11.8, hematocrit 45. Lipase is over 2000. Amylase is almost 2000. CT scan independently reviewed and radiology report reviewed. ASSESSMENT AND PLAN: A 58-year-old with current pancreatitis. Recurrent pancreatitis. At this time, agree with NPO resuscitation and IV fluids. He does have a significant surgical history for his abdomen so would like to try to avoid any kind of surgical intervention. We will monitor him closely. I appreciate the consult. cc: Tutu Machado MD
[2019-02-18] MEDS: DILAUDID IV PRN ×2 (17:43→21:46)
[2019-02-18] MEDS: ZOFRAN IV PRN ×2 (17:43→21:47)
[2019-02-18] MEDS ORDERED: ZOSYN 3.375 GM in NS 50 ML IV SCH (18:00)
[2019-02-18] MEDS: PROTONIX IV SCH (20:31)
[2019-02-18] MEDS: SODIUM CHLORIDE 0.9% INJ SCH (20:31)
[2019-02-18] MEDS: NS 1,000 ML IV SCH (23:50)
[2019-02-19] MEDS: ZOFRAN IV PRN ×6 (01:56→22:32)
[2019-02-19] MEDS: DILAUDID IV PRN ×6 (01:56→22:32)
[2019-02-19] MEDS: NS 1,000 ML IV SCH ×3 (04:52→16:52)
[2019-02-19 06:11] LABS: BASO# 0.02 X1000 (0.0-0.2); BASO% 0.2 % (0.0-0.8); EOS% 1.2 % (0.0-10.0); HEMOGLOBIN 13.3 g/dL (14.0-18.0); IMM GRAN# 0.04 X1000 (0.0-0.04); IMM GRAN% 0.5 % (0.0-0.5); LYMPH# 1.09 X1000 (1.2-3.4); LYMPH% 13.4 % (20.5-51.1); MCH 31.2 PG (27-31); MCHC 31.7 g/dL (33-37); MCV 98.6 FL (81-99); MONO# 0.76 X1000 (0.11-0.59); MONO% 9.3 % (1.7-9.3); MPV 10.3 FL (7.4-10.4); NEUT# 6.15 X1000 (1.4-6.5); NEUT% 75.4 % (42.2-75.2); PLT 193 X1000 (130-400); RBC 4.26 XMIL (4.7-6.1); RDW 13.8 % (11.5-14.5); WBC 8.16 X1000 (4.8-10.8)
[2019-02-19 06:39] LABS: INR 2.24; PROTIME 26.4 Seconds (11.0-16.0)
[2019-02-19 06:40] LABS: PTT 49.2 Seconds (22.3-41.8)
[2019-02-19 06:48] LABS: AGAP 9; ALB/GLOB RATIO 1.2; ALBUMIN 3.4 g/dL (3.5-5.0); ALKALINE PHOSPHATASE 90 U/L (32-122); AMYLASE 1300 U/L (20-200); BUN 10 mg/dL (8-22); CALCIUM 8.2 mg/dL (8.8-10.2); CHLORIDE 100 mmol/L (98-107); COSMO 276; CREATININE 0.8 mg/dL (0.7-1.2); ESTIMATED GFR > 60; GLUCOSE 156 mg/dL (70-104); GOT 259 U/L (10-34); GPT 122 U/L (10-44); LIPASE 1290 U/L (13-60); POTASSIUM 4.3 mmol/L (3.5-5.1); SODIUM 137 mmol/L (136-145); TCO2 28 mmol/L (25-35); TOTAL BILIRUBIN 1.06 mg/dL (0.20-1.00); TOTAL PROTEIN 6.2 g/dL (6.3-8.3)
--- NOTE | 2019-02-19 07:23 | EKG Report ---
Test Performed on : 02/19/2019 07:07:01 AM Test Reason : bradycardia Blood Pressure : / mmHG Vent. Rate : 077 BPM Atrial Rate : 077 BPM P-R Int : 160 ms QRS Dur : 100 ms QT Int : 404 ms P-R-T Axes : 037 001 057 degrees QTc Int : 457 ms Normal sinus rhythm. Septal infarct (cited on or before 19-MAY-2017) Abnormal ECG When compared with ECG of 18-FEB-2019 10:14, (Unconfirmed) Vent. rate has increased BY 27 BPM Nonspecific T wave abnormality no longer evident in Inferior leads Nonspecific T wave abnormality now evident in Lateral leads Unconfirmed Result
--- NOTE | 2019-02-19 07:44 | Diag Imaging Result Doc PS360 ---
EXAM: CHEST-PORTABLE INDICATION: follow up TECHNIQUE: One view COMPARISON: 04/22/2018 FINDINGS: There is mild linear scarring and/or atelectasis at the left lung base. It is similar to the previous study. The lungs are clear, otherwise. There is no discrete pleural fluid collection or pneumothorax. Sternotomy wires are noted. Cardiac silhouette and central vasculature are unremarkable for AP technique, otherwise. IMPRESSION: Stable mild linear scarring and/or atelectasis at the left lung base. No definite acute pathology, otherwise. Electronically signed by Femi Vinson 02/19/2019 7:42 AM
--- NOTE | 2019-02-19 07:47 | Diag Imaging Result Doc PS360 ---
EXAM: KUB ABDOMEN INDICATION: follow up ileus TECHNIQUE: 2 views COMPARISON: CT dated 02/18/2019 FINDINGS: There is still a small amount of gas in a loop of small bowel on the left with only minimal distention. This is most consistent with mild ileus and was seen on recent CT. There is also mild gaseous distention of the colon. No large volume free abdominal gas is identified given the limitations of a supine radiograph. IMPRESSION: Very minimal gaseous distention of a loop of small bowel on the left and mild gaseous distention of the colon suggesting mild ileus. Electronically signed by Femi Vinson 02/19/2019 7:45 AM
--- NOTE | 2019-02-19 08:41 | GENERAL SURGERY PROGRESS NOTE ---
DATE: 02/19/2019 SUBJECTIVE: Patient seems to be doing better. He is hurting less. OBJECTIVE: Vital Signs: Patient is currently afebrile. His vital signs are stable. General: No acute distress. HEENT: Normocephalic, atraumatic. Pupils equal, round, reactive to light. Mucous membranes moist. Oropharynx benign. Neck: Supple. Trachea midline. Cardiovascular: Regular rate and rhythm. Lungs: Grossly clear. Abdomen: Soft, slightly protuberant, less tender to palpation compared to previous examination. Extremities: Moves all extremities. Neurologic: Grossly intact. Skin: No signs of jaundice. Vascular: All extremities are perfused. LABORATORY DATA: None this morning as of yet. ASSESSMENT AND PLAN: A 58-year-old with recurrent pancreatitis. Recurrent pancreatitis. At this time, we will continue to monitor him. GI has been consulted and we will follow up with their recommendation. Patient may benefit from a pancreatic stent given the fact he has had multiple episodes of pancreatitis, but otherwise will continue supportive care. cc: Tutu Machado MD
--- NOTE | 2019-02-19 09:47 | Diag Imaging Result Doc PS360 ---
EXAM: US GB < RUQ (LIMITED) HISTORY: acute pancreatitis, r/o blockage TECHNIQUE: Right upper quadrant ultrasound COMPARISON: Recent CT FINDINGS: The pancreas and aorta are obscured. The inferior vena cava is obscured. Normal right kidney. No hydronephrosis. There is trace fluid about the liver. There are scattered small hepatic cysts and there is fatty infiltration of the liver. The common bile duct measures 5 mm. The gallbladder has been removed. IMPRESSION: 1.Cholecystectomy 2.Fatty infiltration of the liver with several tiny cysts Electronically signed by Chris Mendoza 02/19/2019 9:45 AM
[2019-02-19] MEDS: SODIUM CHLORIDE 0.9% INJ SCH ×2 (09:48→22:32)
[2019-02-19] MEDS: PROTONIX IV SCH ×2 (09:48→22:32)
[2019-02-19] MEDS ORDERED: MAGNESIUM SULFATE 2 GM/S.W.I. 2 GM/50 ML IVPB IV ONE (16:58)
--- NOTE | 2019-02-19 17:15 | PROGRESS NOTE ---
DATE: 02/19/2019 SUBJECTIVE: The patient is resting comfortably in bed. He states that he is still having abdominal pain, but he is able to tolerate a clear liquid diet and has had a bowel movement today. OBJECTIVE: Vital Signs: Temperature 99, blood pressure 124/87, heart rate 109, respirations 20. O2 sats 98% on room air. General: This is an elderly male lying in bed in no acute distress. Heart: S1, S2 normal. Regular rate and rhythm. Lungs: Clear to auscultation bilaterally. Abdomen: Positive bowel sounds. Soft. Positive for epigastric tenderness. Extremities: No edema, no cyanosis. Neurologic: The patient is alert and oriented x 3. LABS: White blood cell count 8.1, hemoglobin 13, hematocrit 42, platelets 193,000. INR 2.2. Sodium 137, potassium 4.3, amylase 1300, lipase 1290, magnesium 1.3, total bilirubin 1, AST 259, ALT 122, calcium 8.2. ASSESSMENT AND PLAN: 1. Recurrent acute pancreatitis. The patient's pancreatic enzymes are trending downward. Continue with the current management as directed by General Surgery. Continue with IV fluids. 2. Elevated liver function tests. The abdominal ultrasound showed fatty infiltration of the liver. Will await further recommendations from GI. 3. Mechanical aortic valve. The patient's INR is 2.2. Will restart the patient's Coumadin. 4. Hypomagnesemia. Will replace the patient's magnesium. cc: Shira Angela MD MTDD
[2019-02-19] MEDS: LR 1,000 ML IV SCH (22:31)
[2019-02-19] MEDS: COUMADIN PO SCH (22:32)
[2019-02-20] MEDS: ZOFRAN IV PRN ×2 (02:26→06:47)
[2019-02-20] MEDS: DILAUDID IV PRN ×5 (02:27→21:33)
[2019-02-20 05:44] LABS: BASO# 0.03 X1000 (0.0-0.2); BASO% 0.3 % (0.0-0.8); EOS# 0.17 X1000 (0.0-0.7); EOS% 1.8 % (0.0-10.0); HEMATOCRIT 38.1 % (42.0-52.0); HEMOGLOBIN 12.1 g/dL (14.0-18.0); IMM GRAN# 0.05 X1000 (0.0-0.04); IMM GRAN% 0.5 % (0.0-0.5); LYMPH# 1.46 X1000 (1.2-3.4); LYMPH% 15.3 % (20.5-51.1); MCH 31.3 PG (27-31); MCHC 31.8 g/dL (33-37); MCV 98.4 FL (81-99); MONO% 11.5 % (1.7-9.3); MPV 9.9 FL (7.4-10.4); NEUT# 6.74 X1000 (1.4-6.5); NEUT% 70.6 % (42.2-75.2); PLT 168 X1000 (130-400); RBC 3.87 XMIL (4.7-6.1); RDW 13.5 % (11.5-14.5); WBC 9.55 X1000 (4.8-10.8)
[2019-02-20 05:55] LABS: INR 1.74; PROTIME 21.7 Seconds (11.0-16.0)
[2019-02-20 05:56] LABS: PTT 46.6 Seconds (22.3-41.8)
--- NOTE | 2019-02-20 06:00 | GENERAL SURGERY PROGRESS NOTE ---
DATE: 02/20/2019 SUBJECTIVE: The patient seems to be doing okay. He is still having some epigastric pain, but I think it is better than admission. He seems to be tolerating his clear liquid diet. OBJECTIVE: Vital Signs: The patient is currently afebrile. His vital signs are stable. General: No acute distress. HEENT: Normocephalic and atraumatic. Pupils are equal, round and reactive to light. Mucous membranes moist. Oropharynx is benign. Neck: Supple. Trachea midline. Cardiovascular: Regular rate and rhythm. Lungs: Grossly clear. Abdomen: Soft, protuberant. Some tenderness to palpation epigastric. No peritoneal signs. Extremities: Moves all extremities. Neurologic: Grossly intact. Skin: No signs of jaundice. Vascular: All extremities perfused. LABORATORY DATA: Reviewed from yesterday. His amylase and lipase are slowly decreasing. He does have a slight elevation in his bilirubin and AST and ALT, but his alkaline phosphatase is normal. ASSESSMENT: The patient is a 58-year-old gentleman with recurrent pancreatitis. PLAN: Recurrent pancreatitis. At this time the patient seems to be doing well, but we want to try to just keep him on his clear liquids for right now and try not to advance him. Gastroenterology has been consulted and I await their opinion on potential for endoscopic retrograde cholangiopancreatography with pancreatic stent. Otherwise continue current treatment. cc: Tutu Machado MD
[2019-02-20 06:18] LABS: AGAP 8; ALB/GLOB RATIO 1.1; ALBUMIN 3.2 g/dL (3.5-5.0); ALKALINE PHOSPHATASE 80 U/L (32-122); BUN 6 mg/dL (8-22); CALCIUM 7.9 mg/dL (8.8-10.2); CHLORIDE 100 mmol/L (98-107); COSMO 272; CREATININE 0.9 mg/dL (0.7-1.2); ESTIMATED GFR > 60; GLUCOSE 144 mg/dL (70-104); GOT 48 U/L (10-34); GPT 72 U/L (10-44); LIPASE 241 U/L (13-60); POTASSIUM 3.8 mmol/L (3.5-5.1); SODIUM 136 mmol/L (136-145); TCO2 28 mmol/L (25-35); TOTAL BILIRUBIN 0.73 mg/dL (0.20-1.00)
[2019-02-20] MEDS: LR 1,000 ML IV SCH ×4 (06:47→19:59)
[2019-02-20] MEDS: SODIUM CHLORIDE 0.9% INJ SCH ×2 (07:51→20:00)
[2019-02-20] MEDS: PROTONIX IV SCH ×3 (07:51→20:00)
[2019-02-20] MEDS: CLARITIN PO SCH (09:39)
--- NOTE | 2019-02-20 10:41 | GASTROENTEROLOGY CONSULTATION ---
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 The patient reports developing severe, up to 10/10, non-radiating epigastric pain that started 4 days ago with associated NBNB dry heaving. He reports having similar episodes in the past that occur every couple of months that usually resolves after a couple of days of staying NPO. However, this episode did not respond with conservative treatment at home. He denies any fever, chills, sweats, CP, SOB, rectal bleeding, melena, weight loss, diarrhea, constipation. He takes Creon a couple times a day. His las alcoholic beverage was in April 2017. ROS: as per HPI, otherwise 12-point ROS negative PAST MEDICAL HISTORY: 1. Recurrent pancreatitis with recent abscess with incision and drainage at [place], [place]. 2. History of acute renal failure requiring hemodialysis. 3. Aortic valve replacement with mechanical valve, on Coumadin. 4. GERD. PAST SURGICAL HISTORY: 1. Pancreatic abscess vs cyst I&D. 2. Multiple lines, both central and dialysis. 3. Appendectomy. 4. Carpal tunnel repair. 5. Cholecystectomy. 6. Mechanical valve replacement of aorta. SOCIAL HISTORY: The patient no longer uses alcohol. He quit in April 2017. He does not use any illicit drugs. Nonsmoker He is . FAMILY HISTORY: No FHx of pancreatitis or GI malignancies ALLERGIES: No known drug allergies. allergic to pollen HOME MEDICATIONS: coumadin, creon; rest reconciled in chart PHYSICAL EXAMINATION: VITAL SIGNS: Temperature 97, heart rate 51, respirations 14, blood pressure 149/86, O2 is 96% on room air. GENERAL: Mr. Reddy is a pleasant 58-year-old male who is sitting up in the stretcher, talking on a cell phone. HEENT: Atraumatic, normocephalic. PERRL. NECK: Supple. Trachea midline. CARDIOVASCULAR: S1, S2 appreciated. No rubs. Patient does have a mechanical valve. PULMONARY: Bilateral breath sounds clear diminished in bases. GASTROINTESTINAL: Slightly distended. Overall tender to palpation. Bowel sounds are present in all 4 quadrants. EXTREMITIES: Negative for edema, clubbing, cyanosis. NEUROLOGIC: No focal deficits noted. LABS: White count 11, hemoglobin and hematocrit 14 and 45, platelet count 239,000. PTT 24.1, INR 2. Sodium 138, potassium 4.5, BUN 15, creatinine 0.9, blood glucose is 184. Amylase 1962, lipase 2116, plasma lactate 3.1. Albumin 3.4 AST 259 ALT 122 ALP 90. Urinalysis was negative. INR 2.24 No Utox of ethanol level CTAP with IV 02/18 IMPRESSION: 1.Extensive inflammatory stranding and nonloculated fluid that appears to emanate from the pancreas suggesting acute pancreatitis. Please see above discussion. 2.Several moderately distended loops of small bowel that probably represents ileus. US abdomen 02/19 EXAM: US GB < RUQ (LIMITED) HISTORY: acute pancreatitis, r/o blockage TECHNIQUE: Right upper quadrant ultrasound COMPARISON: Recent CT FINDINGS: The pancreas and aorta are obscured. The inferior vena cava is obscured. Normal right kidney. No hydronephrosis. There is trace fluid about the liver. There are scattered small hepatic cysts and there is fatty infiltration of the liver. The common bile duct measures 5 mm. The gallbladder has been removed. IMPRESSION: 1.Cholecystectomy 2.Fatty infiltration of the liver with several tiny cysts A/P: Mr. Pritesh Reddy is a 58 year old man with mechanical AVR and h/o alcoholic pancreatitis c/b abscess s/p surgical I&D (04/2017) who presents with recurrent pancreatitis. He had abnormal LFTs with AST:ALT 2:1 concerning for alcoholic liver disease. However, Utox or ethanol levels were not checked. The patient reports abstinence from alcohol since April. CTAP shows pancreatitis without significant drainable fluid collections and possible ileus. He reports some improvement in abdominal pain. #Acute pancreatitis: he may have component of chronic pancreatitis;however, no calcifications or changes seen on CT - symptoms improving - continue supportive care with IVFs, analgesics and antiemetics prn - he is tolerating clear liquid diet - he does not have any fluid collections in pancreatis, pancreatic duct obstruction, or disruption; therefore would hold off on stent placement - he may need CT pancreatic protocol or EUS to evaluate for chronic pancreatitis as outpatient when acute issues resolve #Abnormal LFTs: improving #Mechanical AVR: continue coumadin; goal INR; defer mgmt to primary Thank you for this consult. Will follow with you MERI
[2019-02-20] MEDS ORDERED: MAGNESIUM SULFATE 2 GM/S.W.I. 2 GM/50 ML IVPB IV ONE (11:30)
--- NOTE | 2019-02-20 11:34 | PROGRESS NOTE ---
DATE: 02/20/2019 SUBJECTIVE: The patient is feeling a lot better today. He is tolerating his clear liquid diet without any difficulty. He states that his abdominal pain has improved. OBJECTIVE: Vital Signs: Temperature 99 degrees, blood pressure 133/73, heart rate 80, respirations 20, and O2 saturation 95% on room air. General: This is an elderly male lying in bed in no acute distress. Heart: S1, S2 normal. Regular rate and rhythm. Lungs: Equal air entry bilaterally. No crackles. No rales. Abdomen: Positive bowel sounds. Soft. Mild epigastric tenderness. Extremities: No edema. No cyanosis. Neurologic: The patient is alert and oriented x3. LABORATORY: White blood cell count 9.5, hemoglobin 12, hematocrit 38, and platelets 168,000. INR 1.7. Sodium 136, magnesium 1.7, AST 48, ALT 72, alkaline phosphatase 80, and lipase 241. ASSESSMENT AND PLAN: 1. Acute pancreatitis. Improved. The patient's lipase is trending downward and his symptoms are improving. Continue with the current treatment regimen. Gastroenterology and General Surgery are following. 2. Mechanical aortic valve. Continue on Coumadin. 3. Elevated liver function tests. Improved. cc: Shira Angela MD MTDD
[2019-02-20] MEDS: COUMADIN PO SCH (20:00)
[2019-02-21] MEDS: DILAUDID IV PRN ×4 (02:38→21:34)
[2019-02-21] MEDS: LR 1,000 ML IV SCH ×2 (02:39→08:23)
--- NOTE | 2019-02-21 05:54 | GENERAL SURGERY PROGRESS NOTE ---
DATE: 02/21/2019 SUBJECTIVE: Patient seems to be doing well. Seems to be hurting less. Overall improving. OBJECTIVE: Vital Signs: Patient is currently afebrile. His vital signs stable. General: No acute distress. HEENT: Normocephalic, atraumatic. Pupils equal, round, reactive to light. Mucous membranes moist. Oropharynx benign. Neck: Supple. Trachea midline. Cardiovascular: Regular rate and rhythm. Lungs: Grossly clear. Abdomen: Soft, only minimal tenderness to palpation in the epigastric. No peritoneal signs. Extremities: Moves all extremities. Neurologic: Grossly intact. Skin: No signs of jaundice. Vascular: All extremities perfused. LABORATORY: Reviewed from yesterday. Amylase and lipase continued to trend down. ASSESSMENT AND PLAN: A 58-year-old with recurrent pancreatitis. Recurrent pancreatitis. At this time, patient seems to be clinically doing well. We will advance him to a regular diet and see how he does. I think he can be discharged here in the near future. cc: Tutu Machado MD
[2019-02-21 06:16] LABS: BASO# 0.02 X1000 (0.0-0.2); BASO% 0.3 % (0.0-0.8); EOS# 0.21 X1000 (0.0-0.7); EOS% 2.8 % (0.0-10.0); HEMATOCRIT 37.1 % (42.0-52.0); HEMOGLOBIN 11.6 g/dL (14.0-18.0); IMM GRAN# 0.03 X1000 (0.0-0.04); IMM GRAN% 0.4 % (0.0-0.5); LYMPH# 1.07 X1000 (1.2-3.4); LYMPH% 14.2 % (20.5-51.1); MCH 30.8 PG (27-31); MCHC 31.3 g/dL (33-37); MCV 98.4 FL (81-99); MONO# 0.83 X1000 (0.11-0.59); MONO% 11.1 % (1.7-9.3); NEUT# 5.35 X1000 (1.4-6.5); NEUT% 71.2 % (42.2-75.2); PLT 173 X1000 (130-400); RBC 3.77 XMIL (4.7-6.1); RDW 13.5 % (11.5-14.5); WBC 7.51 X1000 (4.8-10.8)
[2019-02-21 06:30] LABS: INR 1.9; PROTIME 23.2 Seconds (11.0-16.0)
[2019-02-21 06:31] LABS: PTT 54.3 Seconds (22.3-41.8)
[2019-02-21 06:39] LABS: AGAP 10; ALBUMIN 3.2 g/dL (3.5-5.0); ALKALINE PHOSPHATASE 81 U/L (32-122); BUN 5 mg/dL (8-22); CALCIUM 8.6 mg/dL (8.8-10.2); CHLORIDE 104 mmol/L (98-107); COSMO 282; CREATININE 0.8 mg/dL (0.7-1.2); ESTIMATED GFR > 60; GLUCOSE 134 mg/dL (70-104); GOT 55 U/L (10-34); GPT 58 U/L (10-44); LIPASE 69 U/L (13-60); POTASSIUM 4.4 mmol/L (3.5-5.1); SODIUM 142 mmol/L (136-145); TCO2 28 mmol/L (25-35); TOTAL BILIRUBIN 0.65 mg/dL (0.20-1.00); TOTAL PROTEIN 6.3 g/dL (6.3-8.3)
[2019-02-21] MEDS: PROTONIX IV SCH ×2 (08:04→21:34)
[2019-02-21] MEDS: MIRAPEX PO SCH (08:04)
[2019-02-21] MEDS: CREON PO SCH ×4 (08:04→17:04)
[2019-02-21] MEDS: SODIUM CHLORIDE 0.9% INJ SCH ×2 (08:04→21:34)
[2019-02-21] MEDS: CLARITIN PO SCH (08:04)
[2019-02-21] MEDS: LOPRESSOR PO SCH ×2 (08:04→21:34)
[2019-02-21] MEDS: ZYLOPRIM PO SCH (08:04)
[2019-02-21 08:49] LABS: CHOLESTEROL 98 mg/dL (0-200); HDL 20 mg/dL (35-55); LDL 54 mg/dL; TRIGLYCERIDES 120 mg/dL (39-160); VLDL 24 mg/dL
[2019-02-21] MEDS: COLACE PO SCH ×2 (11:37→21:34)
[2019-02-21] MEDS: MIRALAX PO SCH ×2 (11:37→21:34)
--- NOTE | 2019-02-21 12:10 | GASTROENTEROLOGY PROGRESS NOTE ---
DATE: 02/21/2019 SUBJECTIVE: He is resting in bed. He is feeling better. He denies any fevers, rigors, chills. Denies any nausea or vomiting. He is eating better. He moved his bowels yesterday. OBJECTIVE: Vital signs: Temperature 99.1 degrees, pulse of 76, respiratory 20, blood pressure 134/78, saturating 93% on room air. Body weight of 230 pounds, BMI of 34 kg/m2. General Appearance: Moderately-built, lying in bed, in no acute distress. HEENT: Mild pallor. No icterus. Neck: Supple. Abdomen: Distended. Discomfort in the periumbilical region. No rebound or guarding. Extremities: No cyanosis, clubbing. Neurologic: He is alert, awake, oriented x3. LABORATORY DATA: Hemoglobin and hematocrit 11.6 and 37, white count of 7.5, platelet count of 133,000. INR 1.9, PTT of 23.2. Sodium 142, potassium 4.4, chloride 104, bicarb 20, anion gap of 10, BUN of 5, creatinine 0.8, glucose of 134, calcium 8.6. Total bilirubin is 0.65, AST 55, ALT 58, alkaline phosphatase 81, total protein 6.3, albumin 3.2. HDL of 20. Amylase of 205, lipase of 69. Triglycerides of 98. Blood culture x2 negative at 48 hours. IMPRESSION AND PLAN: 1. Acute pancreatitis, unclear etiology. He had a prior history of alcoholism but he quit in 2017. He had history of abscess in the pancreas in 2017 and he was drained in [place]. He will need outpatient EUS. The patient wants to go back to [place] where he had pancreatic abscess drainage as an outpatient for follow up. Will continue supportive treatment for now. Continue IV fluids, IV analgesia, IV antiemetics. He will continue on liquid diet for now. 2. Elevated liver enzymes. Likely due to fatty liver. Continue to watch for now. 3. Mechanical aortic valve replacement. Continue Coumadin. 4. Gastrointestinal prophylaxis with Protonix. 5. Obesity. Patient counseled to lose weight. The patient will be on low-fat diet. 6. The above plans discussed with the patient and all questions answered. Please call us with any further questions. cc: MD Dr. Renee Kingston
[2019-02-21] MEDS ORDERED: OXY IR PO PRN (14:26)
--- NOTE | 2019-02-21 14:43 | PROGRESS NOTE ---
DATE: 02/21/2019 SUBJECTIVE: The patient is sitting up eating. He states that he is not having abdominal pain anymore. OBJECTIVE: Vital Signs: Temperature 98 degrees, blood pressure 126/82, heart rate 67, respirations 20, O2 saturation is 100% on room air. General: This is a morbidly obese male sitting up in bed, in no acute distress. Heart: S1, S2 normal. Regular rate and rhythm. Lungs: Clear to auscultation bilaterally. Abdomen: Positive bowel sounds. Soft, nontender, nondistended. Extremities: No edema. No cyanosis. Neurologic: The patient is alert and oriented x3. Labs: White blood cell count 7.5, hemoglobin 11, hematocrit 37, platelets 173,000. INR 1.9. Sodium 142, potassium 4.4, chloride 104, CO2 28, BUN 5, creatinine 0.8, glucose 134. AST 55, ALT 58, alkaline phosphatase 81, amylase 205, lipase 69. ASSESSMENT AND PLAN: 1. Recurrent acute pancreatitis. The patient is slowly improving. He is currently on a low fat diet and he is tolerating that without any difficulty. Further recommendations to follow from gastroenterology. 2. Mechanical aortic valve. Continue on Coumadin. 3. Transaminitis. Improved. 4. Constipation. We will start the patient on MiraLAX and Colace. 5. Hypertension. Continue on Lopressor. 6. History of gout. Continue on allopurinol. cc: Shira Angela MD MTDD
[2019-02-21] MEDS: COUMADIN PO SCH (21:34)
[2019-02-22 06:40] LABS: HEMOGLOBIN 11.7 g/dL (14.0-18.0); MCHC 31.6 g/dL (33-37); MCV 101.1 FL (81-99); MPV 10.4 FL (7.4-10.4); RBC 3.66 XMIL (4.7-6.1); RDW 13.5 % (11.5-14.5); WBC 6.89 X1000 (4.8-10.8)
[2019-02-22 06:49] LABS: INR 1.94; PROTIME 23.6 Seconds (11.0-16.0)
[2019-02-22 06:50] LABS: PTT 59.2 Seconds (22.3-41.8)
[2019-02-22 07:17] LABS: AGAP 7; ALBUMIN 3.2 g/dL (3.5-5.0); ALKALINE PHOSPHATASE 82 U/L (32-122); BUN 7 mg/dL (8-22); CALCIUM 8.5 mg/dL (8.8-10.2); CHLORIDE 101 mmol/L (98-107); COSMO 272; CREATININE 0.8 mg/dL (0.7-1.2); ESTIMATED GFR > 60; GLUCOSE 133 mg/dL (70-104); GOT 26 U/L (10-34); GPT 43 U/L (10-44); POTASSIUM 4.1 mmol/L (3.5-5.1); SODIUM 136 mmol/L (136-145); TCO2 28 mmol/L (25-35); TOTAL BILIRUBIN 0.41 mg/dL (0.20-1.00); TOTAL PROTEIN 6.5 g/dL (6.3-8.3)
[2019-02-22 07:28] VITALS: BP 130/78
[2019-02-22] MEDS: PROTONIX IV SCH (09:59)
[2019-02-22] MEDS: CREON PO SCH (09:59)
[2019-02-22] MEDS: MIRAPEX PO SCH (09:59)
[2019-02-22] MEDS: LOPRESSOR PO SCH (09:59)
[2019-02-22] MEDS: SODIUM CHLORIDE 0.9% INJ SCH (09:59)
[2019-02-22] MEDS: ZYLOPRIM PO SCH (10:00)
[2019-02-22] MEDS: COLACE PO SCH (10:00)
[2019-02-22] MEDS: MIRALAX PO SCH (10:00)
[2019-02-22] MEDS: CLARITIN PO SCH (10:00)
--- NOTE | 2019-02-23 09:24 | DISCHARGE SUMMARY ---
ADMISSION DATE: 02/18/2019 DISCHARGE DATE: 02/22/2019 FINAL DISCHARGE DIAGNOSES: 1. Recurrent acute pancreatitis. 2. Transaminitis. 3. Mechanical aortic valve on chronic anticoagulation. 4. Constipation. 5. Morbid obesity. 6. Hypertension. 7. History of gout. 8. Restless legs syndrome. CONSULTATIONS: 1. General Surgery consultation with Dr. Machado. 2. GI consultation with Dr. Bernardo. IMAGING: CT of the abdomen and pelvis performed on 02/18/2019, which revealed extensive inflammatory stranding that appears to emanate from the pancreas and suggesting acute pancreatitis. Moderately distended loops of small bowel. HOSPITAL COURSE: Mr. Reddy is a 58-year-old male who is well known to the hospitalist service with a history of recurrent pancreatitis and mechanical aortic valve, who presented to the ER with a chief complaint of abdominal pain. At the time of admission, the patient was noted to have a lipase of 2116 with an amylase of 1962. While in the ER, a CT of the abdomen and pelvis was done that revealed acute pancreatitis. In light of these findings the patient was admitted to the hospitalist service and General Surgery and GI were consulted. The patient was made NPO and started on aggressive IV fluid hydration as well as antiemetics and pain medication. The patient was seen by both General Surgery and GI throughout the hospitalization. Slowly over the course of the hospitalization, the patient's abdominal pain improved and his lipase eventually normalized. The patient's diet was slowly advanced during the hospitalization. The patient tolerated each advancement without any difficulty and his pain has improved remarkably at this time. It was recommended by GI and General Surgery that the patient undergo an EUS to further evaluate the pancreas. The patient requested to have this done at [facility] since that is where his GI doctor is located. On the day of discharge, the patient's lipase was noted to be 28. Also, the patient was able to tolerate a low-fat diet without any abdominal pain, nausea or vomiting. Also, the patient was having normal bowel movements as well. The patient was ultimately cleared for discharge home on 02/22/2019. DISCHARGE MEDICATIONS: 1. Oxy-IR 5 mg p.o. every 6 hours p.r.n. for pain. 2. Warfarin 7.5 mg p.o. at bedtime. 3. Lopressor 25 mg p.o. twice a day. 4. Creon 24,000 units oral 3 times a day. 5. Protonix 40 mg p.o. daily. 6. Mirapex 0.25 mg p.o. daily. 7. Simvastatin 20 mg p.o. at bedtime. 8. Allopurinol 100 mg p.o. daily. 9. Zofran 4 mg p.o. every 8 hours p.r.n. for nausea. 10. Claritin 10 mg p.o. daily. 11. Flexeril 10 mg p.o. every 4 hours p.r.n. for spasms. 12. Vitamin D 3 1000 units oral daily. DISCHARGE DIET: Low fat diet. ACTIVITY: As tolerated. 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 The patient will need to follow up with Dr. Renee Alexandre in 1 to 2 weeks. cc: Shira Angela MD MTDD
== END 2019-02-22 10:34 | disposition home or self-care (01) | DRG 439 ==
LOC: ED 09:47 → EDIPHOLD 09:48 → SUATTDRO 09:48 → 4N 16:50
PROVIDERS: ATTEND Internal Medicine
CPT/HCPCS: 71010; 71045; 74000; 74018; 74177; 76705; 80053; 80061; 81001; 82150; 82784; 82787; 83605; 83690; 83735; 84484; 85025; 85027; 85610; 85730; 87040; 93005; 93010; 94761; 94799; 96361; 96365; 96366; 96375; 96376; 99285; A9270; C9113; J1170; J2405; J2543; J3475; J7030; J7120; Q9967; S0164